=== PATIENT | male | born 1945 | race Caucasian/White ===

== ENCOUNTER → 2024-03-09 12:14 | Outpatient (REF) | payer OTHER, SELFPAY ==
[2024-03-09 15:16] LABS: % Basophils 1.7 % (0-2); % Immature Granulocytes 0.6 % (0-0.5); % Lymphocytes 25.3 % (20.5-51.1); % Monocytes 10.5 % (1.7-9.3); % Neutrophils 57.9 % (42.2-75.2); Absolute Basophils 0.2 10^3/uL (0-0.2); Absolute Eosinophils 0.4 10^3/uL (0-0.7); Absolute Immature Granulocytes 0.1 10^3/uL (0-0.05); Absolute Lymphocytes 2.3 10^3/uL (1.2-3.4); Absolute Monocytes 0.9 10^3/uL (0.1-0.6); Absolute Neutrophils 5.2 10^3/uL (1.4-6.5); Hematocrit 43.7 % (39.0-52.0); Hemoglobin 13.6 g/dL (13.0-18.0); Mean Corp Hgb Conc. 31.1 g/dL (33.0-37.0); Mean Corpuscular Volume 96.5 fL (80.0-94.0); Mean Platelet Volume 9.6 fL (7.4-10.4); Nucleated Red Blood Cells % 0 % (-); Platelet Count 373 10^3/uL (130-400); Red Blood Cell Count 4.53 10^6/uL (4.70-6.10)
[2024-03-09 15:30] LABS: ALT (SGPT) 16 U/L (0-50); AST (SGOT) 17 U/L (17-59); Albumin 3.8 g/dl (3.5-5.0); Alkaline Phosphatase 110 U/L (38-126); Blood Urea Nitrogen 12 mg/dl (9-20); Calcium 8.9 mg/dl (8.4-10.2); Carbon Dioxide 25 mmol/L (22-30); Chloride 99 mmol/L (98-107); Glucose 120 mg/dl (70-99); HDL Cholesterol 37 mg/dl; LDL Cholesterol, Calculated 55 mg/dl; Potassium 4.4 mmol/L (3.5-5.1); Sodium 135 mmol/L (135-145); Total Bilirubin 0.3 mg/dl (0.2-1.3); Total Cholesterol 125 mg/dl (50-199); Total Protein 6.6 g/dl (6.3-8.2); Triglyceride 168 mg/dl (10-149); Very Low Density Lipoprotein 33 mg/dl (0-30); eGFR > 60.00
== END ==
LOC: OLABN 12:14
PROVIDERS: ATTENDING PHYSICIAN Student in an Organized Health Care Education/Training Program
DX: G20.C Parkinsonism, unspecified (principal); J18.0 Bronchopneumonia, unspecified organism; E78.5 Hyperlipidemia, unspecified
CPT/HCPCS: 36415; 80053; 80061; 85025

== ENCOUNTER 2024-07-12 14:18 | Inpatient (IN) | payer MEDICARE, OTHER, SELFPAY ==
[2024-07-12 10:43] VITALS: BMI 29.1
[2024-07-12 10:51] VITALS: BP 174/106
--- NOTE | 2024-07-12 12:54 | ED.GENMED ---
History of Present Illness
General
Chief Complaint: Skin Problem
Source: patient and family
Time Seen by Provider: 07/12/24 11:46
History of Present Illness
History of Present Illness:
79-year-old male with past medical history of wkv-qjpmkiv-udszpqqgc diabetes, Guillain-Chand�, Parkinson's disease, prostate cancer and had [place] of [place] brought to the ER by daughter for evaluation
and concern of surgical site infection noting patient has had increased redness, edema, pain and oozing. No reported fevers but patient states may have had some chills last night. Patient was not given any antibiotics following the procedure.
Daughters major is that a family member had a similar procedure on their lower extremity about a year ago that got infected and required significant hospitalization, rehab and near amputation of the extremity.
Past History
Past History
ED Past Medical History: Cancer, NIDDM and Other (Guillain-Chand�, Parkinson's disease)
ED Past Surgical History: Other
Social History
Tobacco: Non-smoker
Alcohol: None
Drug: None
Personal:
Living: with family
Employment: Employed
Review of Systems
Review of Systems
All Other Systems: ROS reviewed and negative except as documented in HPI and ROS
Phy Exam
Physical Exam
Physical Exam:
GENERAL: Alert , in no apparent distress
EYE: conjunctiva clear
Head: Normocephalic atraumatic
NECK: Supple,
ENT: mmm.
LUNGS: no acute respiratory distress
NEUROLOGICAL: Alert and oriented
SKIN: Warm and dry, Large approximately 5 cm surgical site with sutures in place to the dorsal left forearm, there is a moderate surrounding area of erythema, edema, or warmth and induration. No purulence expressed. Remainder of extremity is
within normal limits, full range of motion and neurovascularly intact
MUSCULOSKELETAL: well perfused.
PSYCH: Normal and appropriate interaction.
Scores
Heart Failure Risk
Heart Failure Risk Score: Not Applicable
Heart Score for Chest Pain Patients
STEMI patient?: Not applicable
Withdrawal Assessment of Alcohol
Withdrawal Assessment Completed?: Not applicable
Course
Orders/Labs/Results
Orders:
Orders
07/12/24 12:08
CR Forearm - Left 2 View Urgent
Comment:
Reason For Exam: recent surgery, concern for infection
07/12/24 12:22
Basic Metabolic Panel Urgent
Complete Blood Count/With Diff Urgent
Blood Culture Q30M
SHAWN Source: Blood/Venous
Specimen Description:
07/12/24 12:40
Vancomycin [Vancocin] 2,000 mg 0.9% Sodium Chloride 500 ml [Nss] 500 ml IV NOW
07/12/24 12:44
Blood Culture Q30M
SHAWN Source: Blood/Venous
Specimen Description:
07/12/24 13:41
Admit/Transfer Patient As Directed
Co-Sign Provider:
Level of Care: Inpatient admission
Assign to:: Medical/Surgical
Physician / Group: daniella
Diagnosis: surgical site infection
Reason for Hospitalization: surgical site infection
Expected length of stay greater than two midnights?: Yes
ELOS- Estimated Length of Stay in days: 2
I certify the patient meets the requirements for IP care: Yes
PRN Pain Medication Management As Directed
May give lesser potent ordered pain med per pt: Yes
preference::
Protocol:: Medication orders for pain may be administered in a
manner that supports deferring to patient preference
when the pt is:
- Requesting an ordered lesser potent pain medication.
Least to most potent pain medications are defined
as: acetaminophen < NSAID < tramadol < opioids
(morphine, oxycodone, hydromorphone).
- Requesting a lesser dose of the same medication IF
ORDERED.
- Requesting a less intrusive route of administration
if both routes are prescribed by the provider (PO <
IV).
07/12/24 13:42
Code Status As Directed
Resuscitation Status: Full Code
07/12/24 13:53
Ondansetron Injectable [Zofran] 4 mg IV NOW STA
07/12/24 Dinner
Regular
At Your Request: Full Participation
Does patient need a safe tray?: Yes
07/12/24 15:54
Acetaminophen [Tylenol] 650 mg PO Q4HPRN PRN
Dextrose 50%-Water [Dextrose 50% Syringe] 12.5 grams IV [id number] PRN
Glucagon [GlucaGen] 1 mg IM PRN PRN
VANCOMYCIN Pharmacy to Dose [VANCOCIN Pharmacy to Dose] 1 each Pharmacy To Prepare [Call Pharmacy To Prepare] 0 ml IV PER PROTOCOL
07/12/24 15:54
Activity As Directed
Activity Level: As Tolerated
Bedside Glucose Monitoring As Directed
Frequency: AC&HS
Additional Instructions:: Change to q6h if pt on TPN, tube feeding or not eating
Vital Signs As Directed
Frequency: Per unit guidelines
DX Deep Vein Thrombosis Video Routine
07/12/24 16:30
Insulin Aspart Corrective Low [Novolog Flexpen-Low Resistance] See Protocol SC AC
07/12/24 20:00
Heparin 5,000 units SC Q12
Ondansetron Injectable [Zofran] 4 mg IV Q6HPRN PRN
07/13/24 06:00
Complete Blood Count/With Diff IN AM
Comprehensive Metabolic Panel IN AM
Glycohemoglobin (HgbA1c) IN AM
Abnormal Lab Results
07/12/24
12:22
RBC 4.48 L 10^6/uL
(4.70-6.10)
MCV 96.9 H fL
(80.0-94.0)
MCH 32.4 H pg
(27.0-31.0)
RDW 15.0 H %
(11.5-14.5)
Absolute Neuts (auto) 7.0 H 10^3/uL
(1.4-6.5)
Absolute Monos (auto) 0.9 H 10^3/uL
(0.1-0.6)
Lymphocytes % 20.3 L %
(20.5-51.1)
Carbon Dioxide 31 H mmol/L
(22-30)
Glucose 200 H mg/dl
(70-99)
07/12/24 12:22
07/12/24 12:22
Vital Signs
Initial and Last Documented VS:
Initial Vital Signs
Temp Pulse Resp BP Pulse Ox
98.8 F 93 18 174/106 95
07/12/24 10:51 07/12/24 10:51 07/12/24 10:51 07/12/24 10:51 07/12/24 10:51
Last Documented Vital Signs
Temp Pulse Resp BP Pulse Ox
98.4 F 73 18 124/70 93
07/12/24 16:25 07/12/24 16:25 07/12/24 16:25 07/12/24 16:25 07/12/24 16:25
MDM/Problems Addressed
Differential Diagnosis Includes:
Postop wound infection, inflammatory response, at this time I do not have concern for necrotizing fasciitis
MDM/Problems Addressed:
79-year-old male presenting to the ER for evaluation after daughter is concerned and suspicious for postoperative wound infection. Surgical procedure this past Saturday, the last 48 hours patient and daughter have noticed increased erythema,
warmth, pain and induration. No purulence here on exam. Patient is afebrile. Discussed different treatment options including outpatient management with antibiotics and wound monitoring however daughter states her concern is the potential for
wound to get worse and given the family history but they have gone through recently is preferring the patient be admitted for IV antibiotics and close monitoring which I do think is reasonable especially given the patient's history of diabetes.
Will initiate IV vancomycin. ID can be consulted as needed. Will plan for admission.
Chronic conditions affecting care: DM
*Radiology
Radiology exam reviewed: preliminary read by ED provider (Soft tissue swelling, no subcutaneous gas)
*Pulse Oximetry
Patient hypoxic: no
*Critical Care Note
Total Time (30-74mins, 75-104mins- exclusive of procedures): Not Applicable
Patient Management
Discussion with other providers: Hospitalist
Escalation/DeEscalation of care consider admission/obs:
Hospitalist team accepts for continued evaluation and treatment of left forearm cellulitis postoperatively
ED Attending Note
-
Portions of this chart may have been created with voice recognition software.� Occasional wrong word or��sound alike� substitutions may have occurred due to the inherent limitations of voice recognition software.
Discharge Plan
Departure
Patient Disposition: Admit
Date of Disposition: 07/12/24
Time of Disposition: 13:33
Presentation/result/management discussed w/ accepting MD/DO: Hospitalist
Discharge Problem:
Cellulitis of forearm, left, Postoperative wound cellulitis
Interventions
Interventions:
*Risk Screen - Suicide Last Done: 07/12/24 16:26
*General Assessment Last Done: 07/12/24 10:54
*Neglect/Abuse Screening Last Done: 07/12/24 10:54
*ED- Fall Risk Assessment Last Done: 07/12/24 11:09
*ED COVID-19 Vaccine History Last Done: 07/12/24 16:26
*Nursing Disposition Last Done: 07/12/24 15:29
ED-Skin Assessment Last Done: 07/12/24 11:09
Discharge Date and Time
Discharge Date/Time: 07/12/24 15:45
[2024-07-12] MEDS: VANCOCIN 540 MG IV (12:57)
[2024-07-12 13:00] VITALS: BP 159/78
[2024-07-12 13:02] LABS: % Basophils 0.9 % (0-2); % Eosinophils 1.8 % (0-6); % Immature Granulocytes 0.4 % (0-0.5); % Lymphocytes 20.3 % (20.5-51.1); % Monocytes 8.6 % (1.7-9.3); Absolute Basophils 0.1 10^3/uL (0-0.2); Absolute Eosinophils 0.2 10^3/uL (0-0.7); Absolute Lymphocytes 2.1 10^3/uL (1.2-3.4); Absolute Monocytes 0.9 10^3/uL (0.1-0.6); Hematocrit 43.4 % (39.0-52.0); Hemoglobin 14.5 g/dL (13.0-18.0); Mean Corp Hgb Conc. 33.4 g/dL (33.0-37.0); Mean Corpuscular Hgb 32.4 pg (27.0-31.0); Mean Corpuscular Volume 96.9 fL (80.0-94.0); Mean Platelet Volume 9.8 fL (7.4-10.4); Nucleated Red Blood Cells % 0 % (-); Platelet Count 274 10^3/uL (130-400); Red Blood Cell Count 4.48 10^6/uL (4.70-6.10); White Blood Cell Count 10.2 10^3/uL (4.8-10.8)
--- NOTE | 2024-07-12 13:02 | EDRN ---
Provided pt with extra pillow, blanket and lunch box/cristian dalia.
[2024-07-12 13:16] LABS: Blood Urea Nitrogen 12 mg/dl (9-20); Calcium 9.5 mg/dl (8.4-10.2); Carbon Dioxide 31 mmol/L (22-30); Chloride 104 mmol/L (98-107); Estimated Creatinine Clearance 110 ml/min; Glucose 200 mg/dl (70-99); Potassium 4.3 mmol/L (3.5-5.1); Sodium 140 mmol/L (135-145); eGFR > 60.00
[2024-07-12 14:00] VITALS: BP 161/79
--- NOTE | 2024-07-12 14:05 | HPS.HSE ---
Addendum entered and electronically signed by Vic Hutchinson MD 07/12/24 18:14:
Patient vapes marijuana.
Original Note:
Family Physician
-
Family Physician: Tone Mccord
Chief Complaint
-
left forearm infection
History of Present Illness
79-year-old male past medical history of diabetes, Guillain-Chand�, Parkinson disease, prostate cancer, melanoma removal of left forearm 4 days ago, rheumatoid arthritis, polymyalgia rheumatica, presenting for concern of surgical site infection with
redness, edema and pain and wheezing of the left forearm starting last night. He had melanoma removal of left forearm 4 days ago. No fever but he may have had some chills last night. He was not given any antibiotics after the procedure. Denies
any drainage from the site.
Former smoker. Drinks alcohol occasionally.
Medical History
Past Medical History
Past Medical History: Reports Other (diabetes, Guillain-Chand�, Parkinson disease, prostate cancer, melanoma removal of left forearm 4 days ago, rheumatoid arthritis, polymyalgia rheumatica)
Past Surgical History: Reports None
Social History
Tobacco: Non-smoker
Alcohol: None
Drug: None
Family History
Family History: Not pertinent
Allergies / Home Medications
Allergies reflects when Allergies were last updated in [employer].
Home Medications with original date entered in [employer]
Allergy/Medication List:
Allergies
Allergy/AdvReac Type Severity Reaction Status Date / Time
No Known Allergies Allergy Verified 07/12/24 10:52
Home Medications
meloxicam 7.5 mg tablet 7.5 mg PO BID #14 tabs 12/19/16
Review of Systems
-
History Source: Patient
A 12 point ROS was completed and negative except as noted: Yes
Constitutional: Reports No Symptoms
EENT: Reports No Symptoms
Respiratory: Reports No Symptoms
Cardiac: Reports No Symptoms
Abdomen/GI: Reports No Symptoms
: Reports No Symptoms
Musculoskeletal: Reports No Symptoms
Skin: Reports See HPI
Neurological: Reports No Symptoms
Endocrine: Reports No Symptoms
Hematologic/Lymphatic: Reports No Symptoms
Psych: Reports No Symptoms
Physical Exam
Vital Signs
Vital Signs
Temp Pulse Resp BP Pulse Ox
98.8 F 79 16 159/78 99
07/12/24 10:51 07/12/24 13:00 07/12/24 13:00 07/12/24 13:00 07/12/24 13:00
Physical Exam
General: Well Developed, Well Nourished and No Apparent Distress
HEENT: NormoCephalic, Moist mucous membranes and Atraumatic
Respiratory: Clear
Cardiac: S1/S2 and Regular Rhythm; No Murmur or Rub
GI: Soft, Non Tender, Non Distended and Normal Bowel Sounds; No Organomegaly
Rectal: Deferred by Provider
Musculoskeletal: No Clubbing, No Cyanosis and No Edema
Skin: Other (keft forearm redness and swelling ); No Rash
Neuro: Nonfocal/grossly intact
Laboratory Results
-
07/12/24 12:22
07/12/24 12:22
Data Reviewed
-
Lab Data: Labs Reviewed by me
Old Records: Reviewed
Impression/Plan
-
IMPRESSION:
PLAN:
# Left forearm surgical site infection after recent biopsy for melanoma
-Blood cultures pending
-Forearm x-ray pending
- Vancomycin
Melanoma status post forearm resection 4 days ago
Type 2 diabetes
- Continue sitagliptin
- Insulin sliding scale
Guillain-Chand� syndrome
Parkinson's disease
- Continue carbidopa levodopa
Dementia
- Continue donepezil
Rheumatoid arthritis
Polymyalgia rheumatica
Prostate cancer
Hyperlipidemia
- Continue Zetia
Anxiety/depression
- Continue Cymbalta, mirtazapine
Full code
DVT prophylaxis�heparin
Regular diet
[2024-07-12] MEDS: ZOFRAN 4 MG IV (14:06)
[2024-07-12 16:25] VITALS: BP 124/70
--- NOTE | 2024-07-12 16:25 | PHA.VAN.IN ---
Assessment
- Assessment
Renal Function: Appears similar to baseline
AUC Dosing Plan
- Dosing Variables
Dosing Weight (kg): 111
Dosing CrCl (ml/min): 110
Vd coefficient (L/kg): 0.7
- Empiric Dosing
Initial / Loading Dose: Vancomycin 2000mg given 5/ at 1300
Maintenance Regimen: Vancomycin 1500mg IV Q12h
Estimated AUC (mcg*h/mL): 432
Estimated Peak (mcg*h/mL): 28.3
Estimated Trough (mcg/ml): 10.3
Estimated Half Life (H): 7.2
- Monitoring
No levels ordered at this time: Will order levels prior to steady state
Pharmacokinetics Vancomycin I
- -
Patient Age: 79
Patient Sex: Male
Vancomycin Day #: 1
Indication: Skin And Soft Tissue
Requesting Provider: Dr. Hutchinson
Pertinent Antimicrobial Allergies:
NKA
Height / Weight:
Height 6 ft 5 in
Actual Weight 111.13 kg
Pertinent Past Medical History: BMI ~29, recent resection of melanoma 4 days ago, RA, diabetes
- Vital Signs / Lab Results
Temp Pulse Resp BP Pulse Ox
98.8 F 84 16 161/79 99
07/12/24 10:51 07/12/24 14:00 07/12/24 14:00 07/12/24 14:00 07/12/24 13:00
Lab Results - Hematology
07/12/24
12:22
WBC 10.2
Lab Results - Chemistry
07/12/24
12:22
BUN 12
Creatinine 0.7
Estimated Creat Clear 110
[2024-07-12 16:39] VITALS: BMI 29.1
[2024-07-12 17:02] LABS: Glucose - Point of Care 157 mg/dl (70-99)
[2024-07-12] MEDS: NOVOLOG FLEXPEN-LOW RESISTANCE 1 UNITS SC (17:15)
[2024-07-12] MEDS: LOVENOX 40 MG SC (17:16)
[2024-07-12] MEDS: SINEMET 25-100 PO (18:24)
[2024-07-12] MEDS: DILAUDID 0.5 MG IV ×2 (18:30→23:11)
[2024-07-12] MEDS: REMERON PO (18:40)
[2024-07-12] MEDS: NIZORAL 2% CREAM 1 APPLIC TOPICAL (19:38)
[2024-07-12] MEDS: TYLENOL 650 MG PO (19:50)
[2024-07-12 21:38] LABS: Glucose - Point of Care 212 mg/dl (70-99)
[2024-07-12 23:03] VITALS: BP 118/66
[2024-07-13] MEDS: VANCOCIN 530 MG IV ×2 (03:53→17:09)
[2024-07-13] MEDS: DILAUDID 0.5 MG IV ×4 (06:06→20:25)
[2024-07-13 06:52] VITALS: BP 145/85
[2024-07-13] MEDS: HYDROPHOR 1 APPLIC TOPICAL (07:35)
[2024-07-13] MEDS: LAC HYDRIN, AM LACTIN LOTION 1 APPLIC TOPICAL (07:35)
[2024-07-13] MEDS: JANUVIA 25 MG PO (07:36)
[2024-07-13] MEDS: THERAGRAN 1 TABLET PO (07:36)
[2024-07-13] MEDS: ARICEPT 20 MG PO (07:36)
[2024-07-13] MEDS: ZETIA 10 MG PO (07:36)
[2024-07-13] MEDS: SINEMET 25-100 2 TABLET PO ×3 (07:36→17:08)
[2024-07-13] MEDS: VITAMIN B-12 1000 MCG PO (07:36)
[2024-07-13] MEDS: OSCAL 500 + D 250 MG PO (07:36)
[2024-07-13] MEDS: CYMBALTA DELAYED RELEASE 60 MG PO (07:36)
[2024-07-13] MEDS: NIZORAL 2% CREAM 1 APPLIC TOPICAL ×2 (07:38→19:28)
[2024-07-13 07:53] LABS: Glucose - Point of Care 163 mg/dl (70-99)
[2024-07-13 08:02] LABS: ALT (SGPT) 15 U/L (0-50); AST (SGOT) 15 U/L (17-59); Albumin 3.5 g/dl (3.5-5.0); Alkaline Phosphatase 87 U/L (38-126); Blood Urea Nitrogen 9 mg/dl (9-20); Calcium 8.5 mg/dl (8.4-10.2); Carbon Dioxide 28 mmol/L (22-30); Chloride 104 mmol/L (98-107); Estimated Creatinine Clearance 110 ml/min; Glucose 180 mg/dl (70-99); Potassium 4.2 mmol/L (3.5-5.1); Sodium 137 mmol/L (135-145); Total Bilirubin 0.7 mg/dl (0.2-1.3); Total Protein 6.1 g/dl (6.3-8.2); eGFR > 60.00
[2024-07-13 08:04] LABS: % Basophils 0.7 % (0-2); % Eosinophils 1.4 % (0-6); % Immature Granulocytes 0.5 % (0-0.5); % Lymphocytes 14.7 % (20.5-51.1); % Monocytes 9.4 % (1.7-9.3); % Neutrophils 73.3 % (42.2-75.2); Absolute Basophils 0.1 10^3/uL (0-0.2); Absolute Eosinophils 0.2 10^3/uL (0-0.7); Absolute Immature Granulocytes 0.1 10^3/uL (0-0.05); Absolute Lymphocytes 1.9 10^3/uL (1.2-3.4); Absolute Monocytes 1.2 10^3/uL (0.1-0.6); Absolute Neutrophils 9.7 10^3/uL (1.4-6.5); Hematocrit 42.6 % (39.0-52.0); Hemoglobin 13.9 g/dL (13.0-18.0); Mean Corp Hgb Conc. 32.6 g/dL (33.0-37.0); Mean Corpuscular Hgb 32.3 pg (27.0-31.0); Mean Corpuscular Volume 98.8 fL (80.0-94.0); Mean Platelet Volume 10.3 fL (7.4-10.4); Nucleated Red Blood Cells % 0 % (-); Platelet Count 259 10^3/uL (130-400); Red Blood Cell Count 4.31 10^6/uL (4.70-6.10); White Blood Cell Count 13.2 10^3/uL (4.8-10.8)
--- NOTE | 2024-07-13 08:26 | PHA.VAN.FU ---
Vancomycin Assessment / Plan
- Assessment
Renal Function: Stable
WBC's are: Trending Up
In the past 24 hrs, patient has been: Afebrile
- Dosing Plan
Continue: Vanc 1500mg Q12H
- Monitoring Plan
No level(s) ordered at this time: consider levels in next few days
- Follow Up
Pharmacy will continue to follow.
Vancomycin Follow UP
- -
Patient Age: 79
Patient Sex: Male
Vancomycin Day #: 2
Indication: Skin And Soft Tissue
Requesting Provider: Dr. Hutchinson
Pertinent Antimicrobial Allergies:
NKDA
Height / Weight:
Height 6 ft 5 in
Actual Weight 111.221 kg
Pertinent Past Medical History: DM 2, Parkinson disease
- Vital Signs / Lab Results
Temp Pulse Resp BP Pulse Ox
98.7 F 70 18 145/85 96
07/13/24 06:52 07/13/24 06:52 07/13/24 06:52 07/13/24 06:52 07/13/24 06:52
Lab Results - Hematology
07/12/24 07/13/24
12:22 06:31
WBC 10.2 13.2 H
Lab Results - Chemistry
07/12/24 07/13/24
12:22 06:31
BUN 12 9
Creatinine 0.7 0.7
Estimated Creat Clear 110 110
Albumin 3.5
[2024-07-13] MEDS: NOVOLOG FLEXPEN-LOW RESISTANCE 1 UNITS SC ×3 (08:39→17:07)
[2024-07-13 10:19] LABS: Glycohemoglobin (HgbA1c) 8.1 % (4.0-5.6)
[2024-07-13 12:06] LABS: Glucose - Point of Care 161 mg/dl (70-99)
[2024-07-13 15:30] VITALS: BP 137/78
--- NOTE | 2024-07-13 15:37 | W.PN.HOSP.TC ---
Today's Communication/Plan
-
Assessment / Plan
Assessment / Plan
General: No Apparent Distress, Comfortable and Conversant
HEENT: NormoCephalic, Moist mucous membranes, Atraumatic
Respiratory: Clear and Non Labored Respirations
Cardiac: S1/S2 and Regular Rhythm; No Rub or Gallop
GI: Soft, Non Tender, Non Distended and Normal Bowel Sounds
Musculoskeletal: No Edema, no deformity
Skin: Warm and dry, left forearm surgical excision site with surrounding erythema and drainage
: NO De Jesus
Neuro: Awake, Alert, Nonfocal/grossly intact
Psych: Calm and Intact Judgment/Insight
Mr. Cannon is a 79-year-old male with medical history of Parkinson disease, Guillain-Chand�, prostate cancer, xdt-kqezqex-twcjimetg diabetes mellitus, rheumatoid arthritis, polymyalgia rheumatica, and melanoma (status post excision left forearm 4
days prior to arrival) who presented with pain and swelling at surgical excision site. He reports associated chills with no recorded fever. He has been started on antibiotics and admitted for further evaluation and management of apparent infection
of surgical excision site.
Infection of surgical excision site:
- Left forearm melanoma surgically excised 4 days prior to arrival, site now appears swollen and erythematous
- Continue vancomycin, follow-up wound and blood cultures
- ID consult forearm x-ray shows no subcutaneous gas or foreign bodies
- Continue tight blood glucose control
Qka-aohxudf-junyqeart diabetes mellitus:
- Not well-controlled, hemoglobin A1c 8.1%
- Continue home sitagliptin with additional sliding scale insulin as needed
Parkinson's disease:
- Continue carbidopa levodopa
- Continue donepezil for dementia
Anxiety and depression:
- Continue Cymbalta and mirtazapine
DVT prophylaxis: Lovenox
CODE STATUS: Full code
Total time spent on today's encounter was 45 minutes
Anticipated Discharge: 24 - 48 hours
Subjective/Interval History
-
Date of Service: July 13, 2024
Patient was seen and examined at bedside this morning. Reports no significant change in the pain and swelling in his left forearm at site of the melanoma excision.
Objective Data
-
Labs:
Laboratory Results
07/13/24
06:31
WBC 13.2 H
Hgb 13.9
Hct 42.6
Plt Count 259
Sodium 137
Potassium 4.2
Chloride 104
Carbon Dioxide 28
BUN 9
Creatinine 0.7
Glucose 180 H
Calcium 8.5
Total Bilirubin 0.7
AST 15 L
ALT 15
Alkaline Phosphatase 87
Vital Signs:
Vital Signs
Temp Pulse Resp BP Pulse Ox
98.7 F 70 18 145/85 99
07/13/24 06:52 07/13/24 06:52 07/13/24 06:52 07/13/24 06:52 07/13/24 07:35
I&O
07/12/24 07/13/24 07/14/24
06:59 06:59 06:59
Intake Total 480 / 480
Balance 480 / 480
Review of Systems
-
History Source: Patient
All other systems: Reviewed and negative
Skin: Reports Other (Left forearm melanoma excision site pain and swelling)
Physical Exam
-
General: No Apparent Distress
--- NOTE | 2024-07-13 16:21 | W.PN.UPDATE ---
Update Note
Progress Note Update
I personally performed a history and physical exam of the patient and discussed management with the resident. I reviewed the resident's seperately documented note and agree with the documented findings and plan of care HPI/CC with the following
additions/corrections:
Mr Cannon is a 79 year old male with history of melanoma removal from the L forearm 4 days prior to arrival, DM2 (a1c 8.1), RA/PMR who developed chills, erythema, edema and weaping from the L surgical site starting 07/11, he presented here 07/12 and is
currently on vancomycin
labs reviewed
Assessment and Plan
Surgical site infection
Melamona
- wound culture
- blood cultures x2 in progress
- check qtc
- CT left upper extremity with IV contrast to assess for deeper collections
- patient [facility]
- agree with vancomycin for present
- add cefepime
- follow clinically
--- NOTE | 2024-07-13 16:46 | CON.ID ---
Addendum entered and electronically signed by Yesenia Mott MD 07/13/24 20:22:
I personally performed a history and physical exam of the patient and discussed management with the resident. I reviewed the resident's seperately documented note and agree with the documented findings and plan of care HPI/CC with the following
additions/corrections:
Mr Cannon is a 79 year old male with history of melanoma removal from the L forearm 4 days prior to arrival, DM2 (a1c 8.1), RA/PMR who developed chills, erythema, edema and weaping from the L surgical site starting 07/11, he presented here 07/12 and is
currently on vancomycin
labs reviewed
Assessment and Plan
Surgical site infection
Melamona
- wound culture
- blood cultures x2 in progress
- check qtc
- CT left upper extremity with IV contrast to assess for deeper collections
- patient reports [facility]
- agree with vancomycin for present
- add cefepime
- follow clinically
Original Note:
Consultation
-
Date/Time Consultation Requested: 07/13/2024 10:45
Date/Time Consultation Performed: 07/13/2024 11:20
Requesting Provider: Ravi Armstrong
Performing Provider: Yesenia Mott MD
Reason for Consultation: Left forearm excision site infection
Chief Complaint / Past History
Chief Complaint
Surgical site infection
History of Present Illness
Mr. Cannon is a 79-year-old male with PMH of NIDDM, GBS, Parkinson's disease, prostate cancer, PMR, melanoma s/p surgical resection of left forearm and melanoma for this [employer]. He was brought to the ED on 07/12 by her daughter due to increased redness,
it edema, pain and oozing of surgical site. Reports surgical site weeping on 07/11. Patient reports he was not on any antibiotics after the procedure. Patient reports associated chills but denies fever, palpitations, dizziness, chest pain or
shortness of breath, nausea, vomiting, diarrhea.
Past History
Past Medical History: Other
Additional Past Medical History:
NIDDM
Guillain-Chand� syndrome
Parkinson disease
Prostate cancer
Melanoma (removal of left forearm 4 days ago, rheumatoid arthritis, polymyalgia rheumatica)
Past Surgical History: Other (Melanoma resection)
Allergy History:
No Known Allergies Allergy (Verified 07/12/24 10:52)
Medications Reviewed: Yes
Social History
Tobacco: Vaping (Marijuana)
Alcohol: None
Drug: None
Living: With Family
Employment: Not Employed
Family History
Family History: Not Pertinent
Review of Systems
Review of Systems
General: Negative Fever or Chills
Cardiovascular: Negative Chest Pain, Edema or Palpitations
Respiratory: Negative Dyspnea
Gasteroenterology: Negative Weight Loss, Nausea, Vomiting or Diarrhea
Musculoskeletal: Negative Joint Pain or Joint Swelling
Neurological: Negative Headache
All systems: All other systems were reviewed and were negative
Vital Signs
Temp Pulse Resp BP Pulse Ox
98.3 F 72 17 137/78 92
07/13/24 15:30 07/13/24 15:30 07/13/24 15:30 07/13/24 15:30 07/13/24 15:30
Physical Exam
Physical Exam
Constitutional: No Acute Distress and Comfortable
Eyes: Pupils Equal and No Conjunctival Hemorrhage
Cardiovascular: Regular Rate and S1/S2; Negative Peripheral Edema
Pulmonary: Clear and Symmetric; Negative Wheezes
Gastrointestinal: Soft and Non Tender
Extremities: Negative Edema
Musculoskeletal: Negative Joint Swelling or Joint Effusion
Skin: Warm and Dry
Wound: Other (Left upper extremity surgical wound with stitches, mild erythema no discharge.)
Neurological: Awake and AO x 3
Psychological: Calm
Lab / Diagnostic Study Results
07/13/24 06:31
07/13/24 06:31
Abs Immat Gran (auto) 0.1 10^3/uL (0-0.05) H 07/13/24 06:31
Absolute Neuts (auto) 9.7 10^3/uL (1.4-6.5) H 07/13/24 06:31
Absolute Lymphs (auto) 1.9 10^3/uL (1.2-3.4) 07/13/24 06:
Absolute Monos (auto) 1.2 10^3/uL (0.1-0.6) H 07/13/24 06:31
Absolute Basos (auto) 0.1 10^3/uL (0-0.2) 07/13/24 06:31
Immature Gran % 0.5 % (0-0.5) 07/13/24 06:
Neutrophils % 73.3 % (42.2-75.2) 07/13/24 06:
Lymphocytes % 14.7 % (20.5-51.1) L 07/13/24 06:
Monocytes % 9.4 % (1.7-9.3) H 07/13/24 06:31
Eosinophils % 1.4 % (0-6) 07/13/24 06:31
Basophils % 0.7 % (0-2) 07/13/24 06:31
Microbiology Results
Micro:
07/12/24 12:22 Blood Culture - Preliminary
Blood/Venous No Growth in 24 hours- Final report to follow
07/12/24 12:44 Blood Culture - Preliminary
Blood/Venous No Growth in 24 hours- Final report to follow
Assessment / Plan
Assessment: 79-year-old male with recent melanoma resection 4 days [employer] presenting with pain and swelling at surgical sites.
Plan:
Surgical site infection
- Melanoma.
- WBC count 13.2, patient has been afebrile.
- Left forearm x-ray unremarkable.
- CT of left UE with IV contrast to assess for deep collections.
- Blood cultures x 2 obtained NGTD, will follow-up.
- Wound cultures pending.
- Continue vancomycin, cefepime added.
- Will continue to follow.
Care Review
Plan reviewed with: Physician
[2024-07-13 16:54] LABS: Glucose - Point of Care 155 mg/dl (70-99)
[2024-07-13] MEDS: LOVENOX 40 MG SC (17:08)
[2024-07-13] MEDS: REMERON 30 MG PO (17:08)
[2024-07-13] MEDS: STERILE WATER FOR INJECTION 10 ML IV (17:11)
[2024-07-13] MEDS: MAXIPIME 2000 MG IV (17:11)
[2024-07-13 21:38] LABS: Glucose - Point of Care 232 mg/dl (70-99)
[2024-07-13 23:29] VITALS: BP 151/84
[2024-07-14] MEDS: VANCOCIN 530 MG IV ×2 (05:05→17:42)
[2024-07-14] MEDS: STERILE WATER FOR INJECTION 10 ML IV ×2 (05:06→17:34)
[2024-07-14] MEDS: MAXIPIME 2000 MG IV ×2 (05:06→17:34)
[2024-07-14 07:04] VITALS: BP 130/74
[2024-07-14 07:58] LABS: % Basophils 0.7 % (0-2); % Eosinophils 1.9 % (0-6); % Immature Granulocytes 0.2 % (0-0.5); % Lymphocytes 16.3 % (20.5-51.1); % Monocytes 10.7 % (1.7-9.3); % Neutrophils 70.2 % (42.2-75.2); Absolute Basophils 0.1 10^3/uL (0-0.2); Absolute Eosinophils 0.2 10^3/uL (0-0.7); Absolute Monocytes 1.3 10^3/uL (0.1-0.6); Absolute Neutrophils 8.6 10^3/uL (1.4-6.5); Hematocrit 38.7 % (39.0-52.0); Hemoglobin 13.1 g/dL (13.0-18.0); Mean Corp Hgb Conc. 33.9 g/dL (33.0-37.0); Mean Corpuscular Volume 97.5 fL (80.0-94.0); Mean Platelet Volume 10.1 fL (7.4-10.4); Nucleated Red Blood Cells % 0 % (-); Platelet Count 242 10^3/uL (130-400); Red Blood Cell Count 3.97 10^6/uL (4.70-6.10); Red Cell Dist. Width 14.8 % (11.5-14.5); White Blood Cell Count 12.2 10^3/uL (4.8-10.8)
[2024-07-14 08:00] LABS: Glucose - Point of Care 188 mg/dl (70-99)
[2024-07-14] MEDS: DILAUDID 0.5 MG IV ×3 (08:01→18:06)
[2024-07-14] MEDS: NOVOLOG FLEXPEN-LOW RESISTANCE 1 UNITS SC ×3 (08:01→17:33)
[2024-07-14] MEDS: JANUVIA 25 MG PO (08:02)
[2024-07-14] MEDS: ZETIA 10 MG PO (08:04)
[2024-07-14] MEDS: CYMBALTA DELAYED RELEASE 60 MG PO (08:04)
[2024-07-14] MEDS: OSCAL 500 + D 250 MG PO (08:04)
[2024-07-14] MEDS: ARICEPT 20 MG PO (08:05)
[2024-07-14] MEDS: THERAGRAN 1 TABLET PO (08:05)
[2024-07-14] MEDS: VITAMIN B-12 1000 MCG PO (08:05)
[2024-07-14] MEDS: HYDROPHOR 1 APPLIC TOPICAL (08:05)
[2024-07-14] MEDS: LAC HYDRIN, AM LACTIN LOTION 1 APPLIC TOPICAL (08:06)
[2024-07-14] MEDS: NIZORAL 2% CREAM 1 APPLIC TOPICAL ×2 (08:07→19:42)
--- NOTE | 2024-07-14 08:19 | PN.DE.MGMTRT ---
Insulin Management
- -
07/14/2024 Diabetes Management Consult
Patient admitted 07/12 with L forearm infection s/p removal of melanoma 07/08 @ [facility] Parkinsons, Guillain [place], prostate CA, melanoma l arm. Prior to admission was taking Januvia 25 mg daily. A1C 8.1%, cr .7, eGFR > 60.
Patient is awake alert and oriented able to discuss diabetes care. Daughter, Brynn, at bedside and very supportive.
Glucose range 155 to 232, on regular diet. Will change diet to 2200 calorie. Will increase Januvia, 25 mg given this AM, will give additional 50 mg now and increase to 100 mg daily starting tomorrow. Patient has glucose monitor, recommended
testing fasting and 2 hours after alternating meals and provide results to primary doctor.
Discussed with nurse
Will follow
Diabetes History
- -
Type of Diabetes: 2
Pre-Admission Diabetes Regimen
Lab Results
Hemoglobin A1c 8.1 % (4.0-5.6) H 07/13/24 06:31
Insulin Pump Settings
IP Diabetes Regimen
07/13/24 07/13/24 07/13/24
12:05 16:53 21:37
POC Glucose 161 H 155 H 232 H
07/14/24
07:59
POC Glucose 188 H
Meal type: Breakfast
Amount consumed: 25%
Patient Education
[2024-07-14 08:23] LABS: Blood Urea Nitrogen 8 mg/dl (9-20); Calcium 8.4 mg/dl (8.4-10.2); Carbon Dioxide 29 mmol/L (22-30); Chloride 103 mmol/L (98-107); Estimated Creatinine Clearance 110 ml/min; Glucose 155 mg/dl (70-99); Sodium 137 mmol/L (135-145); eGFR > 60.00
--- NOTE | 2024-07-14 08:24 | PHA.VAN.FU ---
Vancomycin Assessment / Plan
- Assessment
Renal Function: Stable
WBC's are: Stable
In the past 24 hrs, patient has been: Afebrile
Concomitant Antimicrobials: cefepime
- Dosing Plan
Continue: Vanc 1500mg Q12H
- Monitoring Plan
No level(s) ordered at this time: consider levels in next few days
Monitoring Comments: received IV contrast 07/14
- Follow Up
Pharmacy will continue to follow.
Vancomycin Follow UP
- -
Patient Age: 79
Patient Sex: Male
Vancomycin Day #: 3
Indication: Skin And Soft Tissue
Requesting Provider: Dr. Hutchinson
Pertinent Antimicrobial Allergies:
NKDA
Height / Weight:
Height 6 ft 5 in
Actual Weight 111.221 kg
Pertinent Past Medical History: DM 2, Parkinson disease, s/p resection for melanoma
- Vital Signs / Lab Results
Temp Pulse Resp BP Pulse Ox
98.0 F 65 18 130/74 94
07/14/24 07:04 07/14/24 07:04 07/14/24 07:04 07/14/24 07:04 07/14/24 07:04
Lab Results - Hematology
07/12/24 07/13/24 07/14/24
12:22 06:31 06:56
WBC 10.2 13.2 H 12.2 H
Lab Results - Chemistry
07/12/24 07/13/24 07/14/24
12:22 06:31 06:56
BUN 12 9 8 L
Creatinine 0.7 0.7 0.7
Estimated Creat Clear 110 110 110
Albumin 3.5
Microbiology Results
07/13/24 16:43 Gram Stain - Preliminary
Arm - Left
07/12/24 12:22 Blood Culture - Preliminary
Blood/Venous No Growth in 24 hours- Final report to follow
07/12/24 12:44 Blood Culture - Preliminary
Blood/Venous No Growth in 24 hours- Final report to follow
[2024-07-14] MEDS: SINEMET 25-100 2 TABLET PO ×3 (08:40→17:33)
[2024-07-14] MEDS: JANUVIA 50 MG PO (09:41)
[2024-07-14] MEDS: ZOFRAN 4 MG IV (10:08)
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
[2024-07-14 11:30] LABS: Glucose - Point of Care 158 mg/dl (70-99)
--- NOTE | 2024-07-14 14:55 | W.PN.HOSP.TC ---
Today's Communication/Plan
-
Assessment / Plan
Assessment / Plan
General: No Apparent Distress, Comfortable and Conversant
HEENT: NormoCephalic, Moist mucous membranes, Atraumatic
Respiratory: Clear and Non Labored Respirations
Cardiac: S1/S2 and Regular Rhythm; No Rub or Gallop
GI: Soft, Non Tender, Non Distended and Normal Bowel Sounds
Musculoskeletal: No Edema, no deformity
Skin: Warm and dry, left forearm surgical excision site with surrounding erythema and drainage
: NO De Jesus
Neuro: Awake, Alert, Nonfocal/grossly intact
Psych: Calm and Intact Judgment/Insight
Mr. Cannon is a 79-year-old male with medical history of Parkinson disease, Guillain-Chand�, prostate cancer, rvv-jyaqwqt-eogmttwju diabetes mellitus, rheumatoid arthritis, polymyalgia rheumatica, and melanoma (status post excision left forearm 4
days prior to arrival) who presented with pain and swelling at surgical excision site. He reports associated chills with no recorded fever. He has been started on antibiotics and admitted for further evaluation and management of apparent infection
of surgical excision site.
Infection of surgical excision site:
- Left forearm melanoma surgically excised 4 days prior to arrival, site now appears swollen and erythematous
- Now on vancomycin with addition of cefepime per ID recommendations
- Wound cultures growing Staph aureus, sensitivities pending
- CT imaging of left forearm shows subcutaneous edema with no evidence of abscess, joint effusion, or osteomyelitis
- Continue tight blood glucose control, appreciate assistance of diabetic management nurse practitioner
Nfj-cmosseb-dxrpytxde diabetes mellitus:
- Not well-controlled, hemoglobin A1c 8.1%
- Continue home sitagliptin with additional sliding scale insulin as needed
- Appreciate assistance from diabetic management nurse practitioner
Parkinson's disease:
- Continue carbidopa levodopa
- Continue donepezil for dementia
Anxiety and depression:
- Continue Cymbalta and mirtazapine
DVT prophylaxis: Lovenox
CODE STATUS: Full code
Total time spent on today's encounter was 35 minutes
Anticipated Discharge: 24 - 48 hours
Subjective/Interval History
-
Date of Service: July 14, 2024
Patient was seen and examined at bedside this morning. Continues have significant left forearm pain. Planning CT of left arm today. Leukocytosis slightly improved.
Objective Data
-
Labs:
Laboratory Results
07/14/24
06:56
WBC 12.2 H
Hgb 13.1
Hct 38.7 L
Plt Count 242
Sodium 137
Potassium 4.0
Chloride 103
Carbon Dioxide 29
BUN 8 L
Creatinine 0.7
Glucose 155 H
Calcium 8.4
Vital Signs:
Vital Signs
Temp Pulse Resp BP Pulse Ox
98.0 F 65 18 130/74 94
07/14/24 07:04 07/14/24 07:04 07/14/24 07:04 07/14/24 07:04 07/14/24 07:04
I&O
07/13/24 07/14/24 07/15/24
06:59 06:59 06:59
Intake Total 480 / 480 780 / 780
Balance 480 / 480 780 / 780
Review of Systems
-
History Source: Patient
All other systems: Reviewed and negative
Musculoskeletal: Reports Muscle Pain (Significant left forearm pain)
Physical Exam
-
General: No Apparent Distress
[2024-07-14 15:25] VITALS: BP 122/72
[2024-07-14 17:23] LABS: Glucose - Point of Care 156 mg/dl (70-99)
[2024-07-14] MEDS: REMERON 30 MG PO (17:33)
[2024-07-14] MEDS: LOVENOX 40 MG SC (17:34)
--- NOTE | 2024-07-14 19:40 | W.PN.ID1 ---
Date of Service
Date of Service: July 14, 2024
Today's Communication
- wound culture with S aureus and progression despite what is anticipated to be effective therapy; recommend general surgery consultation in the AM to consider suture removal. Note that s aureus tends to form biofilms and there is a risk of relapse
with the foreign body of the sutures
- continue with vancomycin for present
- continue cefepime for now
Assessment / Plan
Assessment and Plan
Surgical site infection
Melamona
- wound culture with S aureus and progression despite what is anticipated to be effective therapy; recommend general surgery consultation in the AM to consider suture removal. Note that s aureus tends to form biofilms and there is a risk of relapse
with the foreign body of the sutures
- CT did not show an abscess
- blood cultures x2 in progress - no growth to date
- obtain records from [facility]
- qtc [id number]
- patient reports pathology is still pending at the [facility]
- continue with vancomycin for present
- continue cefepime for now
- follow clinically
Chief Complaint
-: Other (surgical site infection)
Subjective / Review of Systems
afebrile
bp stable
progression of the wound with increased swelling and tenderness
no other complaints
Vital Signs / Physical Exam
Vital Signs
Vital Signs
Temp Pulse Resp BP Pulse Ox
98.1 F 72 18 122/72 92
07/14/24 15:25 07/14/24 15:25 07/14/24 15:25 07/14/24 15:25 07/14/24 15:25
Physical Exam
Constitutional: No Acute Distress
Cardiovascular: Regular Rate and S1/S2; Negative Murmur or Rub
Pulmonary: Clear and Symmetric; Negative Wheezes or Rales
Gastrointestinal: Soft, Non Tender, Non Distended and Normal Bowel Sounds
Skin: Warm and Dry; Negative Rash or Jaundice
Wound: Other (L arm surgical site with increased edema, erythema, ongoing serous drainage)
Objective Data
Lab Data
Lab Results
07/14/24 06:56
07/14/24 06:56
Estimated Creat Clear 110 ml/min 07/14/24 06:56
Total Bilirubin 0.7 mg/dl (0.2-1.3) 07/13/24 06:31
AST 15 U/L (17-59) L 07/13/24 06:31
ALT 15 U/L (0-50) 07/13/24 06:31
Alkaline Phosphatase 87 U/L (38-126) 07/13/24 06:31
Most recent labs reviewed.
Micro Results:
07/12/24 12:22 Blood Culture - Preliminary
Blood/Venous No Growth in 48 hours- Final report to follow
07/12/24 12:44 Blood Culture - Preliminary
Blood/Venous No Growth in 48 hours- Final report to follow
07/13/24 16:43 Wound Culture - Preliminary
Arm - Left Staphylococcus aureus
Gram Stain - Preliminary
Care Review
Plan reviewed with: Physician (Dr Sharp - recommend am surgical consult)
[2024-07-14 21:36] LABS: Glucose - Point of Care 177 mg/dl (70-99)
[2024-07-14 22:10] VITALS: BP 128/72
[2024-07-14] MEDS: PERCOCET 5/325 1 TABLET PO (22:21)
[2024-07-15] MEDS: MAXIPIME 2000 MG IV (05:02)
[2024-07-15] MEDS: VANCOCIN 530 MG IV (05:03)
[2024-07-15] MEDS: STERILE WATER FOR INJECTION 10 ML IV (05:03)
[2024-07-15 07:04] VITALS: BP 131/74
[2024-07-15 07:06] LABS: % Eosinophils 3.2 % (0-6); % Immature Granulocytes 0.5 % (0-0.5); % Lymphocytes 19.6 % (20.5-51.1); % Monocytes 11.6 % (1.7-9.3); % Neutrophils 64.1 % (42.2-75.2); Absolute Basophils 0.1 10^3/uL (0-0.2); Absolute Eosinophils 0.3 10^3/uL (0-0.7); Absolute Immature Granulocytes 0.1 10^3/uL (0-0.05); Absolute Monocytes 1.2 10^3/uL (0.1-0.6); Absolute Neutrophils 6.7 10^3/uL (1.4-6.5); Hematocrit 38.9 % (39.0-52.0); Hemoglobin 12.9 g/dL (13.0-18.0); Mean Corp Hgb Conc. 33.2 g/dL (33.0-37.0); Mean Corpuscular Hgb 32.7 pg (27.0-31.0); Mean Corpuscular Volume 98.5 fL (80.0-94.0); Mean Platelet Volume 9.9 fL (7.4-10.4); Nucleated Red Blood Cells % 0 % (-); Platelet Count 245 10^3/uL (130-400); Red Blood Cell Count 3.95 10^6/uL (4.70-6.10); Red Cell Dist. Width 14.6 % (11.5-14.5); White Blood Cell Count 10.4 10^3/uL (4.8-10.8)
[2024-07-15 07:36] LABS: Blood Urea Nitrogen 8 mg/dl (9-20); Calcium 8.6 mg/dl (8.4-10.2); Carbon Dioxide 28 mmol/L (22-30); Chloride 103 mmol/L (98-107); Estimated Creatinine Clearance 110 ml/min; Glucose 143 mg/dl (70-99); Potassium 3.8 mmol/L (3.5-5.1); Sodium 138 mmol/L (135-145); eGFR > 60.00
--- NOTE | 2024-07-15 07:40 | PN.DE.MGMTRT ---
Insulin Management
- -
07/15/2024 Diabetes Management Consult Follow up
Patient admitted 07/12 with L forearm infection s/p removal of melanoma 07/08 @ [place] Parkinson's, Guillain [place], prostate [place], melanoma l arm. Prior to admission was taking Januvia 25 mg daily. A1C 8.1%, cr .7, eGFR > 60.
Patient is awake alert and oriented able to discuss diabetes care. Daughter, Brynn, at bedside and very supportive. Glucose range 156 to 188, diet 2200 calorie. Januvia increased 100 mg to be given this AM.
Patient has glucose monitor, recommended testing fasting and 2 hours after alternating meals and provide results to primary doctor.
Discussed with nurse
Will follow
Diabetes History
- -
Type of Diabetes: 2
Pre-Admission Diabetes Regimen
07/14/24 07/15/24
06:56 06:29
Creatinine 0.7 0.7
Lab Results
Hemoglobin A1c 8.1 % (4.0-5.6) H 07/13/24 06:31
Insulin Pump Settings
IP Diabetes Regimen
07/14/24 07/14/24 07/14/24
06:56 07:59 11:29
Glucose 155 H
POC Glucose 188 H 158 H
07/14/24 07/14/24 07/15/24
17:22 21:35 06:29
Glucose 143 H
POC Glucose 156 H 177 H
Meal type: Breakfast
Amount consumed: 80%
Patient Education
[2024-07-15 07:48] LABS: Glucose - Point of Care 167 mg/dl (70-99)
[2024-07-15] MEDS: NOVOLOG FLEXPEN-LOW RESISTANCE 1 UNITS SC ×2 (07:55→11:53)
[2024-07-15] MEDS: OSCAL 500 + D 250 MG PO (07:57)
[2024-07-15] MEDS: VITAMIN B-12 1000 MCG PO (07:57)
[2024-07-15] MEDS: ZETIA 10 MG PO (07:57)
[2024-07-15] MEDS: CYMBALTA DELAYED RELEASE 60 MG PO (07:57)
[2024-07-15] MEDS: JANUVIA 100 MG PO (07:58)
[2024-07-15] MEDS: ARICEPT 20 MG PO (07:58)
[2024-07-15] MEDS: THERAGRAN 1 TABLET PO (07:58)
[2024-07-15] MEDS: HYDROPHOR 1 APPLIC TOPICAL (07:58)
[2024-07-15] MEDS: LAC HYDRIN, AM LACTIN LOTION 1 APPLIC TOPICAL (07:59)
[2024-07-15] MEDS: NIZORAL 2% CREAM 1 APPLIC TOPICAL ×2 (07:59→19:33)
[2024-07-15] MEDS: SINEMET 25-100 2 TABLET PO ×3 (08:01→16:58)
[2024-07-15] MEDS: DILAUDID 0.5 MG IV ×3 (08:02→23:09)
--- NOTE | 2024-07-15 11:03 | CON.GS ---
Addendum entered and electronically signed by Tate Melendez MD 07/15/24 14:58:
I saw and examined the patient.
The resident's note was reviewed and I agree with the note with the following corrections/additions:
Comment: Seen at bedside. 5 days s/p left forearm melanoma excision. On exam wound is erythematous, fluctuant, tender, warm, there is seropurulent drainage primarily from inferior pole. Plan for bedside irrigation and debridement:
Procedure in detail:
Top layer prolene running stitch removed with scissors and forceps. Deep dermal interrupted vicryl sutrures cut with scissors and wound gently opened. Cultures obtained. Wound irrigated with sterile water. Saline oist gauze packing gently placed and
covered with abd pad and wrapped in archana wrap below elbow.
Pt tolerated procedure well. GS will see tomorrow for wound check and dressing change. OK to reinforce dressing as needed in the interim.
Original Note:
Consultation
-
Date/Time Consultation Requested: 07/15/2024 08:12 AM
Date/Time Consultation Performed: 07/15/2024 10:00 AM
Requesting Provider: Ravi Lambert
Performing Provider: Tate Wilson
Reason for Consultation: Left forearm cellulitis
Medical History
-
Chief Complaint: Left forearm pain and swelling
History of Present Illness:
Patient is a 79-year-old male, full code, with a past medical history of left forearm melanoma, Parkinson's disease, [place] Chand, prostate cancer, uuz-gnsvlis-cuzvaunev diabetes mellitus, rheumatoid arthritis, polymyalgia rheumatica who had
presented to the ED for developing chills, edema, erythema, weeping from left surgical site starting on 07/11/2024. Sutures remain in place. He previously had a melanoma surgically excised on 07/10/2024. No fever on admission.
Upper extremity CT on 07/14/24 showed no abscess, focal collection, osteomyelitis
Blood cultures grew Staph Aureus
ID consulted
Past Medical History
Past Medical History: Other (see HPI)
Past Surgical History: Other
Social History
Tobacco: Former Smoker
Alcohol: Occasional
Drug: None
Personal:
Living: With Family
Employment: Employed
Family History
Family History: Reviewed & Not Pertinent
Allergies / Home Medications
Allergy/AdvReac Type Severity Reaction Status Date / Time
No Known Allergies Allergy Verified 07/12/24 10:52
�Medication �Instructions �Recorded �Confirmed �Type
ammonium lactate 12 % lotion 1 applic topical DAILY back and 07/12/24 07/12/24 History
arms-SKIN ISSUES
calcium 250 mg (as 1 tab PO DAILY Supplement 07/12/24 07/12/24 History
carbonate)-vitamin D3 3.125 mcg
(125 unit) tablet (Oyster Shell +
D3)
carbidopa 25 mg-levodopa 100 mg 2 tab PO TID@0830,1230,1630 07/12/24 07/12/24 History
tablet Neurological Condition
cyanocobalamin (vitamin B-12) 1,000 mcg PO DAILY Supplement 07/12/24 07/12/24 History
1,000 mcg tablet
donepezil 10 mg tablet 20 mg PO DAILY Neurological 07/12/24 07/12/24 History
Condition
duloxetine 60 mg capsule,delayed 60 mg PO DAILY Mental 07/12/24 07/12/24 History
release Health/Anxiety
ezetimibe 10 mg tablet 10 mg PO DAILY High Cholesterol 07/12/24 07/12/24 History
fluticasone propionate 50 1 spray intranasal DAILYPRN PRN 07/12/24 07/12/24 History
mcg/actuation nasal allergies
spray,suspension
ketoconazole 2 % topical cream 1 applic topical BID Skin Issues 07/12/24 07/12/24 History
melatonin 10 mg capsule 10 mg PO HS PRN sleep 07/12/24 07/12/24 History
mineral oil-hydrophil petrolat 1 applic topical DAILY feet and 07/12/24 07/12/24 History
topical ointment legs-SKIN ISSUES
mirtazapine 30 mg tablet 30 mg PO DAILY@1630 Mental 07/12/24 07/12/24 History
Health/Anxiety
sitagliptin 25 mg tablet 25 mg PO DAILY Diabetes 07/12/24 07/12/24 History
therapeutic multivitamin 1 tab PO DAILY Supplement 07/12/24 07/12/24 History
Review of Systems
-
History Source: Patient
All other systems: Negative unless noted
Skin: Other (Edema, tenderness, erythema of left forearm surgical site wound )
A 10 point review of systems was completed, and was negative except as per HPI.
Physical Exam
Vital Signs
Temp Pulse Resp BP Pulse Ox
98.5 F 65 20 131/74 93
07/15/24 07:04 07/15/24 07:04 07/15/24 07:04 07/15/24 07:04 07/15/24 07:04
Body Mass Index (BMI) 29.1
Lab Results
07/15/24 06:29
07/15/24 06:29
WBC 10.4 10^3/uL (4.8-10.8) 07/15/24 06:29
Hgb 12.9 g/dL (13.0-18.0) L 07/15/24 06:29
Hct 38.9 % (39.0-52.0) L 07/15/24 06:29
Plt Count 245 10^3/uL (130-400) 07/15/24 06:29
Abs Immat Gran (auto) 0.1 10^3/uL (0-0.05) H 07/15/24 06:29
Neutrophils % 64.1 % (42.2-75.2) 07/15/24 06:29
Physical Exam
General: Well Developed and Well Nourished
Respiratory: Clear; Negative Wheezes, Rales or Rhonchi
Cardiac: S1/S2 and Regular Rhythm; Negative Murmur
GI: Soft, Non Tender, Non Distended and Normal Bowel Sounds
Musculoskeletal: No Edema
Skin: Warm, Dry and Other (Left forearm with edema, warmth, erythema. Sutures are in place from prior excision of melanoma. Weeping is present with serous fluid, no purulence. Surrounding skin tender to palpation.)
Neuro: Awake and Alert
Psych: Calm
Data Reviewed
-
Labs: Labs Reviewed by me and Discussed with Physician
Assessment / Plan
-
Left forearm cellulitis s/p melanoma excision
Due to Staphylococcus aureus infection confirmed on blood cultures:
- CT scan of the upper extremity on 07/14 did not show a focal collection, abscess, osteomyelitis
- Blood cultures grew Staphylococcus aureus
- Continue patient on IV vancomycin and cefepime as per ID recommendations
- Planning on suture removal to prevent formation of biofilms from Staphylococcus aureus and to crane helper in recovery
- Continue tight blood glucose control, diabetic management nurse practitioner is following
As per management of medical team:
- Dis-nuwwzay-frpfsryis diabetes mellitus
- Parkinson's disease
-Anxiety and depression
[2024-07-15 11:51] LABS: Glucose - Point of Care 153 mg/dl (70-99)
--- NOTE | 2024-07-15 13:51 | PHA.VAN.FU ---
Vancomycin Assessment / Plan
- Assessment
Renal Function: Stable
WBC's are: Trending Down
In the past 24 hrs, patient has been: Afebrile (cefepime)
- Dosing Plan
Continue: vancomycin 1500 mg Q12H
- Monitoring Plan
Peak Level: 5.7 @ 2100
Trough Level: 5.8 @ 0530
- Follow Up
Pharmacy will continue to follow.
Vancomycin Follow UP
- -
Patient Age: 79
Patient Sex: Male
Vancomycin Day #: 4
Indication: Skin And Soft Tissue
Requesting Provider: Dr. Hutchinson
Pertinent Antimicrobial Allergies:
NKDA
Height / Weight:
Height 6 ft 5 in
Actual Weight 111.221 kg
Pertinent Past Medical History: DM 2, Parkinson disease, s/p resection for melanoma
- Vital Signs / Lab Results
Temp Pulse Resp BP Pulse Ox
98.5 F 65 20 131/74 93
07/15/24 07:04 07/15/24 07:04 07/15/24 07:04 07/15/24 07:04 07/15/24 07:04
Lab Results - Hematology
07/13/24 07/14/24 07/15/24
06:31 06:56 06:29
WBC 13.2 H 12.2 H 10.4
Lab Results - Chemistry
07/13/24 07/14/24 07/15/24
06:31 06:56 06:29
BUN 9 8 L 8 L
Creatinine 0.7 0.7 0.7
Estimated Creat Clear 110 110 110
Albumin 3.5
Microbiology Results
07/12/24 12:22 Blood Culture - Preliminary
Blood/Venous No Growth in 72 hours- Final report to follow
07/12/24 12:44 Blood Culture - Preliminary
Blood/Venous No Growth in 72 hours- Final report to follow
07/13/24 16:43 Wound Culture - Final
Arm - Left S aureus-Methicillin Sensitive
Gram Stain - Final
[2024-07-15] MEDS: DILAUDID 1 MG IV (14:21)
[2024-07-15 15:11] VITALS: BP 152/82
--- NOTE | 2024-07-15 15:27 | W.PN.HOSP.TC ---
Today's Communication/Plan
-
Assessment / Plan
Assessment / Plan
General: No Apparent Distress, Comfortable and Conversant
HEENT: NormoCephalic, Moist mucous membranes, Atraumatic
Respiratory: Clear and Non Labored Respirations
Cardiac: S1/S2 and Regular Rhythm; No Rub or Gallop
GI: Soft, Non Tender, Non Distended and Normal Bowel Sounds
Musculoskeletal: No Edema, no deformity
Skin: Warm and dry, left forearm surgical excision site with surrounding erythema and purulent drainage
: NO De Jesus
Neuro: Awake, Alert, Nonfocal/grossly intact
Psych: Calm and Intact Judgment/Insight
Mr. Cannon is a 79-year-old male with medical history of Parkinson disease, Guillain-Chand�, prostate cancer, dxh-xsfuiih-ybtcssgfn diabetes mellitus, rheumatoid arthritis, polymyalgia rheumatica, and melanoma (status post excision left forearm 4
days prior to arrival) who presented with pain and swelling at surgical excision site. He reports associated chills with no recorded fever. He has been started on antibiotics and admitted for further evaluation and management of apparent infection
of surgical excision site.
Infection of surgical excision site:
- Left forearm melanoma surgically excised 4 days prior to arrival, site now appears swollen and erythematous
- Now on vancomycin with addition of cefepime per ID recommendations
- Wound cultures growing MSSA
- CT imaging of left forearm shows subcutaneous edema with no evidence of abscess, joint effusion, or osteomyelitis
- Evaluated by general surgery today, sutures removed and wound irrigated, repeat cultures obtained, moist gauze packing in place, to be reevaluated tomorrow
- Continue tight blood glucose control, appreciate assistance of diabetic management nurse practitioner
Ksr-kvkbqbo-dafrpcigl diabetes mellitus:
- Not well-controlled, hemoglobin A1c 8.1%
- Continue home sitagliptin with additional sliding scale insulin as needed
- Appreciate assistance from diabetic management nurse practitioner
Parkinson's disease:
- Continue carbidopa levodopa
- Continue donepezil for dementia
Anxiety and depression:
- Continue Cymbalta and mirtazapine
DVT prophylaxis: Lovenox
CODE STATUS: Full code
Total time spent on today's encounter was 35 minutes
Anticipated Discharge: 24 - 48 hours
Subjective/Interval History
-
Date of Service: July 15, 2024
Patient was seen and examined at bedside this morning. Continues to have significant left forearm pain. Has purulent and sanguinous drainage from his excision site.
Objective Data
-
Labs:
Laboratory Results
07/15/24
06:29
WBC 10.4
Hgb 12.9 L
Hct 38.9 L
Plt Count 245
Sodium 138
Potassium 3.8
Chloride 103
Carbon Dioxide 28
BUN 8 L
Creatinine 0.7
Glucose 143 H
Calcium 8.6
Vital Signs:
Vital Signs
Temp Pulse Resp BP Pulse Ox
97.7 F 69 18 152/82 98
07/15/24 15:11 07/15/24 15:11 07/15/24 15:11 07/15/24 15:11 07/15/24 15:11
I&O
07/14/24 07/15/24 07/16/24
06:59 06:59 06:59
Intake Total 780 / 780 1500 / 1500
Balance 780 / 780 1500 / 1500
Review of Systems
-
History Source: Patient
All other systems: Reviewed and negative
Musculoskeletal: Reports Muscle Pain (Significant left forearm pain at excision site)
Physical Exam
-
General: No Apparent Distress
--- NOTE | 2024-07-15 16:18 | W.PN.ID1 ---
Date of Service
Date of Service: July 15, 2024
Today's Communication
- start cefazolin 2 gm IV q8 hours
- add metronidazole pending anaerobic culture
- stop vancomycin and cefepime
Assessment / Plan
Assessment and Plan
Surgical site infection
Melamona
- 07/13 superficial wound culture with MSSA
- 07/15 deep wound culture and anaerobic cultures in progress
- blood cultures x2 in progress - no growth to date
- obtain records from [facility] - record request is on the chart but not yet received
- qtc 416
- appreciate surgical assistance with suture removal
- start cefazolin 2 gm IV q8 hours
- add metronidazole pending anaerobic culture
- stop vancomycin and cefepime
- follow clinically
Chief Complaint
-: Other (surgical site infection)
Subjective / Review of Systems
afebrile
bp stable
sutures removed at bedside by general surgery
Vital Signs / Physical Exam
Vital Signs
Vital Signs
Temp Pulse Resp BP Pulse Ox
97.7 F 69 18 152/82 98
07/15/24 15:11 07/15/24 15:11 07/15/24 15:11 07/15/24 15:11 07/15/24 15:11
Physical Exam
Constitutional: No Acute Distress
Cardiovascular: Regular Rate and S1/S2; Negative Murmur or Rub
Pulmonary: Clear and Symmetric; Negative Wheezes or Rales
Gastrointestinal: Soft, Non Tender, Non Distended and Normal Bowel Sounds
Skin: Warm and Dry; Negative Rash or Jaundice
Wound: Other (dressing clean, dry, intact)
Objective Data
Lab Data
Lab Results
07/15/24 06:29
07/15/24 06:29
Estimated Creat Clear 110 ml/min 07/15/24 06:29
Total Bilirubin 0.7 mg/dl (0.2-1.3) 07/13/24 06:31
AST 15 U/L (17-59) L 07/13/24 06:31
ALT 15 U/L (0-50) 07/13/24 06:31
Alkaline Phosphatase 87 U/L (38-126) 07/13/24 06:31
Most recent labs reviewed.
Micro Results:
07/15/24 14:51 Anaerobic Culture - Pending
Arm - Left
07/15/24 14:51 Wound Culture - Pending
Arm - Left Gram Stain - Pending
07/12/24 12:22 Blood Culture - Preliminary
Blood/Venous No Growth in 72 hours- Final report to follow
07/12/24 12:44 Blood Culture - Preliminary
Blood/Venous No Growth in 72 hours- Final report to follow
07/13/24 16:43 Wound Culture - Final
Arm - Left S aureus-Methicillin Sensitive
Gram Stain - Final
[2024-07-15 16:54] LABS: Glucose - Point of Care 140 mg/dl (70-99)
[2024-07-15] MEDS: NOVOLOG FLEXPEN-LOW RESISTANCE SC (16:58)
[2024-07-15] MEDS: REMERON 30 MG PO (16:58)
[2024-07-15] MEDS: ANCEF 10 IV (17:38)
[2024-07-15] MEDS: LOVENOX 40 MG SC (17:38)
[2024-07-15] MEDS: FLAGYL 500 MG PO (19:33)
[2024-07-15 21:41] LABS: Glucose - Point of Care 133 mg/dl (70-99)
[2024-07-15] MEDS: PERCOCET 5/325 1 TABLET PO (21:57)
[2024-07-15 23:14] VITALS: BP 143/79
[2024-07-16] MEDS: ANCEF 10 IV ×3 (02:05→17:42)
[2024-07-16 07:00] VITALS: BP 132/81
[2024-07-16] MEDS: ZETIA 10 MG PO (07:19)
[2024-07-16] MEDS: JANUVIA 100 MG PO (07:19)
[2024-07-16] MEDS: FLAGYL 500 MG PO ×2 (07:19→19:26)
[2024-07-16] MEDS: OSCAL 500 + D 250 MG PO (07:19)
[2024-07-16] MEDS: CYMBALTA DELAYED RELEASE 60 MG PO (07:19)
[2024-07-16] MEDS: VITAMIN B-12 1000 MCG PO (07:20)
[2024-07-16] MEDS: THERAGRAN 1 TABLET PO (07:20)
[2024-07-16] MEDS: LAC HYDRIN, AM LACTIN LOTION 1 APPLIC TOPICAL (07:21)
[2024-07-16] MEDS: HYDROPHOR 1 APPLIC TOPICAL (07:21)
[2024-07-16] MEDS: NIZORAL 2% CREAM 1 APPLIC TOPICAL ×2 (07:21→19:26)
[2024-07-16] MEDS: ARICEPT 20 MG PO (07:21)
[2024-07-16] MEDS: DILAUDID 0.5 MG IV ×4 (07:24→21:24)
--- NOTE | 2024-07-16 07:32 | PN.DE.MGMTRT ---
Insulin Management
- -
07/16/2024 Diabetes Management Consult Follow up
Patient admitted 07/12 with L forearm infection s/p removal of melanoma 07/08 @ [place] Parkinson's, Guillain [place], prostate [place], melanoma l arm. Prior to admission was taking Januvia 25 mg daily. A1C 8.1%, cr .7, eGFR > 60.
Patient is awake alert and oriented able to discuss diabetes care. Daughter, Brynn, at bedside and very supportive. Glucose range 133 to 153, diet 2200 calorie. Will continue Januvia 100 mg daily.
Patient has glucose monitor, recommended testing fasting and 2 hours after alternating meals and provide results to primary doctor. Provided education booklet and instructions highlighted for daughter.
Discussed with nurse
Will follow
Diabetes History
- -
Type of Diabetes: 2
Pre-Admission Diabetes Regimen
07/15/24
06:29
Creatinine 0.7
Lab Results
Hemoglobin A1c 8.1 % (4.0-5.6) H 07/13/24 06:31
Insulin Pump Settings
IP Diabetes Regimen
07/15/24 07/15/24 07/15/24
06:29 07:47 11:50
Glucose 143 H
POC Glucose 167 H 153 H
07/15/24 07/15/24
16:53 21:40
Glucose
POC Glucose 140 H 133 H
Patient Education
[2024-07-16 08:14] LABS: Glucose - Point of Care 148 mg/dl (70-99)
[2024-07-16] MEDS: NOVOLOG FLEXPEN-LOW RESISTANCE SC ×3 (08:47→17:47)
[2024-07-16] MEDS: SINEMET 25-100 2 TABLET PO ×3 (08:52→17:42)
--- NOTE | 2024-07-16 09:09 | W.PN.UPDATE ---
Update Note
Progress Note Update
I saw and evaluated the patient. I discussed the management and plan with Dr Avalos. I reviewed the resident�s separately documented note and agree with findings and plan as documented in the resident�s note with the following additions/corrections:
Subjective
'Im in significant pain 21/12' reviewed with RN
Physical Exam
Constitutional: No Acute Distress
Cardiovascular: Regular Rate and S1/S2; Negative Murmur or Rub
Pulmonary: Clear and Symmetric; Negative Wheezes or Rales
Gastrointestinal: Soft, Non Tender, Non Distended
Skin: Warm and Dry
Wound: surgical site evaluated, no odor, mild erythema, no purulence marked tenderness, redressed loosely with YAMILETH wrap
Assessment and Plan
Surgical site infection due to MSSA
S/p resection of Melamona unknown margins
- 5/ superficial wound culture with MSSA
- / deep wound culture and anaerobic cultures in progress - now also with MSSA
- blood cultures x2 in progress - no growth to date
- obtain records from [facility] if possible - record request is on the chart but not yet received - rerequested
- qtc 416
- c/w cefazolin 2 gm IV q8 hours - transition to oral therapy when discharge is planned; plan 2 week course
- c/w metronidazole pending anaerobic culture
- wound is much improved likely stable for dc in next 1-2 days
[2024-07-16 09:18] LABS: % Basophils 1.6 % (0-2); % Eosinophils 5.1 % (0-6); % Immature Granulocytes 0.4 % (0-0.5); % Lymphocytes 27.1 % (20.5-51.1); % Neutrophils 54.8 % (42.2-75.2); Absolute Basophils 0.1 10^3/uL (0-0.2); Absolute Eosinophils 0.4 10^3/uL (0-0.7); Absolute Lymphocytes 1.9 10^3/uL (1.2-3.4); Absolute Monocytes 0.8 10^3/uL (0.1-0.6); Absolute Neutrophils 3.9 10^3/uL (1.4-6.5); Hematocrit 41.1 % (39.0-52.0); Hemoglobin 13.7 g/dL (13.0-18.0); Mean Corp Hgb Conc. 33.3 g/dL (33.0-37.0); Mean Corpuscular Hgb 32.3 pg (27.0-31.0); Mean Corpuscular Volume 96.9 fL (80.0-94.0); Mean Platelet Volume 10.1 fL (7.4-10.4); Nucleated Red Blood Cells % 0 % (-); Platelet Count 278 10^3/uL (130-400); Red Blood Cell Count 4.24 10^6/uL (4.70-6.10); Red Cell Dist. Width 14.5 % (11.5-14.5); White Blood Cell Count 7.1 10^3/uL (4.8-10.8)
[2024-07-16] MEDS: PERCOCET 5/325 1 TABLET PO (09:31)
[2024-07-16 10:01] LABS: Blood Urea Nitrogen 8 mg/dl (9-20); Calcium 8.8 mg/dl (8.4-10.2); Carbon Dioxide 29 mmol/L (22-30); Chloride 103 mmol/L (98-107); Estimated Creatinine Clearance 110 ml/min; Glucose 138 mg/dl (70-99); Potassium 3.9 mmol/L (3.5-5.1); Sodium 139 mmol/L (135-145); eGFR > 60.00
[2024-07-16] MEDS: ZOFRAN 4 MG IV ×2 (10:56→14:29)
--- NOTE | 2024-07-16 11:03 | W.PN.GS2 ---
Addendum entered and electronically signed by Tate Melendez MD 07/16/24 11:44:
I saw and examined the patient.
The Clipper Operator's note was reviewed and I agree with the note with the following corrections/additions:
Comment: Afebrile, arm less painful, ROM improved, wound with clean base, no purulence, no odor, erythema improved, wound re-dressed. Rec PT for the LUE to maintain ROM. Saline w2d dressing changed daily. Abx per ID. Pls call with questions
Original Note:
Today's Communication / Plan
-
- Follow up ID
- Follow up wound cultures
Assessment / Plan
-
Left forearm cellulitis s/p melanoma excision
Due to Staphylococcus aureus infection confirmed on blood cultures:
- CT scan of the upper extremity on 07/14 did not show a focal collection, abscess, osteomyelitis
- Blood cultures grew Staphylococcus aureus
- Sutures removed on 07/15/24, wound is demonstrating appropriate healing without signs of infection, no purulence, clean in appearance. There is erythema (improving) and tenderness (improving) surrounding wound. Continue wet to dry dressings.
- Wound cultures taken on 07/15/24 still pending.
- ID stopped IV vancomycin and cefepime and now started patient on Cefazolin 2 gm IV q8h with metronidazole (pending positive anaerobes on culture)
- Continue tight blood glucose control, diabetic management nurse practitioner is following
As per management of medical team:
- Pkz-gpucriz-wfklnuyoi diabetes mellitus
- Parkinson's disease
-Anxiety and depression
Subjective Data
-
Date of Service: July 16, 2024
Patient is a 79-year-old male, full code, with a past medical history of left forearm melanoma, Parkinson's disease, [place], prostate cancer, vik-osqkchw-izkhxksbe diabetes mellitus, rheumatoid arthritis, polymyalgia rheumatica who had
presented to the ED for developing chills, edema, erythema, weeping from left surgical site starting on 07/11/2024. Sutures remain in place. He previously had a melanoma surgically excised on 07/10/2024. No fever on admission.
Upper extremity CT on 07/14/24 showed no abscess, focal collection, osteomyelitis
Blood cultures grew Staph Aureus
Li removed on 07/15/24
Objective Data
-
Intake and Output
07/15/24 07/16/24 07/17/24
06:59 06:59 06:59
Intake Total 1500 / 1500 960 / 960
Balance 1500 / 1500 960 / 960
Intake:
Oral fluids 960 / 960 960 / 960
IV piggybacks 540 / 540
Other:
How many times incontinent 1
MODERATE amount urine
How many times incontinent 1 2
SATURATED amount urine
Vital Signs
Temp Pulse Resp BP Pulse Ox
98.1 F 65 20 132/81 95
07/16/24 07:00 07/16/24 07:00 07/16/24 07:00 07/16/24 07:00 07/16/24 07:00
Lab Results
07/16/24 07:39
07/16/24 07:39
Calcium 8.8 mg/dl (8.4-10.2) 07/16/24 07:39
Total Bilirubin 0.7 mg/dl (0.2-1.3) 07/13/24 06:31
AST 15 U/L (17-59) L 07/13/24 06:31
ALT 15 U/L (0-50) 07/13/24 06:31
Alkaline Phosphatase 87 U/L (38-126) 07/13/24 06:31
Total Protein 6.1 g/dl (6.3-8.2) L 07/13/24 06:31
Albumin 3.5 g/dl (3.5-5.0) 07/13/24 06:31
Physical Exam
-
Wound on left forearm is now open with dressing after removing li on 07/15/24. Appropriate healing without signs of infection. Tenderness and erythema are noted, however improving since removal of li. No purulent drainage is noted, no
fluctuance.
[2024-07-16 11:10] VITALS: BP 135/85
[2024-07-16 12:21] LABS: Glucose - Point of Care 131 mg/dl (70-99)
--- NOTE | 2024-07-16 13:22 | W.PN.HOSP.TC ---
Addendum entered and electronically signed by Ravi Armstrong DO 07/17/24 10:56:
No, surgical site infection is not related to/associated with/due to diabetes
Original Note:
Today's Communication/Plan
-
Assessment / Plan
Assessment / Plan
General: No Apparent Distress, Comfortable and Conversant
HEENT: NormoCephalic, Moist mucous membranes, Atraumatic
Respiratory: Clear and Non Labored Respirations
Cardiac: S1/S2 and Regular Rhythm; No Rub or Gallop
GI: Soft, Non Tender, Non Distended and Normal Bowel Sounds
Musculoskeletal: No Edema, no deformity
Skin: Warm and dry, left forearm surgical excision site with sutures removed and wet-to-dry dressing in place
: NO De Jesus
Neuro: Awake, Alert, Nonfocal/grossly intact
Psych: Calm and Intact Judgment/Insight
Mr. Cannon is a 79-year-old male with medical history of Parkinson disease, Guillain-Chand�, prostate cancer, xqf-pugqyae-vpudwqvvp diabetes mellitus, rheumatoid arthritis, polymyalgia rheumatica, and melanoma (status post excision left forearm 4
days prior to arrival) who presented with pain and swelling at surgical excision site. He reports associated chills with no recorded fever. He has been started on antibiotics and admitted for further evaluation and management of apparent infection
of surgical excision site.
Infection of surgical excision site:
- Left forearm melanoma surgically excised 4 days prior to arrival, site appeared swollen and erythematous
- Antibiotics switched to Ancef 2 g every 8 hours and metronidazole based on cultures
- CT imaging of left forearm shows subcutaneous edema with no evidence of abscess, joint effusion, or osteomyelitis
- Evaluated by general surgery, sutures removed and wound irrigated, repeat cultures obtained, wet-to-dry dressing in place to be changed daily
- Continue tight blood glucose control, appreciate assistance of diabetic management nurse practitioner
- Appreciate ID and general surgery input
Weg-utrgogi-lborjoswx diabetes mellitus:
- Not well-controlled, hemoglobin A1c 8.1%
- Continue home sitagliptin with additional sliding scale insulin as needed
- Appreciate assistance from diabetic management nurse practitioner
Parkinson's disease:
- Continue carbidopa levodopa
- Continue donepezil for dementia
Anxiety and depression:
- Continue Cymbalta and mirtazapine
DVT prophylaxis: Lovenox
CODE STATUS: Full code
Total time spent on today's encounter was 35 minutes
Anticipated Discharge: 24 - 48 hours
Subjective/Interval History
-
Date of Service: July 16, 2024
Patient was seen and examined at bedside this morning. He reports improvement in his pain and mobility following suture removal and washout by general surgery yesterday.
Objective Data
-
Labs:
Laboratory Results
07/16/24
07:39
WBC 7.1
Hgb 13.7
Hct 41.1
Plt Count 278
Sodium 139
Potassium 3.9
Chloride 103
Carbon Dioxide 29
BUN 8 L
Creatinine 0.7
Glucose 138 H
Calcium 8.8
Vital Signs:
Vital Signs
Temp Pulse Resp BP Pulse Ox
98 F 51 19 135/85 95
07/16/24 11:10 07/16/24 11:10 07/16/24 11:10 07/16/24 11:10 07/16/24 11:10
I&O
07/15/24 07/16/24 07/17/24
06:59 06:59 06:59
Intake Total 1500 / 1500 960 / 960
Balance 1500 / 1500 960 / 960
Review of Systems
-
History Source: Patient
All other systems: Reviewed and negative
Musculoskeletal: Reports Joint Pain (Left forearm pain)
Physical Exam
-
General: No Apparent Distress
[2024-07-16] MEDS: DILAUDID 1 MG IV (13:58)
[2024-07-16 15:00] VITALS: BP 155/89
--- NOTE | 2024-07-16 15:01 | CM ---
Chart reviewed. Care ongoing.
Cont IV abx, will transition to oral at d/c to complete 2 week course
Poss VN need for wound dressing
Plan: Home, poss VN needs at d/c
[2024-07-16] MEDS: TIGAN 200 MG IM (15:13)
--- NOTE | 2024-07-16 16:04 | PN.CDI ---
CDI
- -
CDI:
Physician Documentation Request
Admit Date: 07/12/24 14:18
Dear Doctor Nathaniel
Patient admitted with infection of surgical excision site.
Progress notes indicate 'Yfi-lszsobl-uhhfxuftu diabetes mellitus Not well-controlled, hemoglobin A1c 8.1%'
Please clarify if a relationship exist between these conditions:
Yes, surgical site infection is related to/associated with/due to diabetes.
No, surgical site infection is not related to/associated with/due to diabetes
Unable to determine
Use of terms such as suspected, likely, concern for, or probable (associated with a specific diagnosis that is being evaluated, monitored, or treated as if it exists) are acceptable and can be coded in the inpatient setting, when documented at the
time of discharge.
Thank you,
Sofia Osborne RN, BSN
CDI Specialist
tiger text
Please use your independent medical judgment in providing your response.
--- NOTE | 2024-07-16 16:24 | W.PN.ID1 ---
Addendum entered and electronically signed by Yesenia Mott MD 07/17/24 10:43:
Progress Note Update
I saw and evaluated the patient. I discussed the management and plan with Dr Avalos. I reviewed the resident�s separately documented note and agree with findings and plan as documented in the resident�s note with the following additions/corrections:
Subjective
'Im in significant pain 21/12' reviewed with RN
Physical Exam
Constitutional: No Acute Distress
Cardiovascular: Regular Rate and S1/S2; Negative Murmur or Rub
Pulmonary: Clear and Symmetric; Negative Wheezes or Rales
Gastrointestinal: Soft, Non Tender, Non Distended
Skin: Warm and Dry
Wound: surgical site evaluated, no odor, mild erythema, no purulence marked tenderness, redressed loosely with YAMILETH wrap
Assessment and Plan
Surgical site infection due to MSSA
S/p resection of Melamona unknown margins
- 5/ superficial wound culture with MSSA
- 5/7 deep wound culture and anaerobic cultures in progress - now also with MSSA
- blood cultures x2 in progress - no growth to date
- obtain records from [facility] if possible - record request is on the chart but not yet received - rerequested
- qtc 416
- c/w cefazolin 2 gm IV q8 hours - transition to oral therapy when discharge is planned; plan 2 week course
- c/w metronidazole pending anaerobic culture
- wound is much improved likely stable for dc in next 1-2 days
AW
Original Note:
Date of Service
Date of Service: July 16, 2024
Patient seen and examined with daughter by bedside. Lying comfortably in bed complaining of pain rated 13/10 in his left arm. He also reports some chills but denies fever, headache, chest pain, SOB, nausea or vomiting. He has not had any BM for 4
days but is making urine. He does not have any urinary symptoms.
Today's Communication
Stop vancomycin and cefepime.
Continue cefazolin 2 g IV Q8H
Continue metronidazole pending anaerobic culture result
Avoid QTc prolonging agents
Assessment / Plan
79-year-old male who presented to the ED on 07/11 with chills, erythema and weeping of left surgical site.
Assessment and plan:
#Surgical site infection
#Melamona
-Superficial wound cultures 5/5 positive with MSSA.
- Deep wound cultures 5/7 positive with MSSA.
- Blood cultures x 2 07/12 NGTD.
- Anaerobic cultures 07/15 in progress.
- Vancomycin and cefepime stopped.
- Continue cefazolin 2 mg IV Q8H, metronidazole added for anaerobic coverage pending anaerobic culture results.
- ECG 07/14 with QTc 416.
- Avoid QT prolonging agents.
- Will continue to follow.
Chief Complaint
-: Other (surgical site infection)
Subjective / Review of Systems
Review of Systems: Fever, Chills, Headache, No Stiff Neck, No Cough, No Chest Pain, No Palpitations, No Abdominal Pain, No Nausea, No Vomiting, No Diarrhea, No Dysuria, No Joint Pain and No Skin Rash
Vital Signs / Physical Exam
Vital Signs
Vital Signs
Temp Pulse Resp BP Pulse Ox
98 F 51 19 135/85 95
07/16/24 11:10 07/16/24 11:10 07/16/24 11:10 07/16/24 11:10 07/16/24 11:10
Physical Exam
Constitutional: No Acute Distress
Cardiovascular: Regular Rate and S1/S2; Negative Murmur or Rub
Pulmonary: Clear and Symmetric; Negative Wheezes or Rales
Gastrointestinal: Soft, Non Tender, Non Distended and Normal Bowel Sounds
Extremities: Negative Edema
Musculoskeletal: Negative Joint Swelling
Skin: Warm and Dry; Negative Rash or Jaundice
Wound: Other (dressing clean, dry, intact)
Neurological: Awake and AO x 3
Psychological: Calm
Objective Data
Lab Data
Lab Results
07/16/24 07:39
07/16/24 07:39
Estimated Creat Clear 110 ml/min 07/16/24 07:39
Total Bilirubin 0.7 mg/dl (0.2-1.3) 07/13/24 06:31
AST 15 U/L (17-59) L 07/13/24 06:31
ALT 15 U/L (0-50) 07/13/24 06:31
Alkaline Phosphatase 87 U/L (38-126) 07/13/24 06:31
Most recent labs reviewed.
Microbiology: Report Reviewed
Micro Results:
07/15/24 14:51 Anaerobic Culture - Preliminary
Arm - Left Culture pending. Anaerobic cultures are examined after 3
days incubation. Additional information to follow.
07/15/24 14:51 Wound Culture - Preliminary
Arm - Left S aureus-Methicillin Sensitive
Gram Stain - Preliminary
07/12/24 12:22 Blood Culture - Preliminary
Blood/Venous No Growth in 4 days- Final report to follow
07/12/24 12:44 Blood Culture - Preliminary
Blood/Venous No Growth in 4 days- Final report to follow
07/13/24 16:43 Wound Culture - Final
Arm - Left S aureus-Methicillin Sensitive
Gram Stain - Final
CT Scan: Image Reviewed (No elbow joint effusion, focal collection or CT evidence of osteomyelitis) and Report Reviewed
Care Review
Plan reviewed with: Physician
[2024-07-16] MEDS: REMERON 30 MG PO (17:42)
[2024-07-16] MEDS: LOVENOX 40 MG SC (17:43)
[2024-07-16 17:45] LABS: Glucose - Point of Care 122 mg/dl (70-99)
[2024-07-16 21:20] LABS: Glucose - Point of Care 122 mg/dl (70-99)
[2024-07-16 23:51] VITALS: BP 139/68
[2024-07-17] MEDS: ANCEF 10 IV ×3 (02:02→18:04)
[2024-07-17] MEDS: DILAUDID 0.5 MG IV ×4 (02:03→16:46)
[2024-07-17 07:00] VITALS: BP 159/83
[2024-07-17 07:27] LABS: Glucose - Point of Care 124 mg/dl (70-99)
--- NOTE | 2024-07-17 08:27 | PN.DE.MGMTRT ---
Insulin Management
- -
07/17/2024: Diabetes Management Follow up
Patient admitted 07/12 with L forearm infection s/p removal of melanoma 07/08 @ [facility] Parkinson's, Guillain [place], prostate CA, melanoma l arm. Prior to admission was taking Januvia 25 mg daily. A1C 8.1%, cr .7, eGFR > 60.
Patient is awake alert and oriented able to discuss diabetes care. Daughter, Brynn, at bedside and very supportive.
Glucose stable and in range 122 to 148, diet 2200 calorie. Will continue Januvia 100 mg daily.
Patient has glucose monitor, recommended testing fasting and 2 hours after alternating meals and provide results to primary doctor. Provided education booklet and instructions highlighted for daughter.
Discussed with nurse
Will cont to follow
Diabetes History
- -
Type of Diabetes: 2
Pre-Admission Diabetes Regimen
07/16/24
07:39
Creatinine 0.7
Lab Results
Hemoglobin A1c 8.1 % (4.0-5.6) H 07/13/24 06:31
Insulin Pump Settings
IP Diabetes Regimen
07/16/24 07/16/24 07/16/24
07:39 12:20 17:44
Glucose 138 H
POC Glucose 131 H 122 H
07/16/24 07/17/24
21:19 07:25
Glucose
POC Glucose 122 H 124 H
Patient Education
[2024-07-17] MEDS: NOVOLOG FLEXPEN-LOW RESISTANCE SC ×3 (09:05→17:52)
[2024-07-17] MEDS: ZETIA 10 MG PO (09:07)
[2024-07-17] MEDS: ARICEPT 20 MG PO (09:07)
[2024-07-17] MEDS: HYDROPHOR 1 APPLIC TOPICAL (09:07)
[2024-07-17] MEDS: OSCAL 500 + D 250 MG PO (09:07)
[2024-07-17] MEDS: JANUVIA 100 MG PO (09:07)
[2024-07-17] MEDS: VITAMIN B-12 1000 MCG PO (09:07)
[2024-07-17] MEDS: CYMBALTA DELAYED RELEASE 60 MG PO (09:08)
[2024-07-17] MEDS: FLAGYL 500 MG PO ×2 (09:08→21:48)
[2024-07-17] MEDS: LAC HYDRIN, AM LACTIN LOTION 1 APPLIC TOPICAL (09:08)
[2024-07-17] MEDS: NIZORAL 2% CREAM 1 APPLIC TOPICAL ×2 (09:09→21:50)
[2024-07-17] MEDS: THERAGRAN 1 TABLET PO (09:09)
[2024-07-17] MEDS: SINEMET 25-100 2 TABLET PO ×3 (09:14→18:04)
[2024-07-17 10:01] VITALS: BP 135/73; BP 144/68; PULSE 58
[2024-07-17] MEDS: TIGAN 200 MG IM (10:32)
[2024-07-17 11:45] LABS: Glucose - Point of Care 145 mg/dl (70-99)
--- NOTE | 2024-07-17 12:35 | W.PN.ID1 ---
Addendum entered and electronically signed by Yesenia Mott MD 07/17/24 17:32:
Progress Note Update
I saw and evaluated the patient. I discussed the management and plan with Dr Avalos. I reviewed the resident�s separately documented note and agree with findings and plan as documented in the resident�s note with the following additions/corrections:
Subjective
no events recorded by nursing overnight
afebrile, bp stable
Physical Exam
Constitutional: No Acute Distress
Cardiovascular: Regular Rate and S1/S2; Negative Murmur or Rub
Pulmonary: Clear and Symmetric; Negative Wheezes or Rales
Gastrointestinal: Soft, Non Tender, Non Distended
Skin: Warm and Dry
Wound: surgical site evaluated, no odor, mild erythema, no purulence marked tenderness, redressed loosely with YAMILETH wrap
Assessment and Plan
Surgical site infection due to MSSA
S/p resection of Melamona unknown margins
- 07/13 superficial wound culture with MSSA
- 07/15 deep wound culture and anaerobic cultures in progress - now also with MSSA
- blood cultures x2 in progress - no growth to date
- c/w cefazolin 2 gm IV q8 hours - transition to keflex 500 mg po qid when discharge is planned; plan 2 week course
- c/w metronidazole pending anaerobic culture - if negative it can be dc'd likely tomorrow
- wound is much improved likely stable for dc in next 1-2 days
AW
Original Note:
Date of Service
Date of Service: July 17, 2024
Patient seen examined at bedside. Reports that pain has improved, currently rated 5/10. Reports some episodes of nausea but no vomiting. Denies fever, chills, chest pain, dysuria, diarrhea
Today's Communication
Continue cefazolin 2 mg IV Q8H, and metronidazole
Follow cultures.
Wound care.
Assessment / Plan
79-year-old male who presented to the ED on 07/11 with chills, erythema and weeping of left surgical site.
Assessment and plan:
#Surgical site infection
#Melamona
- Superficial wound cultures 5/5 positive with MSSA.
- Deep wound cultures 5/7 positive with MSSA 1 set, MSSA and gram-negative bacilli second set.
- Blood cultures x 2 07/12 NGTD.
- Anaerobic cultures 07/15 in progress.
- Vancomycin and cefepime stopped.
- Continue cefazolin 2 mg IV Q8H, metronidazole added for anaerobic coverage pending anaerobic culture results.
- ECG 07/14 with QTc 416.
- Avoid QT prolonging agents.
- Wound care.
- Will continue to follow.
Chief Complaint
-: Other (surgical site infection)
Subjective / Review of Systems
Review of Systems: Fever, Chills, Headache, No Stiff Neck, No Cough, No Chest Pain, No Palpitations, No Abdominal Pain, No Nausea, No Vomiting, No Diarrhea, No Dysuria, No Joint Pain and No Skin Rash
Vital Signs / Physical Exam
Vital Signs
Vital Signs
Temp Pulse Resp BP Pulse Ox
98 F 65 20 159/83 97
07/17/24 07:00 07/17/24 07:00 07/17/24 07:00 07/17/24 07:00 07/17/24 07:00
Physical Exam
Constitutional: No Acute Distress
Cardiovascular: Regular Rate and S1/S2; Negative Murmur or Rub
Pulmonary: Clear and Symmetric; Negative Wheezes or Rales
Gastrointestinal: Soft, Non Tender, Non Distended and Normal Bowel Sounds
Extremities: Negative Edema
Musculoskeletal: Negative Joint Swelling
Skin: Warm and Dry; Negative Rash or Jaundice
Wound: Other (dressing clean, dry, intact)
Neurological: Awake and AO x 3
Psychological: Calm
Objective Data
Lab Data
Lab Results
07/16/24 07:39
05/08/25 07:39
Estimated Creat Clear 110 ml/min 07/16/24 07:39
Total Bilirubin 0.7 mg/dl (0.2-1.3) 07/13/24 06:31
AST 15 U/L (17-59) L 07/13/24 06:31
ALT 15 U/L (0-50) 07/13/24 06:31
Alkaline Phosphatase 87 U/L (38-126) 07/13/24 06:31
Most recent labs reviewed.
Micro Results:
07/15/24 14:51 Anaerobic Culture - Preliminary
Arm - Left Culture pending. Anaerobic cultures are examined after 3
days incubation. Additional information to follow.
07/15/24 14:51 Wound Culture - Preliminary
Arm - Left S aureus-Methicillin Sensitive
Gram negative bacilli
Gram Stain - Preliminary
07/12/24 12:22 Blood Culture - Preliminary
Blood/Venous No Growth in 4 days- Final report to follow
07/12/24 12:44 Blood Culture - Preliminary
Blood/Venous No Growth in 4 days- Final report to follow
07/13/24 16:43 Wound Culture - Final
Arm - Left S aureus-Methicillin Sensitive
Gram Stain - Final
Care Review
Plan reviewed with: Physician
[2024-07-17] MEDS: DILAUDID 1 MG PO (12:44)
--- NOTE | 2024-07-17 14:45 | W.PN.HOSP.TC ---
Today's Communication/Plan
-
Assessment / Plan
Assessment / Plan
General: No Apparent Distress, Comfortable and Conversant
HEENT: NormoCephalic, Moist mucous membranes, Atraumatic
Respiratory: Clear and Non Labored Respirations
Cardiac: S1/S2 and Regular Rhythm; No Rub or Gallop
GI: Soft, Non Tender, Non Distended and Normal Bowel Sounds
Musculoskeletal: No Edema, no deformity
Skin: Warm and dry, left forearm surgical excision site with sutures removed and wet-to-dry dressing and Edgar wrap in place
: NO De Jesus
Neuro: Awake, Alert, Nonfocal/grossly intact
Psych: Calm and Intact Judgment/Insight
Mr. Cannon is a 79-year-old male with medical history of Parkinson disease, Guillain-Chand�, prostate cancer, rcx-zvcdexs-zxtkwlugy diabetes mellitus, rheumatoid arthritis, polymyalgia rheumatica, and melanoma (status post excision left forearm 4
days prior to arrival) who presented with pain and swelling at surgical excision site. He reports associated chills with no recorded fever. He has been started on antibiotics and admitted for further evaluation and management of apparent infection
of surgical excision site.
Infection of surgical excision site:
- Left forearm melanoma surgically excised 4 days prior to arrival, site appeared swollen and erythematous
- Improving
- Continue Ancef 2 g every 8 hours and metronidazole based on cultures
- CT imaging of left forearm shows subcutaneous edema with no evidence of abscess, joint effusion, or osteomyelitis
- Evaluated by general surgery, sutures removed and wound irrigated, repeat cultures obtained, wet-to-dry dressing to be changed daily, surgery now signed off
- Continue tight blood glucose control, appreciate assistance of diabetic management nurse practitioner
- Appreciate ID input
Dlr-qskypek-zcuuscbpi diabetes mellitus:
- Not well-controlled initially, hemoglobin A1c 8.1%
- Continue home sitagliptin with additional sliding scale insulin as needed
- Appreciate assistance from diabetic management nurse practitioner
Parkinson's disease:
- Continue carbidopa levodopa
- Continue donepezil for dementia
Anxiety and depression:
- Continue Cymbalta and mirtazapine
DVT prophylaxis: Lovenox
CODE STATUS: Full code
Total time spent on today's encounter was 35 minutes
Anticipated Discharge: > 48 hours
Subjective/Interval History
-
Date of Service: July 17, 2024
Patient was seen and examined at bedside this morning. His left forearm pain is improved today compared to yesterday. Continue antibiotics and daily wound care.
Objective Data
-
Vital Signs:
Vital Signs
Temp Pulse Resp BP Pulse Ox
98 F 65 20 159/83 97
07/17/24 07:00 07/17/24 07:00 07/17/24 07:00 07/17/24 07:00 07/17/24 07:00
I&O
07/16/24 07/17/24 07/18/24
06:59 06:59 06:59
Intake Total 960 / 960 100 / 100
Balance 960 / 960 100 / 100
Review of Systems
-
History Source: Patient
All other systems: Reviewed and negative
Musculoskeletal: Reports Joint Pain (Left forearm pain)
Physical Exam
-
General: No Apparent Distress
[2024-07-17 15:00] VITALS: BP 133/70
[2024-07-17] MEDS: SENOKOT-S PO (16:44)
[2024-07-17] MEDS: MIRALAX PO (16:44)
[2024-07-17] MEDS: REMERON 30 MG PO (16:46)
[2024-07-17 17:00] LABS: Glucose - Point of Care 116 mg/dl (70-99)
[2024-07-17] MEDS: LOVENOX 40 MG SC (18:03)
[2024-07-17 21:47] LABS: Glucose - Point of Care 197 mg/dl (70-99)
[2024-07-17 23:13] VITALS: BP 107/96
[2024-07-18] MEDS: ANCEF 10 IV ×3 (02:44→18:10)
[2024-07-18] MEDS: FLUSH (NSS) 1 FLUSH IV (02:45)
[2024-07-18 03:00] VITALS: BP 130/74
[2024-07-18 07:26] VITALS: BP 137/76
[2024-07-18 07:39] LABS: Glucose - Point of Care 186 mg/dl (70-99)
[2024-07-18] MEDS: NOVOLOG FLEXPEN-LOW RESISTANCE 1 UNITS SC ×2 (10:17→11:47)
[2024-07-18] MEDS: DILAUDID 1 MG PO ×3 (10:58→21:59)
[2024-07-18] MEDS: LAC HYDRIN, AM LACTIN LOTION 1 APPLIC TOPICAL (11:09)
[2024-07-18] MEDS: MIRALAX PO (11:10)
[2024-07-18] MEDS: HYDROPHOR 1 APPLIC TOPICAL (11:10)
[2024-07-18] MEDS: NIZORAL 2% CREAM 1 APPLIC TOPICAL ×2 (11:10→19:42)
[2024-07-18] MEDS: OSCAL 500 + D 250 MG PO (11:16)
[2024-07-18] MEDS: JANUVIA 100 MG PO (11:16)
[2024-07-18] MEDS: THERAGRAN 1 TABLET PO (11:17)
[2024-07-18] MEDS: SENOKOT-S 1 TABLET PO ×2 (11:18→19:41)
[2024-07-18] MEDS: FLAGYL 500 MG PO ×2 (11:18→19:41)
[2024-07-18] MEDS: CYMBALTA DELAYED RELEASE 60 MG PO (11:19)
[2024-07-18] MEDS: ZETIA 10 MG PO (11:19)
[2024-07-18] MEDS: ARICEPT 20 MG PO (11:20)
[2024-07-18] MEDS: VITAMIN B-12 1000 MCG PO (11:21)
[2024-07-18] MEDS: SINEMET 25-100 2 TABLET PO ×3 (11:25→18:09)
[2024-07-18 11:26] LABS: Glucose - Point of Care 153 mg/dl (70-99)
--- NOTE | 2024-07-18 14:31 | W.PN.HOSP.TC ---
Today's Communication/Plan
-
Assessment / Plan
Assessment / Plan
General: No Apparent Distress, Comfortable and Conversant
HEENT: NormoCephalic, Moist mucous membranes, Atraumatic
Respiratory: Clear and Non Labored Respirations
Cardiac: S1/S2 and Regular Rhythm; No Rub or Gallop
GI: Soft, Non Tender, Non Distended and Normal Bowel Sounds
Musculoskeletal: No Edema, no deformity
Skin: Warm and dry, left forearm surgical excision site with sutures removed and wet-to-dry dressing and Edgar wrap in place
: NO De Jesus
Neuro: Awake, Alert, Nonfocal/grossly intact
Psych: Calm and Intact Judgment/Insight
Mr. Cannon is a 79-year-old male with medical history of Parkinson disease, Guillain-Chand�, prostate cancer, wny-ylijrwz-eorxxtpti diabetes mellitus, rheumatoid arthritis, polymyalgia rheumatica, and melanoma (status post excision left forearm 4
days prior to arrival) who presented with pain and swelling at surgical excision site. He reports associated chills with no recorded fever. He has been started on antibiotics and admitted for further evaluation and management of apparent infection
of surgical excision site.
Infection of surgical excision site:
- Left forearm melanoma surgically excised 4 days prior to arrival, site appeared swollen and erythematous
- Improving
- Continue Ancef 2 g every 8 hours for MSSA coverage and metronidazole pending anaerobic cultures
- CT imaging of left forearm shows subcutaneous edema with no evidence of abscess, joint effusion, or osteomyelitis
- Evaluated by general surgery, sutures removed and wound irrigated, left open to drain, repeat cultures obtained, wet-to-dry dressing to be changed daily, surgery now signed off
- Continue tight blood glucose control, appreciate assistance of diabetic management nurse practitioner
- Appreciate ID input, anaerobic culture pending and if negative can discontinue metronidazole, transition to Keflex 500 mg p.o. 4 times daily when ready for discharge to complete a 2-week course
- Anticipate discharge to home in the next 24 to 48 hours
Vls-vskknnh-pgugzobrv diabetes mellitus:
- Not well-controlled initially, hemoglobin A1c 8.1%
- Continue home sitagliptin with additional sliding scale insulin as needed
- Appreciate assistance from diabetic management nurse practitioner
Parkinson's disease:
- Continue carbidopa levodopa
- Continue donepezil for dementia
Anxiety and depression:
- Continue Cymbalta and mirtazapine
DVT prophylaxis: Lovenox
CODE STATUS: Full code
Total time spent on today's encounter was 35 minutes
Anticipated Discharge: 24 - 48 hours
Subjective/Interval History
-
Date of Service: July 18, 2024
Patient was seen and examined at bedside this morning. Clinically improving but still with persistent pain from left forearm excision site.
Objective Data
-
Vital Signs:
Vital Signs
Temp Pulse Resp BP Pulse Ox
98.2 F 62 20 137/76 94
07/18/24 07:26 07/18/24 07:26 07/18/24 07:26 07/18/24 07:26 07/18/24 07:26
I&O
07/17/24 07/18/24 07/19/24
06:59 06:59 06:59
Intake Total 100 / 100 320 / 320
Balance 100 / 100 320 / 320
Review of Systems
-
History Source: Patient
All other systems: Reviewed and negative
Musculoskeletal: Reports Joint Pain (Left forearm pain)
Physical Exam
-
General: No Apparent Distress
--- NOTE | 2024-07-18 14:42 | W.PN.UPDATE ---
Update Note
Progress Note Update
Cultures and chart reviewed
Few proteus additionally noted from the wound culture
moderate mssa
continue cefazolin/metronidazole pending anaerobic culture
add bactrim x 7 days
will reassess tomorrow
[2024-07-18 15:16] VITALS: BP 125/70
[2024-07-18 16:07] LABS: Glucose - Point of Care 149 mg/dl (70-99)
--- NOTE | 2024-07-18 16:18 | CM ---
CM reviewed chart, spoke with patients daughter in [facility], inquiring if patient will need SNF. Daughter reports patient has been to rehab in past, feels as though patient does not get the amount of therapy he should, reports at home patient has
aides/caregivers (58 hrs a week), rafaela lift, equipment needed at home. CM discussed PT recommendation of SNF vs VN, will ask if therapy able to evaluate patient tomorrow. Daughter reports patient will likely be agreeable to SNF if absolutely
necessary but would prefer patient to return home. CM will continue to follow for all discharge planing needs.
Plan; home with caregivers/daughter vs SNF
[2024-07-18] MEDS: NOVOLOG FLEXPEN-LOW RESISTANCE SC (18:04)
[2024-07-18] MEDS: LOVENOX 40 MG SC (18:10)
[2024-07-18] MEDS: REMERON 30 MG PO (18:10)
[2024-07-18] MEDS: DILAUDID 0.5 MG IV (18:11)
[2024-07-18] MEDS: BACTRIM DS 800 MG/160 MG 1 TABLET PO (19:41)
[2024-07-18 21:11] LABS: Glucose - Point of Care 146 mg/dl (70-99)
[2024-07-18 23:07] VITALS: BP 117/75
[2024-07-19] MEDS: FLUSH (NSS) 1 FLUSH IV (02:13)
[2024-07-19] MEDS: ANCEF 10 IV ×2 (02:13→10:11)
[2024-07-19 07:27] LABS: % Basophils 2.1 % (0-2); % Eosinophils 4.9 % (0-6); % Immature Granulocytes 0.3 % (0-0.5); % Lymphocytes 32.1 % (20.5-51.1); % Monocytes 13.9 % (1.7-9.3); % Neutrophils 46.7 % (42.2-75.2); Absolute Basophils 0.1 10^3/uL (0-0.2); Absolute Eosinophils 0.3 10^3/uL (0-0.7); Absolute Lymphocytes 2.2 10^3/uL (1.2-3.4); Absolute Monocytes 0.9 10^3/uL (0.1-0.6); Absolute Neutrophils 3.1 10^3/uL (1.4-6.5); Hematocrit 43.4 % (39.0-52.0); Hemoglobin 14.6 g/dL (13.0-18.0); Mean Corp Hgb Conc. 33.6 g/dL (33.0-37.0); Mean Corpuscular Hgb 32.4 pg (27.0-31.0); Mean Corpuscular Volume 96.2 fL (80.0-94.0); Mean Platelet Volume 9.7 fL (7.4-10.4); Nucleated Red Blood Cells % 0 % (-); Platelet Count 314 10^3/uL (130-400); Red Blood Cell Count 4.51 10^6/uL (4.70-6.10); Red Cell Dist. Width 14.3 % (11.5-14.5); White Blood Cell Count 6.7 10^3/uL (4.8-10.8)
[2024-07-19 07:30] VITALS: BP 130/73
[2024-07-19 07:47] LABS: Glucose - Point of Care 144 mg/dl (70-99)
[2024-07-19 07:55] LABS: Blood Urea Nitrogen 9 mg/dl (9-20); Calcium 8.9 mg/dl (8.4-10.2); Carbon Dioxide 29 mmol/L (22-30); Chloride 103 mmol/L (98-107); Estimated Creatinine Clearance 110 ml/min; Glucose 135 mg/dl (70-99); Potassium 3.7 mmol/L (3.5-5.1); Sodium 142 mmol/L (135-145); eGFR > 60.00
[2024-07-19] MEDS: NOVOLOG FLEXPEN-LOW RESISTANCE SC (10:10)
[2024-07-19] MEDS: ZETIA 10 MG PO (10:11)
[2024-07-19] MEDS: OSCAL 500 + D 250 MG PO (10:11)
[2024-07-19] MEDS: ARICEPT 20 MG PO (10:12)
[2024-07-19] MEDS: SENOKOT-S 1 TABLET PO ×2 (10:13→20:00)
[2024-07-19] MEDS: THERAGRAN 1 TABLET PO (10:13)
[2024-07-19] MEDS: VITAMIN B-12 1000 MCG PO (10:13)
[2024-07-19] MEDS: JANUVIA 100 MG PO (10:13)
[2024-07-19] MEDS: BACTRIM DS 800 MG/160 MG 1 TABLET PO ×2 (10:13→20:00)
[2024-07-19] MEDS: FLAGYL 500 MG PO (10:14)
[2024-07-19] MEDS: CYMBALTA DELAYED RELEASE 60 MG PO (10:14)
[2024-07-19] MEDS: NIZORAL 2% CREAM 1 APPLIC TOPICAL ×2 (10:17→20:04)
[2024-07-19] MEDS: LAC HYDRIN, AM LACTIN LOTION 1 APPLIC TOPICAL ×2 (10:17→20:00)
[2024-07-19] MEDS: HYDROPHOR 1 APPLIC TOPICAL (10:18)
[2024-07-19] MEDS: MIRALAX 17 GRAMS PO (10:18)
[2024-07-19] MEDS: SINEMET 25-100 2 TABLET PO ×3 (10:19→17:21)
[2024-07-19] MEDS: DILAUDID 0.5 MG IV ×3 (11:37→21:50)
[2024-07-19 11:40] LABS: Glucose - Point of Care 160 mg/dl (70-99)
--- NOTE | 2024-07-19 12:52 | W.PN.ID1 ---
Date of Service
Date of Service: July 19, 2024
Today's Communication
- switch to bactrim 1 DS tab BID 07/18-07/24
- stable for dc from ID perspective
Assessment / Plan
Assessment and Plan
Surgical site infection due to MSSA
S/p resection of Melamona unknown margins
- 07/13 superficial wound culture with MSSA and Proteus
- 07/15 deep wound culture and anaerobic cultures in progress - now also with MSSA
- blood cultures x2 in progress - no growth to date
- switch to bactrim 1 DS tab BID 07/18-07/24
- stable for dc from ID perspective
Chief Complaint
-: Other (surgical site infection)
Subjective / Review of Systems
afebrile
bp stable
Vital Signs / Physical Exam
Vital Signs
Vital Signs
Temp Pulse Resp BP Pulse Ox
98.9 F 60 21 130/73 95
07/19/24 07:30 07/19/24 07:30 07/19/24 07:30 07/19/24 07:30 07/19/24 08:54
Physical Exam
Constitutional: No Acute Distress
Cardiovascular: Regular Rate and S1/S2; Negative Murmur or Rub
Pulmonary: Clear and Symmetric; Negative Wheezes or Rales
Gastrointestinal: Soft, Non Tender, Non Distended and Normal Bowel Sounds
Skin: Warm and Dry; Negative Rash or Jaundice
Wound: Other (surgical site clean, resolved erythema, no odor, no drainage)
Objective Data
Lab Data
Lab Results
07/19/24 06:22
07/19/24 06:22
Estimated Creat Clear 110 ml/min 07/19/24 06:22
Total Bilirubin 0.7 mg/dl (0.2-1.3) 07/13/24 06:31
AST 15 U/L (17-59) L 07/13/24 06:31
ALT 15 U/L (0-50) 07/13/24 06:31
Alkaline Phosphatase 87 U/L (38-126) 07/13/24 06:31
Most recent labs reviewed.
Micro Results:
07/15/24 14:51 Anaerobic Culture - Preliminary
Arm - Left Culture pending. Anaerobic cultures are examined after 3
days incubation. Additional information to follow.
07/15/24 14:51 Wound Culture - Preliminary
Arm - Left Proteus vulgaris
S aureus-Methicillin Sensitive
Gram Stain - Preliminary
07/12/24 12:22 Blood Culture - Final
Blood/Venous No Growth - Final Report
07/12/24 12:44 Blood Culture - Final
Blood/Venous No Growth - Final Report
07/13/24 16:43 Wound Culture - Final
Arm - Left S aureus-Methicillin Sensitive
Gram Stain - Final
[2024-07-19] MEDS: NOVOLOG FLEXPEN-LOW RESISTANCE 1 UNITS SC ×2 (13:02→17:20)
[2024-07-19 15:07] VITALS: BP 125/88
[2024-07-19 15:47] LABS: Glucose - Point of Care 178 mg/dl (70-99)
--- NOTE | 2024-07-19 15:59 | W.PN.HOSP.TC ---
Today's Communication/Plan
-
Assessment / Plan
Assessment / Plan
General: No Apparent Distress, Comfortable and Conversant
HEENT: NormoCephalic, Moist mucous membranes, Atraumatic
Respiratory: Clear and Non Labored Respirations
Cardiac: S1/S2 and Regular Rhythm; No Rub or Gallop
GI: Soft, Non Tender, Non Distended and Normal Bowel Sounds
Musculoskeletal: No Edema, no deformity
Skin: Warm and dry, left forearm surgical excision site with sutures removed and wet-to-dry dressing and Edgar wrap in place
: NO De Jesus
Neuro: Awake, Alert, Nonfocal/grossly intact
Psych: Calm and Intact Judgment/Insight
Mr. Cannon is a 79-year-old male with medical history of Parkinson disease, Guillain-Chand�, prostate cancer, rny-kuwshmq-stjosjcpl diabetes mellitus, rheumatoid arthritis, polymyalgia rheumatica, and melanoma (status post excision left forearm 4
days prior to arrival) who presented with pain and swelling at surgical excision site. He reports associated chills with no recorded fever. He has been started on antibiotics and admitted for further evaluation and management of apparent infection
of surgical excision site.
Infection of surgical excision site:
- Left forearm melanoma surgically excised 4 days prior to arrival, site appeared swollen and erythematous
- Improving
- ID recommends switching antibiotics to Bactrim 1 DS tab twice daily to continue through 07/24, discontinued Ancef and metronidazole
- CT imaging of left forearm shows subcutaneous edema with no evidence of abscess, joint effusion, or osteomyelitis
- Evaluated by general surgery, sutures removed and wound irrigated, left open to drain, repeat cultures obtained, wet-to-dry dressing to be changed daily, surgery now signed off
- Continue tight blood glucose control, appreciate assistance of diabetic management nurse practitioner
- Anticipate discharge to home with VN versus SNF in the next 24 hours, we will need ongoing wound care and eventual follow-up with dermatology
Obj-slrmiaz-myhoefpcw diabetes mellitus:
- Not well-controlled initially, hemoglobin A1c 8.1%
- Continue home sitagliptin with additional sliding scale insulin as needed
- Appreciate assistance from diabetic management nurse practitioner
Parkinson's disease:
- Continue carbidopa levodopa
- Continue donepezil for dementia
Anxiety and depression:
- Continue Cymbalta and mirtazapine
DVT prophylaxis: Lovenox
CODE STATUS: Full code
Total time spent on today's encounter was 35 minutes
Anticipated Discharge: Within 24 hours
Subjective/Interval History
-
Date of Service: July 19, 2024
Patient was seen and examined at bedside this morning. Was excited about the [employer] win last evening. Bactrim was added to his antibiotic regimen of Ancef and metronidazole. Continues to improve.
Objective Data
-
Labs:
Laboratory Results
07/19/24
06:22
WBC 6.7
Hgb 14.6
Hct 43.4
Plt Count 314
Sodium 142
Potassium 3.7
Chloride 103
Carbon Dioxide 29
BUN 9
Creatinine 0.7
Glucose 135 H
Calcium 8.9
Vital Signs:
Vital Signs
Temp Pulse Resp BP Pulse Ox
97.6 F 94 20 125/88 95
07/19/24 15:07 07/19/24 15:07 07/19/24 15:07 07/19/24 15:07 07/19/24 15:07
I&O
07/18/24 07/19/24 07/20/24
06:59 06:59 06:59
Intake Total 320 / 320 1100 / 1100
Balance 320 / 320 1100 / 1100
Review of Systems
-
History Source: Patient
All other systems: Reviewed and negative
Musculoskeletal: Reports Joint Pain (Left forearm pain)
Physical Exam
-
General: No Apparent Distress
[2024-07-19] MEDS: LOVENOX 40 MG SC (17:21)
[2024-07-19] MEDS: REMERON 30 MG PO (17:21)
[2024-07-19 21:35] LABS: Glucose - Point of Care 145 mg/dl (70-99)
[2024-07-19 23:07] VITALS: BP 146/78
[2024-07-20] MEDS: DILAUDID 0.5 MG IV ×3 (01:12→22:06)
[2024-07-20 07:00] VITALS: BP 138/74
[2024-07-20 07:31] LABS: Glucose - Point of Care 138 mg/dl (70-99)
[2024-07-20] MEDS: NOVOLOG FLEXPEN-LOW RESISTANCE SC ×3 (08:00→17:11)
--- NOTE | 2024-07-20 08:13 | PN.DE.MGMTRT ---
Insulin Management
- -
07/20/2024: Diabetes Management Follow up
Patient admitted 07/12 with L forearm infection s/p removal of melanoma 07/08 @ [place] Parkinson's, Guillain [place], prostate CA, melanoma l arm. Prior to admission was taking Januvia 25 mg daily. A1C 8.1%, cr .7, eGFR > 60.
Patient is awake alert and oriented able to discuss diabetes care. Daughter, Brynn, at bedside and very supportive.
Glucose stable and in range 111 to 178, diet 2200 calorie. Will continue Januvia 100 mg daily.
Patient has glucose monitor, recommended testing fasting and 2 hours after alternating meals and provide results to primary doctor. Provided education booklet and instructions highlighted for daughter.
Discussed with nurse. Will cont to follow
Diabetes History
- -
Type of Diabetes: 2
Pre-Admission Diabetes Regimen
Lab Results
Hemoglobin A1c 8.1 % (4.0-5.6) H 07/13/24 06:31
Insulin Pump Settings
IP Diabetes Regimen
07/19/24 07/19/24 07/19/24
11:39 15:46 21:34
POC Glucose 160 H 178 H 145 H
07/20/24
07:30
POC Glucose 138 H
Patient Education
[2024-07-20] MEDS: ULTRAM 50 MG PO ×2 (08:40→14:27)
[2024-07-20] MEDS: OSCAL 500 + D 250 MG PO (08:41)
[2024-07-20] MEDS: SENOKOT-S 1 TABLET PO (08:41)
[2024-07-20] MEDS: THERAGRAN 1 TABLET PO (08:42)
[2024-07-20] MEDS: BACTRIM DS 800 MG/160 MG 1 TABLET PO ×2 (08:42→19:57)
[2024-07-20] MEDS: ZETIA 10 MG PO (08:42)
[2024-07-20] MEDS: VITAMIN B-12 1000 MCG PO (08:42)
[2024-07-20] MEDS: ARICEPT 20 MG PO (08:43)
[2024-07-20] MEDS: CYMBALTA DELAYED RELEASE 60 MG PO (08:43)
[2024-07-20] MEDS: MIRALAX 17 GRAMS PO (08:43)
[2024-07-20] MEDS: JANUVIA 100 MG PO (08:43)
--- NOTE | 2024-07-20 08:49 | W.PN.ID1 ---
Addendum entered and electronically signed by Yesenia Mott MD 07/20/24 17:24:
I saw and evaluated the patient. I reviewed the resident�s note and agree with findings and plan as documented in the resident�s note with the corrections listed in my seperately documented note.
AW
Original Note:
Date of Service
Date of Service: July 20, 2024
Patient seen and examined at bedside. No acute events reported overnight. He is comfortable reports his left arm pain is well-controlled. Denies fever, chills, headaches, urinary symptoms.
Today's Communication
Surgical site looks clean, no erythema, warmth, drainage appreciated.
Continue Bactrim day #05/15
Stable for discharge from ID perspective
Assessment / Plan
79-year-old male who presented to the ED on 07/11 with chills, erythema and weeping of left surgical site.
Assessment and plan:
#Surgical site infection
# S/p Melamona resection
- Surgical sites with no erythema, drainage or warmth. Wound clean and healing appropriately.
- Superficial wound cultures / positive with MSSA.
- 07/15 deep wound culture and anaerobic cultures x 2 in progress - now with MSSA, few GBS, and few Proteus vulgaris 1/2 sets.
- Blood cultures x 2 07/12 no growth.
- SPICE organisms known for their propensity to develop resistance to beta-lactam's while on treatment.
- Continue Bactrim 1 DS tab BID day #05/15.
- Appreciate wound care.
- Stable for dc from ID perspective.
Chief Complaint
-: Other (surgical site infection)
Subjective / Review of Systems
Review of Systems: No Fever, No Headache, No Chest Pain, No Abdominal Pain, No Vomiting, No Diarrhea, No Dysuria and Other (BP stable)
Vital Signs / Physical Exam
Vital Signs
Vital Signs
Temp Pulse Resp BP Pulse Ox
97.7 F 57 20 138/74 94
07/20/24 07:00 07/20/24 07:00 07/20/24 07:00 07/20/24 07:00 07/20/24 07:00
Physical Exam
Constitutional: No Acute Distress and Comfortable
Cardiovascular: Regular Rate and S1/S2; Negative Murmur or Rub
Pulmonary: Clear and Symmetric; Negative Wheezes or Rales
Gastrointestinal: Soft, Non Tender, Non Distended and Normal Bowel Sounds
Skin: Warm and Dry; Negative Rash or Jaundice
Wound: Other (surgical site clean, resolved erythema, no odor, no drainage)
Neurological: Awake and AO x 3
Psychological: Calm
Objective Data
Lab Data
Lab Results
07/19/24 06:22
07/19/24 06:22
Estimated Creat Clear 110 ml/min 07/19/24 06:22
Total Bilirubin 0.7 mg/dl (0.2-1.3) 07/13/24 06:31
AST 15 U/L (17-59) L 07/13/24 06:31
ALT 15 U/L (0-50) 07/13/24 06:31
Alkaline Phosphatase 87 U/L (38-126) 07/13/24 06:31
Most recent labs reviewed.
Microbiology: Report Reviewed
Micro Results:
07/15/24 14:51 Wound Culture - Preliminary
Arm - Left Proteus vulgaris
S aureus-Methicillin Sensitive
Streptococcus agalactiae
Gram Stain - Preliminary
07/15/24 14:51 Anaerobic Culture - Preliminary
Arm - Left Culture pending. Anaerobic cultures are examined after 3
days incubation. Additional information to follow.
07/12/24 12:22 Blood Culture - Final
Blood/Venous No Growth - Final Report
07/12/24 12:44 Blood Culture - Final
Blood/Venous No Growth - Final Report
07/13/24 16:43 Wound Culture - Final
Arm - Left S aureus-Methicillin Sensitive
Gram Stain - Final
Care Review
Plan reviewed with: Nurse and Physician
--- NOTE | 2024-07-20 09:03 | W.PN.UPDATE ---
Addendum entered and electronically signed by Yesenia Mott MD 07/20/24 12:06:
Requesting nausea meds for home, qtc is acceptable, would consider prescribing a course to go along with the bactrim.
Original Note:
Update Note
Progress Note Update
I saw and evaluated the patient. I reviewed the resident�s note and agree with findings and plan as documented in the resident�s note with the following additions/corrections:
Subjective
afebrile
bp stable
Physical Exam
Constitutional: No Acute Distress
Cardiovascular: Regular Rate and S1/S2; Negative Murmur or Rub
Pulmonary: Clear and Symmetric; Negative Wheezes or Rales
Gastrointestinal: Soft, Non Tender, Non Distended and Normal Bowel Sounds
Skin: Warm and Dry; Negative Rash
Wound: surgical site clean, resolved erythema, no odor, no drainage; healing by secondary intention
Objective
Assessment and Plan
Surgical site infection due to MSSA and Proteus
S/p resection of Melamona unknown margins
- 07/13 superficial wound culture with MSSA
- 07/15 deep wound culture and anaerobic cultures in progress - now also with MSSA, Proteus, GBS, few CONS
- blood cultures x2 in progress - no growth to date
- completed one week 07/12-07/19 of effective therapy for GBS vanc/cefazolin
- continue bactrim 1 DS tab BID 07/18-07/24
- stable for dc from ID perspective, follow up with his surgeon
--- NOTE | 2024-07-20 10:38 | W.PN.HOSP.TC ---
Today's Communication/Plan
-
Will need to repeat PT, might need SNF
Assessment / Plan
Assessment / Plan
General: No Apparent Distress, Comfortable and Conversant
HEENT: NormoCephalic, Moist mucous membranes, Atraumatic
Respiratory: Clear and Non Labored Respirations
Cardiac: S1/S2 and Regular Rhythm; No Rub or Gallop
GI: Soft, Non Tender, Non Distended and Normal Bowel Sounds
Musculoskeletal: No Edema, no deformity
Skin: Warm and dry, left forearm surgical excision site with sutures removed and wet-to-dry dressing and Edgar wrap in place
: NO De Jesus
Neuro: Awake, Alert, Nonfocal/grossly intact
Psych: Calm and Intact Judgment/Insight
Mr. Cannon is a 79-year-old male with medical history of Parkinson disease, Guillain-Chand�, prostate cancer, wge-fpldoby-ypqpxukpp diabetes mellitus, rheumatoid arthritis, polymyalgia rheumatica, and melanoma (status post excision left forearm 4
days prior to arrival) who presented with pain and swelling at surgical excision site. He reports associated chills with no recorded fever. He has been started on antibiotics and admitted for further evaluation and management of apparent infection
of surgical excision site.
Infection of surgical excision site:
- Left forearm melanoma surgically excised 4 days prior to arrival, site appeared swollen and erythematous
- Improving
- ID recommends switching antibiotics to Bactrim 1 DS tab twice daily to continue through 07/24, discontinued Ancef and metronidazole
- CT imaging of left forearm shows subcutaneous edema with no evidence of abscess, joint effusion, or osteomyelitis
- Evaluated by general surgery, sutures removed and wound irrigated, left open to drain, repeat cultures obtained, wet-to-dry dressing to be changed daily, surgery now signed off
- Continue tight blood glucose control, appreciate assistance of diabetic management nurse practitioner
- Anticipate discharge to home with VN versus SNF in the next 24 hours, we will need ongoing wound care and eventual follow-up with dermatology
# N/ V
could be related to opioid or Bactrim
will give ant-nausea for now
Abdomen is soft
Ycf-areaaud-zcwwobpqw diabetes mellitus:
- Not well-controlled initially, hemoglobin A1c 8.1%
- Continue home sitagliptin with additional sliding scale insulin as needed
- Appreciate assistance from diabetic management nurse practitioner
Parkinson's disease:
- Continue carbidopa levodopa
- Continue donepezil for dementia
Anxiety and depression:
- Continue Cymbalta and mirtazapine
DVT prophylaxis: Lovenox
CODE STATUS: Full code
Total time spent to see the patient, examine the patient, review data and lab result, discuss treatment plan with patient, nursing staff around 55 minutes
Anticipated Discharge: Within 24 hours
Subjective/Interval History
-
Date of Service: July 20, 2024
No chest pain
No sob
Objective Data
-
Vital Signs:
Vital Signs
Temp Pulse Resp BP Pulse Ox
97.7 F 57 20 138/74 94
07/20/24 07:00 07/20/24 07:00 07/20/24 07:00 07/20/24 07:00 07/20/24 07:00
I&O
07/19/24 07/20/24 07/21/24
06:59 06:59 06:59
Intake Total 1100 / 1100 960 / 960
Balance 1100 / 1100 960 / 960
[2024-07-20] MEDS: SINEMET 25-100 2 TABLET PO ×3 (10:40→17:53)
[2024-07-20] MEDS: NIZORAL 2% CREAM 1 APPLIC TOPICAL ×2 (10:59→19:58)
[2024-07-20] MEDS: HYDROPHOR 1 APPLIC TOPICAL (10:59)
[2024-07-20] MEDS: LAC HYDRIN, AM LACTIN LOTION 1 APPLIC TOPICAL (10:59)
[2024-07-20] MEDS: TIGAN 200 MG IM (11:53)
[2024-07-20 12:07] LABS: Glucose - Point of Care 160 mg/dl (70-99)
[2024-07-20 13:58] LABS: Glucose - Point of Care 138 mg/dl (70-99)
--- NOTE | 2024-07-20 14:04 | CM ---
Chart reviewed. Patient might need skilled rehab, therapy attempted to see today, patient refused.
Last therapy note determining SNF vs home PT
Spoke w/ patient's daughter bedside, believes patient will want to return home. Has support from daughter that lives w/ him and caregiver.
Plan: SNF vs home PT
[2024-07-20] MEDS: ZOFRAN 4 MG PO (14:27)
[2024-07-20 15:00] VITALS: BP 120/81
[2024-07-20 17:06] LABS: Glucose - Point of Care 139 mg/dl (70-99)
[2024-07-20] MEDS: REMERON 30 MG PO (17:53)
[2024-07-20] MEDS: LOVENOX 40 MG SC (17:53)
[2024-07-20] MEDS: SENOKOT-S PO ×2 (19:58→20:03)
[2024-07-20 21:24] LABS: Glucose - Point of Care 204 mg/dl (70-99)
[2024-07-20] MEDS: FLUSH (NSS) 1 FLUSH IV (22:08)
[2024-07-20 23:22] VITALS: BP 122/69
[2024-07-21 07:08] VITALS: BP 130/83
[2024-07-21] MEDS: ARICEPT 20 MG PO (08:11)
[2024-07-21] MEDS: JANUVIA 100 MG PO (08:12)
[2024-07-21] MEDS: VITAMIN B-12 1000 MCG PO (08:12)
[2024-07-21] MEDS: SENOKOT-S 1 TABLET PO (08:12)
[2024-07-21] MEDS: ZETIA 10 MG PO (08:12)
[2024-07-21] MEDS: BACTRIM DS 800 MG/160 MG 1 TABLET PO (08:12)
[2024-07-21] MEDS: THERAGRAN 1 TABLET PO (08:12)
[2024-07-21] MEDS: NIZORAL 2% CREAM 1 APPLIC TOPICAL (08:13)
[2024-07-21] MEDS: LAC HYDRIN, AM LACTIN LOTION 1 APPLIC TOPICAL (08:13)
[2024-07-21] MEDS: MIRALAX PO (08:13)
[2024-07-21] MEDS: CYMBALTA DELAYED RELEASE 60 MG PO (08:13)
[2024-07-21] MEDS: HYDROPHOR 1 APPLIC TOPICAL (08:14)
[2024-07-21] MEDS: OSCAL 500 + D 250 MG PO (08:15)
[2024-07-21 08:25] LABS: Glucose - Point of Care 145 mg/dl (70-99)
[2024-07-21] MEDS: NOVOLOG FLEXPEN-LOW RESISTANCE SC ×2 (08:28→11:35)
--- NOTE | 2024-07-21 08:30 | PN.DE.MGMTRT ---
Insulin Management
- -
07/21/2024: Diabetes Management Follow up
Patient admitted 07/12 with L forearm infection s/p removal of melanoma 07/08 @ [place] Parkinson's, Guillain [place], prostate CA, melanoma l arm. Prior to admission was taking Januvia 25 mg daily. A1C 8.1%, cr .7, eGFR > 60.
Patient is awake, alert and oriented, sitting up in bed, offers no complaints, able to discuss diabetes care. Daughter, Brynn, at bedside and very supportive.
Glucose stable and in range 138 to 160, FBG 145 this AM, diet 2200 calorie. Will continue Januvia 100 mg daily.
Patient has glucose monitor, recommended testing fasting and 2 hours after alternating meals and provide results to primary doctor. Provided education booklet and instructions highlighted for daughter.
Will cont to follow. Meds at discharge: Januvia 100 mg daily.
Diabetes History
- -
Type of Diabetes: 2
Pre-Admission Diabetes Regimen
Lab Results
Hemoglobin A1c 8.1 % (4.0-5.6) H 07/13/24 06:31
Insulin Pump Settings
IP Diabetes Regimen
07/20/24 07/20/24 07/20/24
12:05 13:57 16:50
POC Glucose 160 H 138 H 139 H
07/20/24 07/21/24
21:22 08:21
POC Glucose 204 H 145 H
Patient Education
--- NOTE | 2024-07-21 08:38 | W.PN.HOSP.TC ---
Today's Communication/Plan
-
dc
Assessment / Plan
Assessment / Plan
PE:
General: No Apparent Distress, Comfortable and Conversant
HEENT: NormoCephalic, Moist mucous membranes, Atraumatic
Respiratory: Clear and Non Labored Respirations
Cardiac: S1/S2 and Regular Rhythm; No Rub or Gallop
GI: Soft, Non Tender, Non Distended and Normal Bowel Sounds
Musculoskeletal: No Edema, no deformity
Skin: Warm and dry, left forearm surgical excision site with sutures removed and wet-to-dry dressing and Edgar wrap in place
: NO De Jesus
Neuro: Awake, Alert, mild resting tremor noted in hand, he followed commands, Nonfocal/grossly intact
Psych: Calm and Intact Judgment/Insight
Mr. Cannon is a 79-year-old male with medical history of Parkinson disease, Guillain-Chand�, prostate cancer, uje-ereunfi-lnabzoxsi diabetes mellitus, rheumatoid arthritis, polymyalgia rheumatica, and melanoma (status post excision left forearm 4
days prior to arrival) who presented with pain and swelling at surgical excision site. He reports associated chills with no recorded fever. He has been started on antibiotics and admitted for further evaluation and management of apparent infection
of surgical excision site.
Infection of surgical excision site:
- Left forearm melanoma surgically excised 4 days prior to arrival, site appeared swollen and erythematous
- Improving
- ID recommends switching antibiotics to Bactrim 1 DS tab twice daily to continue through 07/24, discontinued Ancef and metronidazole
- CT imaging of left forearm shows subcutaneous edema with no evidence of abscess, joint effusion, or osteomyelitis
- Evaluated by general surgery, sutures removed and wound irrigated, left open to drain, repeat cultures obtained, wet-to-dry dressing to be changed daily, surgery now signed off
- Continue tight blood glucose control, appreciate assistance of diabetic management nurse practitioner
- Anticipate discharge to home with VN , pt refused SNF. we will need ongoing wound care and eventual follow-up with dermatology
# N/ V
could be related to opioid or Bactrim
will give ant-nausea for now
Abdomen is soft
Ebt-rakpoil-mveglriyg diabetes mellitus:
- Not well-controlled initially, hemoglobin A1c 8.1%
- Continue home sitagliptin with additional sliding scale insulin as needed
- Appreciate assistance from diabetic management nurse practitioner
Parkinson's disease:
- Continue carbidopa levodopa
- Continue donepezil for dementia
Anxiety and depression:
- Continue Cymbalta and mirtazapine
DVT prophylaxis: Lovenox
CODE STATUS: Full code
Total discharge time spent to see the patient, examine the patient, review data and lab result, discuss discharge plan with patient, nursing staff around 67 minutes
Anticipated Discharge: Today
Subjective/Interval History
-
Date of Service: July 21, 2024
he is feeling better
Denies chest pain/ abdominal pain
Objective Data
-
Vital Signs:
Vital Signs
Temp Pulse Resp BP Pulse Ox
98.3 F 78 20 122/69 91
07/20/24 23:22 07/20/24 23:22 07/20/24 23:22 07/20/24 23:22 07/20/24 23:22
I&O
07/20/24 07/21/24 07/22/24
06:59 06:59 06:59
Intake Total 960 / 960
Balance 960 / 960
--- NOTE | 2024-07-21 10:19 | CM ---
Addendum entered by Leigh Orr 07/21/24 13:50:
Daughter agreeable for [facility] to be referred to. Discussed w/ Radha/[facility] nurse liaison, referral placed in [facility]
Addendum entered by Leigh Orr 07/21/24 11:50:
Received call from [facility] regarding referral placed for home services. Per Roma, patient has been involved in many episodes of care w/ the agency, [facility] Roma shared that patient is listed as do not return for services
due to the clinicians not being comfortable in the home due to patient's daughter, whom he resides with. Roma shared daughter would scream and become aggressive and shared clinicians do not feel safe.
Spoke w/ daughter, Brynn, shared she will discuss w/ her sister and let CM know what they decide to do. Daughter, Bette, may want to coordinate through the [facility] but will let CM know for sure.
Original Note:
Patient stable for d/c today.
Met w/ patient and daughter, Brynn, bedside. CM asked patient if he would like to see PT before he leaves, he declined this. Per Brynn, patient and rest of the family was made aware that patient's sister who is on hospice is at end stage of life which
is why patient is adamant on leaving.
Patient will need VN for wound care, Brynn asking for PT as well at home. Patient prev known to [facility], agreeable to refer to them again for services.
IMM verbally reviewed, copy given to patient, copy on chart
Plan: Home w/ [facility]
[2024-07-21] MEDS: SINEMET 25-100 2 TABLET PO ×2 (10:37→11:35)
[2024-07-21 11:08] LABS: Glucose - Point of Care 147 mg/dl (70-99)
--- NOTE | 2024-07-21 12:28 | W.DCSUMMARY ---
Discharge Summary
Discharge Data
Date of Admission: 07/12/24
Date of Discharge: 07/21/24
-
Pending Results: No
Hospital Course
79 years old male presented with wound swelling at the site of left forearm melanoma removal. Patient was diagnosed with cellulitis surgical site infection./Patient received intravenous antibiotics. Surgical site improved with no erythema,
drainage or warmth. Superficial wound culture showed MSSA, deep wound culture and anaerobic culture showed MSSA, group B streptococcus, coagulase-negative Staphylococcus and few Proteus vulgaris. Blood culture did not show any growth. ID doctor
followed the progress. Patient finished course of IV antibiotics started on oral Bactrim. He was given Zofran for nausea. Patient was followed by ict educator. Januvia dose was increased to 100 mg daily. Patient was counseled and educated
regarding diabetes management. Patient and his daughter were counseled, they verbalized understanding. Patient remained hemodynamic stable. Patient refused to go to SNF and wanted home health services. Case management was involved in discharge
planning. Patient was discharged in a stable condition.
Discharge Plan
-
Patient Disposition: Home with Home Care
Discharge Diagnosis/Procedures: Left forearm cellulitis
Surgical site infection S/p Melamona resection
You will need to see your surgeon ( who did the resection ) within a week
Diet: Diabetic, Carb Controlled
Activity: With assistance and As tolerated
Activity Restrictions/Additional Instructions:
Mr. Cannon is a 79-year-old male with medical history of Parkinson disease, Guillain-Chand�, prostate cancer, mub-cvuztyp-ibxfbupso diabetes mellitus, rheumatoid arthritis, polymyalgia rheumatica, and melanoma (status post excision left forearm 4
days prior to arrival) who presented with pain and swelling at surgical excision site. He reports associated chills with no recorded fever. He was started on antibiotics and admitted for further evaluation and management of apparent infection of
surgical excision site.
CT imaging showed subcutaneous edema with no evidence of abscess, joint effusion, or osteomyelitis. He was evaluated by general surgery, his sutures were removed and his wound was irrigated and left open and drain. Repeat cultures were obtained
and wet-to-dry dressing was placed and changed daily. Wound cultures grew MSSA at which point antibiotics were transitioned to Ancef and metronidazole. However cultures later also grew Proteus vulgaris resistant to Ancef. He was switched to a
regimen of Bactrim 1 double strength tablet twice daily to be continued through 06/24/2024. His infection continued to improve clinically. He will need ongoing pain control as his infection resolves. He was evaluated by PT/OT who recommended home
PT versus SNF. Ultimately, patient and family decided home health. 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 He will need close monitoring of his blood glucose in order to maintain tight control to
optimize healing. He was continued on his home sitagliptin with dose increased to 100 mg daily while inpatient with additional sliding scale as needed.
Referrals:
Tone Mccord MD [Family Provider] -
Prescriptions:
New
ondansetron HCl 4 mg Tablet
4 mg PO Q8HPRN PRN (Reason: nausea) Qty: 10 0RF
sulfamethoxazole-trimethoprim 800-160 mg Tablet
1 tab PO BID Qty: 6 0RF
tramadol 50 mg Tablet
50 mg PO Q6HPRN PRN (Reason: moderate to severe pain) Qty: 10 0RF
Continued
ammonium lactate 12 % Lotion
1 applic TOPICAL DAILY
donepezil 10 mg Tablet
20 mg PO DAILY
cyanocobalamin (vitamin B-12) 1,000 mcg Tablet
1,000 mcg PO DAILY
therapeutic multivitamin Tablet
1 tab PO DAILY
mineral oil-hydrophil petrolat Ointment
1 applic TOPICAL DAILY
mirtazapine 30 mg Tablet
30 mg PO DAILY@1630
carbidopa-levodopa 25-100 mg Tablet
2 tab PO TID@0830,1230,1630
fluticasone propionate 50 mcg/actuation [place],Suspension
1 spray INTRANASAL DAILYPRN PRN (Reason: allergies)
ezetimibe 10 mg Tablet
10 mg PO DAILY
duloxetine 60 mg Capsule,Delayed Release(Dr/Ec)
60 mg PO DAILY
calcium carbonate-vitamin D3 [Oyster Shell + D3] 250 mg-3.125 mcg (125 unit) Tablet
1 tab PO DAILY
melatonin 10 mg Capsule
10 mg PO HS PRN (Reason: sleep)
ketoconazole 2 % Cream
1 applic TOPICAL BID
Changed
sitagliptin 25 mg Tablet
100 mg PO DAILY 30 Days Qty: 120 0RF
Discharge Orders:
Discharge Patient (As Directed); Ordered 07/21/24
Ordered By: Bridget Agrawal
Discharge Date and Time
Discharge Date/Time: 07/21/24 13:36
Print Language: ALBANIAN
[2024-07-21 13:18] VITALS: BP 123/83
--- NOTE | 2024-07-21 14:04 | VNURNOTE ---
Late entry:
Chart reviewed and obtained updates from CM. Aware of [facility] report and history w/[facility]. 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
Home Health Liaison spoke with patient's daughter Bette to discuss [facility] nurse/therapy, visits, schedule and homebound status. She is agreeable and understands that visits at home will be 2-3 x per week to assess and teach medical management. She is
aware that [facility] will contact them for start of care in 1-2 days after discharge from .
[facility] referral accepted in [facility].
== END 2024-07-21 13:36 | disposition home health service (06) | DRG 863 ==
LOC: 4 WEST ACU 14:18
PROVIDERS: Internal Medicine; Physician Assistant Medical; ADMITTING PHYSICIAN Hospitalist; ATTENDING PHYSICIAN Internal Medicine; CONSULT PHYSICIAN Student in an Organized Health Care Education/Training Program; CONSULT PHYSICIAN Surgery; EMERGENCY PHYSICIAN Emergency Medicine; FAMILY PHYSICIAN Internal Medicine
DX: T81.41XA Infection following a procedure, superficial incisional surgical site, initial encounter (principal); G61.0 Guillain-Barre syndrome; L03.114 Cellulitis of left upper limb; F02.83 Dementia in other diseases classified elsewhere, unspecified severity, with mood disturbance; F02.84 Dementia in other diseases classified elsewhere, unspecified severity, with anxiety; B96.4 Proteus (mirabilis) (morganii) as the cause of diseases classified elsewhere; F32.A Depression, unspecified; C43.62 Malignant melanoma of left upper limb, including shoulder; B95.1 Streptococcus, group B, as the cause of diseases classified elsewhere; F17.290 Nicotine dependence, other tobacco product, uncomplicated; M06.9 Rheumatoid arthritis, unspecified; M35.3 Polymyalgia rheumatica; B95.61 Methicillin susceptible Staphylococcus aureus infection as the cause of diseases classified elsewhere; R60.9 Edema, unspecified; E11.9 Type 2 diabetes mellitus without complications; G20.A1 Parkinson's disease without dyskinesia, without mention of fluctuations; Y83.8 Other surgical procedures as the cause of abnormal reaction of the patient, or of later complication, without mention of misadventure at the time of the procedure; Y92.9 Unspecified place or not applicable; R11.2 Nausea with vomiting, unspecified; Z85.46 Personal history of malignant neoplasm of prostate
CPT/HCPCS: 73090; 73201; 80048; 80053; 82962; 83036; 85025; 87040; 87070; 87075; 87077; 87147; 87186; 87205; 93005; 96365; 96366; 97163; 99285; Q9967

== ENCOUNTER 2024-10-20 11:37 | Emergency (ER) | payer OTHER, SELFPAY ==
[2024-10-20 11:40] VITALS: BP 138/74
--- NOTE | 2024-10-20 15:32 | ED.GENMED ---
History of Present Illness
General
Chief Complaint: Fall
Source: patient
Exam Limitations: none
Time Seen by Provider: 10/20/24 14:41
Nursing documentation reviewed up to this point in time: agreed with
History of Present Illness
History of Present Illness:
Patient is a 79-year-old male with past history Parkinson's brought to the ER by daughter. Daughter reports patient has Parkinson's and has a caregiver. He walks with a walker. Yesterday she left patient for short time caregiver did not walk
patient into the bathroom. Patient was using his walker got up off the toilet and reports he fell into the wall and hit the left side of his head into the wall but did not fall to the ground.
Caregiver heard him . There was no loss of consciousness. He is not on blood thinners. Today patient has been complaining of mild headache slight blurred vision and nausea which is what prompted daughter to bring patient to the ER. He also
complains of an abrasion to his left ankle.
Patient has been walking with his walker denies any bony injury. Denies any neck pain.
Past History
Past History
ED Past Medical History: Cancer, NIDDM and Other (Guillain-Chand�, Parkinson's disease)
ED Past Surgical History: Other
Social History
Tobacco: Non-smoker
Alcohol: None
Drug: None
Personal:
Living: with family
Employment: Employed
Phy Exam
General Physical Exam
General Presentation: no apparent distress
General age: appears stated age
General Skin: warm and dry
General Habitus: normal
General Mental: alert
General Hydration: appears well hydrated
Eye Exam
Eye Exam: PERRL and EOMI
Eye Exam General: PERRL: bilateral and EOM intact: bilateral
Pupil Exam: Bilateral: round and reactive
Neurological Exam
Neurological Exam: alert and oriented x3
Musculoskeletal Exam
Musculoskeletal Exam: full ROM and other (+ abrasion to left lateral lower leg no bony tenderness to ankle full range of motion to bilateral hips no obvious head injury on exam no bony cervical spine tenderness full range of motion all extremities,)
Skin Exam
Skin Exam: normal color and warm/dry
Psychiatric Exam
Psychiatric Exam: normal mood/affect
Course
Orders/Labs/Results
Orders:
Orders
10/20/24 11:[address] [CT Head W/o Iv Contrast] Urgent
Comment:
Reason For Exam: head injury
10/20/24 15:34
Tetanus/Diphth/Acelpertussis [Adacel] 0.5 ml IM .ONCE ONE
Vital Signs
Initial and Last Documented VS:
Initial Vital Signs
Temp Pulse Resp BP Pulse Ox
97.9 F 70 16 138/74 95
10/20/24 11:40 10/20/24 11:40 10/20/24 11:40 10/20/24 11:40 10/20/24 11:40
Last Documented Vital Signs
Temp Pulse Resp BP Pulse Ox
97.9 F 70 16 138/74 95
10/20/24 11:40 10/20/24 11:40 10/20/24 11:40 10/20/24 11:40 10/20/24 15:34
MDM/Problems Addressed
Differential Diagnosis Includes:
Not limited to head injury concussion less likely intracranial hemorrhage, abrasion
MDM/Problems Addressed:
Symptoms are consistent mild concussion, head injury. No bleeding no bony cervical spine tenderness full range of motion all extremities small abrasion to left lateral ankle region
He is awake alert no acute vital signs are stable. He does have a neurologist for Parkinson's. Discussed with daughter would recommend close outpatient follow-up with family doctor for reevaluation of head injury, possible concussion as well as
his neurologist if symptoms continue
*Radiology
Radiology exam reviewed: radiology read reviewed
*Pulse Oximetry
SaO2: 95
Oxygen Mode of Delivery: Room air
Patient hypoxic: no
*Critical Care Note
Total Time (30-74mins, 75-104mins- exclusive of procedures): Not Applicable
ED Attending Note
-
Portions of this chart may have been created with voice recognition software.� Occasional wrong word or��sound alike� substitutions may have occurred due to the inherent limitations of voice recognition software.
Discharge Plan
Departure
Patient Disposition: Home (Routine Discharge)
Date of Disposition: 10/20/24
Time of Disposition: 15:37
Patient with high blood pressure during this ER visit?: Yes
Condition: Fair
Covid-19: Not Applicable
Discharge Problem:
Head injury, Concussion
Instructions: Concussion, Adult (DC), Head Injury in Adults (DC), Skin Abrasions (DC)
Prescriptions:
No Action
ammonium lactate 12 % Lotion
1 applic TOPICAL DAILY
donepezil 10 mg Tablet
20 mg PO DAILY
cyanocobalamin (vitamin B-12) 1,000 mcg Tablet
1,000 mcg PO DAILY
therapeutic multivitamin Tablet
1 tab PO DAILY
mineral oil-hydrophil petrolat Ointment
1 applic TOPICAL DAILY
mirtazapine 30 mg Tablet
30 mg PO DAILY@1630
carbidopa-levodopa 25-100 mg Tablet
2 tab PO TID@0830,1230,1630
fluticasone propionate 50 mcg/actuation [place],Suspension
1 spray INTRANASAL DAILYPRN PRN (Reason: allergies)
ezetimibe 10 mg Tablet
10 mg PO DAILY
duloxetine 60 mg Capsule,Delayed Release(Dr/Ec)
60 mg PO DAILY
calcium carbonate-vitamin D3 [Oyster Shell + D3] 250 mg-3.125 mcg (125 unit) Tablet
1 tab PO DAILY
melatonin 10 mg Capsule
10 mg PO HS PRN (Reason: sleep)
ketoconazole 2 % Cream
1 applic TOPICAL BID
sitagliptin 25 mg Tablet
100 mg PO DAILY 30 Days Qty: 120 0RF
ondansetron HCl 4 mg Tablet
4 mg PO Q8HPRN PRN (Reason: nausea) Qty: 10 0RF
sulfamethoxazole-trimethoprim 800-160 mg Tablet
1 tab PO BID Qty: 6 0RF
tramadol 50 mg Tablet
50 mg PO Q6HPRN PRN (Reason: moderate to severe pain) Qty: 10 0RF
Referrals:
Tnoe Mccord MD [Family Provider, Internal Medicine]
Activity Restrictions/Additional Instructions:
As discussed follow-up with family doctor in the next 2 days for reevaluation of symptoms. Patient may take Tylenol or ibuprofen as needed.
If symptoms continue please follow-up with patient's neurologist
Wash abrasions twice a day with soap water pat dry and apply small layer of antibiotic ointment to the area. Do wound care twice a day
Return if any worsening of symptoms. Pt was updated on tetanus vaccine today.
Interventions
Interventions:
*Risk Screen - Suicide Last Done: 10/20/24 11:42
*Neglect/Abuse Screening Last Done: 10/20/24 11:42
Discharge Date and Time
Print Language: SAMI
[2024-10-20] MEDS: ADACEL 0.5 ML IM (15:40)
== END 2024-10-20 16:21 | disposition home or self-care (01) ==
LOC: EMR 11:37
PROVIDERS: EMERGENCY PHYSICIAN Emergency Medicine; FAMILY PHYSICIAN Internal Medicine
DX: S06.0X0A Concussion without loss of consciousness, initial encounter (principal); W22.01XA Walked into wall, initial encounter; E11.9 Type 2 diabetes mellitus without complications; G20.A1 Parkinson's disease without dyskinesia, without mention of fluctuations; Z23 Encounter for immunization; Z79.84 Long term (current) use of oral hypoglycemic drugs
CPT/HCPCS: 99284; 90471; 70450; 90715

== ENCOUNTER 2024-10-28 09:38 | Inpatient (IN) | payer MEDICARE, OTHER, SELFPAY ==
[2024-10-26] VITALS (7 sets, daily range): BP systolic 126–152; BP diastolic 68–89; BMI 29.4; BMI 29.0
[2024-10-26 12:22] LABS: Hematocrit 45.7 % (39.0-52.0); Hemoglobin 15.2 g/dL (13.0-18.0); Mean Corp Hgb Conc. 33.3 g/dL (33.0-37.0); Mean Corpuscular Volume 99.3 fL (80.0-94.0); Nucleated Red Blood Cells % 0 % (-); Platelet Count 265 10^3/uL (130-400); Red Cell Dist. Width 13.6 % (11.5-14.5)
[2024-10-26 12:23] LABS: Albumin 4.6 g/dl (3.5-5.0); Blood Urea Nitrogen 10 mg/dl (9-20); Calcium 9.7 mg/dl (8.4-10.2); Carbon Dioxide 29 mmol/L (22-30); Chloride 105 mmol/L (98-107); Potassium 4.2 mmol/L (3.5-5.1); Sodium 142 mmol/L (135-145); Total Protein 7.7 g/dl (6.3-8.2); eGFR > 60.00
[2024-10-26 12:33] LABS: ALT (SGPT) < 10 U/L (0-50); AST (SGOT) 22 U/L (17-59); Alkaline Phosphatase 76 U/L (38-126); Glucose 114 mg/dl (70-99)
--- NOTE | 2024-10-26 16:25 | EDRN ---
Angela BRENNER in room w/pt at this time.
--- NOTE | 2024-10-26 16:40 | EDRN ---
Pt arrives for wound on L lower leg above ankle. Pt states he was at his sisters house and sitting in a chair w/ leg on table and had a parkinson's tremor and cut his L lower leg on the edge of table (10/17). Pt fell on 10/19 and seen in ED on 10/20. Pt
fell forward and reinjured his L lower leg and hit his head. Pt had a concussion. No xray to leg and got Tdap and was discharged. [facility] doing in home wound care to his L arm and looked at his leg. Pt was in hospital for 2 weeks for infection
post melanoma removal. Pt comes in as looking infected, discharge from wound, pain (12/18). Serosanguinous dressing today though pus yesterday from wound.
--- NOTE | 2024-10-26 17:00 | EDRN ---
Dr. Hamilton in room w/ pt at this time.
--- NOTE | 2024-10-26 17:09 | EDRN ---
Pharmacy called for vancomycin ordered as unable to acknowledge.
[2024-10-26] MEDS: ULTRAM 50 MG PO (17:11)
[2024-10-26] MEDS: TORADOL 15 MG IV (17:22)
[2024-10-26] MEDS: VANCOCIN 540 MG IV (17:42)
--- NOTE | 2024-10-26 18:39 | EDRN ---
Pt very diaphoretic and developed nausea at xray, just returned. Pain remains 10/10 in L lower leg. BP 149/80. TT sent to Anegla BRENNER who is in room at this time.
[2024-10-26] MEDS: ZOFRAN 4 MG IV (18:49)
[2024-10-26] MEDS: MORPHINE SULFATE 4 MG IV (18:50)
--- NOTE | 2024-10-26 20:03 | ED.GENMED ---
History of Present Illness
General
Chief Complaint: Skin Problem
Source: patient
Exam Limitations: none
Time Seen by Provider: 10/26/24 16:16
Nursing documentation reviewed up to this point in time: agreed with
History of Present Illness
History of Present Illness:
see MDM
Past History
Past History
ED Past Medical History: Cancer, NIDDM and Other (Guillain-Chand�, Parkinson's disease)
ED Past Surgical History: Other
Social History
Tobacco: Non-smoker
Alcohol: None
Drug: None
Personal:
Living: with family
Employment: Employed
Phy Exam
Physical Exam
Physical Exam:
GENERAL: Alert , in no apparent distress
EYE: pupils equal and reactive
NECK: Supple
ENT: o/p clr, mmm.
CARDIAC: Regular rate and rhythm .
LUNGS: Clear breath sounds bilaterally, no acute respiratory distress, no wheezes/rales/rhonchi
ABDOMEN: Soft, without focal tenderness, no r/g, no cvat, normal bowel sounds
NEUROLOGICAL: Alert and oriented, no focal neuro deficits; parkinsons tremor/gait instability
SKIN: Warm and dry, 3-4 cm area erythema around central wound, scab at base, sightly indurated or swollen, very tender
MUSCULOSKELETAL: mod L ankle swelling but the wound is superior tot he ankle and the ankle is not having any skin chnages
painful mvoement of the ankle
bony tendnress L mall
PSYCH: Normal and appropriate interaction. parkinsons
Course
Orders/Labs/Results
Orders:
Orders
10/26/24 11:49
Complete Blood Count/With Diff Urgent
Comprehensive Metabolic Panel Urgent
Lactic Acid Q4H
Comment: ON ICE, CANCEL 2ND ORDER IF FIRST LACTIC ACID LEVEL <2
Blood Culture Q20M
SHAWN Source: Blood/Venous
Specimen Description:
Comment: Urgent from separate sites. If patient screens positive for possible sepsis
10/26/24 14:40
Venous Doppler Lwr Ext Left [US Periph Venous LOWER Ext LT] Urgent
Comment:
Reason For Exam: redness and swelling
10/26/24 Dinner
1800 calorie (15 carb) Diabetic
At Your Request: Limited Participation
Does patient need a safe tray?: No
10/26/24 16:39
Ketorolac [Toradol] 15 mg IV NOW STA
Tramadol HCl [Ultram] 50 mg PO NOW STA
10/26/24 16:49
Ankle, left 3 view CR [CR Ankle - Left Min 3 Views ] Urgent
Comment:
Reason For Exam: left ankle wound; please expand to include this
10/26/24 17:09
Vancomycin [Vancocin] 2,000 mg 0.9% Sodium Chloride 500 ml [Nss] 500 ml IV NOW
10/26/24 17:22
Blood Culture Q20M
SHAWN Source: Blood/Venous
Specimen Description:
Comment: Urgent from separate sites. If patient screens positive for possible sepsis
10/26/24 18:44
Morphine Sulfate 4 mg .ROUTE .STK-MED ONE
Ondansetron Injectable [Zofran] 4 mg .ROUTE .STK-MED ONE
10/26/24 18:48
Ondansetron Injectable [Zofran] 4 mg IV NOW STA
10/26/24 18:50
Morphine Sulfate 4 mg IV NOW STA
10/26/24 20:01
Wound Culture [Wound/Abscess/Other Culture] Urgent
SHAWN Source: Ankle
Specimen Description: Left
Date Specimen was Collected: 10/26/24
Time Specimen was Collected: 20:00
10/26/24 20:33
Admit/Transfer Patient As Directed
Co-Sign Provider:
Level of Care: Observation services
Assign to:: Medical/Surgical
Physician / Group: Adebamiro
Diagnosis: purulent cellulitis
PRN Pain Medication Management As Directed
May give lesser potent ordered pain med per pt: Yes
preference::
Protocol:: Medication orders for pain may be administered in a
manner that supports deferring to patient preference
when the pt is:
- Requesting an ordered lesser potent pain medication.
Least to most potent pain medications are defined
as: acetaminophen < NSAID < tramadol < opioids
(morphine, oxycodone, hydromorphone).
- Requesting a lesser dose of the same medication IF
ORDERED.
- Requesting a less intrusive route of administration
if both routes are prescribed by the provider (PO <
IV).
10/26/24 20:34
Code Status As Directed
Resuscitation Status: Full Code
10/26/24 20:36
Oxycodone [Roxicodone] 5 mg PO NOW STA
10/26/24 21:44
Acetaminophen [Tylenol] 650 mg PO Q4HPRN PRN
Bisacodyl [Dulcolax] 10 mg RECTAL [id number] PRN
Docusate W/Senna [Senokot-S] 1 tablet PO BIDPRN PRN
HYDROmorphone [Dilaudid] 0.5 mg IV Q4HPRN PRN
Ketorolac [Toradol] 15 mg IV Q6HPRN PRN
Polyethylene Glycol Powder [Miralax] 17 grams PO DAILYPRN PRN
VANCOMYCIN Pharmacy to Dose [VANCOCIN Pharmacy to Dose] 1 each Pharmacy To Prepare [Call Pharmacy To Prepare] 0 ml IV PER PROTOCOL
10/26/24 21:44
Activity As Directed
Activity Level: With Assistance
Vital Signs As Directed
Frequency: Per unit guidelines
DX Deep Vein Thrombosis Video Routine
10/26/24 21:59
MRSA Screen Routine
SHAWN Source: Nose
Specimen Description:
10/27/24 06:00
Basic Metabolic Panel IN AM
Complete Blood Count/No Diff IN AM
10/27/24 08:00
Calcium Carbonate/Vitamin D3 [Oscal 500 + D] 500 mg PO DAILY
Cyanocobalamin [Vitamin B-12] 1,000 mcg PO DAILY
Donepezil HCl [Aricept] 20 mg PO DAILY
Duloxetine Delayed Release [Cymbalta Delayed Release] 60 mg PO DAILY
Ezetimibe [Zetia] 10 mg PO DAILY
Multivitamin [Theragran] 1 tablet PO DAILY
Sitagliptin Phosphate [Januvia] 100 mg PO DAILY
10/27/24 08:30
Carbidopa/Levodopa [Sinemet 25-100] 2 tablet PO TID@0830,1230,1630
10/27/24 16:30
Mirtazapine [Remeron] 30 mg PO DAILY@1630
10/27/24 18:00
Enoxaparin Sodium [Lovenox] 40 mg SC QPM
Abnormal Lab Results
10/26/24
11:49
RBC 4.60 L 10^6/uL
(4.70-6.10)
MCV 99.3 H fL
(80.0-94.0)
MCH 33.0 H pg
(27.0-31.0)
Glucose 114 H mg/dl
(70-99)
10/26/24 11:49
10/26/24 11:49
Vital Signs
Initial and Last Documented VS:
Initial Vital Signs
Temp Pulse Resp BP Pulse Ox
36.7 C 59 18 137/74 94
10/26/24 11:41 10/26/24 11:41 10/26/24 11:41 10/26/24 11:41 10/26/24 11:41
Last Documented Vital Signs
Temp Pulse Resp BP Pulse Ox
36.3 C 58 18 132/70 93
10/26/24 23:59 10/26/24 23:59 10/26/24 23:59 10/26/24 23:59 10/26/24 23:59
Procedures
Incision/Drainage/Joint Aspiration
Left Lower Lateral Leg:
Anethesia: 1% Lidocaine with Epi
Preparation: cleaned with Betadine
Type of procedure: incise
Nature of site: other (abscess vs. cellulitis)
Description of abscess: less than 3cm
Loculations broken up: No
How much fluid was obtained?: scant amount
Fluid description: cloudy and bloody
Treatment: antibiotics started and bandaid applied
MDM/Problems Addressed
Differential Diagnosis Includes:
see MDM
MDM/Problems Addressed:
Note:
CHIEF COMPLAINT(S)
Laceration on the leg with signs of infection.
HISTORY OF PRESENT ILLNESS
The patient is a 79-year-old male with h/o parkinsons
here for infection L Lowre leg. The patient presents with a laceration on the leg resulting from a fall 1.5 weeks ago against a wooden table and had a laceration. then a few days later, he fell again and was seen here for concussino. he thinks
maybe he opened the wound back up during that 2nd fall
over the past few days pt has had significant pain to the L ankle and painful walking and now the area is red, swollen, tender, oozing. . Patient denies fever
He does have a history of a deep space infection of his left forearm after a melanoma excision got infected and was admitted for nearly 2 weeks at this hospital in July for MSSA, he was not bacteremic and his daughter is very concerned that this is
similar to his previous presentation and that despite his blood work being normal he is sicker than he looks.
ADDITIONAL HISTORY OBTAINED FROM SOURCE OTHER THAN PATIENT
Per the patients daughter, the patient has a history of treatment with Vancomycin for previous infections and has been seen by Dr. Florez in the past for similar issues. She also mentioned that the patient had a prior concussion associated with a
fall.
PHYSICAL EXAM
- Review by nursing staff and vital signs were reviewed.
- Examination of the leg revealed a laceration that is swollen, oozing, and with increased surrounding redness.
- Pain is noted primarily in the ankle region.
PLAN
- An x-ray of the tibia, fibula, and ankle will be performed to check for any fractures or foreign bodies.
- Consideration for an intravenous dose of Vancomycin, followed by oral antibiotics that will cover Staphylococcus infection, contingent upon x-ray results.
- Plan to numb the area and consider incision and drainage of the suspected abscess to address the pocket of pus.
- High priority on managing pain with appropriate medications and recommending elevation of the affected leg.
- Advise monitoring the leg for 24 to 48 hours; if symptoms worsen, specifically if a fever develops, the patient should return promptly for further evaluation.
DIFFERENTIAL DIAGNOSIS
The Differential Diagnosis includes, in no particular order and is not limited to:
1. Cellulitis
2. Abscess
3. Deep vein thrombosis
4. Osteomyelitis
5. Soft tissue injury
6. Hematoma
7. Foreign body in the wound
8. Ligament or tendon injury
9. Joint injury or fracture
10. Chronic venous insufficiency.
CARE-UPDATE
10/26/24 - 20:10
The patient remains afebrile with normal lab work, including normal lactate and white cell count, indicating no systemic infection at this time. Despite these reassuring labs, the patient continues to experience significant pain, resulting in
difficulty ambulating. A localized incision was made at the site, yielding minimal drainage, primarily consisting of blood. The cultured sample was taken for further analysis. The patient will continue with IV antibiotics due to the infections
progression, with attention to analgesia to manage pain and facilitate mobilization. The wound will remain open with regular dressing changes, and the patients daughter has been instructed on signs of further infection. Close monitoring will be
required until an improvement in symptoms is noted.
*Pulse Oximetry
SaO2: 95
Oxygen Mode of Delivery: Room air
Patient hypoxic: no (94)
*Critical Care Note
Total Time (30-74mins, 75-104mins- exclusive of procedures): Not Applicable
ED Attending Note
-
Portions of this chart may have been created with voice recognition software.� Occasional wrong word or��sound alike� substitutions may have occurred due to the inherent limitations of voice recognition software.
Discharge Plan
Departure
Patient Disposition: Admit
Date of Disposition: 10/26/24
Time of Disposition: 19:50
Presentation/result/management discussed w/ accepting MD/DO: Hospitalist
Discharge Problem:
Cellulitis of left anterior lower leg
Interventions
Interventions:
*Risk Screen - Suicide Last Done: 10/26/24 22:21
*General Assessment Last Done: 10/26/24 16:37
*Neglect/Abuse Screening Last Done: 10/26/24 16:39
*ED- Fall Risk Assessment Last Done: 10/26/24 16:37
*ED COVID-19 Vaccine History Last Done: 10/26/24 22:21
*Nursing Disposition Last Done: 10/26/24 22:04
ED-Skin Assessment Last Done: 10/26/24 16:46
Discharge Date and Time
Discharge Date/Time: 10/26/24 22:05
--- NOTE | 2024-10-26 20:08 | PHANOTE ---
med rec note- no ecw. no pharmacy records
--- NOTE | 2024-10-26 20:14 | HPS.HSE ---
Family Physician
-
Family Physician: NOT KNOW UNKNOWN - PT DOES
Chief Complaint
-
Cellulitis
History of Present Illness
79-year-old male with past medical history significant for Parkinson's disease, dementia, kyk-yjhpxfc-oagzaipfo diabetes, prior history of failure GBS and history of prostate cancer presenting to the emergency department with left lower extremity
wound.
Patient had injuries to the left ankle about 1-1/2 weeks ago. He also had a fall. He came to the emergency department and was evaluated. He was treated with tetanus vaccination. There was no obvious infection or abscess at that time. He has not
been on any antibiotics. However over the ensuing days family has been monitoring the wound. They reported that he has had increasing ankle pain. No fevers or chills. He had severe redness yesterday and then started to have some drainage. They
have been applying some topical dressing but there was no improvement. Brought into the emergency department today for further evaluation. In the emergency department he had I&D with drainage of some pus.
In the emergency department, patient was afebrile, blood pressure was 140/80 with a pulse of 56 satting 95% on room air.
CBC was unremarkable, electrolytes BUN/creatinine were all normal. Glucose was normal. Ultrasound shows no DVT. Ankle x-ray shows no acute fracture or dislocation and no foreign body.
Medical History
Past Medical History
Past Medical History: Reports Other (diabetes, Guillain-Chand�, Parkinson disease, prostate cancer, melanoma removal of left forearm 4 days ago, rheumatoid arthritis, polymyalgia rheumatica)
Past Surgical History: Reports None
Social History
Tobacco: Non-smoker
Alcohol: None
Drug: None
Family History
Family History: Not pertinent
Allergies / Home Medications
Allergies reflects when Allergies were last updated in [facility].
Home Medications with original date entered in [facility]
Allergy/Medication List:
Allergies
Allergy/AdvReac Type Severity Reaction Status Date / Time
No Known Allergies Allergy Verified 07/12/24 10:52
Home Medications
meloxicam 7.5 mg tablet 7.5 mg PO BID #14 tabs 12/19/16
Review of Systems
-
History Source: Patient
A 12 point ROS was completed and negative except as noted: Yes
Constitutional: Reports No Symptoms
EENT: Reports No Symptoms
Respiratory: Reports No Symptoms
Cardiac: Reports No Symptoms
Abdomen/GI: Reports No Symptoms
: Reports No Symptoms
Musculoskeletal: Reports No Symptoms
Skin: Reports See HPI
Neurological: Reports No Symptoms
Endocrine: Reports No Symptoms
Hematologic/Lymphatic: Reports No Symptoms
Psych: Reports No Symptoms
Physical Exam
Vital Signs
Vital Signs
Temp Pulse Resp BP Pulse Ox
98.1 F 56 16 142/80 95
10/26/24 11:41 10/26/24 18:36 10/26/24 18:36 10/26/24 18:36 10/26/24 20:06
Physical Exam
General: Well Developed, Well Nourished and No Apparent Distress
HEENT: NormoCephalic, Moist mucous membranes and Atraumatic
Respiratory: Clear
Cardiac: S1/S2 and Regular Rhythm; No Murmur or Rub
GI: Soft, Non Tender, Non Distended and Normal Bowel Sounds; No Organomegaly
Rectal: Deferred by Provider
Musculoskeletal: No Clubbing, No Cyanosis and No Edema
Skin: Other (Left lateral ankle erythema, edema, status post I&D site with drainage noted. Small abscess noted.); No Rash
Neuro: Nonfocal/grossly intact
Laboratory Results
-
10/26/24 11:49
10/26/24 11:49
Laboratory Results
Lactic Acid Cancelled 10/26/24 16:49
Total Bilirubin 0.8 mg/dl (0.2-1.3) 10/26/24 11:49
AST 22 U/L (17-59) 10/26/24 11:49
ALT < 10 U/L (0-50) 10/26/24 11:49
Alkaline Phosphatase 76 U/L (38-126) 10/26/24 11:49
Data Reviewed
-
Diagnostic Radiology: Image Personally Visualized and interpreted and Report Reviewed by me
Lab Data: Labs Reviewed by me
Old Records: Reviewed
Impression/Plan
-
IMPRESSION:
79-year-old with history of ihi-rtckrkr-djzwasdxw diabetes, Parkinson's disease coming with small abscess of the left lower extremity. He is status post I&D. He is afebrile. There is no peripheral leukocytosis. Ultrasound is negative. Ankle
x-ray without foreign body. No fracture or dislocation.
PLAN:
Purulent cellulitis without systemic findings -patient was recently admitted to the hospital with abscess and grew MSSA for which she was treated with Bactrim ultimately due to some polymicrobial findings.
- Admit to MedSurg observation
- Culture sent from I&D
- MRSA swab
- Continue IV vancomycin
- Can transition to oral Doxy in a.m. if patient stable
- Patient still complaining of pain, pain control elevate legs
Diabetes
- Sliding scale insulin
- Continue sitagliptin
Parkinson's disease
- Continue home Keppra evaluated by
- Continue mirtazapine
- Continue donepezil
DVT prophylaxis�Lovenox
CODE STATUS�full code
[2024-10-26] MEDS: ROXICODONE 5 MG PO (21:29)
[2024-10-26 21:52] LABS: Glucose - Point of Care 125 mg/dl (70-99)
--- NOTE | 2024-10-26 22:07 | PHA.VAN.IN ---
Assessment
- Assessment
Renal Function: Appears similar to baseline
AUC Dosing Plan
- Dosing Variables
Dosing Weight (kg): 114
Dosing CrCl (ml/min): 97
Vd coefficient (L/kg): 0.7
- Empiric Dosing
Initial / Loading Dose: 2000 MG ~ 1745
Maintenance Regimen: 1500 MG IV Q12H
Estimated AUC (mcg*h/mL): 471
Estimated Peak (mcg*h/mL): 29.4
Estimated Trough (mcg/ml): 12.1
Estimated Half Life (H): 8.2
- Monitoring
No levels ordered at this time: Consider levels in next few days
Pharmacokinetics Vancomycin I
- -
Patient Age: 79
Patient Sex: Male
Vancomycin Day #: 1
Indication: Skin And Soft Tissue
Requesting Provider: Dr Mily Sethi
Height / Weight:
Height 6 ft 5.5 in
Actual Weight 114 kg
Pertinent Past Medical History: NIDDM
- Vital Signs / Lab Results
Temp Pulse Resp BP Pulse Ox
98.1 F 56 16 142/80 93
10/26/24 11:41 10/26/24 18:36 10/26/24 18:36 10/26/24 18:36 10/26/24 20:15
Lab Results - Hematology
10/26/24
11:49
WBC 6.5
Lab Results - Chemistry
10/26/24
11:49
BUN 10
Creatinine 0.8
Albumin 4.6
10/26/24 10/26/24 10/26/24
11:49 15:45 16:49
Lactic Acid 1.0 Cancelled Cancelled
[2024-10-26] MEDS: DILAUDID 0.5 MG IV (22:43)
[2024-10-27] MEDS: DILAUDID 0.5 MG IV ×4 (04:10→22:18)
[2024-10-27] MEDS: VANCOCIN 530 MG IV ×2 (05:02→18:02)
[2024-10-27] MEDS: TORADOL 15 MG IV ×2 (07:11→20:16)
[2024-10-27 07:15] VITALS: BP 141/76
[2024-10-27 07:55] LABS: Hematocrit 41.8 % (39.0-52.0); Hemoglobin 13.8 g/dL (13.0-18.0); Mean Corp Hgb Conc. 33.0 g/dL (33.0-37.0); Mean Corpuscular Volume 100.7 fL (80.0-94.0); Platelet Count 240 10^3/uL (130-400); Red Cell Dist. Width 13.8 % (11.5-14.5)
--- NOTE | 2024-10-27 07:55 | W.PN.HOSP.TC ---
Today's Communication/Plan
-
Continue antibiotic coverage transition to oral antibiotic tomorrow and discharge.
Assessment / Plan
Assessment / Plan
Impression:
79-year-old with history of scf-nwhjzom-auujkuvzk diabetes, Parkinson's disease coming with small abscess of the left lower extremity. He is status post I&D. He is afebrile. There is no peripheral leukocytosis. Ultrasound is negative. Ankle
x-ray without foreign body. No fracture or dislocation.
Seen by surgery, no intervention
Assessment/plan:
Purulent cellulitis without systemic findings -patient was recently admitted to the hospital with abscess and grew MSSA for which she was treated with Bactrim ultimately due to some polymicrobial findings.
- Admit to MedSurg observation
- Post I&D, culture, seen by surgery, no further I&D.
- MRSA swab
- Continue IV vancomycin
- Can transition to oral Doxy in a.m. if patient stable
- Patient still complaining of pain, pain control elevate legs
History of diabetes mellitus
Continue sitagliptin
Insulin sliding scale
Diabetic diet
Hemoglobin A1c 6.8
Parkinson's disease
- Continue home Keppra evaluated by
- Continue mirtazapine
- Continue donepezil
CODE STATUS: Full code
DVT prophylaxis: Lovenox
Diet: DM diet
Family communication: Discussed with daughter at bedside
Disposition: Continue antibiotic
Total time spent on today's encounter was 65 minutes which included time spent in counseling the patient/family regarding diagnosis and treatment plan as listed above, goals of care, and symptom management. Case was discussed with nursing staff,
specialists, and care coordinators/case management. All labs and imaging personally reviewed by me. Remainder the time spent in detailed review of previous records, lab data, imaging, and other medical provider documentation.
Anticipated Discharge: Within 24 hours
Subjective/Interval History
-
Date of Service: October 27, 2024
Patient seen and examined at bedside, daughter at bedside denies any chest pain or shortness of breath, no abdominal pain, no nausea, no vomiting, no diarrhea or constipation.
Left leg pain.
Objective Data
-
Labs:
Laboratory Results
10/27/24
07:01
WBC 6.4
Hgb 13.8
Hct 41.8
Plt Count 240
Sodium Pending
Potassium Pending
Chloride Pending
Carbon Dioxide Pending
BUN Pending
Creatinine Pending
Glucose Pending
Calcium Pending
Vital Signs:
Vital Signs
Temp Pulse Resp BP Pulse Ox
97.4 F 58 18 132/70 93
10/26/24 23:59 10/26/24 23:59 10/26/24 23:59 10/26/24 23:59 10/26/24 23:59
I&O
10/26/24 10/27/24 10/28/24
06:59 06:59 06:59
Intake Total 960 / 960
Balance 960 / 960
Physical Exam
-
General: Well Developed, Well Nourished, No Apparent Distress and Comfortable
HEENT: Normocephalic, Atraumatic, Moist Mucous Membranes, No Ptosis, PERRLA and Nose Appears Normal
Respiratory: Clear to Auscultation and Non Labored Respirations
Cardiac: Regular Rhythm and S1/S2
Breast: Deferred by me
GI: Soft, Nontender, Nondistended and Normal Bowel Sounds
Genito-urinary: No Costovertebral Tender
Musculoskeletal: No Clubbing, No Cyanosis, No Edema and Other (Lower left leg lateral aspect with rounded area of cellulitis and possible early abscess.)
Skin: Warm and Lesions (Left)
Neuro: Awake, Alert, Oriented, AO x 3 and No Motor Deficits
Psych: Calm
Data Reviewed
-
Diagnostic Radiology: Image personally visualized and interpreted and Report Reviewed by me
CT Scan: Image personally visualized and interpreted and Report Reviewed by me
Ultrasound: Image personally visualized and interpreted and Report Reviewed by me
MRI: Image personally visualized and interpreted and Report Reviewed by me
Medical Tests (Nuc Med, Echo etc): Image personally visualized and interpreted and Report Reviewed by me
Labs: Labs Reviewed by me
Old Records: Reviewed
[2024-10-27 08:03] LABS: Glucose - Point of Care 122 mg/dl (70-99)
[2024-10-27 08:30] LABS: Blood Urea Nitrogen 11 mg/dl (9-20); Calcium 8.6 mg/dl (8.4-10.2); Carbon Dioxide 25 mmol/L (22-30); Chloride 107 mmol/L (98-107); Estimated Creatinine Clearance 111 ml/min; Glucose 99 mg/dl (70-99); Potassium 3.9 mmol/L (3.5-5.1); Sodium 138 mmol/L (135-145); eGFR > 60.00
[2024-10-27 09:00] LABS: Glycohemoglobin (HgbA1c) 6.8 % (4.0-5.6)
[2024-10-27] MEDS: SENOKOT-S 1 TABLET PO (09:01)
[2024-10-27] MEDS: VITAMIN B-12 1000 MCG PO (09:01)
[2024-10-27] MEDS: ZETIA 10 MG PO (09:01)
[2024-10-27] MEDS: CYMBALTA DELAYED RELEASE 60 MG PO (09:01)
[2024-10-27] MEDS: ARICEPT 20 MG PO (09:02)
[2024-10-27] MEDS: THERAGRAN 1 TABLET PO (09:02)
[2024-10-27] MEDS: OSCAL 500 + D 500 MG PO (09:02)
[2024-10-27] MEDS: JANUVIA 100 MG PO (09:02)
--- NOTE | 2024-10-27 09:05 | VNURNOTE ---
Chart reviewed. Patient is current with [facility]. Will continue to follow hospital course and DC plans.
[2024-10-27] MEDS: SINEMET 25-100 2 TABLET PO ×3 (09:26→16:30)
--- NOTE | 2024-10-27 10:25 | WOUNDNOTE ---
[facility] RN note: Patient admitted with cellulitis of L lower ankle.
See H&P for complete history.
PMH: ED Past Medical History: Cancer, NIDDM and Other (Guillain-Chand�, Parkinson's disease)
ED Past Surgical History: Other
Wound Location and type/assessment: Patient admitted with: L lateral ankle trauma wound. Daughter at bedside confirmed he hit ankle on edge of coffee table. Now with erythema surrounding open wound with edema and pain at site, small drainage. Wound
culture pending. Ultrasound of L leg negative for DVT. L ankle x ray negative for fracture or osteomyelitis. Surgery consult pending. Patient able to turn self to sides, sacrum and heels intact. Small patch of blood on proximal gluteal cleft,
cleaned with saline, no further bleeding. Patient denies scratching area.
Appetite: Good, encouraged protein in diet to help with wound healing.
Pressure redistribution devices in place: Accumax. Pressure ulcer prevention measures reviewed with patient and daughter at bedside, states they understand.
Plan: Local wound care applied. Will follow along peripherally and assist surgery as needed.
Will confirm orders with hospitalist and updated nurse Leti.
Updated care plan and will follow as needed.
Note to case management of equipment requested for discharge: TBD.
Recommend follow up at wound care center upon discharge.
[2024-10-27 12:20] LABS: Glucose - Point of Care 86 mg/dl (70-99)
--- NOTE | 2024-10-27 13:15 | CON.GS ---
Consultation
-
Date/Time Consultation Performed: 10/27/24
Requesting Provider: Lex
Performing Provider: Al
Reason for Consultation: LLE soft tissue infection
Medical History
-
Chief Complaint: LLE pain/swelling
History of Present Illness:
79-year-old male admitted from the emergency department with left lower extremity wound.
Patient had injuries to the left ankle about 1-1/2 weeks ago after a fall. Seen in ED at that time and treated with tetanus vaccination. There was no obvious infection or abscess at that time. He has not been on any antibiotics. Since then he
has had increasing ankle pain. No fevers or chills. He had severe redness yesterday and then started to have some drainage. In the emergency department he had I&D with drainage of some pus.
Past Medical History
Past Medical History: Other (Parkinson's disease, dementia, fax-vgadwor-ceozxsrli diabetes, prior history of failure GBS and history of prostate cancer)
Past Surgical History: Reviewed & Noncontributory
Social History
Tobacco: Non-Smoker
Alcohol: None
Drug: None
Family History
Family History: Reviewed & Noncontributory
Allergies / Home Medications
Allergy/AdvReac Type Severity Reaction Status Date / Time
No Known Allergies Allergy Verified 10/26/24 11:41
�Medication �Instructions �Recorded �Confirmed �Type
calcium 250 mg (as 1 tab PO DAILY Supplement 07/12/24 10/26/24 History
carbonate)-vitamin D3 3.125 mcg
(125 unit) tablet (Oyster Shell +
D3)
carbidopa 25 mg-levodopa 100 mg 2 tab PO TID@0830,1230,1630 07/12/24 10/26/24 History
tablet Neurological Condition
cyanocobalamin (vitamin B-12) 1,000 mcg PO DAILY Supplement 07/12/24 10/26/24 History
1,000 mcg tablet
donepezil 10 mg tablet 20 mg PO DAILY Neurological 07/12/24 10/26/24 History
Condition
duloxetine 60 mg capsule,delayed 60 mg PO DAILY Mental 07/12/24 10/26/24 History
release Health/Anxiety
ezetimibe 10 mg tablet 10 mg PO DAILY High Cholesterol 07/12/24 10/26/24 History
mirtazapine 30 mg tablet 30 mg PO DAILY@1630 Mental 07/12/24 10/26/24 History
Health/Anxiety
therapeutic multivitamin 1 tab PO DAILY Supplement 07/12/24 10/26/24 History
semaglutide 0.25 mg or 0.5 mg (2 0.5 mg SC MO Diabetes 10/26/24 10/26/24 History
mg/1.5 mL) subcutaneous pen
injector (Ozempic)
sitagliptin 25 mg tablet (Zituvio) 100 mg PO DAILY Diabetes 10/26/24 10/26/24 History
Review of Systems
-
A 10 point review of systems was completed, and was negative except as per HPI.
Physical Exam
Vital Signs
Temp Pulse Resp BP Pulse Ox
97.3 F 49 20 141/76 96
10/27/24 07:15 10/27/24 07:15 10/27/24 07:15 10/27/24 07:15 10/27/24 11:01
10/26/24 10/27/24 10/28/24
06:59 06:59 06:59
Actual Weight 112.491 kg
Body Mass Index (BMI) 29.0
Lab Results
10/27/24 07:01
10/27/24 07:01
WBC 6.4 10^3/uL (4.8-10.8) 10/27/24 07:01
Hgb 13.8 g/dL (13.0-18.0) 10/27/24 07:01
Hct 41.8 % (39.0-52.0) 10/27/24 07:01
Plt Count 240 10^3/uL (130-400) 10/27/24 07:01
Abs Immat Gran (auto) 0.0 10^3/uL (0-0.05) 10/26/24 11:49
Neutrophils % 48.5 % (42.2-75.2) 10/26/24 11:49
Physical Exam
General: Well Developed, Well Nourished and No Apparent Distress
HEENT: Normocephalic
Skin: Other (LLE with raised erythematous area without odor, without fluctuance, I&D site with ecchymosis, mild ttp, no purulance)
Neuro: AO x 3
Psych: Calm
Data Reviewed
-
Labs: Labs Reviewed by me and Discussed with Physician
Old Records: Reviewed
Assessment / Plan
-
79M with superficial abscess to anterior LLE s/p I&D in ED
AFVSS, no leukocytosis, exam without fluctuance or purulence
Micro: pending
No plans for surgical intervention at this time
OK for DC with abx per Hositalist
Would f/u wound Cx to ensure adequate abx coverage
Pls call with ?s
[2024-10-27 14:20] VITALS: BP 139/79
[2024-10-27] MEDS: ZOFRAN 4 MG IV (14:22)
--- NOTE | 2024-10-27 14:22 | PHA.VAN.FU ---
Addendum entered and electronically signed by Lizeth Euceda [facility] 10/27/24 14:25:
Agree with assessment and plan
Original Note:
Vancomycin Assessment / Plan
- Assessment
Renal Function: Stable
WBC's are: WNL
In the past 24 hrs, patient has been: Afebrile
- Dosing Plan
Continue: 1500mg q12h
- Monitoring Plan
No level(s) ordered at this time: consider within next few days
- Follow Up
Pharmacy will continue to follow.
Vancomycin Follow UP
- -
Patient Age: 79
Patient Sex: Male
Vancomycin Day #: 2
Indication: Skin And Soft Tissue
Requesting Provider: Dr Mily Sethi
Pertinent Antimicrobial Allergies:
NKDA
Height / Weight:
Height 6 ft 5.5 in
Actual Weight 112.491 kg
Pertinent Past Medical History: NIDDM
- Vital Signs / Lab Results
Temp Pulse Resp BP Pulse Ox
97.9 F 63 20 139/79 95
10/27/24 14:20 10/27/24 14:20 10/27/24 14:20 10/27/24 14:20 10/27/24 14:20
Lab Results - Hematology
10/26/24 10/27/24
11:49 07:01
WBC 6.5 6.4
Lab Results - Chemistry
10/26/24 10/27/24
11:49 07:01
BUN 10 11
Creatinine 0.8 0.7
Estimated Creat Clear 111
Albumin 4.6
10/26/24 10/26/24 10/26/24
11:49 15:45 16:49
Lactic Acid 1.0 Cancelled Cancelled
Microbiology Results
10/26/24 11:49 Blood Culture - Preliminary
Blood/Venous No Growth in 24 hours- Final report to follow
10/26/24 20:01 Gram Stain - Preliminary
Ankle - Left
[2024-10-27 15:00] VITALS: BP 129/65
[2024-10-27] MEDS: REMERON 30 MG PO (16:30)
[2024-10-27 17:09] LABS: Glucose - Point of Care 110 mg/dl (70-99)
[2024-10-27] MEDS: LOVENOX 40 MG SC (18:02)
[2024-10-27 19:48] VITALS: BP 120/68
[2024-10-27] MEDS: TIGAN 200 MG IM (19:58)
[2024-10-27 21:21] LABS: Glucose - Point of Care 87 mg/dl (70-99)
[2024-10-27 23:58] VITALS: BP 120/58
[2024-10-28] VITALS (8 sets, daily range): BP systolic 120–151; BP diastolic 57–81
--- NOTE | 2024-10-28 02:37 | DOWNTIME ---
There was a [employer] Downtime on 10/28/2024 from 0100 to 10/28/2024 at 0235. Downtime documentation of patient's care, including medication administrations, has been reconciled in the electronic record per guidelines. Refer to the
patient's paper chart under the miscellaneous tab to see printed paper medication records and downtime forms.
[2024-10-28] MEDS: VANCOCIN 530 MG IV ×2 (05:19→17:26)
[2024-10-28 07:32] LABS: Hematocrit 40.2 % (39.0-52.0); Hemoglobin 13.4 g/dL (13.0-18.0); Mean Corp Hgb Conc. 33.3 g/dL (33.0-37.0); Mean Corpuscular Volume 100.2 fL (80.0-94.0); Platelet Count 236 10^3/uL (130-400); Red Cell Dist. Width 13.5 % (11.5-14.5)
[2024-10-28 07:56] LABS: Blood Urea Nitrogen 11 mg/dl (9-20); Calcium 8.9 mg/dl (8.4-10.2); Carbon Dioxide 26 mmol/L (22-30); Chloride 108 mmol/L (98-107); Estimated Creatinine Clearance 111 ml/min; Glucose 79 mg/dl (70-99); Potassium 3.9 mmol/L (3.5-5.1); Sodium 140 mmol/L (135-145); eGFR > 60.00
[2024-10-28 08:16] LABS: Glucose - Point of Care 91 mg/dl (70-99)
[2024-10-28] MEDS: TIGAN 200 MG IM (08:25)
[2024-10-28] MEDS: SINEMET 25-100 2 TABLET PO ×3 (08:27→17:26)
[2024-10-28] MEDS: ARICEPT 20 MG PO (08:27)
[2024-10-28] MEDS: VITAMIN B-12 1000 MCG PO (08:27)
[2024-10-28] MEDS: THERAGRAN 1 TABLET PO (08:27)
[2024-10-28] MEDS: ZETIA 10 MG PO (08:27)
[2024-10-28] MEDS: CYMBALTA DELAYED RELEASE 60 MG PO (08:27)
[2024-10-28] MEDS: JANUVIA 100 MG PO (08:27)
[2024-10-28] MEDS: OSCAL 500 + D 500 MG PO (08:27)
[2024-10-28] MEDS: SENOKOT-S 1 TABLET PO (08:40)
[2024-10-28] MEDS: MIRALAX 17 GRAMS PO (08:40)
[2024-10-28] MEDS: DILAUDID 0.5 MG IV ×2 (09:53→15:41)
[2024-10-28 12:30] LABS: Glucose - Point of Care 117 mg/dl (70-99)
[2024-10-28] MEDS: CITROMA 300 ML PO (12:40)
--- NOTE | 2024-10-28 12:57 | W.PN.HOSP.TC ---
Today's Communication/Plan
-
Continue IV vancomycin.
Pending wound cultures sensitive
Assessment / Plan
Assessment / Plan
Impression:
79-year-old with history of oda-jgydirv-kjejmpekj diabetes, Parkinson's disease coming with small abscess of the left lower extremity. He is status post I&D. He is afebrile. There is no peripheral leukocytosis. Ultrasound is negative. Ankle
x-ray without foreign body. No fracture or dislocation.
Seen by surgery, no intervention
Assessment/plan:
Purulent cellulitis without systemic findings
Positive wound culture for MRSA
- Post I&D, culture, seen by surgery, no further I&D.
- MRSA swab negative but wound positive for MRSA.
- Continue IV vancomycin
- Can transition to oral antibiotic, pending sensitivity
- Patient still complaining of pain, pain control elevate legs
History of diabetes mellitus
Continue sitagliptin
Insulin sliding scale
Diabetic diet
Hemoglobin A1c 6.8
Parkinson's disease
- Continue home Keppra evaluated by
- Continue mirtazapine
- Continue donepezil.
Constipation.
Added bowel regimen
CODE STATUS: Full code
DVT prophylaxis: Lovenox
Diet: DM diet
Family communication: Discussed with daughter at bedside
Disposition: Continue antibiotic
Total time spent on today's encounter was 65 minutes which included time spent in counseling the patient/family regarding diagnosis and treatment plan as listed above, goals of care, and symptom management. Case was discussed with nursing staff,
specialists, and care coordinators/case management. All labs and imaging personally reviewed by me. Remainder the time spent in detailed review of previous records, lab data, imaging, and other medical provider documentation.
Anticipated Discharge: Within 24 hours
Subjective/Interval History
-
Date of Service: October 28, 2024
Patient seen and examined at bedside, denies any chest pain or shortness of breath, no abdominal pain, no nausea, no vomiting, constipation, added mag citrate.
Objective Data
-
Labs:
Laboratory Results
10/28/24
06:55
WBC 6.4
Hgb 13.4
Hct 40.2
Plt Count 236
Sodium 140
Potassium 3.9
Chloride 108 H
Carbon Dioxide 26
BUN 11
Creatinine 0.7
Glucose 79
Calcium 8.9
Vital Signs:
Vital Signs
Temp Pulse Resp BP Pulse Ox
98.2 F 65 18 136/67 95
10/28/24 11:20 10/28/24 11:20 10/28/24 11:20 10/28/24 11:20 10/28/24 11:20
I&O
10/27/24 10/28/24 10/29/24
06:59 06:59 06:59
Intake Total 960 / 960 930 / 930
Balance 960 / 960 930 / 930
Physical Exam
-
General: Well Developed, Well Nourished, No Apparent Distress and Comfortable
HEENT: Normocephalic, Atraumatic, Moist Mucous Membranes, No Ptosis, PERRLA and Nose Appears Normal
Respiratory: Clear to Auscultation and Non Labored Respirations
Cardiac: Regular Rhythm and S1/S2
Breast: Deferred by me
GI: Soft, Nontender, Nondistended and Normal Bowel Sounds
Genito-urinary: No Costovertebral Tender
Musculoskeletal: No Clubbing, No Cyanosis, No Edema and Other (Lower left leg lateral aspect with rounded area of cellulitis and possible redness)
Skin: Warm and Lesions (Left)
Neuro: Awake, Alert, Oriented, AO x 3 and No Motor Deficits
Psych: Calm
--- NOTE | 2024-10-28 13:44 | PHA.VAN.FU ---
Addendum entered and electronically signed by Lizeth Euceda [facility] 10/28/24 13:50:
Agree with assessment and plan
Original Note:
Vancomycin Assessment / Plan
- Assessment
Renal Function: Stable
WBC's are: WNL
In the past 24 hrs, patient has been: Afebrile
- Dosing Plan
Continue: 1500mg q12h
- Monitoring Plan
No level(s) ordered at this time: consider after tomorrow's evening dose if patient remains on vancomycin
- Follow Up
Pharmacy will continue to follow.
Vancomycin Follow UP
- -
Patient Age: 79
Patient Sex: Male
Vancomycin Day #: 3
Indication: Skin And Soft Tissue
Requesting Provider: Dr Mily Sethi
Pertinent Antimicrobial Allergies:
NKDA
Height / Weight:
Height 6 ft 5.5 in
Actual Weight 112.491 kg
Pertinent Past Medical History: NIDDM
- Vital Signs / Lab Results
Temp Pulse Resp BP Pulse Ox
98.2 F 65 18 136/67 95
10/28/24 11:20 10/28/24 11:20 10/28/24 11:20 10/28/24 11:20 10/28/24 13:18
Lab Results - Hematology
10/26/24 10/27/24 10/28/24
11:49 07:01 06:55
WBC 6.5 6.4 6.4
Lab Results - Chemistry
10/26/24 10/27/24 10/28/24
11:49 07:01 06:55
BUN 10 11 11
Creatinine 0.8 0.7 0.7
Estimated Creat Clear 111 111
Albumin 4.6
10/26/24 10/26/24 10/26/24
11:49 15:45 16:49
Lactic Acid 1.0 Cancelled Cancelled
Microbiology Results
10/26/24 11:49 Blood Culture - Preliminary
Blood/Venous No Growth in 48 hours- Final report to follow
10/26/24 20:01 Wound Culture - Preliminary
Ankle - Left Staph aureus MRSA
Gram Stain - Preliminary
10/26/24 21:59 MRSA Screen - Final
Nose No Methicillin Resistant Staphylococcus aureus isolated.
10/26/24 17:22 Blood Culture - Preliminary
Blood/Venous No Growth in 24 hours- Final report to follow
--- NOTE | 2024-10-28 15:28 | VNURNOTE ---
[facility] resumption referral accepted in [facility].
[2024-10-28] MEDS: REMERON 30 MG PO (15:41)
[2024-10-28 17:08] LABS: Glucose - Point of Care 77 mg/dl (70-99)
[2024-10-28] MEDS: LOVENOX 40 MG SC (17:27)
[2024-10-28 22:31] LABS: Glucose - Point of Care 113 mg/dl (70-99)
[2024-10-29 03:00] VITALS: BP 146/83
--- NOTE | 2024-10-29 03:25 | W.PN.UPDATE ---
Addendum entered and electronically signed by VINEET Bhakta 10/29/24 05:52:
Patient still bradycardia on 2 L of O2 while sleeping will add CPAP machine during sleeping.
Original Note:
Update Note
Progress Note Update
Patient is jackie cardia while sleeping hr 35- 40s, no sustainable. Patient asymptomatic. Patient has no PMH of sleep apnea.
-hr back to 55 when he wakes up, bp 146/ 83, RR 20, Spo2 96%.
-Will add Tele
-nocturnal O2
[2024-10-29] MEDS: VANCOCIN 530 MG IV ×2 (05:19→17:07)
[2024-10-29 07:00] VITALS: BP 135/73
[2024-10-29 07:22] LABS: Glucose - Point of Care 131 mg/dl (70-99)
[2024-10-29] MEDS: CYMBALTA DELAYED RELEASE 60 MG PO (07:38)
[2024-10-29] MEDS: OSCAL 500 + D 500 MG PO (07:38)
[2024-10-29] MEDS: THERAGRAN 1 TABLET PO (07:38)
[2024-10-29] MEDS: ARICEPT 20 MG PO (07:38)
[2024-10-29] MEDS: ZETIA 10 MG PO (07:38)
[2024-10-29] MEDS: DILAUDID 0.5 MG IV ×3 (07:38→20:47)
[2024-10-29] MEDS: VITAMIN B-12 1000 MCG PO (07:38)
[2024-10-29] MEDS: SINEMET 25-100 2 TABLET PO ×3 (07:38→17:07)
[2024-10-29 08:21] LABS: Hematocrit 40.0 % (39.0-52.0); Hemoglobin 13.6 g/dL (13.0-18.0); Mean Corp Hgb Conc. 34.0 g/dL (33.0-37.0); Mean Corpuscular Volume 99.5 fL (80.0-94.0); Platelet Count 248 10^3/uL (130-400); Red Cell Dist. Width 13.6 % (11.5-14.5)
[2024-10-29 08:45] LABS: Blood Urea Nitrogen 9 mg/dl (9-20); Calcium 9.0 mg/dl (8.4-10.2); Carbon Dioxide 28 mmol/L (22-30); Chloride 107 mmol/L (98-107); Estimated Creatinine Clearance 111 ml/min; Glucose 103 mg/dl (70-99); Magnesium 2.3 mg/dl (1.6-2.3); Potassium 3.8 mmol/L (3.5-5.1); Sodium 139 mmol/L (135-145); eGFR > 60.00
--- NOTE | 2024-10-29 10:28 | PN.CDI ---
CDI
- -
CDI:
Physician Documentation Request
Admit Date: 10/28/24 09:38
Dear Doctor Sam,
Patient admitted with LLE cellulitis/ abscess s/p I&D.
10/28 Nursing skin assessment, 'Stage 2 left buttock pressure injury.'
Physician documentation of the type and location of wounds is required for compliant documentation. Based on the above clinical findings and your assessment, please provide the following in your progress note:
Type (etiology) of ulcer/wound:
- Pressure (decubitus) ulcer
- Other
- Unable to determine
For a pressure ulcer, please also include the stage* of the ulcer:
- Stage 1 - Skin intact, non-blanchable redness
- Stage 2 - Partial thickness loss of dermis, includes intact or open blister
- Stage 3 - Full thickness tissue not including bone, tendon or muscle
- Stage 4 - Full thickness tissue loss, including exposed bone, tendon or muscle
- Unstageable - Full thickness loss in which the base of the ulcer is covered by slough (yellow, calix, smith, green or brown) and/or eschar (calix, brown or black) in the wound bed.
- Unable to determine
Use of terms such as suspected, likely, concern for, or probable (associated with a specific diagnosis that is being evaluated, monitored, or treated as if it exists) are acceptable and can be coded in the inpatient setting, when documented at the
time of discharge.
Thank you,
Radha GONZALEZ,RN,CCDS
CDI Specialist
Available via [employer] text
Please use your independent medical judgment in providing your response.
*Source: National Pressure Ulcer Advisory Panel (NPUAP)
[2024-10-29 11:00] VITALS: BP 135/72
[2024-10-29] MEDS: CIPRO 500 MG PO ×2 (11:20→20:47)
[2024-10-29] MEDS: VISBIOME 2 CAP PO (11:20)
--- NOTE | 2024-10-29 11:32 | W.PN.HOSP.TC ---
Today's Communication/Plan
-
Continue antibiotic/added probiotic.
Added Cipro
added pulse ox.
Echo
Assessment / Plan
Assessment / Plan
Impression:
79-year-old with history of ojy-jrweimw-oewmtilzi diabetes, Parkinson's disease coming with small abscess of the left lower extremity. He is status post I&D. He is afebrile. There is no peripheral leukocytosis. Ultrasound is negative. Ankle
x-ray without foreign body. No fracture or dislocation.
Seen by surgery, no intervention
Overall improved.
Wound culture came back positive for MRSA, Pseudomonas, Proteus, added Cipro to Vanco
Assessment/plan:
Purulent cellulitis without systemic findings
Positive wound culture for MRSA
- Post I&D, culture, seen by surgery, no further I&D.
- MRSA swab negative but wound positive for MRSA.
- Continue IV vancomycin
- Can transition to oral antibiotic, pending sensitivity
- Patient still complaining of pain, pain control elevate legs
Wound culture came back positive for MRSA, Pseudomonas, Proteus, added Cipro to Vanco
Sinus bradycardia
Happened at night.
Will obtain nocturnal pulse ox tonight.
Echocardiogram pending
History of diabetes mellitus
Continue sitagliptin
Insulin sliding scale
Diabetic diet
Hemoglobin A1c 6.8
Parkinson's disease
- Continue home Keppra evaluated by
- Continue mirtazapine
- Continue donepezil.
Constipation.
Added bowel regimen.
Resolved, now with diarrhea.
Added probiotics
Stage 2 left buttock pressure injury.'
Location: left buttocks
Type (etiology) of ulcer/wound: Pressure (decubitus) ulcer.
CODE STATUS: Full code
DVT prophylaxis: Lovenox
Diet: DM diet
Family communication: Discussed with daughter at bedside
Disposition: Continue antibiotic/added probiotic.
Added Cipro
added pulse ox.
Echo
Total time spent on today's encounter was 65 minutes which included time spent in counseling the patient/family regarding diagnosis and treatment plan as listed above, goals of care, and symptom management. Case was discussed with nursing staff,
specialists, and care coordinators/case management. All labs and imaging personally reviewed by me. Remainder the time spent in detailed review of previous records, lab data, imaging, and other medical provider documentation.
Anticipated Discharge: 24 - 48 hours
Subjective/Interval History
-
Date of Service: October 29, 2024
Patient seen and examined at bedside, denies any chest pain or shortness of breath, no abdominal pain, no nausea, no vomiting, no diarrhea or constipation.
Complaining of left leg pain, overnight heart rate dropped to 35.
Objective Data
-
Labs:
Laboratory Results
10/29/24
08:07
WBC 6.3
Hgb 13.6
Hct 40.0
Plt Count 248
Sodium 139
Potassium 3.8
Chloride 107
Carbon Dioxide 28
BUN 9
Creatinine 0.7
Glucose 103 H
Calcium 9.0
Vital Signs:
Vital Signs
Temp Pulse Resp BP Pulse Ox
97.5 F 58 12 135/73 95
10/29/24 07:00 10/29/24 07:00 10/29/24 07:00 10/29/24 07:00 10/29/24 07:00
I&O
10/28/24 10/29/24 10/30/24
06:59 06:59 06:59
Intake Total 930 / 930 550 / 550
Balance 930 / 930 550 / 550
Physical Exam
-
General: Well Developed, Well Nourished, No Apparent Distress and Comfortable
HEENT: Normocephalic, Atraumatic, Moist Mucous Membranes, No Ptosis, PERRLA and Nose Appears Normal
Respiratory: Clear to Auscultation and Non Labored Respirations
Cardiac: Regular Rhythm and S1/S2
Breast: Deferred by me
GI: Soft, Nontender, Nondistended and Normal Bowel Sounds
Genito-urinary: No Costovertebral Tender
Musculoskeletal: No Clubbing, No Cyanosis, No Edema and Other (Lower left leg lateral aspect with rounded area of cellulitis and possible redness)
Skin: Warm and Lesions (Left)
Neuro: Awake, Alert, Oriented, AO x 3 and No Motor Deficits
Psych: Calm
[2024-10-29 11:46] LABS: Glucose - Point of Care 88 mg/dl (70-99)
--- NOTE | 2024-10-29 12:55 | WOUNDNOTE ---
WOC RN NOTE: Chart reviewed. No plans for surgery of left lateral ankle wound at this time. Wound orders confirmed and care plan and discharge updated.
[2024-10-29 15:00] VITALS: BP 127/65
--- NOTE | 2024-10-29 15:01 | CM ---
manager forensic reviewed patient's chart and met with patient and patient resides with his daughter in elevator accessible apartment, patient is independent with adl's and uses a walker with ambulation, patient with Parkinson's, per notes plan is for
overnight oxygen testing tonight and then possible discharge to home. Patient is as a [facility] patient and receives all medications through the [facility], along with his equipment through the [facility], [phone], . Patient [facility] with [facility].
PCP: Dr. Tone Mccord
Pharmacy: [facility] in [place].
Plan; Home at discharge with [facility].
--- NOTE | 2024-10-29 16:04 | PHA.VAN.FU ---
Addendum entered and electronically signed by Lizeth Euceda [facility] 10/29/24 16:07:
Agree with assessment and plan
Original Note:
Vancomycin Assessment / Plan
- Assessment
Renal Function: Stable
WBC's are: WNL
In the past 24 hrs, patient has been: Afebrile
Concomitant Antimicrobials: ciprofloxacin
- Dosing Plan
Continue: 1500mg q12h
- Monitoring Plan
No level(s) ordered at this time: consider if prolonged course
- Follow Up
Pharmacy will continue to follow.
Vancomycin Follow UP
- -
Patient Age: 79
Patient Sex: Male
Vancomycin Day #: 4
Indication: Skin And Soft Tissue
Requesting Provider: Dr Mily Sethi
Pertinent Antimicrobial Allergies:
NKDA
Height / Weight:
Height 6 ft 5.5 in
Actual Weight 112.491 kg
Pertinent Past Medical History: NIDDM
- Vital Signs / Lab Results
Temp Pulse Resp BP Pulse Ox
97.9 F 61 12 127/65 95
10/29/24 15:00 10/29/24 15:00 10/29/24 15:00 10/29/24 15:00 10/29/24 15:00
Lab Results - Hematology
10/27/24 10/28/24 10/29/24
07:01 06:55 08:07
WBC 6.4 6.4 6.3
Lab Results - Chemistry
10/27/24 10/28/24 10/29/24
07:01 06:55 08:07
BUN 11 11 9
Creatinine 0.7 0.7 0.7
Estimated Creat Clear 111 111 111
10/26/24 10/26/24
15:45 16:49
Lactic Acid Cancelled Cancelled
Microbiology Results
10/26/24 11:49 Blood Culture - Preliminary
Blood/Venous No Growth in 72 hours- Final report to follow
10/26/24 20:01 Wound Culture - Preliminary
Ankle - Left Staph aureus MRSA
Pseudomonas species
Proteus species
Gram Stain - Preliminary
10/26/24 17:22 Blood Culture - Preliminary
Blood/Venous No Growth in 48 hours- Final report to follow
10/26/24 21:59 MRSA Screen - Final
Nose No Methicillin Resistant Staphylococcus aureus isolated.
[2024-10-29 16:43] LABS: Glucose - Point of Care 96 mg/dl (70-99)
[2024-10-29] MEDS: REMERON 30 MG PO (17:07)
[2024-10-29] MEDS: LOVENOX 40 MG SC (17:07)
[2024-10-29 19:00] VITALS: BP 141/70
[2024-10-29] MEDS: TIGAN 200 MG IM (19:46)
[2024-10-29 21:32] LABS: Glucose - Point of Care 95 mg/dl (70-99)
[2024-10-29 23:00] VITALS: BP 141/72
[2024-10-30] VITALS (7 sets, daily range): BP systolic 138–147; BP diastolic 67–82
[2024-10-30] MEDS: DILAUDID 0.5 MG IV ×3 (03:22→20:21)
[2024-10-30] MEDS: VANCOCIN 530 MG IV ×2 (05:00→17:13)
[2024-10-30 06:37] LABS: Hematocrit 41.5 % (39.0-52.0); Hemoglobin 13.6 g/dL (13.0-18.0); Mean Corp Hgb Conc. 32.8 g/dL (33.0-37.0); Mean Corpuscular Volume 99.8 fL (80.0-94.0); Platelet Count 246 10^3/uL (130-400); Red Cell Dist. Width 13.6 % (11.5-14.5)
[2024-10-30 07:01] LABS: Blood Urea Nitrogen 6 mg/dl (9-20); Calcium 8.6 mg/dl (8.4-10.2); Carbon Dioxide 28 mmol/L (22-30); Chloride 108 mmol/L (98-107); Estimated Creatinine Clearance 111 ml/min; Glucose 91 mg/dl (70-99); Potassium 4.0 mmol/L (3.5-5.1); Sodium 140 mmol/L (135-145); eGFR > 60.00
[2024-10-30 07:46] LABS: Glucose - Point of Care 98 mg/dl (70-99)
[2024-10-30] MEDS: SINEMET 25-100 2 TABLET PO ×3 (08:46→17:13)
[2024-10-30] MEDS: ZETIA 10 MG PO (08:46)
[2024-10-30] MEDS: CYMBALTA DELAYED RELEASE 60 MG PO (08:46)
[2024-10-30] MEDS: THERAGRAN 1 TABLET PO (08:46)
[2024-10-30] MEDS: VISBIOME 2 CAP PO (08:46)
[2024-10-30] MEDS: VITAMIN B-12 1000 MCG PO (08:46)
[2024-10-30] MEDS: OSCAL 500 + D 500 MG PO (08:46)
[2024-10-30] MEDS: CIPRO 500 MG PO ×2 (08:46→20:07)
[2024-10-30] MEDS: ARICEPT 20 MG PO (08:46)
[2024-10-30] MEDS: TORADOL 15 MG IV (09:17)
--- NOTE | 2024-10-30 10:14 | CM ---
Addendum entered by Aruna Hurtado 10/30/24 12:36:
Nocturnal oxygen testing and updated physician notes fax[facility] the [facility], plan is to home with [facility].
Original Note:
Chart reviewed and patient to return to home with family and [facility] when stable, patient receives all medications and equipment from the [facility], all scripts need to be fax[facility] to the [facility].
[facility] [phone],
.
Patient is current with [facility].
--- NOTE | 2024-10-30 12:07 | W.PN.HOSP.TC ---
Today's Communication/Plan
-
Continue antibiotic
Possible discharge home on doxycycline and Cipro.
Arrangement for home oxygen.
Assessment / Plan
Assessment / Plan
Impression:
79-year-old with history of ady-hxgdnjc-ibyazvisk diabetes, Parkinson's disease coming with small abscess of the left lower extremity. He is status post I&D. He is afebrile. There is no peripheral leukocytosis. Ultrasound is negative. Ankle
x-ray without foreign body. No fracture or dislocation.
Seen by surgery, no intervention
Overall improved.
Wound culture came back positive for MRSA, Pseudomonas, Proteus, added Cipro to Vanco
Will be discharged home with doxycycline and Cipro.
Dropped oxygen level at night, case briefer consulted for arrangement for home oxygen.
Assessment/plan:
Purulent cellulitis without systemic findings
Positive wound culture for MRSA
- Post I&D, culture, seen by surgery, no further I&D.
- MRSA swab negative but wound positive for MRSA.
- Continue IV vancomycin
- Can transition to oral antibiotic, pending sensitivity
- Patient still complaining of pain, pain control elevate legs
Wound culture came back positive for MRSA, Pseudomonas, Proteus, added Cipro to Vanco
Sinus bradycardia
Happened at night.
Will obtain nocturnal pulse ox tonight.
Echocardiogram pending
10/30
Respiratory report reviewed, patient dropped his oxygen as low as 71
Patient will be qualified for nocturnal home oxygen
Management consulted
History of diabetes mellitus
Continue sitagliptin
Insulin sliding scale
Diabetic diet
Hemoglobin A1c 6.8
Parkinson's disease
- Continue home Keppra evaluated by
- Continue mirtazapine
- Continue donepezil.
Constipation.
Added bowel regimen.
Resolved, now with diarrhea.
Added probiotics
Stage 2 left buttock pressure injury.'
Location: left buttocks
Type (etiology) of ulcer/wound: Pressure (decubitus) ulcer.
CODE STATUS: Full code
DVT prophylaxis: Lovenox
Diet: DM diet
Family communication: Discussed with daughter at bedside
Disposition: Continue antibiotic
Possible discharge home on doxycycline and Cipro.
Arrangement for home
Total time spent on today's encounter was 65 minutes which included time spent in counseling the patient/family regarding diagnosis and treatment plan as listed above, goals of care, and symptom management. Case was discussed with nursing staff,
specialists, and care coordinators/case management. All labs and imaging personally reviewed by me. Remainder the time spent in detailed review of previous records, lab data, imaging, and other medical provider documentation.
Anticipated Discharge: Within 24 hours
Subjective/Interval History
-
Date of Service: October 30, 2024
Patient dropped his oxygen as low as 71 with continuous pulse ox last night, should be qualified for home oxygen at night.
Objective Data
-
Labs:
Laboratory Results
10/30/24
06:16
WBC 5.8
Hgb 13.6
Hct 41.5
Plt Count 246
Sodium 140
Potassium 4.0
Chloride 108 H
Carbon Dioxide 28
BUN 6 L
Creatinine 0.7
Glucose 91
Calcium 8.6
Vital Signs:
Vital Signs
Temp Pulse Resp BP Pulse Ox
98.2 F 64 16 147/82 95
10/30/24 11:15 10/30/24 11:15 10/30/24 11:15 10/30/24 11:15 10/30/24 11:15
I&O
10/29/24 10/30/24 10/31/24
06:59 06:59 06:59
Intake Total 550 / 550 540 / 540 240 / 240
Balance 550 / 550 540 / 540 240 / 240
Physical Exam
-
General: Well Developed, Well Nourished, No Apparent Distress and Comfortable
HEENT: Normocephalic, Atraumatic, Moist Mucous Membranes, No Ptosis, PERRLA and Nose Appears Normal
Respiratory: Clear to Auscultation and Non Labored Respirations
Cardiac: Regular Rhythm and S1/S2
Breast: Deferred by me
GI: Soft, Nontender, Nondistended and Normal Bowel Sounds
Genito-urinary: No Costovertebral Tender
Musculoskeletal: No Clubbing, No Cyanosis, No Edema and Other (Lower left leg lateral aspect with rounded area of cellulitis and possible redness)
Skin: Warm and Lesions (Left)
Neuro: Awake, Alert, Oriented, AO x 3 and No Motor Deficits
Psych: Calm
--- NOTE | 2024-10-30 12:21 | CARDSERVDEF ---
Echocardiogram with Definity completed after protocol screening completed. Allergies verified.
Patent IV site: _Right arm median cephalic 20 G PC____
IV site flushed with 0.9% NaCl pre and post administration.
Diluted bolus method utilized to enhance visualization of ventricular muhammad.
Total volume given: __8__ mL
Patient tolerated all procedures well without complications.
[2024-10-30 12:56] LABS: Glucose - Point of Care 84 mg/dl (70-99)
--- NOTE | 2024-10-30 16:04 | PHA.VAN.FU ---
Addendum entered and electronically signed by Lizeth Euceda [facility] 10/30/24 16:30:
Agree with assessment and plan
Original Note:
Vancomycin Assessment / Plan
- Assessment
Renal Function: Stable
WBC's are: WNL
In the past 24 hrs, patient has been: Afebrile
Concomitant Antimicrobials: ciprofloxacin
- Dosing Plan
Continue: 1500mg q12h
- Monitoring Plan
Peak Level: 10/30 2129
Trough Level: 10/31 529
- Follow Up
Pharmacy will continue to follow.
Vancomycin Follow UP
- -
Patient Age: 79
Patient Sex: Male
Vancomycin Day #: 5
Indication: Skin And Soft Tissue
Requesting Provider: Dr Mily Sethi
Pertinent Antimicrobial Allergies:
NKDA
Height / Weight:
Height 6 ft 5.5 in
Actual Weight 112.491 kg
Pertinent Past Medical History: NIDDM
- Vital Signs / Lab Results
Temp Pulse Resp BP Pulse Ox
98.2 F 64 16 147/82 95
10/30/24 11:15 10/30/24 11:15 10/30/24 11:15 10/30/24 11:15 10/30/24 11:15
Lab Results - Hematology
10/28/24 10/29/24 10/30/24
06:55 08:07 06:16
WBC 6.4 6.3 5.8
Lab Results - Chemistry
10/28/24 10/29/24 10/30/24
06:55 08:07 06:16
BUN 11 9 6 L
Creatinine 0.7 0.7 0.7
Estimated Creat Clear 111 111 111
Microbiology Results
10/26/24 11:49 Blood Culture - Preliminary
Blood/Venous No Growth in 4 days- Final report to follow
10/26/24 20:01 Wound Culture - Final
Ankle - Left Staph aureus MRSA
Pseudomonas aeruginosa
Proteus mirabilis
Gram Stain - Final
10/26/24 17:22 Blood Culture - Preliminary
Blood/Venous No Growth in 72 hours- Final report to follow
[2024-10-30 16:37] LABS: Glucose - Point of Care 83 mg/dl (70-99)
[2024-10-30] MEDS: LOVENOX 40 MG SC (17:13)
[2024-10-30] MEDS: REMERON 30 MG PO (17:13)
[2024-10-30 21:13] LABS: Glucose - Point of Care 112 mg/dl (70-99)
[2024-10-30] MEDS: VIBRAMYCIN 100 MG PO (22:12)
[2024-10-31 02:53] VITALS: BP 141/72
[2024-10-31] MEDS: DILAUDID 0.5 MG IV ×2 (05:51→10:04)
[2024-10-31 07:00] VITALS: BP 138/76
[2024-10-31 07:29] LABS: Glucose - Point of Care 128 mg/dl (70-99)
--- NOTE | 2024-10-31 07:35 | PHA.VAN.FU ---
Vancomycin Assessment / Plan
- Assessment
Vancomycin discontinued after 1800 dose last night but provided the following patient-specific PK:
- Assessment - Therapeutic Drug Monitoring
Extrapolated Cmax (mcg/mL): 33.5
Peak level was drawn: Appropriately (drawn ~1.6H after end of previous infusion)
Extrapolated Cmin (mcg/mL): 17.5
Trough Drawn: Appropriately
Levels were drawn: At steady state (levels drawn after 8th maintenance dose)
Calculated AUC (mcg*h/mL): 594
Calculated ke: 0.0622
Calculated half life (H): 11.1
Calculated Vd (L): 81 (~0.7 L/kg)
Calculated Vanc CL (ml/min): 84
Based on above patient specific PK:
Vanc 1000mg Q12H predicts AUC 408, Peak 23.4 and trough 11.8
Vanc 1250mg Q12H predicts AUC 518, peak 29.3 and trough 15.2
- Follow Up
Vancomycin discontinued
Vancomycin Follow UP
- -
Patient Age: 79
Patient Sex: Male
Vancomycin Day #: 5
Indication: Skin And Soft Tissue
Requesting Provider: Dr Mily Sethi
Pertinent Antimicrobial Allergies:
NKDA
Height / Weight:
Height 6 ft 5.5 in
Actual Weight 112.491 kg
Pertinent Past Medical History: NIDDM
- Vital Signs / Lab Results
Temp Pulse Resp BP Pulse Ox
97.3 F 66 18 141/72 98
10/31/24 02:53 10/31/24 02:53 10/31/24 02:53 10/31/24 02:53 10/31/24 02:53
Lab Results - Hematology
10/29/24 10/30/24
08:07 06:16
WBC 6.3 5.8
Lab Results - Chemistry
08/10/29/24 10/30/24
06:55 08:07 06:16
BUN 11 9 6 L
Creatinine 0.7 0.7 0.7
Estimated Creat Clear 111 111 111
Microbiology Results
10/26/24 17:22 Blood Culture - Preliminary
Blood/Venous No Growth in 4 days- Final report to follow
10/26/24 11:49 Blood Culture - Preliminary
Blood/Venous No Growth in 4 days- Final report to follow
10/26/24 20:01 Wound Culture - Final
Ankle - Left Staph aureus MRSA
Pseudomonas aeruginosa
Proteus mirabilis
Gram Stain - Final
Therapeutic Drug Monitoring
Vancomycin Peak 30.4 ug/ml (18-26) H 10/30/24 20:18
Vancomycin Trough 16.6 ug/ml (5-20) 10/31/24 06:02
[2024-10-31] MEDS: ZETIA 10 MG PO (07:48)
[2024-10-31] MEDS: VISBIOME 2 CAP PO (07:48)
[2024-10-31] MEDS: VITAMIN B-12 1000 MCG PO (07:48)
[2024-10-31] MEDS: ARICEPT 20 MG PO (07:48)
[2024-10-31] MEDS: CYMBALTA DELAYED RELEASE 60 MG PO (07:48)
[2024-10-31] MEDS: THERAGRAN 1 TABLET PO (07:49)
[2024-10-31] MEDS: OSCAL 500 + D 500 MG PO (07:49)
[2024-10-31] MEDS: CIPRO 500 MG PO ×2 (07:49→20:17)
[2024-10-31] MEDS: VIBRAMYCIN 100 MG PO ×2 (07:49→20:17)
[2024-10-31] MEDS: SINEMET 25-100 2 TABLET PO ×3 (07:50→16:16)
[2024-10-31] MEDS: TIGAN 200 MG IM (09:55)
[2024-10-31 11:00] VITALS: BP 139/65
[2024-10-31 12:12] LABS: Glucose - Point of Care 102 mg/dl (70-99)
--- NOTE | 2024-10-31 12:46 | W.PN.HOSP.TC ---
Today's Communication/Plan
-
Continue doxycycline and Cipro for additional 7 days
Arrangement for home oxygen
Assessment / Plan
Assessment / Plan
Impression:
79-year-old with history of qvt-[id number]-jnmivbmod diabetes, Parkinson's disease coming with small abscess of the left lower extremity. He is status post I&D. He is afebrile. There is no peripheral leukocytosis. Ultrasound is negative. Ankle
x-ray without foreign body. No fracture or dislocation.
Seen by surgery, no intervention
Overall improved.
Wound culture came back positive for MRSA, Pseudomonas, Proteus, added Cipro to Vanco
Will be discharged home with doxycycline and Cipro.
Dropped oxygen level at night, case specialist consulted for arrangement for home oxygen.
Assessment/plan:
Purulent cellulitis without systemic findings
Positive wound culture for MRSA
- Post I&D, culture, seen by surgery, no further I&D.
- MRSA swab negative but wound positive for MRSA.
- Continue IV vancomycin
- Can transition to oral antibiotic, pending sensitivity
- Patient still complaining of pain, pain control elevate legs
Wound culture came back positive for MRSA, Pseudomonas, Proteus, added Cipro to Vanco
10/31
Switch vancomycin to doxycycline
Continue doxycycline and Cipro for additional 7 days.
Nausea.
Possible secondary to narcotic use.
Discontinue dilaudid
Sinus bradycardia
Happened at night.
Will obtain nocturnal pulse ox tonight.
Echocardiogram pending
10/30
Respiratory report reviewed, patient dropped his oxygen as low as 71
Patient will be qualified for nocturnal home oxygen
Management consulted
History of diabetes mellitus
Continue sitagliptin
Insulin sliding scale
Diabetic diet
Hemoglobin A1c 6.8
Parkinson's disease
- Continue home Keppra evaluated by
- Continue mirtazapine
- Continue donepezil.
Constipation.
Added bowel regimen.
Resolved, now with diarrhea.
Added probiotics
Stage 2 left buttock pressure injury.'
Location: left buttocks
Type (etiology) of ulcer/wound: Pressure (decubitus) ulcer.
CODE STATUS: Full code
DVT prophylaxis: Lovenox
Diet: DM diet
Family communication: Discussed with daughter at bedside
Disposition: Continue antibiotic
Possible discharge home on doxycycline and Cipro.
Arrangement for home oxygen
Total time spent on today's encounter was 65 minutes which included time spent in counseling the patient/family regarding diagnosis and treatment plan as listed above, goals of care, and symptom management. Case was discussed with nursing staff,
specialists, and care coordinators/case management. All labs and imaging personally reviewed by me. Remainder the time spent in detailed review of previous records, lab data, imaging, and other medical provider documentation.
Anticipated Discharge: Today
Subjective/Interval History
-
Date of Service: October 31, 2024
Patient seen and examined at bedside, denies any chest pain or shortness of breath, no abdominal pain, patient was complaining of nausea after narcotics, also left leg pain.
Objective Data
-
Vital Signs:
Vital Signs
Temp Pulse Resp BP Pulse Ox
98.7 F 89 17 139/65 98
10/31/24 11:00 10/31/24 11:00 10/31/24 11:00 10/31/24 11:00 10/31/24 11:00
I&O
10/30/24 10/31/24 11/01/24
06:59 06:59 06:59
Intake Total 540 / 540 1440 / 1440 240 / 240
Balance 540 / 540 1440 / 1440 240 / 240
Physical Exam
-
General: Well Developed, Well Nourished, No Apparent Distress and Comfortable
HEENT: Normocephalic, Atraumatic, Moist Mucous Membranes, No Ptosis, PERRLA and Nose Appears Normal
Respiratory: Clear to Auscultation and Non Labored Respirations
Cardiac: Regular Rhythm and S1/S2
Breast: Deferred by me
GI: Soft, Nontender, Nondistended and Normal Bowel Sounds
Genito-urinary: No Costovertebral Tender
Musculoskeletal: No Clubbing, No Cyanosis, No Edema and Other (Lower left leg lateral aspect with rounded area of cellulitis and possible redness)
Skin: Warm and Lesions (Left)
Neuro: Awake, Alert, Oriented, AO x 3 and No Motor Deficits
Psych: Calm
[2024-10-31 15:00] VITALS: BP 146/81
[2024-10-31] MEDS: REMERON 30 MG PO (16:16)
[2024-10-31 16:26] LABS: Glucose - Point of Care 92 mg/dl (70-99)
[2024-10-31] MEDS: LOVENOX 40 MG SC (17:31)
[2024-10-31 19:21] VITALS: BP 130/69
[2024-10-31] MEDS: TORADOL 15 MG IV (20:20)
[2024-10-31 21:32] LABS: Glucose - Point of Care 116 mg/dl (70-99)
[2024-10-31 23:20] VITALS: BP 134/67
[2024-11-01 04:00] VITALS: BP 142/75
[2024-11-01] MEDS: TORADOL 15 MG IV (06:19)
[2024-11-01 07:30] VITALS: BP 139/75
[2024-11-01 08:06] LABS: Glucose - Point of Care 107 mg/dl (70-99)
[2024-11-01 08:43] LABS: Hematocrit 41.5 % (39.0-52.0); Hemoglobin 13.9 g/dL (13.0-18.0); Mean Corp Hgb Conc. 33.5 g/dL (33.0-37.0); Mean Corpuscular Volume 98.6 fL (80.0-94.0); Platelet Count 274 10^3/uL (130-400); Red Cell Dist. Width 13.4 % (11.5-14.5)
[2024-11-01 09:08] LABS: Blood Urea Nitrogen 7 mg/dl (9-20); Calcium 9.4 mg/dl (8.4-10.2); Carbon Dioxide 26 mmol/L (22-30); Chloride 105 mmol/L (98-107); Estimated Creatinine Clearance 111 ml/min; Glucose 111 mg/dl (70-99); Potassium 4.0 mmol/L (3.5-5.1); Sodium 137 mmol/L (135-145); eGFR > 60.00
--- NOTE | 2024-11-01 09:24 | W.PN.HOSP.TC ---
Today's Communication/Plan
-
Dc home today
Assessment / Plan
Assessment / Plan
Impression:
79-year-old with history of tkz-vhvsiuu-loaejwmgi diabetes, Parkinson's disease coming with small abscess of the left lower extremity. He is status post I&D. He is afebrile. There is no peripheral leukocytosis. Ultrasound is negative. Ankle
x-ray without foreign body. No fracture or dislocation.
Seen by surgery, no intervention
Overall improved.
Wound culture came back positive for MRSA, Pseudomonas, Proteus, added Cipro to Vanco
Will be discharged home with doxycycline and Cipro.
Dropped oxygen level at night, child welfare caseworker consulted for arrangement for home oxygen.
Assessment/plan:
Purulent cellulitis without systemic findings
Positive wound culture for MRSA
- Post I&D, culture, seen by surgery, no further I&D.
- MRSA swab negative but wound positive for MRSA.
- Continue IV vancomycin
- Can transition to oral antibiotic, pending sensitivity
- Patient still complaining of pain, pain control elevate legs
Wound culture came back positive for MRSA, Pseudomonas, Proteus, added Cipro to Vanco
10/31
Switch vancomycin to doxycycline
Continue doxycycline and Cipro for additional 7 days.
Nausea.
Possible secondary to narcotic use.
Discontinue dilaudid
Sinus bradycardia
Happened at night.
Will obtain nocturnal pulse ox tonight.
Echocardiogram pending
10/30
Respiratory report reviewed, patient dropped his oxygen as low as 71
Patient will be qualified for nocturnal home oxygen
Management consulted
History of diabetes mellitus
Continue sitagliptin
Insulin sliding scale
Diabetic diet
Hemoglobin A1c 6.8
Parkinson's disease
- Continue home Keppra evaluated by
- Continue mirtazapine
- Continue donepezil.
Constipation.
Added bowel regimen.
Resolved, now with diarrhea.
Added probiotics
Stage 2 left buttock pressure injury.'
Location: left buttocks
Type (etiology) of ulcer/wound: Pressure (decubitus) ulcer.
CODE STATUS: Full code
DVT prophylaxis: Lovenox
Diet: DM diet
Family communication: Discussed with daughter at bedside
Disposition: Dc home today
Total time spent on today's encounter was 65 minutes which included time spent in counseling the patient/family regarding diagnosis and treatment plan as listed above, goals of care, and symptom management. Case was discussed with nursing staff,
specialists, and care coordinators/case management. All labs and imaging personally reviewed by me. Remainder the time spent in detailed review of previous records, lab data, imaging, and other medical provider documentation.
Anticipated Discharge: Today
Subjective/Interval History
-
Date of Service: November 01, 2024
Patient seen and examined at bedside, denies any chest pain or shortness of breath, no abdominal pain, no nausea, no vomiting, no diarrhea or constipation.
Objective Data
-
Labs:
Laboratory Results
11/01/24
07:43
WBC 5.4
Hgb 13.9
Hct 41.5
Plt Count 274
Sodium 137
Potassium 4.0
Chloride 105
Carbon Dioxide 26
BUN 7 L
Creatinine 0.7
Glucose 111 H
Calcium 9.4
Vital Signs:
Vital Signs
Temp Pulse Resp BP Pulse Ox
98 F 64 16 139/75 95
11/01/24 07:30 11/01/24 07:30 11/01/24 07:30 11/01/24 07:30 11/01/24 08:10
I&O
10/31/24 11/01/24 11/02/24
06:59 06:59 06:59
Intake Total 1440 / 1440 900 / 900
Balance 1440 / 1440 900 / 900
Physical Exam
-
General: Well Developed, Well Nourished, No Apparent Distress and Comfortable
HEENT: Normocephalic, Atraumatic, Moist Mucous Membranes, No Ptosis, PERRLA and Nose Appears Normal
Respiratory: Clear to Auscultation and Non Labored Respirations
Cardiac: Regular Rhythm and S1/S2
Breast: Deferred by me
GI: Soft, Nontender, Nondistended and Normal Bowel Sounds
Genito-urinary: No Costovertebral Tender
Musculoskeletal: No Clubbing, No Cyanosis, No Edema and Other (Lower left leg lateral aspect with rounded area of cellulitis and possible redness)
Skin: Warm and Lesions (Left)
Neuro: Awake, Alert, Oriented, AO x 3 and No Motor Deficits
Psych: Calm
--- NOTE | 2024-11-01 09:25 | W.DCSUMMARY ---
Discharge Summary
Discharge Data
Date of Admission: 10/28/24
Date of Discharge: 11/01/24
Total time spent discharging patient (in min): 40
-
Pending Results: No
Hospital Course
Hospital course
79-year-old with history of qwn-qqkoptc-zfmjcqehk diabetes, Parkinson's disease coming with small abscess of the left lower extremity. He is status post I&D. He is afebrile. There is no peripheral leukocytosis. Ultrasound is negative. Ankle
x-ray without foreign body. No fracture or dislocation.
Seen by surgery, no intervention
Overall improved.
Wound culture came back positive for MRSA, Pseudomonas, Proteus, added Cipro to Vanco
Will be discharged home with doxycycline and Cipro.
Dropped oxygen level at night, case finisher consulted for arrangement for home oxygen.
During hospitalization patient was treated from the following
Purulent cellulitis without systemic findings
Positive wound culture for MRSA
- Post I&D, culture, seen by surgery, no further I&D.
- MRSA swab negative but wound positive for MRSA.
- Continue IV vancomycin
- Can transition to oral antibiotic, pending sensitivity
- Patient still complaining of pain, pain control elevate legs
Wound culture came back positive for MRSA, Pseudomonas, Proteus, added Cipro to Vanco
10/31
Switch vancomycin to doxycycline
Continue doxycycline and Cipro for additional 7 days.
Nausea.
Possible secondary to narcotic use.
Discontinue dilaudid
Sinus bradycardia
Happened at night.
Will obtain nocturnal pulse ox tonight.
Echocardiogram pending
10/30
Respiratory report reviewed, patient dropped his oxygen as low as 71
Patient will be qualified for nocturnal home oxygen
Management consulted
History of diabetes mellitus
Continue sitagliptin
Insulin sliding scale
Diabetic diet
Hemoglobin A1c 6.8
Parkinson's disease
- Continue home Keppra evaluated by
- Continue mirtazapine
- Continue donepezil.
Constipation.
Added bowel regimen.
Resolved, now with diarrhea.
Added probiotics
Stage 2 left buttock pressure injury.'
Location: left buttocks
Type (etiology) of ulcer/wound: Pressure (decubitus) ulcer.
CODE STATUS: Full code
DVT prophylaxis: Lovenox
Diet: DM diet
Family communication: Discussed with daughter at bedside
Disposition: Dc home today
Total time spent on today's encounter was 40 minutes which included time spent in counseling the patient/family regarding diagnosis and treatment plan as listed above, goals of care, and symptom management. Case was discussed with nursing staff,
specialists, and care coordinators/case management. All labs and imaging personally reviewed by me. Remainder the time spent in detailed review of previous records, lab data, imaging, and other medical provider documentation.
Anticipated Discharge: Today
Discharge Plan
-
Patient Disposition: Home with Home Care
Discharge Diagnosis/Procedures: left leg cellulitis
Positive wound culture for MRSA
Sinus bradycardia
Diet: Diabetic, Carb Controlled
Activity: With assistance and As tolerated
Other Services: PT and OT
Activity Restrictions/Additional Instructions:
Wound Care Instructions
L lateral ankle: clean with saline, adaptic and dry dressing. Change daily.
Leg elevation when sitting
Increase protein in diet
Follow up at wound care center call for an appointment.
Referrals:
UNKNOWN - PT DOES,NOT KNOW [Family Provider]
Prescriptions:
New
doxycycline hyclate 100 mg tablet
100 mg PO BID 7 Days Qty: 14 0RF
(DME) oxygen noctrunal
See Rx Instructions .Route .MEDSUPPLY Qty: 1 0RF
Rx Instructions:
2 L nasal canula at night
Diagnosis : ROBERTA
ciprofloxacin HCl 500 mg Tablet
500 mg PO BID Qty: 14 0RF
ondansetron 4 mg tablet,disintegrating
4 mg PO Q8H PRN (Reason: nausea and vomiting) 4 Days Qty: 20 0RF
polyethylene glycol 3350 [Miralax] 17 gram powder in packet
17 g PO DAILYPRN PRN (Reason: Constipation) Qty: 30 0RF
magnesium citrate Solution
150 ml PO DAILY PRN (Reason: Constipation) Qty: 296 0RF
Rx Instructions:
if no BM for 3 days with Miralax
Continued
cyanocobalamin (vitamin B-12) 1,000 mcg Tablet
1,000 mcg PO DAILY
therapeutic multivitamin Tablet
1 tab PO DAILY
mirtazapine 30 mg Tablet
30 mg PO DAILY@1630
carbidopa-levodopa 25-100 mg Tablet
2 tab PO TID@0830,1230,1630
ezetimibe 10 mg Tablet
10 mg PO DAILY
calcium carbonate-vitamin D3 [Oyster Shell + D3] 250 mg-3.125 mcg (125 unit) Tablet
1 tab PO DAILY
Ozempic 0.25 mg or 0.5 mg(2 mg/1.5 mL) Pen Injector
0.5 mg SC MO
donepezil 10 mg Tablet
20 mg PO DAILY Qty: 0 0RF
Rx Instructions:
hold while in Cipro
duloxetine 60 mg Capsule,Delayed Release(Dr/Ec)
60 mg PO DAILY Qty: 0 0RF
Rx Instructions:
shekhar 30 mg instead while on Cipro
Discharge Orders:
Discharge Patient (As Directed); Ordered 11/01/24
Ordered By: Lex Vargas
Discharge Date and Time
Print Language: PASHTO
[2024-11-01] MEDS: ARICEPT PO (09:26)
[2024-11-01] MEDS: VIBRAMYCIN 100 MG PO (09:26)
[2024-11-01] MEDS: CYMBALTA DELAYED RELEASE 30 MG PO (09:27)
[2024-11-01] MEDS: VISBIOME 2 CAP PO (09:27)
[2024-11-01] MEDS: OSCAL 500 + D 500 MG PO (09:27)
[2024-11-01] MEDS: ZETIA 10 MG PO (09:27)
[2024-11-01] MEDS: THERAGRAN 1 TABLET PO (09:28)
[2024-11-01] MEDS: CIPRO 500 MG PO (09:28)
[2024-11-01] MEDS: SINEMET 25-100 2 TABLET PO (09:33)
[2024-11-01] MEDS: VITAMIN B-12 1000 MCG PO (09:33)
[2024-11-01] MEDS: CYMBALTA DELAYED RELEASE PO (09:35)
--- NOTE | 2024-11-01 09:37 | CM ---
automation sales manager reviewed patient's chart and met with patient and daughter and patient has been cleared for discharge today, per daughter nocturnal oxygen has not been delivered, bilingual patient support caseworker asked her to reach out to the social media content specialist and bilingual patient support caseworker
at the [place] to discuss, all scripts and clinical notes were sent on Saturday by [facility] bilingual patient support caseworker to the [place] to qualify patient for [facility] oxygen, [facility], as oxygen has to go
through a [place] contracted company. automation sales manager confirmed that all paperwork and scripts were received on Saturday. automation sales manager spoke with patient and daughter and patient gets some of his medical equipment from [facility] and case
console manager reached out to the astronomy department chairfreight caller, Samaria at [facility] but she stated the they do not have a home oxygen contract with Medicare.
Plan; Home with [facility] and nocturnal oxygen through the [place] all [facility] and clinicals [facility] to the [facility] on [facility] and they confirmed that they had received scripts for nocturnal oxygen for patient.
--- NOTE | 2024-11-01 11:06 | PTCARENOTE ---
Pt discharged to home with VN, nocturnal 02 not set up yet, family wants to still bring pt home, Dr. Vargas TT, pt ok to dc without nocturnal 02 until [facility] can [facility]. Pt tele removed, iv removed, paperwork reviewed, copy provided, pt dc'd to home
with VN escorted by staff via w/c to daughter in car to transport.
== END 2024-11-01 10:50 | disposition home health service (06) | DRG 603 ==
LOC: 4 WEST ACU 09:38
PROVIDERS: Emergency Medicine; Nurse Practitioner Family; ADMITTING PHYSICIAN Internal Medicine; ATTENDING PHYSICIAN General Practice; CONSULT PHYSICIAN Surgery; EMERGENCY PHYSICIAN Emergency Medicine
DX: L03.116 Cellulitis of left lower limb (principal); L02.416 Cutaneous abscess of left lower limb; G20.A1 Parkinson's disease without dyskinesia, without mention of fluctuations; R00.1 Bradycardia, unspecified; F03.90 Unspecified dementia, unspecified severity, without behavioral disturbance, psychotic disturbance, mood disturbance, and anxiety; B95.62 Methicillin resistant Staphylococcus aureus infection as the cause of diseases classified elsewhere; E11.9 Type 2 diabetes mellitus without complications; E78.00 Pure hypercholesterolemia, unspecified; L89.322 Pressure ulcer of left buttock, stage 2; G47.33 Obstructive sleep apnea (adult) (pediatric); Z85.46 Personal history of malignant neoplasm of prostate; Z79.899 Other long term (current) drug therapy
CPT/HCPCS: 10060; 73610; 80048; 80053; 80202; 82962; 83036; 83605; 83735; 85025; 85027; 87040; 87070; 87077; 87147; 87186; 87205; 93306; 93971; 94762; 96365; 96366; 96375; 97163; 97167; 97535; 99285; Q9957

== ENCOUNTER 2024-12-07 08:07 | Inpatient (IN) | payer MEDICARE, OTHER, SELFPAY ==
[2024-12-01] VITALS (7 sets, daily range): BP systolic 94–127; BP diastolic 69–83
--- NOTE | 2024-12-01 12:01 | ED.GENMED ---
History of Present Illness
<Ravi Sawant PA-C - Last Filed: 12/01/24 18:58>
General
Chief Complaint: Weakness
Time Seen by Provider: 12/01/24 11:44
History of Present Illness
History of Present Illness:
With history of Parkinson's presents to the emergency department for evaluation of numerous complaints for the past 2 days. Has had diarrhea for the past 2 days as well as poor p.o. intake and has not taken any of his routine medications during
that time. Daughter is also concerned that he is having these episodes of loss of consciousness with generalized pallor and confusion that occurred on numerous occasions over the past 2 days. There is no witnessed generalized tonic-clonic activity
or postictal period. Patient himself also indicates chest discomfort, nausea, weakness. He was recently admitted to this hospital just over 1 month ago due to MRSA cellulitis with abscess to the left lower extremity requiring course of
antibiotics, was discharged on Cipro and doxycycline
Past History
<Ravi Sawant PA-C - Last Filed: 12/01/24 18:58>
Past History
ED Past Medical History: Cancer, NIDDM and Other (Guillain-Chand�, Parkinson's disease)
ED Past Surgical History: Other
Social History
Tobacco: Non-smoker
Alcohol: None
Drug: None
Personal:
Living: with family
Employment: Employed
Review of Systems
<Ravi Sawant PA-C - Last Filed: 12/01/24 18:58>
Review of Systems
Allergies reviewed?: Yes
All Other Systems: ROS reviewed and negative except as documented in HPI and ROS
Phy Exam
<Ravi Sawant PA-C - Last Filed: 12/01/24 18:58>
Physical Exam
Physical Exam:
GEN: Well appearing, NAD, WDWN
HEENT: Oral mucosa moist, no scleral icterus
Cardiac: Regular rate and rhythm
Lung: No respiratory distress, no tachypnea, lungs clear to auscultation
MSK: No gross deformity or injuries
Skin: Good color, no pallor or jaundice, no rashes
Neuro: AO x3, moves all extremities freely, generalized tremor noted, globally weak x 4 extremities
Psych: Calm, cooperative
Course
<Ravi Sawant PA-C - Last Filed: 12/01/24 18:58>
Orders/Labs/Results
Orders:
Orders
12/01/24 11:03
Electrocardiogram (*1) Urgent
Reason for Study: Chest Pain
EKG- Treatment ONCE
12/01/24 12:00
C DIFF [C difficile Antigen & Toxins] Urgent
SHAWN Source: Feces/Stool
Specimen Description:
12/01/24 12:01
0.9% Sodium Chloride 1000 ml [Nss] 1,000 ml IV BOLUS
CR Chest Portable - 1 View Urgent
Comment:
Reason For Exam: SOB
Reason Study Needs to be Portable: Other
12/01/24 12:23
COVID-19 Antigen Urgent
Source: Nasal Swab
Complete Blood Count/With Diff Urgent
12/01/24 12:56
Comprehensive Metabolic Panel Urgent
Troponin I Urgent
12/01/24 13:14
Urinalysis Reflex To Culture Urgent
Date Specimen was Collected: 12/01/24
Time Specimen was Collected: 13:13
Urine Microscopic Reflex Cult Urgent
Urine Culture Urgent
SHAWN Source: U
Specimen Description:
Date Specimen was Collected: 12/01/24
Time Specimen was Collected: 13:13
12/01/24 13:55
CT Head W/o Iv Contrast Urgent
Comment:
Reason For Exam: AMS
12/01/24 14:13
Add On - Microbiology Urgent
Tests Added?: urine culture
12/01/24 16:59
Admit/Transfer Patient As Directed
Co-Sign Provider:
Level of Care: Observation services
Assign to:: Telemetry
Physician / Group: daniella
Diagnosis: diarrhea, syncope
Reason for Telemetry: Arrhythmia
Date to Stop Telemetry: 12/04/24
Time to Stop Telemetry: 11:00
Code Status As Directed
Resuscitation Status: Do not resuscitate
Reached after discussion with pt or family/Healthcare POA: Yes
PRN Pain Medication Management As Directed
May give lesser potent ordered pain med per pt: Yes
preference::
Protocol:: Medication orders for pain may be administered in a
manner that supports deferring to patient preference
when the pt is:
- Requesting an ordered lesser potent pain medication.
Least to most potent pain medications are defined
as: acetaminophen < NSAID < tramadol < opioids
(morphine, oxycodone, hydromorphone).
- Requesting a lesser dose of the same medication IF
ORDERED.
- Requesting a less intrusive route of administration
if both routes are prescribed by the provider (PO <
IV).
12/01/24 17:00
DNR Bracelet Application ONCE
12/01/24 17:03
Norovirus by PCR Urgent
SHAWN Source: Feces/Stool
Specimen Description:
Stool Culture Urgent
SHAWN Source: Feces/Stool
Specimen Description:
12/04/24 11:00
DC Protocol for Telemetry ONCE
Abnormal Lab Results
12/01/24 12/01/24 12/01/24
12:23 12:56 13:14
WBC 13.8 H 10^3/uL
(4.8-10.8)
RBC 4.50 L 10^6/uL
(4.70-6.10)
MCV 98.9 H fL
(80.0-94.0)
MCH 32.7 H pg
(27.0-31.0)
Abs Immat Gran (auto) 0.1 H 10^3/uL
(0-0.05)
Absolute Neuts (auto) 10.1 H 10^3/uL
(1.4-6.5)
Absolute Monos (auto) 1.3 H 10^3/uL
(0.1-0.6)
Lymphocytes % 15.3 L %
(20.5-51.1)
Monocytes % 9.4 H %
(1.7-9.3)
Glucose 100 H mg/dl
(70-99)
Calcium 8.1 L mg/dl
(8.4-10.2)
AST 15 L U/L
(17-59)
Total Protein 6.1 L g/dl
(6.3-8.2)
Albumin 3.4 L g/dl
(3.5-5.0)
Urine Ketones 3+ A
(Negative)
Urine Bacteria (Reflex) Many A
(Negative)
Urine Albumin (Reflex) 2+ A
(Neg - Trace)
12/01/24 12:23
12/01/24 12:56
Vital Signs
Initial and Last Documented VS:
Initial Vital Signs
Temp Pulse Resp Pulse Ox
98.2 F 77 18 95
12/01/24 11:00 12/01/24 11:00 12/01/24 11:00 12/01/24 11:00
Last Documented Vital Signs
Temp Pulse Resp BP Pulse Ox
98.1 F 74 20 118/70 97
12/01/24 13:06 12/01/24 15:00 12/01/24 15:00 12/01/24 15:00 12/01/24 14:00
<Fatmata Treadwell, DO - Last Filed: 12/01/24 15:31>
Orders/Labs/Results
Orders:
Orders
12/01/24 11:03
Electrocardiogram (*1) Urgent
Reason for Study: Chest Pain
EKG- Treatment ONCE
12/01/24 12:00
C DIFF [C difficile Antigen & Toxins] Urgent
SHAWN Source: Feces/Stool
Specimen Description:
12/01/24 12:01
0.9% Sodium Chloride 1000 ml [Nss] 1,000 ml IV BOLUS
CR Chest Portable - 1 View Urgent
Comment:
Reason For Exam: SOB
Reason Study Needs to be Portable: Other
12/01/24 12:23
COVID-19 Antigen Urgent
Source: Nasal Swab
Complete Blood Count/With Diff Urgent
12/01/24 12:56
Comprehensive Metabolic Panel Urgent
Troponin I Urgent
12/01/24 13:14
Urinalysis Reflex To Culture Urgent
Date Specimen was Collected: 12/01/24
Time Specimen was Collected: 13:13
Urine Microscopic Reflex Cult Urgent
Urine Culture Urgent
SHAWN Source: U
Specimen Description:
Date Specimen was Collected: 12/01/24
Time Specimen was Collected: 13:13
12/01/24 13:55
CT Head W/o Iv Contrast Urgent
Comment:
Reason For Exam: AMS
12/01/24 14:13
Add On - Microbiology Urgent
Tests Added?: urine culture
12/01/24 16:59
Admit/Transfer Patient As Directed
Co-Sign Provider:
Level of Care: Observation services
Assign to:: Telemetry
Physician / Group: daniella
Diagnosis: diarrhea, syncope
Reason for Telemetry: Arrhythmia
Date to Stop Telemetry: 12/04/24
Time to Stop Telemetry: 11:00
Code Status As Directed
Resuscitation Status: Do not resuscitate
Reached after discussion with pt or family/Healthcare POA: Yes
PRN Pain Medication Management As Directed
May give lesser potent ordered pain med per pt: Yes
preference::
Protocol:: Medication orders for pain may be administered in a
manner that supports deferring to patient preference
when the pt is:
- Requesting an ordered lesser potent pain medication.
Least to most potent pain medications are defined
as: acetaminophen < NSAID < tramadol < opioids
(morphine, oxycodone, hydromorphone).
- Requesting a lesser dose of the same medication IF
ORDERED.
- Requesting a less intrusive route of administration
if both routes are prescribed by the provider (PO <
IV).
12/01/24 17:00
DNR Bracelet Application ONCE
12/01/24 17:03
Norovirus by PCR Urgent
SHAWN Source: Feces/Stool
Specimen Description:
Stool Culture Urgent
SHAWN Source: Feces/Stool
Specimen Description:
12/04/24 11:00
DC Protocol for Telemetry ONCE
Abnormal Lab Results
12/01/24 12/01/24 12/01/24
12:23 12:56 13:14
WBC 13.8 H 10^3/uL
(4.8-10.8)
RBC 4.50 L 10^6/uL
(4.70-6.10)
MCV 98.9 H fL
(80.0-94.0)
MCH 32.7 H pg
(27.0-31.0)
Abs Immat Gran (auto) 0.1 H 10^3/uL
(0-0.05)
Absolute Neuts (auto) 10.1 H 10^3/uL
(1.4-6.5)
Absolute Monos (auto) 1.3 H 10^3/uL
(0.1-0.6)
Lymphocytes % 15.3 L %
(20.5-51.1)
Monocytes % 9.4 H %
(1.7-9.3)
Glucose 100 H mg/dl
(70-99)
Calcium 8.1 L mg/dl
(8.4-10.2)
AST 15 L U/L
(17-59)
Total Protein 6.1 L g/dl
(6.3-8.2)
Albumin 3.4 L g/dl
(3.5-5.0)
Urine Ketones 3+ A
(Negative)
Urine Bacteria (Reflex) Many A
(Negative)
Urine Albumin (Reflex) 2+ A
(Neg - Trace)
12/01/24 12:23
12/01/24 12:56
Vital Signs
Initial and Last Documented VS:
Initial Vital Signs
Temp Pulse Resp Pulse Ox
98.2 F 77 18 95
12/01/24 11:00 12/01/24 11:00 12/01/24 11:00 12/01/24 11:00
Last Documented Vital Signs
Temp Pulse Resp BP Pulse Ox
98.1 F 74 20 118/70 97
12/01/24 13:06 12/01/24 15:00 12/01/24 15:00 12/01/24 15:00 12/01/24 14:00
<Ravi Sawant PA-C - Last Filed: 12/01/24 18:58>
MDM/Problems Addressed
MDM/Problems Addressed:
Unclear etiology of patient's symptoms, frequent episodes of loss of consciousness and general pallor concerning for cardiovascular collapse such as heart block, other dysrhythmia, or seizure episodes. Also be orthostatic hypotension in the setting
of Parkinson's. Not suitable for discharge home
<Ravi Sawant PA-C - Last Filed: 12/01/24 18:58>
*Pulse Oximetry
SaO2: 95
Patient hypoxic: no
*Critical Care Note
Total Time (30-74mins, 75-104mins- exclusive of procedures): Not Applicable
ED Attending Note
<Ravi Sawant PA-C - Last Filed: 12/01/24 18:58>
-
Portions of this chart may have been created with voice recognition software.� Occasional wrong word or��sound alike� substitutions may have occurred due to the inherent limitations of voice recognition software.
<Fatmata Treadwell DO - Last Filed: 12/01/24 15:31>
ED Attending Note
Patient seen and examined by attending physician: Yes
I performed the substantive portion of visit, reviewed & personally made and approve the management plan that is documented in note by myself or HÉCTOR.: Yes
I performed a history and physical exam of patient and discussed management with resident, I reviewed resident's note and agree with documented findings and plan of care.: Yes
ED Attending Note:
79-year-old male brought to the ER by his daughter for further evaluation of episodes of syncope that has been occurring without provocation over the last 48 hours. Patient had difficulty taking his medications in the last several days due to her
appetite and diarrhea. No fevers. No trauma. Vital signs reviewed, patient is resting comfortably no acute distress, no increased work of breathing, mucous membranes moist, GCS is 15. I reviewed all test results with physician lab assistant. I
discussed with daughter plan for admission for further evaluation of syncope versus seizure. Patient has not had a stool while here, stool cultures are ordered. They agree with plan for admission.
Discharge Plan
Departure
Patient Disposition: Admit
Date of Disposition: 12/01/24
Time of Disposition: 16:13
Admit to: Telemetry
Presentation/result/management discussed w/ accepting MD/DO: Hospitalist
Discharge Problem:
Recurrent syncope
Interventions
Interventions:
*Risk Screen - Suicide Last Done: 12/01/24 12:33
*Neglect/Abuse Screening Last Done: 12/01/24 12:33
ED- Cardiac Assessment Last Done: 12/01/24 12:33
ED- Neurological Assessment Last Done: 12/01/24 12:33
ED- Pulmonary Assessment Last Done: 12/01/24 12:33
[2024-12-01] MEDS: NSS 1000 IV ×2 (12:25→20:25)
[2024-12-01 12:37] LABS: Hematocrit 44.5 % (39.0-52.0); Hemoglobin 14.7 g/dL (13.0-18.0); Mean Corp Hgb Conc. 33.0 g/dL (33.0-37.0); Mean Corpuscular Volume 98.9 fL (80.0-94.0); Nucleated Red Blood Cells % 0 % (-); Platelet Count 264 10^3/uL (130-400); Red Cell Dist. Width 14.3 % (11.5-14.5)
[2024-12-01 13:04] LABS: COVID-19 Antigen Negative (Negative)
[2024-12-01 13:29] LABS: ALT (SGPT) 20 U/L (0-50); AST (SGOT) 15 U/L (17-59); Albumin 3.4 g/dl (3.5-5.0); Alkaline Phosphatase 58 U/L (38-126); Blood Urea Nitrogen 10 mg/dl (9-20); Calcium 8.1 mg/dl (8.4-10.2); Carbon Dioxide 27 mmol/L (22-30); Chloride 107 mmol/L (98-107); Glucose 100 mg/dl (70-99); Potassium 3.5 mmol/L (3.5-5.1); Sodium 140 mmol/L (135-145); Total Protein 6.1 g/dl (6.3-8.2); eGFR > 60.00
[2024-12-01 13:32] LABS: Urine Character Clear (Clear)
[2024-12-01 13:32] LABS: Troponin I < 0.012 ng/ml
[2024-12-01 14:10] LABS: Urine Squamous Cell 0-2 /LPF (Few)
[2024-12-01 14:12] LABS: Urine Red Blood Cell 0-2 /HPF (0-2); Urine White Cell 0-2 /HPF (0-5)
--- NOTE | 2024-12-01 17:04 | HPS.HSE ---
Family Physician
-
Family Physician: INTERVIEWE UNKNOWN - PT NOT
Chief Complaint
-
diarrhea
History of Present Illness
79-year-old male past medical history of diabetes, Parkinson disease, constipation, stage II left buttock pressure injury, presenting for numerous complaints for the past 2 days. Patient has had diarrhea and vomiting for the past 2 days as well as
poor p.o. intake and has not taken any of his routine medications during this time. Daughter is also concerned that he is having episodes of loss of consciousness but not quite passing out with generalized pallor and confusion that occurred on
numerous occasions over the past 2 days. Patient will have some memory loss associate with the event. No witnessed generalized tonic-clonic activity or postictal period. No weight gain. No fevers or chills.
He does have chronic dizziness secondary to Parkinson's. His blood pressures is usually normal sometimes gets down to 80s.
Patient has been having some chest pain on occasion with shortness of breath but no chest pain currently.
Daughter has been giving patient Imodium.
He was admitted to this hospital 1 month ago for MRSA cellulitis with abscess of left lower extremity treated with antibiotics.
He does not smoke or drink alcohol.
Medical History
Past Medical History
Past Medical History: Reports Other (diabetes, Parkinson disease, constipation, stage II left buttock pressure injury)
Past Surgical History: Reports None
Social History
Tobacco: Non-smoker
Alcohol: None
Drug: None
Family History
Family History: Not pertinent
Allergies / Home Medications
Allergies reflects when Allergies were last updated in [facility].
Home Medications with original date entered in [facility]
Allergy/Medication List:
Allergies
Allergy/AdvReac Type Severity Reaction Status Date / Time
No Known Allergies Allergy Verified 12/01/24 11:43
Home Medications
calcium 250 mg (as carbonate)-vitamin D3 3.125 mcg (125 unit) tablet (Oyster Shell + D3) 1 tab PO DAILY Supplement 07/12/24
carbidopa 25 mg-levodopa 100 mg tablet 2 tab PO TID@0830,1230,1630 Neurological Condition 07/12/24
cyanocobalamin (vitamin B-12) 1,000 mcg tablet 1,000 mcg PO DAILY Supplement 07/12/24
ezetimibe 10 mg tablet 10 mg PO DAILY High Cholesterol 07/12/24
mirtazapine 30 mg tablet 30 mg PO DAILY@1630 Mental Health/Anxiety 07/12/24
therapeutic multivitamin 1 tab PO DAILY Supplement 07/12/24
semaglutide 0.25 mg or 0.5 mg (2 mg/1.5 mL) subcutaneous pen injector (Ozempic) 0.5 mg SC MO Diabetes 10/26/24
ciprofloxacin HCl 500 mg tablet 500 mg PO BID #14 tabs 10/30/24
doxycycline hyclate 100 mg tablet 100 mg PO BID 7 days #14 tabs 10/30/24
oxygen noctrunal #1 ea 10/30/24
magnesium citrate 150 ml PO DAILY PRN Constipation #296 mL 10/31/24
ondansetron 4 mg disintegrating tablet 4 mg PO Q8H PRN nausea and vomiting 4 days #20 tabs 10/31/24
polyethylene glycol 3350 17 gram oral powder packet (Miralax) 17 g PO DAILYPRN PRN Constipation #30 ea 10/31/24
donepezil 10 mg tablet 20 mg (2 x 10 mg) PO DAILY Neurological Condition #0 tabs 11/01/24
duloxetine 30 mg capsule,delayed release 30 mg PO DAILY #14 caps 11/01/24
duloxetine 60 mg capsule,delayed release 60 mg PO DAILY Mental Health/Anxiety #0 caps 11/01/24
Review of Systems
-
History Source: Patient
A 12 point ROS was completed and negative except as noted: Yes
Constitutional: Reports No Symptoms
EENT: Reports No Symptoms
Respiratory: Reports No Symptoms
Cardiac: Reports No Symptoms
Abdomen/GI: Reports No Symptoms
: Reports No Symptoms
Musculoskeletal: Reports No Symptoms
Skin: Reports No Symptoms
Neurological: Reports No Symptoms
Endocrine: Reports No Symptoms
Hematologic/Lymphatic: Reports No Symptoms
Psych: Reports No Symptoms
Physical Exam
Vital Signs
Vital Signs
Temp Pulse Resp BP Pulse Ox
98.1 F 74 20 118/70 97
12/01/24 13:06 12/01/24 15:00 12/01/24 15:00 12/01/24 15:00 12/01/24 14:00
Physical Exam
General: Well Developed, Well Nourished and No Apparent Distress
HEENT: NormoCephalic, Moist mucous membranes and Atraumatic
Respiratory: Clear
Cardiac: S1/S2 and Regular Rhythm; No Murmur or Rub
GI: Soft, Non Tender, Non Distended and Normal Bowel Sounds; No Organomegaly
Rectal: Deferred by Provider
Musculoskeletal: No Clubbing, No Cyanosis and No Edema
Skin: No Rash
Neuro: Nonfocal/grossly intact
Laboratory Results
-
12/01/24 12:23
12/01/24 12:56
Laboratory Results
Total Bilirubin 0.6 mg/dl (0.2-1.3) 12/01/24 12:56
AST 15 U/L (17-59) L 12/01/24 12:56
ALT 20 U/L (0-50) 12/01/24 12:56
Alkaline Phosphatase 58 U/L (38-126) 12/01/24 12:56
Troponin I < 0.012 ng/ml 12/01/24 12:56
Data Reviewed
-
Lab Data: Labs Reviewed by me
Old Records: Reviewed
Impression/Plan
-
IMPRESSION:
PLAN:
# Acute diarrhea/vomiting likely post antibiotic diarrhea versus C. difficile versus gastroenteritis
-Leukocytosis
- Check stool culture, C. difficile, norovirus
- Urinalysis unremarkable
# Syncopal episodes suspect hypovolemia from diarrhea in the setting of orthostasis from Parkinson's disease versus cardiac disease
-CT head negative
- Check orthostatic vital signs
-Trend troponins
- IV fluids
- Telemetry monitoring
- Consider echo if other workup negative
- Does not seem like seizure
# Occasional chest pain/dyspnea
-Patient not clear on the history of this
- Troponin negative
- EKG shows sinus rhythm with first-degree block, left anterior fascicular block, LVH
- Chest x-ray unremarkable
Type 2 diabetes
- Insulin sliding scale
Parkinson's disease
- Continue carbidopa levodopa
- Continue donepezil
Constipation
- Continue MiraLAX
Stage II left buttock pressure injury
Recent MRSA cellulitis
Anxiety/depression
- Continue mirtazapine, duloxetine,
Hypercholesteremia
- Continue Zetia
DNR/DNI
DVT prophylaxis�heparin
Clear liquids
--- NOTE | 2024-12-01 18:08 | CM ---
CM reviewed chart and met with pt bedside in ED. Currently staying with his daughter Bette, [id number] [place] [address]. It is an apartment, no FAB with elevator access. uses RW, also has WC, electric WC, and rafaela lift.
Pt lives alone in [place], [address] [place], [place] when not staying with daughter.
OBS form reviewed and signed.
Pt recently discharged from [facility], was supposed to start outpatient Parkinsons therapy yesterday here at .
Confirms prescription coverage through [place].
PCP: Tone Mccord at [place]
Pharmacy: [facility]
CM will continue to follow for all discharge planning needs
[2024-12-01 21:33] LABS: Glucose - Point of Care 104 mg/dl (70-99)
[2024-12-01] MEDS: HEPARIN 5000 UNITS SC (21:58)
[2024-12-01] MEDS: SINEMET 25-100 2 TABLET PO (21:58)
[2024-12-01] MEDS: REMERON 30 MG PO (21:58)
[2024-12-01 22:17] LABS: Troponin I 0.013 ng/ml
[2024-12-02 03:48] VITALS: BP 140/84
[2024-12-02 05:46] LABS: Hematocrit 39.3 % (39.0-52.0); Hemoglobin 13.2 g/dL (13.0-18.0); Mean Corp Hgb Conc. 33.6 g/dL (33.0-37.0); Mean Corpuscular Volume 99.5 fL (80.0-94.0); Nucleated Red Blood Cells % 0 % (-); Platelet Count 245 10^3/uL (130-400); Red Cell Dist. Width 14.2 % (11.5-14.5)
[2024-12-02 06:09] LABS: ALT (SGPT) < 10 U/L (0-50); AST (SGOT) 14 U/L (17-59); Albumin 3.3 g/dl (3.5-5.0); Alkaline Phosphatase 65 U/L (38-126); Blood Urea Nitrogen 8 mg/dl (9-20); Calcium 8.0 mg/dl (8.4-10.2); Carbon Dioxide 24 mmol/L (22-30); Chloride 108 mmol/L (98-107); Glucose 94 mg/dl (70-99); Potassium 3.4 mmol/L (3.5-5.1); Sodium 139 mmol/L (135-145); Total Protein 5.9 g/dl (6.3-8.2); eGFR > 60.00
[2024-12-02 06:20] LABS: Troponin I < 0.012 ng/ml
[2024-12-02 07:00] VITALS: BP 119/69; BP 130/70; PULSE 79; PULSE 95
[2024-12-02] MEDS: VITAMIN B-12 1000 MCG PO (07:49)
[2024-12-02] MEDS: ZETIA 10 MG PO (07:49)
[2024-12-02] MEDS: CYMBALTA DELAYED RELEASE 60 MG PO (07:50)
[2024-12-02] MEDS: HEPARIN 5000 UNITS SC ×2 (07:50→19:49)
[2024-12-02] MEDS: ARICEPT 20 MG PO (07:50)
[2024-12-02] MEDS: SINEMET 25-100 2 TABLET PO ×3 (07:58→17:17)
[2024-12-02] MEDS: NSS 1000 IV ×2 (07:58→22:17)
[2024-12-02 08:01] LABS: Glucose - Point of Care 92 mg/dl (70-99)
[2024-12-02 09:40] LABS: Glycohemoglobin (HgbA1c) 6.4 % (4.0-5.6)
[2024-12-02] MEDS: KCL 270 MEQ IV (10:06)
[2024-12-02 11:00] VITALS: BP 135/71
[2024-12-02] MEDS: ZOFRAN 4 MG IV (11:30)
[2024-12-02] MEDS: OMNIPAQUE 50 ML PO (11:30)
[2024-12-02] MEDS: IMODIUM 2 MG PO (11:33)
[2024-12-02 11:42] LABS: Glucose - Point of Care 96 mg/dl (70-99)
--- NOTE | 2024-12-02 11:53 | CM ---
Addendum entered by Nile James 12/02/24 15:40:
CM met with pt again and two daughters present in the room. per daughter Bette, she lives with the pt, takes care of him. Per Bette, pt went to 2 different SNFs in the past and did not have a good experience. Per daughter, pt is known to [facility]
at home home care and she feels that pt will be able to return back home with [facility] at home VN and family support. Per daughter, pt was scheduled to start outpatient Parkinson's program rehab at but pt is admitted to . pt's daughter
stated that it will be the best for the pt is he starts [facility] at home rehab and after will start outpatient Parkinson's program.
A referral to [facility] VN made.
D/C plan: most likely home with [facility] VN and family support.
Original Note:
CM following re: discharge planning.
Reviewed pt's chart, met with pt.
Pt is 79 year old male, admitted with OBS status and primary dx of Acute diarrhea/vomiting likely post antibiotic diarrhea versus C. difficile versus gastroenteritis. OBS status reviewed with the pt, pt declined to sign, [facility] letter placed on chart,
pt has a copy.
Pt stated he feels he might need to go to a SNF for a short term rehab. Pt stated he lives with daughter in an apartment with no steps, uses RW, also has WC, electric WC, and Afshan lift, has 7 supportive children.
PT and OT will evaluate the pt to determine a level of care at discharge.
D/c plan: uncertain at this time and will depend on pt's progress.
CM will follow with discharge plan updates as hospitalization progresses
[2024-12-02 11:57] LABS: Troponin I < 0.012 ng/ml
--- NOTE | 2024-12-02 13:48 | W.PN.HOSP.TC ---
Today's Communication/Plan
-
po vanc
ct a/p
Assessment / Plan
Assessment / Plan
Physical Exam
General: Well Developed, Well Nourished and No Apparent Distress
HEENT: NormoCephalic, Moist mucous membranes and Atraumatic
Respiratory: Clear
Cardiac: S1/S2 and Regular Rhythm; No Murmur or Rub
GI: Soft, Non Tender, Non Distended and Normal Bowel Sounds; No Organomegaly
Rectal: Deferred by Provider
Musculoskeletal: No Clubbing, No Cyanosis and No Edema
Skin: No Rash
Neuro: Nonfocal/grossly intact
#Sepsis
# Acute diarrhea/vomiting likely post antibiotic diarrhea versus C. difficile versus gastroenteritis versus colitis
-Minimal blood noted in stool - probable infectious
-CDif antigen positive; toxin neg
-CT A/p
-Initiate oral vanc 125mg q6h
-Await Stool cultures
#Hypokalemia
� Monitor and replete
# Syncopal episodes suspect hypovolemia from diarrhea in the setting of orthostasis from Parkinson's disease
-CT head negative
- Monitor with resuscitation
# Occasional chest pain/dyspnea
-Patient not clear on the history of this
- Troponin negative
- EKG shows sinus rhythm with first-degree block, left anterior fascicular block, LVH
- Chest x-ray unremarkable
�Follow-up outpatient, does not appear in respiratory distress at this point, saturating 95% on room air
Type 2 diabetes
- Insulin sliding scale
Parkinson's disease
- Continue carbidopa levodopa
- Continue donepezil
Constipation
- Continue MiraLAX
Stage II left buttock pressure injury
Recent MRSA cellulitis
Anxiety/depression
- Continue mirtazapine, duloxetine,
Hypercholesteremia
- Continue Zetia
DNR/DNI
DVT prophylaxis�heparin
Clear liquids
Total time spent on today's encounter was 51 minutes which included time spent in counseling the patient/family regarding diagnosis and treatment plan as listed above, goals of care, and symptom management. Case was discussed with nursing staff,
specialists, and care coordinators/case management. All labs and imaging personally reviewed by me. Remainder the time spent in detailed review of previous records, lab data, imaging, and other medical provider documentation.
Anticipated Discharge: 24 - 48 hours
Subjective/Interval History
-
Date of Service: December 02, 2024
Diarrhea with minimal blood noted ongoing
Objective Data
-
Labs:
Laboratory Results
12/02/24
05:30
WBC 10.7
Hgb 13.2
Hct 39.3
Plt Count 245
Sodium 139
Potassium 3.4 L
Chloride 108 H
Carbon Dioxide 24
BUN 8 L
Creatinine 0.8
Glucose 94
Calcium 8.0 L
Total Bilirubin 0.6
AST 14 L
ALT < 10
Alkaline Phosphatase 65
Vital Signs:
Vital Signs
Temp Pulse Resp BP Pulse Ox
98.2 F 73 20 135/71 95
12/02/24 11:00 12/02/24 11:00 12/02/24 11:00 12/02/24 11:00 12/02/24 11:00
I&O
12/01/24 12/02/24 12/03/24
06:59 06:59 06:59
Intake Total 1040 / 1040
Balance 1040 / 1040
Review of Systems
-
History Source: Patient
All other systems: Not reviewed unless documented
Data Reviewed
-
CT Scan: Report Reviewed by me
Labs: Labs Reviewed by me
[2024-12-02 15:00] VITALS: BP 130/75
[2024-12-02] MEDS: FIRVANQ 125 MG PO ×2 (17:17→23:56)
[2024-12-02] MEDS: REMERON 30 MG PO (17:18)
[2024-12-02 17:22] LABS: Glucose - Point of Care 89 mg/dl (70-99)
[2024-12-02 19:00] VITALS: BP 140/71
[2024-12-02 21:12] LABS: Glucose - Point of Care 104 mg/dl (70-99)
[2024-12-02 23:08] VITALS: BP 138/61
[2024-12-03] VITALS (7 sets, daily range): BP systolic 123–138; BP diastolic 53–70; PULSE 52; BMI 13.2
[2024-12-03] MEDS: FIRVANQ 125 MG PO ×4 (05:34→23:47)
[2024-12-03 07:32] LABS: Glucose - Point of Care 80 mg/dl (70-99)
[2024-12-03 08:01] LABS: Hematocrit 36.4 % (39.0-52.0); Hemoglobin 12.3 g/dL (13.0-18.0); Mean Corp Hgb Conc. 33.8 g/dL (33.0-37.0); Mean Corpuscular Volume 100.0 fL (80.0-94.0); Platelet Count 252 10^3/uL (130-400); Red Cell Dist. Width 13.8 % (11.5-14.5)
[2024-12-03] MEDS: ZETIA 10 MG PO (08:11)
[2024-12-03] MEDS: ARICEPT 20 MG PO (08:11)
[2024-12-03] MEDS: VITAMIN B-12 1000 MCG PO (08:11)
[2024-12-03] MEDS: CYMBALTA DELAYED RELEASE 60 MG PO (08:11)
[2024-12-03] MEDS: HEPARIN 5000 UNITS SC ×2 (08:12→20:13)
[2024-12-03] MEDS: SINEMET 25-100 2 TABLET PO ×3 (08:21→16:06)
[2024-12-03 08:32] LABS: ALT (SGPT) < 10 U/L (0-50); AST (SGOT) 14 U/L (17-59); Albumin 3.2 g/dl (3.5-5.0); Alkaline Phosphatase 59 U/L (38-126); Blood Urea Nitrogen 5 mg/dl (9-20); Calcium 7.9 mg/dl (8.4-10.2); Carbon Dioxide 23 mmol/L (22-30); Chloride 107 mmol/L (98-107); Glucose 77 mg/dl (70-99); Magnesium 2.0 mg/dl (1.6-2.3); Potassium 3.8 mmol/L (3.5-5.1); Sodium 137 mmol/L (135-145); Total Protein 5.6 g/dl (6.3-8.2); eGFR > 60.00
[2024-12-03] MEDS: NSS 1000 IV ×2 (10:08→22:35)
--- NOTE | 2024-12-03 10:18 | VNURNOTE ---
Home Health Liaison spoke with patient's daughter Bette to discuss [facility] nurse/therapy, visits, schedule and homebound status. Patient recently had [facility] services, daughter is familiar with us. Daughter is agreeable and understands that visits at
home will be 2-3 x per week to assess and teach medical management. She is aware that [facility] will contact them for start of care in 1-2 days after discharge from .
[facility] referral completed in [facility].
[2024-12-03 11:34] LABS: Glucose - Point of Care 83 mg/dl (70-99)
[2024-12-03] MEDS: ZOSYN 100 IV ×2 (13:04→20:13)
--- NOTE | 2024-12-03 13:21 | CM ---
CM following re: discharge planning.
Reviewed pt's chart, met with pt and daughter Bette at bedside.
pt's daughter corrected that pt had [facility] V[facility] services and not [facility] home [facility] and she stated she spoke to [facility] liaison and they will resume after care VN services upon the discharge.
Both pt and his daughter requested pt returns back home at discharge with [facility] and daughter stated she will transport her father home.
[facility] liaison following.
[facility] discharge instructions fax: [phone]
D/C plan: home with [facility] and family support. Daughter bette to transport at discharge.
CM will follow with discharge plan updates as hospitalization progresses
--- NOTE | 2024-12-03 13:33 | W.PN.HOSP.TC ---
Today's Communication/Plan
-
Initiate Zosyn
Continue clear liquid diet, ADA T
Assessment / Plan
Assessment / Plan
Physical Exam
General: Well Developed, Well Nourished and No Apparent Distress
HEENT: NormoCephalic, Moist mucous membranes and Atraumatic
Respiratory: Clear
Cardiac: S1/S2 and Regular Rhythm; No Murmur or Rub
GI: Soft, Non Tender, Non Distended and Normal Bowel Sounds; No Organomegaly
Rectal: Deferred by Provider
Musculoskeletal: No Clubbing, No Cyanosis and No Edema
Skin: No Rash
Neuro: Nonfocal/grossly intact
#Sepsis
# Diverticulitis
#Colitis
-Minimal blood noted in stool - probable infectious
-CDif antigen positive; toxin neg
- Initiated Zosyn
-Initiate oral vanc 125mg q6h
-Await Stool cultures
#Hypokalemia
� Monitor and replete
# Syncopal episodes suspect hypovolemia from diarrhea in the setting of orthostasis from Parkinson's disease
-CT head negative
- Monitor with resuscitation
# Occasional chest pain/dyspnea
-Patient not clear on the history of this
- Troponin negative
- EKG shows sinus rhythm with first-degree block, left anterior fascicular block, LVH
- Chest x-ray unremarkable
�Follow-up outpatient, does not appear in respiratory distress at this point, saturating 95% on room air
Type 2 diabetes
- Insulin sliding scale
Parkinson's disease
- Continue carbidopa levodopa
- Continue donepezil
Constipation
- Hold MiraLAX
Stage II left buttock pressure injury
Recent MRSA cellulitis
Anxiety/depression
- Continue mirtazapine, duloxetine,
Hypercholesteremia
- Continue Zetia
DNR/DNI
DVT prophylaxis�heparin
Clear liquids
Total time spent on today's encounter was 53 minutes which included time spent in counseling the patient/family regarding diagnosis and treatment plan as listed above, goals of care, and symptom management. Case was discussed with nursing staff,
specialists, and care coordinators/case management. All labs and imaging personally reviewed by me. Remainder the time spent in detailed review of previous records, lab data, imaging, and other medical provider documentation.
Anticipated Discharge: 24 - 48 hours
Subjective/Interval History
-
Date of Service: December 03, 2024
More tender today
Objective Data
-
Labs:
Laboratory Results
12/03/24
07:31
WBC 6.1
Hgb 12.3 L
Hct 36.4 L
Plt Count 252
Sodium 137
Potassium 3.8
Chloride 107
Carbon Dioxide 23
BUN 5 L
Creatinine 0.8
Glucose 77
Calcium 7.9 L
Total Bilirubin 0.5
AST 14 L
ALT < 10
Alkaline Phosphatase 59
Vital Signs:
Vital Signs
Temp Pulse Resp BP Pulse Ox
98.2 F 54 16 123/57 95
12/03/24 11:48 12/03/24 11:48 12/03/24 11:48 12/03/24 11:48 12/03/24 11:48
I&O
12/02/24 12/03/24 12/04/24
06:59 06:59 06:59
Intake Total 1040 / 1040 2530 / 2530
Balance 1040 / 1040 2530 / 2530
Review of Systems
-
History Source: Patient
All other systems: Not reviewed unless documented
Data Reviewed
-
CT Scan: Report Reviewed by me
Labs: Labs Reviewed by me
[2024-12-03] MEDS: REMERON 30 MG PO (16:06)
[2024-12-03 16:12] LABS: Glucose - Point of Care 93 mg/dl (70-99)
--- NOTE | 2024-12-03 16:27 | PTCARENOTE ---
Patient HR dipping down into the high 30s. Going back up to the 40s- mid 50s. MD made aware. Pt. c/o of dizziness. Other VSS stable.
[2024-12-03 21:27] LABS: Glucose - Point of Care 98 mg/dl (70-99)
[2024-12-04] VITALS (7 sets, daily range): BP systolic 121–156; BP diastolic 63–73; PULSE 47–67; O2SAT 97; BMI 28.5
[2024-12-04] MEDS: ZOSYN 100 IV ×4 (02:07→20:43)
[2024-12-04] MEDS: FIRVANQ 125 MG PO ×4 (05:21→23:21)
[2024-12-04 07:31] LABS: Hematocrit 36.8 % (39.0-52.0); Hemoglobin 12.2 g/dL (13.0-18.0); Mean Corp Hgb Conc. 33.2 g/dL (33.0-37.0); Mean Corpuscular Volume 98.4 fL (80.0-94.0); Platelet Count 261 10^3/uL (130-400); Red Cell Dist. Width 13.7 % (11.5-14.5)
[2024-12-04 07:35] LABS: Glucose - Point of Care 83 mg/dl (70-99)
[2024-12-04 08:14] LABS: ALT (SGPT) < 10 U/L (0-50); AST (SGOT) 16 U/L (17-59); Albumin 3.1 g/dl (3.5-5.0); Alkaline Phosphatase 56 U/L (38-126); Blood Urea Nitrogen 5 mg/dl (9-20); Calcium 7.9 mg/dl (8.4-10.2); Carbon Dioxide 23 mmol/L (22-30); Chloride 106 mmol/L (98-107); Estimated Creatinine Clearance 110 ml/min; Glucose 76 mg/dl (70-99); Potassium 3.8 mmol/L (3.5-5.1); Sodium 136 mmol/L (135-145); Total Protein 5.7 g/dl (6.3-8.2); eGFR > 60.00
[2024-12-04] MEDS: ZETIA 10 MG PO (08:44)
[2024-12-04] MEDS: HEPARIN 5000 UNITS SC ×2 (08:45→20:42)
[2024-12-04] MEDS: VITAMIN B-12 1000 MCG PO (08:45)
[2024-12-04] MEDS: CYMBALTA DELAYED RELEASE 60 MG PO (08:49)
[2024-12-04] MEDS: ARICEPT 20 MG PO (08:49)
[2024-12-04] MEDS: SINEMET 25-100 2 TABLET PO ×3 (08:52→16:51)
--- NOTE | 2024-12-04 11:40 | CM ---
CM following re: discharge planning.
Reviewed pt's chart, met with pt and daughter Bette at bedside. Pt remains OBS status.
PT and OT continue recommending VN services and [facility] liaison following.
Both pt and his daughter requested pt returns back home at discharge with [facility] and daughter stated she will transport her father home.
[facility] discharge instructions fax: [phone]
D/C plan: home with [facility] and family support. Daughter bette to transport at discharge.
CM will follow with discharge plan updates as hospitalization progresses
[2024-12-04] MEDS: NSS 1000 IV ×2 (12:14→20:45)
[2024-12-04 12:18] LABS: Glucose - Point of Care 77 mg/dl (70-99)
--- NOTE | 2024-12-04 14:15 | W.PN.HOSP.TC ---
Today's Communication/Plan
-
abx
cld
Assessment / Plan
Assessment / Plan
Physical Exam
General: Well Developed, Well Nourished and No Apparent Distress
HEENT: NormoCephalic, Moist mucous membranes and Atraumatic
Respiratory: Clear
Cardiac: S1/S2 and Regular Rhythm; No Murmur or Rub
GI: Soft, diffusely tender, Non Distended and Normal Bowel Sounds; No Organomegaly
Rectal: Deferred by Provider
Musculoskeletal: No Clubbing, No Cyanosis and No Edema
Skin: No Rash
Neuro: Nonfocal/grossly intact
#Sepsis
# Diverticulitis
#Colitis
-Minimal blood noted in stool - probable infectious
-CDif antigen positive; toxin neg
- Initiated Zosyn
-Initiate oral vanc 125mg q6h
-Await Stool cultures - negative
#Hypokalemia
� Monitor and replete
#Sinus bradycardia with first-degree AV block
� Asymptomatic
� Most likely exacerbated with underlying ROBERTA/OHS as well as infection
� Continue to monitor with resuscitation
� Should have sleep study outpatient
� Cardiology follow-up outpatient
# Syncopal episodes suspect hypovolemia from diarrhea in the setting of orthostasis from Parkinson's disease
-CT head negative
- Monitor with resuscitation along with heart rate
# Occasional chest pain/dyspnea
-Patient not clear on the history of this
- Troponin negative
- EKG shows sinus rhythm with first-degree block, left anterior fascicular block, LVH
- Chest x-ray unremarkable
�Follow-up outpatient, does not appear in respiratory distress at this point, saturating 95% on room air
Type 2 diabetes
- Insulin sliding scale
Parkinson's disease
- Continue carbidopa levodopa
- Continue donepezil
Constipation
- Hold MiraLAX
Stage II left buttock pressure injury
Recent MRSA cellulitis
Anxiety/depression
- Continue mirtazapine, duloxetine,
Hypercholesteremia
- Continue Zetia
DNR/DNI
DVT prophylaxis�heparin
Clear liquids
Total time spent on today's encounter was 52 minutes which included time spent in counseling the patient/family regarding diagnosis and treatment plan as listed above, goals of care, and symptom management. Case was discussed with nursing staff,
specialists, and care coordinators/case management. All labs and imaging personally reviewed by me. Remainder the time spent in detailed review of previous records, lab data, imaging, and other medical provider documentation.
Anticipated Discharge: 24 - 48 hours
Subjective/Interval History
-
Date of Service: December 04, 2024
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
Objective Data
-
Labs:
Laboratory Results
12/04/24
06:18
WBC 5.8
Hgb 12.2 L
Hct 36.8 L
Plt Count 261
Sodium 136
Potassium 3.8
Chloride 106
Carbon Dioxide 23
BUN 5 L
Creatinine 0.7
Glucose 76
Calcium 7.9 L
Total Bilirubin 0.7
AST 16 L
ALT < 10
Alkaline Phosphatase 56
Vital Signs:
Vital Signs
Temp Pulse Resp BP Pulse Ox
97.9 F 47 20 133/64 97
12/04/24 11:00 12/04/24 11:00 12/04/24 11:00 12/04/24 11:00 12/04/24 13:27
I&O
12/03/24 12/04/24 12/05/24
06:59 06:59 06:59
Intake Total 2530 / 2530 1600 / 1600
Balance 2530 / 2530 1600 / 1600
Review of Systems
-
History Source: Patient
All other systems: Not reviewed unless documented
Data Reviewed
-
CT Scan: Report Reviewed by me
Labs: Labs Reviewed by me
[2024-12-04 16:51] LABS: Glucose - Point of Care 81 mg/dl (70-99)
[2024-12-04] MEDS: REMERON 30 MG PO (16:51)
[2024-12-04 21:53] LABS: Glucose - Point of Care 105 mg/dl (70-99)
[2024-12-05] VITALS (8 sets, daily range): BP systolic 124–157; BP diastolic 62–81; PULSE 50–95; BMI 28.3
[2024-12-05 01:31] LABS: Glucose - Point of Care 104 mg/dl (70-99)
--- NOTE | 2024-12-05 01:57 | PTCARENOTE ---
Patients Heart Rate sustaining in the low 30s. Advised covering provider. She is on site. Orders received.
[2024-12-05] MEDS: NSS 500 IV (02:01)
[2024-12-05 02:13] LABS: Hematocrit 39.9 % (39.0-52.0); Hemoglobin 13.3 g/dL (13.0-18.0); Mean Corp Hgb Conc. 33.3 g/dL (33.0-37.0); Mean Corpuscular Volume 97.6 fL (80.0-94.0); Platelet Count 282 10^3/uL (130-400); Red Cell Dist. Width 13.6 % (11.5-14.5)
[2024-12-05 02:14] LABS: B.E. 3.5 mmol/L; HCO3 29.6 mmol/L (21-28); O2 Saturation % 99.3 % (94-98); PCO2 50 mmHg (35-48); PO2 113 mmHg (83-108)
[2024-12-05 02:20] LABS: O2 Therapy 2L
[2024-12-05 02:27] LABS: ALT (SGPT) < 10 U/L (0-50); AST (SGOT) 18 U/L (17-59); Albumin 3.5 g/dl (3.5-5.0); Alkaline Phosphatase 54 U/L (38-126); Blood Urea Nitrogen 3 mg/dl (9-20); Calcium 8.4 mg/dl (8.4-10.2); Carbon Dioxide 28 mmol/L (22-30); Chloride 105 mmol/L (98-107); Estimated Creatinine Clearance 110 ml/min; Glucose 111 mg/dl (70-99); Magnesium 2.1 mg/dl (1.6-2.3); Potassium 3.4 mmol/L (3.5-5.1); Sodium 139 mmol/L (135-145); Total Protein 6.2 g/dl (6.3-8.2); eGFR > 60.00
[2024-12-05] MEDS: ZOSYN 100 IV ×4 (04:11→20:23)
--- NOTE | 2024-12-05 04:30 | W.PN.UPDATE ---
Update Note
Progress Note Update
RN reports patient HR in 30's, 155/68 18 99% afebrile BS 104, lethargic but arousable aware where he is, no new complaints.
labs ordered, bolus 500 CC ABG EKG, Zole pads at bedside.
Bradycardia likely due to ROBERTA? will place CPAP
K 3.4 will replete
HR 44 after the bolus.
[2024-12-05] MEDS: KCL 160 MEQ IV (04:59)
[2024-12-05] MEDS: FIRVANQ 125 MG PO ×4 (05:03→23:32)
[2024-12-05 08:26] LABS: Glucose - Point of Care 91 mg/dl (70-99)
[2024-12-05] MEDS: HEPARIN 5000 UNITS SC ×2 (09:26→20:23)
[2024-12-05] MEDS: ZETIA 10 MG PO (09:27)
[2024-12-05] MEDS: ARICEPT 20 MG PO (09:27)
[2024-12-05] MEDS: CYMBALTA DELAYED RELEASE 60 MG PO (09:27)
[2024-12-05] MEDS: VITAMIN B-12 1000 MCG PO (09:27)
[2024-12-05] MEDS: KCL ELIXIR 40 MEQ PO (09:30)
[2024-12-05] MEDS: NSS 1000 IV (09:37)
[2024-12-05] MEDS: SINEMET 25-100 2 TABLET PO ×3 (09:39→17:32)
[2024-12-05] MEDS: FLUSH (NSS) 2 FLUSH IV ×2 (09:43→20:25)
[2024-12-05 12:20] LABS: Glucose - Point of Care 102 mg/dl (70-99)
--- NOTE | 2024-12-05 12:35 | W.PN.HOSP.TC ---
Today's Communication/Plan
-
Cont abx
CLD, ADAT
Assessment / Plan
Assessment / Plan
Physical Exam
General: Well Developed, Well Nourished and No Apparent Distress
HEENT: NormoCephalic, Moist mucous membranes and Atraumatic
Respiratory: Clear
Cardiac: S1/S2 and Regular Rhythm; No Murmur or Rub
GI: Soft, diffusely tender, Non Distended and Normal Bowel Sounds; No Organomegaly
Rectal: Deferred by Provider
Musculoskeletal: No Clubbing, No Cyanosis and No Edema
Skin: No Rash
Neuro: Nonfocal/grossly intact
#Sepsis
# Diverticulitis
#Colitis
-Tenderness improving
-Minimal blood noted in stool - probable infectious
-CDif antigen positive; toxin neg
- Initiated Zosyn
-Initiate oral vanc 125mg q6h
-Await Stool cultures - negative
-Tolerating CLD, Adv to FLD tomorrow
#Hypokalemia
� Monitor and replete
#Sinus bradycardia with first-degree AV block
� Asymptomatic
� Most likely exacerbated with underlying ROBERTA/OHS as well as infection
� Continue to monitor with resuscitation
� Should have sleep study outpatient
� Cardiology follow-up outpatient
# Syncopal episodes suspect hypovolemia from diarrhea in the setting of orthostasis from Parkinson's disease
-CT head negative
- Monitor with resuscitation along with heart rate
# Occasional chest pain/dyspnea
-Patient not clear on the history of this
- Troponin negative
- EKG shows sinus rhythm with first-degree block, left anterior fascicular block, LVH
- Chest x-ray unremarkable
�Follow-up outpatient, does not appear in respiratory distress at this point, saturating 95% on room air
Type 2 diabetes
- Insulin sliding scale
Parkinson's disease
- Continue carbidopa levodopa
- Continue donepezil
Constipation
- Hold MiraLAX
Stage II left buttock pressure injury
Recent MRSA cellulitis
Anxiety/depression
- Continue mirtazapine, duloxetine,
Hypercholesteremia
- Continue Zetia
DNR/DNI
DVT prophylaxis�heparin
Clear liquids
Anticipated Discharge: 24 - 48 hours
Subjective/Interval History
-
Date of Service: December 05, 2024
Tenderness has improved
Objective Data
-
Labs:
Laboratory Results
12/05/24 12/05/24
01:49 02:04
WBC 5.8
Hgb 13.3
Hct 39.9
Plt Count 282
HCO3 29.6 H
Sodium 139
Potassium 3.4 L
Chloride 105
Carbon Dioxide 28
BUN 3 L
Creatinine 0.7
Glucose 111 H
Calcium 8.4
Total Bilirubin 0.6
AST 18
ALT < 10
Alkaline Phosphatase 54
Vital Signs:
Vital Signs
Temp Pulse Resp BP Pulse Ox
98.3 F 43 20 152/69 94
12/05/24 11:00 12/05/24 11:00 12/05/24 11:00 12/05/24 11:00 12/05/24 11:00
I&O
12/04/24 12/05/24 12/06/24
06:59 06:59 06:59
Intake Total 1600 / 1600 900 / 900
Balance 1600 / 1600 900 / 900
Review of Systems
-
History Source: Patient
All other systems: Not reviewed unless documented
Data Reviewed
-
CT Scan: Report Reviewed by me
Labs: Labs Reviewed by me
[2024-12-05 17:11] LABS: Glucose - Point of Care 123 mg/dl (70-99)
[2024-12-05] MEDS: REMERON 30 MG PO (17:29)
[2024-12-05 21:24] LABS: Glucose - Point of Care 90 mg/dl (70-99)
[2024-12-06] VITALS (10 sets, daily range): BP systolic 131–171; BP diastolic 68–90; PULSE 2–74
[2024-12-06] MEDS: ZOSYN 100 IV ×4 (02:23→19:36)
[2024-12-06] MEDS: FLUSH (NSS) 2 FLUSH IV ×4 (02:23→15:10)
[2024-12-06] MEDS: FIRVANQ 125 MG PO ×4 (05:15→23:03)
[2024-12-06 06:44] LABS: Hematocrit 38.5 % (39.0-52.0); Hemoglobin 13.1 g/dL (13.0-18.0); Mean Corp Hgb Conc. 34.0 g/dL (33.0-37.0); Mean Corpuscular Volume 94.4 fL (80.0-94.0); Platelet Count 288 10^3/uL (130-400); Red Cell Dist. Width 13.5 % (11.5-14.5)
--- NOTE | 2024-12-06 06:47 | PTCARENOTE ---
Patient wore Bipap for approximately 5 hours
[2024-12-06 07:10] LABS: ALT (SGPT) < 10 U/L (0-50); AST (SGOT) 23 U/L (17-59); Albumin 3.4 g/dl (3.5-5.0); Alkaline Phosphatase 54 U/L (38-126); Blood Urea Nitrogen < 2 mg/dl (9-20); Calcium 8.5 mg/dl (8.4-10.2); Carbon Dioxide 26 mmol/L (22-30); Chloride 106 mmol/L (98-107); Estimated Creatinine Clearance 110 ml/min; Glucose 101 mg/dl (70-99); Potassium 3.9 mmol/L (3.5-5.1); Sodium 136 mmol/L (135-145); Total Protein 6.1 g/dl (6.3-8.2); eGFR > 60.00
[2024-12-06] MEDS: SINEMET 25-100 2 TABLET PO ×3 (08:41→18:19)
[2024-12-06] MEDS: ARICEPT 20 MG PO (08:41)
[2024-12-06] MEDS: VITAMIN B-12 1000 MCG PO (08:41)
[2024-12-06] MEDS: HEPARIN 5000 UNITS SC ×2 (08:41→19:36)
[2024-12-06] MEDS: ZETIA 10 MG PO (08:42)
[2024-12-06 08:51] LABS: Glucose - Point of Care 87 mg/dl (70-99)
[2024-12-06] MEDS: CYMBALTA DELAYED RELEASE 60 MG PO (09:14)
--- NOTE | 2024-12-06 12:53 | W.PN.HOSP.TC ---
Today's Communication/Plan
-
adv to FLD
Abx
Assessment / Plan
Assessment / Plan
Physical Exam
General: Well Developed, Well Nourished and No Apparent Distress
HEENT: NormoCephalic, Moist mucous membranes and Atraumatic
Respiratory: Clear
Cardiac: S1/S2 and Regular Rhythm; No Murmur or Rub
GI: Soft, diffusely tender, Non Distended and Normal Bowel Sounds; No Organomegaly
Rectal: Deferred by Provider
Musculoskeletal: No Clubbing, No Cyanosis and No Edema
Skin: No Rash
Neuro: Nonfocal/grossly intact
#Sepsis
# Diverticulitis
#Colitis
-Improving
-Minimal blood noted in stool - probable infectious
-CDif antigen positive; toxin neg
-Cont Zosyn
- oral vanc 125mg q6h
-Await Stool cultures - negative
-Adv to FLD
#Hypokalemia
� Monitor and replete
#Sinus bradycardia with first-degree AV block
� Asymptomatic
� Most likely exacerbated with underlying ROBERTA/OHS as well as infection
� Continue to monitor with resuscitation
� Should have sleep study outpatient
� Cardiology follow-up outpatient
# Syncopal episodes suspect hypovolemia from diarrhea in the setting of orthostasis from Parkinson's disease
-CT head negative
- Monitor with resuscitation along with heart rate
# Occasional chest pain/dyspnea
-Patient not clear on the history of this
- Troponin negative
- EKG shows sinus rhythm with first-degree block, left anterior fascicular block, LVH
- Chest x-ray unremarkable
�Follow-up outpatient, does not appear in respiratory distress at this point, saturating 95% on room air
#Suspected ROBERTA/OHS
-f/u sleep study outpt
Type 2 diabetes
- Insulin sliding scale
Parkinson's disease
- Continue carbidopa levodopa
- Continue donepezil
#Hypokalemia
-monitor and replete
Constipation
- Hold MiraLAX
Stage II left buttock pressure injury
Recent MRSA cellulitis
Anxiety/depression
- Continue mirtazapine, duloxetine,
Hypercholesteremia
- Continue Zetia
DNR/DNI
DVT prophylaxis�heparin
FLD
Anticipated Discharge: 24 - 48 hours
Subjective/Interval History
-
Date of Service: December 06, 2024
feels better today, bms more firm
Objective Data
-
Labs:
Laboratory Results
12/06/24
06:25
WBC 5.7
Hgb 13.1
Hct 38.5 L
Plt Count 288
Sodium 136
Potassium 3.9
Chloride 106
Carbon Dioxide 26
BUN < 2 L
Creatinine 0.7
Glucose 101 H
Calcium 8.5
Total Bilirubin 0.7
AST 23
ALT < 10
Alkaline Phosphatase 54
Vital Signs:
Vital Signs
Temp Pulse Resp BP Pulse Ox
98.1 F 50 20 135/75 94
12/06/24 11:05 12/06/24 11:05 12/06/24 11:05 12/06/24 11:05 12/06/24 11:05
I&O
12/05/24 12/06/24 12/07/24
06:59 06:59 06:59
Intake Total 900 / 900 400 / 400
Balance 900 / 900 400 / 400
Review of Systems
-
History Source: Patient
All other systems: Not reviewed unless documented
Data Reviewed
-
CT Scan: Report Reviewed by me
Labs: Labs Reviewed by me
[2024-12-06 17:27] LABS: Glucose - Point of Care 92 mg/dl (70-99)
[2024-12-06] MEDS: REMERON 30 MG PO (18:19)
[2024-12-06 22:12] LABS: Glucose - Point of Care 163 mg/dl (70-99)
[2024-12-07] VITALS (8 sets, daily range): BP systolic 122–148; BP diastolic 71–82; PULSE 58–65; O2SAT 93; BMI 27.5
[2024-12-07] MEDS: ZOSYN 100 IV ×4 (02:05→19:43)
[2024-12-07] MEDS: FIRVANQ 125 MG PO ×4 (05:41→23:14)
[2024-12-07 06:32] LABS: Hematocrit 41.4 % (39.0-52.0); Hemoglobin 14.4 g/dL (13.0-18.0); Mean Corp Hgb Conc. 34.8 g/dL (33.0-37.0); Mean Corpuscular Volume 96.5 fL (80.0-94.0); Platelet Count 305 10^3/uL (130-400); Red Cell Dist. Width 13.4 % (11.5-14.5)
[2024-12-07 07:16] LABS: ALT (SGPT) < 10 U/L (0-50); AST (SGOT) 25 U/L (17-59); Albumin 3.7 g/dl (3.5-5.0); Alkaline Phosphatase 62 U/L (38-126); Blood Urea Nitrogen < 2 mg/dl (9-20); Calcium 8.8 mg/dl (8.4-10.2); Carbon Dioxide 28 mmol/L (22-30); Chloride 104 mmol/L (98-107); Estimated Creatinine Clearance 96 ml/min; Glucose 122 mg/dl (70-99); Potassium 3.7 mmol/L (3.5-5.1); Sodium 138 mmol/L (135-145); Total Protein 6.4 g/dl (6.3-8.2); eGFR > 60.00
--- NOTE | 2024-12-07 08:01 | W.PN.HOSP.TC ---
Today's Communication/Plan
-
cont abx
full liquid diet
pain control
PT/OT
Assessment / Plan
Assessment / Plan
Physical Exam
General: No acute distress, appears comfortable at this time
HEENT: NormoCephalic atraumatic, Moist mucous membranes and Atraumatic
Respiratory: Clear
Cardiac: S1/S2 and Regular Rhythm; No Murmur or Rub
GI: Soft, diffuse tenderness, decreased bowel sounds
Musculoskeletal: No Clubbing, No Cyanosis and No Edema
Skin: No Rash
Neuro: AOx3 conversant coherent
79M DM Parkinson here for Diverticulitis and Colitis
# Diverticulitis
#Colitis
-Minimal blood noted in stool - probably infectious
-CDif antigen positive; toxin neg
-Cont Zosyn
- oral vanc 125mg q6h
-Stool cultures - negative
-pain control, prn Tylenol, prn Toradol for mod severe pain, Protonix for GI ppx
-cont full liquid diet for now
-GI eval requested
#Sinus bradycardia with first-degree AV block
# Occasional chest pain/dyspnea
# Syncopal episodes suspect hypovolemia from diarrhea in the setting of orthostasis from Parkinson's disease
-CT head negative
-recent ECHO Oct 2024 noted EF 55% no significant valve abn's
- patient since improved
� suspect exacerbated by underlying ROBERTA/OHS as well as infection
� Continue monitoring on tele
� Should have sleep study outpatient
- Troponin negative
- EKG shows sinus rhythm with first-degree block, left anterior fascicular block, LVH
- Chest x-ray unremarkable
Type 2 diabetes
- Insulin sliding scale
Parkinson's disease
- Continue carbidopa levodopa
- Continue donepezil
#Hypokalemia
-monitor and replete as necessary
Stage II left buttock pressure injury
Recent MRSA cellulitis
Anxiety/depression
- Continue mirtazapine, duloxetine,
Hypercholesteremia
- Continue Zetia
DNR/DNI
DVT prophylaxis�heparin
FLD
Discussed with patient and patient's daughter Bette
I spent a total of 40 minutes with the patient or on the floor. More than 50% of this time involved counseling and coordination of care.
Anticipated Discharge: 24 - 48 hours
Subjective/Interval History
-
Date of Service: December 07, 2024
No acute distress, appears comfortable at rest in bed. Reports persistent abd pain 10/18, localizes to lower quadrants but also notes mild diffuse tenderness. patient also with episode of nausea in morning improved with prn zofran. denies recent
diarrhea
Objective Data
-
Labs:
Laboratory Results
12/07/24
06:20
WBC 6.4
Hgb 14.4
Hct 41.4
Plt Count 305
Sodium 138
Potassium 3.7
Chloride 104
Carbon Dioxide 28
BUN < 2 L
Creatinine 0.8
Glucose 122 H
Calcium 8.8
Total Bilirubin 0.5
AST 25
ALT < 10
Alkaline Phosphatase 62
Vital Signs:
Vital Signs
Temp Pulse Resp BP Pulse Ox
98.2 F 59 16 132/81 97
12/07/24 03:13 12/07/24 03:13 12/07/24 03:13 12/07/24 03:13 12/07/24 03:13
I&O
12/06/24 12/07/24 12/08/24
06:59 06:59 06:59
Intake Total 400 / 400 1100 / 1100
Balance 400 / 400 1100 / 1100
[2024-12-07 08:54] LABS: Glucose - Point of Care 99 mg/dl (70-99)
[2024-12-07] MEDS: CYMBALTA DELAYED RELEASE 60 MG PO (08:55)
[2024-12-07] MEDS: VITAMIN B-12 1000 MCG PO (08:55)
[2024-12-07] MEDS: HEPARIN 5000 UNITS SC ×2 (08:56→19:43)
[2024-12-07] MEDS: ARICEPT 20 MG PO (08:56)
[2024-12-07] MEDS: ZETIA 10 MG PO (08:56)
[2024-12-07] MEDS: SINEMET 25-100 2 TABLET PO ×3 (08:59→16:33)
[2024-12-07] MEDS: ZOFRAN 4 MG IV (10:18)
--- NOTE | 2024-12-07 11:23 | CM ---
CM following re: discharge planning.
Reviewed pt's chart, met with pt and daughter Brynn at bedside. Pt's admission is upgraded to inpatient. IMM reviewed, placed on chart, pt has a copy.
PT and OT recommend now SNF level of care. CM discussed it with pt and his daughter Brynn, the benefits of SNF level of care explained. pt stated he was before at [facility] and [facility], liked being at [facility] and pt expressed his strong
desire to return back home with VN. pt's daughter stated that pt never alone, he has 57 hours of home health aid services per week provided by [address] and pt has 5 daughters and they help as needed. Per daughter Brynn, pt's daughter Bette has
POA and she is a school psychology professor and she is very focused to follow pt's wishes.
Both pt and his daughter requested pt returns back home at discharge with VN and daughter stated she will transport her father home.
[facility] discharge instructions fax: [phone]
D/C plan: home with [facility] and family support. Daughter Bette to transport at discharge.
CM will follow with discharge plan updates as hospitalization progresses
[2024-12-07 12:07] LABS: Glucose - Point of Care 129 mg/dl (70-99)
[2024-12-07] MEDS: TYLENOL 650 MG PO (14:23)
[2024-12-07] MEDS: PROTONIX IV 40 MG IV (14:24)
[2024-12-07] MEDS: REMERON 30 MG PO (16:33)
[2024-12-07 17:29] LABS: Glucose - Point of Care 112 mg/dl (70-99)
[2024-12-07 21:45] LABS: Glucose - Point of Care 113 mg/dl (70-99)
[2024-12-08] MEDS: ZOSYN 100 IV ×3 (02:17→12:59)
[2024-12-08] MEDS: FIRVANQ 125 MG PO ×4 (05:15→23:08)
[2024-12-08 05:26] VITALS: BMI 27.7
[2024-12-08 07:01] LABS: Hematocrit 41.8 % (39.0-52.0); Hemoglobin 13.8 g/dL (13.0-18.0); Mean Corp Hgb Conc. 33.0 g/dL (33.0-37.0); Mean Corpuscular Volume 98.6 fL (80.0-94.0); Platelet Count 316 10^3/uL (130-400); Red Cell Dist. Width 13.9 % (11.5-14.5)
[2024-12-08 07:11] VITALS: BP 130/73
[2024-12-08 07:33] LABS: ALT (SGPT) 11 U/L (0-50); AST (SGOT) 18 U/L (17-59); Albumin 3.5 g/dl (3.5-5.0); Alkaline Phosphatase 60 U/L (38-126); Blood Urea Nitrogen 3 mg/dl (9-20); Calcium 8.6 mg/dl (8.4-10.2); Carbon Dioxide 30 mmol/L (22-30); Chloride 103 mmol/L (98-107); Estimated Creatinine Clearance 85 ml/min; Glucose 141 mg/dl (70-99); Potassium 3.7 mmol/L (3.5-5.1); Sodium 137 mmol/L (135-145); Total Protein 6.2 g/dl (6.3-8.2); eGFR > 60.00
--- NOTE | 2024-12-08 07:39 | W.PN.HOSP.TC ---
Today's Communication/Plan
-
abx as per ID
trial imdur as per Cardio
repeat CT abd/pelvis as per GI
pain control
PT/OT
IVF bolus, monitor bp
resume cardiac monitoring
Assessment / Plan
Assessment / Plan
Physical Exam
General: No acute distress, appears comfortable at this time
HEENT: NormoCephalic atraumatic, Moist mucous membranes and Atraumatic
Respiratory: Clear
Cardiac: S1/S2 and Regular Rhythm; No Murmur or Rub
GI: Soft, diffuse tenderness, decreased bowel sounds
Musculoskeletal: No Clubbing, No Cyanosis and No Edema
Skin: No Rash
Neuro: AOx3 conversant coherent
79M DM Parkinson here for Diverticulitis and Colitis
# Diverticulitis
#Colitis
-suspected sepsis on admission less likely, ruled out
-Minimal blood noted in stool - probably infectious
-CDif antigen positive; toxin neg
-Cont Zosyn
- oral vanc 125mg q6h
-Stool cultures - negative
-pain control, prn Tylenol, prn Toradol for mod severe pain, Protonix for GI ppx
-cont full liquid diet for now
-GI eval appreciated
-repeat CT abd/pelvis pending
-ID eval appreciated cont Zosyn PO vanc
#Episode Hypotension 12/08
Likely hypovolemia, preceded by large bowel movement and recent start new medication Imdur
improved with IVF bolus
monitor for now
#Sinus bradycardia with first-degree AV block
# Occasional chest pain/dyspnea
# Syncopal episodes suspect hypovolemia from diarrhea in the setting of orthostasis from Parkinson's disease
-CT head negative
-recent ECHO Oct 2024 noted EF 55% no significant valve abn's
- patient since improved
� suspect exacerbated by underlying ROBERTA/OHS as well as infection
� Continue monitoring on tele
� Should have sleep study outpatient
- Troponin negative
- EKG shows sinus rhythm with first-degree block, left anterior fascicular block, LVH
- Chest x-ray unremarkable
-Cardio eval appreciated trial imdur started, troponin remains persistent neg, follow repeat limited ECHO
Type 2 diabetes
- Insulin sliding scale
Parkinson's disease
- Continue carbidopa levodopa
- Continue donepezil
#Hypokalemia
-monitor and replete as necessary
Stage II left buttock pressure injury
Recent MRSA cellulitis
Anxiety/depression
- Continue mirtazapine, duloxetine,
Hypercholesteremia
- Continue Zetia
Stage 1 left lateral ankle pressure injury, POA
cont local wound care
DNR/DNI
DVT prophylaxis�heparin
FLD
Discussed with patient and patient's daughter Bette
I spent a total of 40 minutes with the patient or on the floor. More than 50% of this time involved counseling and coordination of care.
Anticipated Discharge: 24 - 48 hours
Subjective/Interval History
-
Date of Service: December 08, 2024
No acute distress, resting comfortably bed. Day's events notable for intermittent chest/abd pain. Episode of hypotension improved with IVF bolus.
Objective Data
-
Labs:
Laboratory Results
12/08/24
06:23
WBC 6.9
Hgb 13.8
Hct 41.8
Plt Count 316
Sodium 137
Potassium 3.7
Chloride 103
Carbon Dioxide 30
BUN 3 L
Creatinine 0.9
Glucose 141 H
Calcium 8.6
Total Bilirubin 0.5
AST 18
ALT 11
Alkaline Phosphatase 60
Vital Signs:
Vital Signs
Temp Pulse Resp BP Pulse Ox
97.9 F 56 16 130/73 98
12/08/24 07:11 12/08/24 07:11 12/08/24 07:11 12/08/24 07:11 12/08/24 07:11
I&O
12/07/24 12/08/24 12/09/24
06:59 06:59 06:59
Intake Total 1100 / 1100 1200 / 1200
Balance 1100 / 1100 1200 / 1200
--- NOTE | 2024-12-08 08:13 | CON.CAR ---
Addendum entered and electronically signed by Abdirashid Munoz MD 12/08/24 14:29:
I saw and evaluated the patient, and I provided the substantive portion of the medical decision making.
I reviewed and agree with the note by Ms Heaton and it accurately reflects our care.
I personally performed the medical decision making of the this encounter and my assessment and plan is below:
It is difficult to assess whether this is true cardiac pain in nature. He did have this this morning and troponin was negative. We will start Imdur as a trial. Otherwise, he has extremely limited ambulation and this makes the possibility of
noncardiac chest pain more likely given less stress. However, we will trial Imdur see how he feels possible up titration versus outpatient ischemic eval if necessary.
Original Note:
Consultation
Consultation Request
Date/Time Consultation Requested: 12/08/2024 08:00
Date/Time Consultation Performed: 12/08/2024 08:15
Requesting Provider: Dr. Go
Performing Provider: VINEET Lucas for Dr. Munoz
Reason for Consultation: Bradycardia, chest pain, WOOD
Medical History
-
Chief Complaint: Diarrhea
History of Present Illness:
Chucho Cannon is a 79-year-old with Parkinson's disease and type 2 diabetes, who presented 12/01/2024 with a chief complaint of diarrhea. He had a recent admission last month for MRSA cellulitis with an associated abscess that was treated with
antibiotics. Cardiology was consulted for bradycardia, chest pain, and exertional dyspnea. He is no longer on telemetry. Per report, he had bradycardia while asleep. There was a concern for apnea. The plan is for outpatient sleep study.
Regarding shortness of breath, he currently denies this. He is not ambulatory and has not been ambulatory for a few months. Chest pain was recent. He had an episode of 8/10 chest pain this morning when he woke up from sleep. It did not radiate.
It was midsternal and anterior squeezing. He is currently chest pain-free. He has chronic dizziness at rest.
Past Medical History
Past Medical History: Hypercholesterolemia, NIDDM and Other (Parkinson's)
Social History
Tobacco: Non-Smoker
Personal:
Living: With Family (Bette (daughter))
Employment: Retired
Family History
Family History: Reviewed & Not Pertinent
Allergies / Home Medications
Allergy/AdvReac Type Severity Reaction Status Date / Time
No Known Allergies Allergy Verified 12/01/24 11:43
�Medication �Instructions �Recorded �Confirmed �Type
calcium 250 mg (as 1 tab PO DAILY Supplement 07/12/24 12/01/24 History
carbonate)-vitamin D3 3.125 mcg
(125 unit) tablet (Oyster Shell +
D3)
carbidopa 25 mg-levodopa 100 mg 2 tab PO TID@0830,1230,1630 07/12/24 12/01/24 History
tablet Neurological Condition
cyanocobalamin (vitamin B-12) 1,000 mcg PO DAILY Supplement 07/12/24 12/01/24 History
1,000 mcg tablet
ezetimibe 10 mg tablet 10 mg PO DAILY High Cholesterol 07/12/24 12/01/24 History
mirtazapine 30 mg tablet 30 mg PO DAILY@1630 Mental 07/12/24 12/01/24 History
Health/Anxiety
therapeutic multivitamin 1 tab PO DAILY Supplement 07/12/24 12/01/24 History
semaglutide 0.25 mg or 0.5 mg (2 0.5 mg SC MO Diabetes 10/26/24 10/26/24 History
mg/1.5 mL) subcutaneous pen
injector (Ozempic)
oxygen noctrunal #1 ea 10/30/24 12/01/24 Rx
ondansetron 4 mg disintegrating 4 mg PO Q8H PRN nausea and 10/31/24 12/01/24 Rx
tablet vomiting 4 days #20 tabs
polyethylene glycol 3350 17 gram 17 g PO DAILYPRN PRN Constipation 10/31/24 12/01/24 Rx
oral powder packet (Miralax) #30 ea
donepezil 10 mg tablet 20 mg (2 x 10 mg) PO DAILY 11/01/24 12/01/24 Rx
Neurological Condition #0 tabs
duloxetine 60 mg capsule,delayed 60 mg PO DAILY Mental 11/01/24 12/01/24 Rx
release Health/Anxiety #0 caps
Review of Systems
-
History Source: Patient
All other systems: Negative unless noted
Constitutional: No Symptoms
EENT: No Symptoms
Respiratory: No Symptoms
Cardiac: No Symptoms
Abdomen/GI: No Symptoms
: No Symptoms
Musculoskeletal: No Symptoms
Skin: No Symptoms
Neurological: No Symptoms
Endocrine: No Symptoms
Hematologic/Lymphatic: No Symptoms
Physical Exam
Vital Signs
Temp Pulse Resp BP Pulse Ox
97.9 F 56 16 130/73 98
12/08/24 07:11 12/08/24 07:11 12/08/24 07:11 12/08/24 07:11 12/08/24 07:11
Lab Results
12/08/24 06:23
12/08/24 06:23
Troponin I Cancelled 12/02/24 17:30
Physical Exam
General: Well Developed, Well Nourished, No Apparent Distress and Comfortable
HEENT: Normocephalic, Anicteric and Moist Mucous Membranes
Respiratory: Clear and Non Labored Respirations
Cardiac: S1/S2 and Regular Rhythm
Breast: Deferred by me
GI: Soft, Non Tender, Non Distended and Normal Bowel Sounds
Rectal: Deferred by Provider
Genito-urinary: No Costovertebral Tender
Musculoskeletal: No Clubbing, No Cyanosis and No Edema
Skin: Warm and Dry
Neuro: Awake and Alert
Hematologic/Lymphatic: No Lymphadenopathy
Psych: Calm
Impression / Plan
-
I/P: 79M with Parkinson's disease and type 2 diabetes mellitus who presented with diarrhea
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
Chest pain
- No acute ST abnormality on EKGs
- Episode of 8/10 chest pain lasting several minutes this morning, check troponin
- Unable to assess exertional component as he is nonambulatory
- Limited TTE today
Dizziness, chronic
- He reports unchanged dizziness at rest for greater than 6 months
Bradycardia, sinus
- Per report, always while asleep, consider ROBERTA evaluation as an outpatient
Parkinson's disease, chronic, stable
Type 2 diabetes mellitus, controlled, HgbA1c 6.4%, much improved since July (was 8.1% at that time)
DATA:
Transthoracic echocardiogram, 10/30/2024:
1. Very technically difficult study even with the use of Definity contrast.
2. Left ventricle is normal in size and systolic function. LVEF 55%.
3. Right ventricle probably mildly dilated with mildly reduced systolic function.
4. Mild to moderate concentric left ventricular hypertrophy.
5. No significant valvular disease.
6. No prior study available for comparison.
7. Consider cardiac MRI for more accurate evaluation of right ventricle if clinically indicated.
Data Reviewed
-
EKG: Report Reviewed by me (Sinus bradycardia, first-degree AV block, rate 34)
Radiology: Report Reviewed by me
Medical Tests (Nuc Med, Echo etc): Report Reviewed by me
Labs: Labs Reviewed by me
Old Records: Reviewed
[2024-12-08 08:31] LABS: Glucose - Point of Care 117 mg/dl (70-99)
[2024-12-08] MEDS: SINEMET 25-100 2 TABLET PO ×3 (08:41→16:14)
[2024-12-08] MEDS: CYMBALTA DELAYED RELEASE 60 MG PO (08:41)
[2024-12-08] MEDS: VITAMIN B-12 1000 MCG PO (08:41)
[2024-12-08] MEDS: ZETIA 10 MG PO (08:42)
[2024-12-08] MEDS: THERAGRAN 1 TABLET PO (08:42)
[2024-12-08] MEDS: NSS (PRESERVATIVE FREE) 10 ML IV (08:42)
[2024-12-08] MEDS: PROTONIX IV 40 MG IV (08:42)
[2024-12-08] MEDS: ARICEPT 20 MG PO (08:42)
[2024-12-08] MEDS: HEPARIN 5000 UNITS SC ×2 (08:42→19:15)
--- NOTE | 2024-12-08 08:53 | CON.GI ---
Consultation
-
Date/Time Consultation Requested: 12/07/2024
Date/Time Consultation Performed: 12/08/2024
Requesting Provider: Dr. Go
Performing Provider: DR. Shelton
Reason for Consultation: diarrhea
Medical History
Chief Complaint / HPI
Chief Complaint: diarrhea, syncope
History of Present Illness:
Mr. Cannon is a 79-year-old male past medical history of diabetes, rheumatoid arthritis, polymyalgia rheumatica, Parkinson disease, constipation, stage II left buttock pressure injury, presenting for numerous complaints for the past 2 days. He has
a recent hospitalization 1 month ago for MRSA cellulitis with abscess of left lower extremity treated with vancomycin and discharged with Cipro and doxycycline. Patient has had diarrhea and vomiting for the past 2 days as well as poor p.o. intake
and has not taken any of his routine medications during this time. He does report that this diarrhea is a chronic problem and has had it for about 3 months. He has approximately 2 episodes of diarrhea per day with pain improving after defecation.
Daughter has been giving patient Imodium without improvement of symptoms. He does occasionally see specks of blood in his stool and has had previous episodes of diverticulitis but has been years since his last episode. He is now reporting
abdominal pain in his lower abdomen that has not improved since his hospitalization but consistency of stool has slightly improved. He recently started on Ozempic about 4 weeks ago, however does not know if he has been recent dose changes as his
daughter administers the medication. He has lost about 8 pounds in recent months.
Past Medical History
Past Medical History: NIDDM, Psychiatric (Parkinson's) and Other (Stage II left buttock pressure ulcer, prostate cancer, rheumatoid arthritis, polymyalgia rheumatica)
Social History
Tobacco: Non-Smoker
Alcohol: Occasional
Drug: None
Living: With Family
Allergies / Home Medications
Allergy/AdvReac Type Severity Reaction Status Date / Time
No Known Allergies Allergy Verified 12/01/24 11:43
�Medication �Instructions �Recorded
calcium 250 mg (as 1 tab PO DAILY Supplement 07/12/24
carbonate)-vitamin D3 3.125 mcg
(125 unit) tablet (Oyster Shell +
D3)
carbidopa 25 mg-levodopa 100 mg 2 tab PO TID@0830,1230,1630 07/12/24
tablet Neurological Condition
cyanocobalamin (vitamin B-12) 1,000 mcg PO DAILY Supplement 07/12/24
1,000 mcg tablet
ezetimibe 10 mg tablet 10 mg PO DAILY High Cholesterol 07/12/24
mirtazapine 30 mg tablet 30 mg PO DAILY@1630 Mental 07/12/24
Health/Anxiety
therapeutic multivitamin 1 tab PO DAILY Supplement 07/12/24
semaglutide 0.25 mg or 0.5 mg (2 0.5 mg SC MO Diabetes 10/26/24
mg/1.5 mL) subcutaneous pen
injector (Ozempic)
oxygen noctrunal #1 ea 10/30/24
ondansetron 4 mg disintegrating 4 mg PO Q8H PRN nausea and 10/31/24
tablet vomiting 4 days #20 tabs
polyethylene glycol 3350 17 gram 17 g PO DAILYPRN PRN Constipation 10/31/24
oral powder packet (Miralax) #30 ea
donepezil 10 mg tablet 20 mg (2 x 10 mg) PO DAILY 11/01/24
Neurological Condition #0 tabs
duloxetine 60 mg capsule,delayed 60 mg PO DAILY Mental 11/01/24
release Health/Anxiety #0 caps
Review of Systems
-
History Source: Patient
Constitutional: Reports No Symptoms; Denies Fever or Weight Loss
EENT: Reports No Symptoms; Denies Sore Throat or Runny Nose
Respiratory: Reports No Symptoms; Denies Cough or Trouble Breathing
Cardiac: Reports No Symptoms; Denies Chest Pain or Palpitations
Abdomen/GI: Reports Abdominal Pain, Nausea and Diarrhea; Denies Vomiting, Bloody Stools or Black Stools
: Reports No Symptoms
Vital Signs
Temp Pulse Resp BP Pulse Ox
97.9 F 56 16 130/73 98
12/08/24 07:11 12/08/24 07:11 12/08/24 07:11 12/08/24 07:11 12/08/24 07:11
Physical Exam
Exam
General: Well Developed, Well Nourished and No Apparent Distress
HEENT: Normocephalic and Anicteric
Respiratory: Clear
Cardiac: S1/S2 and Regular Rhythm
GI: Soft, Non Distended, Normal Bowel Sounds and Tender (Generalized tenderness, tender to palpation lower quadrants)
Skin: Warm and Dry
Results
WBC 6.9 10^3/uL (4.8-10.8) 12/08/24 06:23
Hgb 13.8 g/dL (13.0-18.0) 12/08/24 06:23
Hct 41.8 % (39.0-52.0) 12/08/24 06:23
MCV 98.6 fL (80.0-94.0) H 12/08/24 06:23
Plt Count 316 10^3/uL (130-400) 12/08/24 06:23
Absolute Neuts (auto) 7.3 10^3/uL (1.4-6.5) H 12/02/24 05:30
Sodium 137 mmol/L (135-145) 12/08/24 06:23
Potassium 3.7 mmol/L (3.5-5.1) 12/08/24 06:23
Chloride 103 mmol/L (98-107) 12/08/24 06:23
Carbon Dioxide 30 mmol/L (22-30) 12/08/24 06:23
BUN 3 mg/dl (9-20) L 12/08/24 06:23
Creatinine 0.9 mg/dL (0.7-1.3) 12/08/24 06:23
Calcium 8.6 mg/dl (8.4-10.2) 12/08/24 06:23
Total Bilirubin 0.5 mg/dl (0.2-1.3) 12/08/24 06:23
AST 18 U/L (17-59) 12/08/24 06:23
ALT 11 U/L (0-50) 12/08/24 06:23
Alkaline Phosphatase 60 U/L (38-126) 12/08/24 06:23
Diagnostic Image Results:
CT A/P 12/02/24
IMPRESSION: CT findings compatible with diverticulitis involving the sigmoid colon extending to the junction of the descending colon.
There is additionally a longer region of colonic wall thickening involving most of the colon, relatively sparing the right colon. This would suggest an additional superimposed component of colitis, probably infectious.
No evidence for bowel obstruction or free intraperitoneal air.
Fatty infiltration of the liver.
Bony degenerative changes as described.
Prior GI Procedures:
EGD:
11/10/2015
Impression: - Food in the middle third of the esophagus. Removal was
successful.
- Esophageal mucosal changes suspicious for eosinophilic
esophagitis. Biopsied.
- Normal stomach.
- Normal examined duodenum
Colonoscopy:
11/28/2014
Impression: - Diverticulosis in the sigmoid colon.
- One 2 mm polyp in the sigmoid colon. Resected and
retrieved.
- One 3 mm polyp in the proximal sigmoid colon. Resected
and retrieved.
- The examination was otherwise normal.
` - Results: Adenomatous polyp, hyperplastic polyp
Assessment / Plan
-
Mr. Cannon is a 79-year-old male past medical history of diabetes, Parkinson disease, constipation, stage II left buttock pressure injury, presenting for diarrhea and syncope. Patient was admitted for syncope workup and diverticulitis/colitis seen
on CT.
#Diverticulitis
#Colitis
#diarrhea
Minimal blood noted in stool
Cdiff antigen positive, toxin neg
stool cultures negative
patient on zosyn and vancomycin
DDx
SCAD, may need colonoscopy to evaluate
IBS, patient reports abdominal pain improves with defecation, however does not report mucus and reports bloody specks, diagnosis of exclusion
malignancy, patient had adenomatous polyp removed in 2014 without any follow-up, may need colonoscopy to evaluate
Iatrogenic, patient started Ozempic about 4 weeks ago, required cessation of Ozempic
This note is preliminary, refer to attending note for final recommendations
-
-
Thank you for consultation and allowing me to participate in the patient's care. Please call the correction warden GI physician during the after hours with any questions or concerns.
[2024-12-08] MEDS: IMDUR (EXTENDED RELEASE) 30 MG PO (09:28)
[2024-12-08 10:14] LABS: Troponin I < 0.012 ng/ml
[2024-12-08 11:51] VITALS: BP 125/71; BP 132/73; BP 134/67; PULSE 62; PULSE 69; PULSE 83
--- NOTE | 2024-12-08 12:38 | PN.CDI ---
CDI
- -
CDI:
Physician Documentation Request
Admit Date: 12/07/24 08:07
Dear Doctor Slava,
Please review the following and provide your response in the progress notes.
Diagnosis:
Clinical indicators:
- Sepsis was documented on progress notes (12/02-12/06)
- 12/07 PN does not include sepsis - 'Diverticulitis...colitis'
- On admission: WBC 13.8, HR 70s, RR 10s, temp 98.2
- IV abx vancomycin, zosyn
- 9L IVF given
The request is for one of the following:
- Sepsis remains a known or suspected condition for this patient and is further supported by (include additional documentation in the medical record)
- Sepsis has been ruled out
- Other (please specify)
Use of terms such as suspected, likely, concern for, or probable (associated with a specific diagnosis that is being evaluated, monitored, or treated as if it exists) are acceptable and can be coded in the inpatient setting, when documented at the
time of discharge.
Thank you,
Rocky Virgen RN
CDI Specialist
Please use your independent medical judgment in providing your response.
--- NOTE | 2024-12-08 12:46 | PN.CDI ---
CDI
- -
CDI:
Physician Documentation Request
Admit Date: 12/07/24 08:07
Dear Doctor Abbi,
Please review the following and provide your response in the progress notes.
Diagnosis:
Clinical indicators:
- Sepsis was documented on progress notes (12/02-12/06)
- 12/07 PN does not include sepsis - 'Diverticulitis...colitis'
- On admission: WBC 13.8, HR 70s, RR 10s, temp 98.2
- IV abx vancomycin, zosyn
- 9L IVF given
The request is for one of the following:
- Sepsis remains a known or suspected condition for this patient and is further supported by (include additional documentation in the medical record)
- Sepsis has been ruled out
- Other (please specify)
Use of terms such as suspected, likely, concern for, or probable (associated with a specific diagnosis that is being evaluated, monitored, or treated as if it exists) are acceptable and can be coded in the inpatient setting, when documented at the
time of discharge.
Thank you,
Rocky Virgen RN
CDI Specialist
Please use your independent medical judgment in providing your response.
--- NOTE | 2024-12-08 12:48 | PN.CDI ---
CDI
- -
CDI:
Physician Documentation Request
Admit Date: 12/07/24 08:07
Dear Doctor Abbi,
Please review the following and provide your response in the progress notes.
Clinical Indicators:
- RN skin assessments indicate Stage 1 left lateral ankle pressure injury, POA
Physician documentation of the type and location of wounds is required for compliant documentation. Based on the above clinical findings and your assessment, please provide the following in your progress note:
1. Location of the ulcer/wound, including laterality.
2. Type (etiology) of ulcer/wound:
- Diabetic ulcer
- Arterial (ischemic) ulcer
- Traumatic wound
- Venous stasis ulcer
- Pressure (decubitus) ulcer
- Other
Use of terms such as suspected, likely, concern for, or probable (associated with a specific diagnosis that is being evaluated, monitored, or treated as if it exists) are acceptable and can be coded in the inpatient setting, when documented at the
time of discharge.
Thank you,
Rocky Virgen RN
CDI Specialist
Please use your independent medical judgment in providing your response.
*Source: National Pressure Ulcer Advisory Panel (NPUAP)
[2024-12-08 12:57] LABS: Glucose - Point of Care 102 mg/dl (70-99)
--- NOTE | 2024-12-08 13:27 | CON.ID ---
Consultation
-
Date/Time Consultation Requested: 12/08/2024 0802
Date/Time Consultation Performed: 12/08/2024 1300
Requesting Provider: Dr. Go
Performing Provider: Dr. Monterroso
Reason for Consultation: Diverticulitis; diarrhea
Chief Complaint / Past History
History of Present Illness
Chucho Cannon is a 79-year-old man being evaluated at the request of Dr. Go in regards to diverticulitis. History is obtained from chart review, along with patient interview.
Patient has a significant past medical history of DM and Parkinson's disease and initially presented to [facility] on 12/01/2024 following the development of diarrhea, nausea and vomiting over the prior 48 hours. At the time of
presentation it was noted that he had had decreased oral intake over the same timeframe. Family also reported an episodes of loss of consciousness while in recliner with subsequent confusion.
Admission workup did not reveal a leukocytosis and the patient was not noted to be febrile. Further workup included imaging of the abdomen which revealed sigmoid colonic diverticulitis, along with colonic wall thickening involving most of the colon
suspicious for colitis. C. difficile testing was was shown to be positive for antigen, negative for toxin. The patient has been started on Zosyn and oral vancomycin, and Infectious Diseases is asked to comment upon further antimicrobial management.
At the present time, the patient has had decreased nausea and vomiting, but still has left lower quadrant abdominal discomfort. Stool has firmed up to a degree and is not reported to be cirilo liquid.
Past History
Additional Past Medical History:
Prostates CA
DM
Guillain-Chand� syndrome
Parkinson's disease
Rheumatoid arthritis
Polymyalgia rheumatica
Additional Past Surgical History:
Left arm MOHS surgery
Allergy History:
No Known Allergies Allergy (Verified 12/01/24 11:43)
Medications Reviewed: Yes
Current Antibiotics:
Vancomycin 125 mg p.o. every 6 hours
Zosyn 4.5 g IV every 6 hours
Social History
Tobacco: Non-Smoker
Alcohol: None
Drug: None
Personal:
Living: With Family
Employment: Retired
Family History
Family History: Not Pertinent
Review of Systems
Vital Signs
Temp Pulse Resp BP Pulse Ox
97.9 F 56 16 130/73 98
12/08/24 07:11 12/08/24 07:11 12/08/24 07:11 12/08/24 07:11 12/08/24 09:49
Physical Exam
Physical Exam
Constitutional: Comfortable, Chronically Ill and Non-toxic
Eyes: No Conjunctival Hemorrhage and Sclera Anicteric
Oral: No Thrush and No Ulcers
Cardiovascular: Regular Rate and S1/S2; Negative S3/S4
Pulmonary: Clear; Negative Wheezes, Rales or Rhonchi
Gastrointestinal: Soft, Tender (LLQ), Non Distended, Normal Bowel Sounds, No Rebound and No Guarding
Extremities: Edema; Negative Cyanosis or Erythema
Skin: Warm and Dry; Negative Rash or Jaundice
Wound: Other (left forearm (site of Prior Mohs surgery) superficial and without significant erythema)
Neurological: Awake and Alert
Psychological: Calm
.
Lab / Diagnostic Study Results
12/08/24 06:23
12/08/24 06:23
Abs Immat Gran (auto) 0.0 10^3/uL (0-0.05) 12/02/24 05:30
Absolute Neuts (auto) 7.3 10^3/uL (1.4-6.5) H 12/02/24 05:30
Absolute Lymphs (auto) 2.1 10^3/uL (1.2-3.4) 12/02/24 05:30
Absolute Monos (auto) 1.0 10^3/uL (0.1-0.6) H 12/02/24 05:30
Absolute Basos (auto) 0.1 10^3/uL (0-0.2) 12/02/24 05:30
Immature Gran % 0.3 % (0-0.5) 12/02/24 05:30
Neutrophils % 68.7 % (42.2-75.2) 12/02/24 05:30
Lymphocytes % 19.4 % (20.5-51.1) L 12/02/24 05:30
Monocytes % 9.5 % (1.7-9.3) H 12/02/24 05:30
Eosinophils % 1.2 % (0-6) 12/02/24 05:30
Basophils % 0.9 % (0-2) 12/02/24 05:30
Ur Squamous Epith Cells 0-2 /LPF (Few) 12/01/24 13:14
Microbiology Results
Micro:
12/01/24 19:42 Salmonella/Shigella Culture - Final
Feces/Stool No Salmonella, Shigella, Aeromonas or Plesiomonas species
isolated.
Campylobacter Culture - Final
No Campylobacter species isolated.
Shiga Toxin Test - Final
No E. coli Shiga Toxin 1 or 2 detected.
12/01/24 13:14 Urine Culture - Final
Urine NO GROWTH
12/01/24 19:42 - Final
Feces/Stool Negative for Norovirus GI and GII.
12/01/24 19:42 C. difficile GDH Antigen & Toxins - Final
Feces/Stool C. difficile antigen positive, toxin negative.
Clostridium difficile present, but toxin not detected.
Patient may be a carrier, colonized with nontoxinogenic
strain or the level of toxin in sample is below detection
limits. This information should be used in conjunction with
the patient's clinical history.
Imaging:
12/02/2024 CT abdomen/pelvis with IV contrast: CT findings compatible with diverticulitis involving the sigmoid colon, and extending to the junction of the descending colon. There is additionally a long region of colonic wall thickening involving
most of the colon, although relatively sparing the right colon. This suggests an additional superimposed component of colitis, possibly infectious in nature. No evidence for bowel obstruction or free intraperitoneal air. Please see full dictation
for additional detail. Film personally viewed.
Assessment / Plan
Abdominal pain
Sigmoid diverticulitis
Diarrhea
C. diff Ag(+)/tox(-); with suspected colitis on CT
Prostates CA
DM
Guillain-Chand� syndrome
Parkinson's disease
Rheumatoid arthritis
Polymyalgia rheumatica
Recommendations:
Continue with enteral vancomycin 125 mg q6h
Continue with Zosyn, but decreased dose to 3.375 g IV every 6 hours.
Monitor for improvement in abdominal discomfort.
Follow stool output and consistency.
--- NOTE | 2024-12-08 13:35 | CM ---
CM following re: discharge planning.
Reviewed pt's chart, met with pt.
PT and OT continue recommending SNF level of care. Both pt and his daughters continue declining SNF level of care and expressing their desire pt returns back home with [facility] instead of going to a SNF. Pt stated he was before at [facility]
and [facility], liked being at [facility] and pt expressed his strong desire to return back home with [facility]. per daughters, pt never alone, he has 57 hours of home health aid services per week provided by [address] and pt has 5 daughters and they
help as needed.
Both pt and his daughter requested pt returns back home at discharge with [facility].
[facility] discharge instructions fax: [phone]
D/C plan: home with [facility] and family support. Daughter Bette to transport at discharge.
CM will follow with discharge plan updates as hospitalization progresses
[2024-12-08] MEDS: ZOSYN 50 IV ×2 (14:13→19:15)
[2024-12-08] MEDS: OMNIPAQUE 50 ML PO (14:43)
[2024-12-08] MEDS: VISBIOME 2 CAP PO (14:43)
[2024-12-08] MEDS: TORADOL 15 MG IV (14:45)
[2024-12-08 15:04] VITALS: BP 84/50
[2024-12-08] MEDS: NSS 500 IV (15:29)
[2024-12-08] MEDS: REMERON 30 MG PO (16:15)
[2024-12-08] MEDS: TYLENOL 650 MG PO ×3 (16:17→23:08)
[2024-12-08 16:25] LABS: Glucose - Point of Care 86 mg/dl (70-99)
[2024-12-08 16:36] VITALS: BP 109/50
[2024-12-08 17:34] LABS: Troponin I < 0.012 ng/ml
--- NOTE | 2024-12-08 18:20 | PTCARENOTE ---
Patient's BP taken by tech for 1500 vitals 84/50, repeat manual BP taken by this RN 90/60 RUE. Patient c/o abd discomfort 8/10, chest tightness, and dizziness; cardio consult in place for chest pain and SOB throughout admission, patient states
discomfort and dizziness have been present throughout admission, states he does not feel discomfort is worse than prior or that dizziness is worse with low BP. Orthos taken earlier in shift negative - see charting. EKG, trop ordered per MD, patient
placed on tele, NSR/jackie on monitor. 500ml NSS bolus ordered per MD, PRN IV Toradol given for discomfort - see MAY. Repeat BP after bolus 109/50 HR 58, patient states pain decreased to 3/10 after PRN Toradol administration. Patient to ordered abd
CT scan per GI. Cardio also made aware of above, trops q8hr x3 and EKG in AM ordered.
[2024-12-08] MEDS: ZOFRAN 4 MG IV (18:35)
[2024-12-08 19:06] VITALS: BP 103/55
[2024-12-08 21:14] LABS: Glucose - Point of Care 89 mg/dl (70-99)
[2024-12-08 23:21] VITALS: BP 103/64
[2024-12-09] VITALS (7 sets, daily range): BP systolic 94–127; BP diastolic 47–69; PULSE 44–71; BMI 28.1
[2024-12-09] MEDS: ZOSYN 50 IV ×4 (02:47→20:20)
[2024-12-09 03:26] LABS: Hematocrit 37.7 % (39.0-52.0); Hemoglobin 12.9 g/dL (13.0-18.0); Mean Corp Hgb Conc. 34.2 g/dL (33.0-37.0); Mean Corpuscular Volume 98.7 fL (80.0-94.0); Platelet Count 303 10^3/uL (130-400); Red Cell Dist. Width 14.2 % (11.5-14.5)
[2024-12-09 03:37] LABS: ALT (SGPT) < 10 U/L (0-50); AST (SGOT) 15 U/L (17-59); Albumin 3.2 g/dl (3.5-5.0); Alkaline Phosphatase 47 U/L (38-126); Blood Urea Nitrogen 7 mg/dl (9-20); Calcium 8.7 mg/dl (8.4-10.2); Carbon Dioxide 30 mmol/L (22-30); Chloride 104 mmol/L (98-107); Estimated Creatinine Clearance 77 ml/min; Glucose 124 mg/dl (70-99); Magnesium 2.0 mg/dl (1.6-2.3); Potassium 4.0 mmol/L (3.5-5.1); Sodium 137 mmol/L (135-145); Total Protein 5.8 g/dl (6.3-8.2); eGFR > 60.00
[2024-12-09 03:47] LABS: Troponin I < 0.012 ng/ml
[2024-12-09] MEDS: TYLENOL PO ×5 (04:03→20:19)
--- NOTE | 2024-12-09 05:03 | PTCARENOTE ---
Patient's HR to 35-36 on tele. patient asymptomatic. sleeping. VINEET Severino made aware. No new orders at this time
[2024-12-09] MEDS: FIRVANQ 125 MG PO ×3 (05:08→17:00)
--- NOTE | 2024-12-09 07:49 | W.PN.HOSP.TC ---
Today's Communication/Plan
-
see a/p
Assessment / Plan
Assessment / Plan
Physical Exam
General: No acute distress, appears comfortable at this time
HEENT: NormoCephalic atraumatic, Moist mucous membranes and Atraumatic
Respiratory: Clear
Cardiac: S1/S2 and Regular Rhythm; No Murmur or Rub
GI: Soft, diffuse tenderness, decreased bowel sounds
Musculoskeletal: No Clubbing, No Cyanosis and No Edema
Skin: Folliculitis graff cheek areas noted
Neuro: AOx3 conversant coherent
79M DM Parkinson here for Diverticulitis and Colitis
# Diverticulitis
#Colitis
-suspected sepsis on admission less likely, ruled out
-Minimal blood noted in stool - probably infectious
-CDif antigen positive; toxin neg
-Cont Zosyn
- oral vanc 125mg q6h
-Stool cultures - negative
-pain control, prn Tylenol, prn Toradol for mod severe pain, Protonix for GI ppx
-cont full liquid diet for now
-GI eval appreciated
-repeat CT abd/pelvis appreciated improvement compared to prior imaging
-ID eval appreciated cont Zosyn PO vanc
#Folliculitis graff cheek areas noted
mupirocin topical ointment started 12/09
#Episode Hypotension 12/08
Likely hypovolemia, preceded by large bowel movement and recent start new medication Imdur
improved with IVF bolus
Hypotension since resolved
#Sinus bradycardia with first-degree AV block
# Occasional chest pain/dyspnea
# Syncopal episodes suspect hypovolemia from diarrhea in the setting of orthostasis from Parkinson's disease
-CT head negative
-recent ECHO Oct 2024 noted EF 55% no significant valve abn's
- patient since improved
� suspect exacerbated by underlying ROBERTA/OHS as well as infection
- Pulm eval appreciated
� Continue monitoring on tele
� Should have sleep study outpatient
- Troponin negative
- EKG shows sinus rhythm with first-degree block, left anterior fascicular block, LVH
- Chest x-ray unremarkable
-Cardio eval appreciated trial imdur started, troponin remains persistent neg, repeat limited ECHO appreciated no acute changes
Type 2 diabetes
- Insulin sliding scale
Parkinson's disease
- Continue carbidopa levodopa
- Continue donepezil
#Hypokalemia
-monitor and replete as necessary
Stage II left buttock pressure injury
Recent MRSA cellulitis
Anxiety/depression
- Continue mirtazapine, duloxetine,
Hypercholesteremia
- Continue Zetia
Stage 1 left lateral ankle pressure injury, POA
cont local wound care
DNR/DNI
DVT prophylaxis�heparin
FLD
Discussed with patient and patient's daughter Bette
I spent a total of 40 minutes with the patient or on the floor. More than 50% of this time involved counseling and coordination of care.
Anticipated Discharge: 24 - 48 hours
Subjective/Interval History
-
Date of Service: December 09, 2024
No acute distress, appears comfortable, persistent intermittent symptoms chest/abd pain. Folliculitis graff cheek areas noted
Objective Data
-
Labs:
Laboratory Results
12/09/24
03:00
WBC 7.1
Hgb 12.9 L
Hct 37.7 L
Plt Count 303
Sodium 137
Potassium 4.0
Chloride 104
Carbon Dioxide 30
BUN 7 L
Creatinine 1.0
Glucose 124 H
Calcium 8.7
Total Bilirubin 0.5
AST 15 L
ALT < 10
Alkaline Phosphatase 47
Vital Signs:
Vital Signs
Temp Pulse Resp BP Pulse Ox
97.8 F 62 16 96/62 98
10/01/25 03:09 12/09/24 03:09 12/09/24 03:09 12/09/24 03:09 12/09/24 03:09
I&O
12/08/24 12/09/24 12/10/24
06:59 06:59 06:59
Intake Total 1200 / 1200 1840 / 1840
Balance 1200 / 1200 1840 / 1840
--- NOTE | 2024-12-09 08:19 | W.PN.GI.CBS2 ---
Today's Communication / Plan
-
Okay to advance diet to low residue diet
Continue antibiotics as per ID recommendation
Continue probiotics
Follow-up with [place] GI at the [place] after [place]
Will need MiraLAX daily for chronic constipation and also once the current symptoms are resolved I also to start told him to start Metamucil daily
Assessment / Plan
-
Mr. Cannon is a 79-year-old male past medical history of diabetes, Parkinson disease, constipation, stage II left buttock pressure injury, presenting for diarrhea and syncope. Patient was admitted for syncope workup and diverticulitis/colitis seen
on CT.
Daughter at bedside and she says that her dad had a repeat colonoscopy about 2 years ago at the [place] and had colon polyps removed the initial colonoscopy was poor prep he then had a 2-day prep and they were able to repeat the colonoscopy. No colitis
was noted then
1. diverticulitis and colitis could be related to segmental colitis associated with diverticulitis versus possible ischemic colitis or infectious colitis less likely IBD new onset. He is currently on Zosyn although the C. difficile antigen is
positive toxin was negative was started on vancomycin and recommended to continue by ID. added probiotics also. Repeat CT from yesterday shows significant inflammation in colitis/diverticulitis.
2. He also has chronic constipation with intermittent diarrhea which I think may be from overflow diarrhea would minimize the use of Imodium. need to start Metamucil and MiraLAX at the time of DC. Constipation may be related to Ozempic and
underlying Parkinson's disease. Currently he has been having daily bowel movements.
3. Remote history of food bolus in 2016 currently denies any symptoms of dysphagia
4. History of colon polyps he had a tubular adenoma in 2014 and as per his daughter currently at the bedside today he had another repeat colonoscopy about 2 years ago at the [place] and was noted to have colon polyps and needed a 2-day prep..
Follow-up at the [place] with his angle furnaceman after DC.
GI will sign off and will be available as needed
Subjective
Subjective
Date of Service: December 09, 2024
Noted results of repeat CT yesterday inflammation in colon and colitis are improved. 1 brown soft stool was reported today. Pain seems to be improving. No nausea or vomiting
Objective
Data Reviewed
Laboratory Data:
Laboratory Results
12/09/24 03:00
12/09/24 03:00
Laboratory Results
Phosphorus 3.8 mg/dl (2.5-4.5) 12/09/24 03:00
Magnesium 2.0 mg/dl (1.6-2.3) 12/09/24 03:00
Total Bilirubin 0.5 mg/dl (0.2-1.3) 12/09/24 03:00
AST 15 U/L (17-59) L 12/09/24 03:00
ALT < 10 U/L (0-50) 12/09/24 03:00
Alkaline Phosphatase 47 U/L (38-126) 12/09/24 03:00
12/08/2024 CT Abd/pel W Iv And Oral Contr
IMPRESSION:
Inflammatory changes of the descending colon and rectosigmoid colon have improved. Likely nonspecific colitis. Diverticulitis possible, though felt to be less likely. No perforation or abscess.
No other significant interval change.
Vital Signs and I&O:
Vital Signs
Temp Pulse Resp BP Pulse Ox
97.8 F 62 16 96/62 98
12/09/24 03:09 12/09/24 03:09 12/09/24 03:09 12/09/24 03:09 12/09/24 03:09
I&O
12/08/24 12/09/24 12/10/24
06:59 06:59 06:59
Intake Total 1200 / 1200 1839
Balance 1200 / 1200 1839
Physical Exam
Physical Exam
Cardiology: Normal Sinus Rhythm
GI: Soft, Non Distended, Tender (Mild left lower quadrant tenderness) and Normal Bowel Sounds
[2024-12-09 08:29] LABS: Glucose - Point of Care 96 mg/dl (70-99)
[2024-12-09] MEDS: PROTONIX IV 40 MG IV (08:46)
[2024-12-09] MEDS: TYLENOL 650 MG PO (08:48)
[2024-12-09] MEDS: ZETIA 10 MG PO (08:48)
[2024-12-09] MEDS: VISBIOME 2 CAP PO (08:48)
[2024-12-09] MEDS: VITAMIN B-12 1000 MCG PO (08:48)
[2024-12-09] MEDS: CYMBALTA DELAYED RELEASE 60 MG PO (08:48)
[2024-12-09] MEDS: SINEMET 25-100 2 TABLET PO ×3 (08:48→16:02)
[2024-12-09] MEDS: THERAGRAN 1 TABLET PO (08:49)
[2024-12-09] MEDS: NSS (PRESERVATIVE FREE) 10 ML IV (08:49)
[2024-12-09] MEDS: IMDUR (EXTENDED RELEASE) 30 MG PO (08:49)
[2024-12-09] MEDS: ARICEPT 20 MG PO (08:49)
[2024-12-09] MEDS: HEPARIN 5000 UNITS SC ×2 (08:49→20:19)
--- NOTE | 2024-12-09 09:51 | W.PN.CD ---
Today's Communication / Plan
-
Continue to trial Imdur
Low suspicion that this is ACS/ischemic chest pain
Impression / Plan
-
Background: 79M with Parkinson's disease and type 2 diabetes mellitus who presented with diarrhea
Primary remote sensing surveyor: None prior to arrival
Chest pain
- Atypical, serial trop/ekg negative. Echo limited quality but no issues on echo
- Trial of Imdur
- No plans for stress test or cath if EKG and trop remains quiet and pain remains clinically unipressive
Dizziness, chronic
- He reports unchanged dizziness at rest for greater than 6 months
Bradycardia, sinus
- Per report, always while asleep, consider ROBERTA evaluation as an outpatient
- Donepezil may be adding
Parkinson's disease, chronic, stable
Type 2 diabetes mellitus, controlled, HgbA1c 6.4%, much improved since July (was 8.1% at that time)
Subjective:
CP less but still waxing and waning
DATA:
Transthoracic echocardiogram, 10/30/2024:
1. Very technically difficult study even with the use of Definity contrast.
2. Left ventricle is normal in size and systolic function. LVEF 55%.
3. Right ventricle probably mildly dilated with mildly reduced systolic function.
4. Mild to moderate concentric left ventricular hypertrophy.
5. No significant valvular disease.
6. No prior study available for comparison.
7. Consider cardiac MRI for more accurate evaluation of right ventricle if clinically indicated.
Physical Exam
Vital Signs/Labs
Vital Signs
Temp Pulse Resp BP Pulse Ox
98.3 F 44 18 106/57 96
12/09/24 07:00 12/09/24 07:00 12/09/24 07:00 12/09/24 07:00 12/09/24 07:00
12/08/24 12/09/24 12/10/24
06:59 06:59 06:59
Actual Weight 105.732 kg 107.365 kg
12/09/24 03:00
12/09/24 03:00
Magnesium 2.0 mg/dl (1.6-2.3) 12/09/24 03:00
12/08/24
06:23
Vit-L-Wsltyozqxos Pept 81.6
LAB Results
12/08/24 12/08/24 12/09/24
17:02 03:00
Troponin I < 0.012 < 0.012 < 0.012
Physical Exam
Constitutional: No acute distress
Cardiovascular: Rhythm & rate is regular and Pedal edema is absent
Respiratory: Respiratory effort normal and Lungs clear to auscul.
GI: Soft and Distention absent
Neuro/Psych: Alert
Data Reviewed
-
Date of Service: December 09, 2024
[2024-12-09 10:42] LABS: Troponin I < 0.012 ng/ml
--- NOTE | 2024-12-09 11:05 | W.PN.ID1 ---
Date of Service
Date of Service: December 09, 2024
Today's Communication
Continue current antibiotics. Monitor for improvement in abdominal discomfort.
Assessment / Plan
Abdominal pain
Sigmoid diverticulitis
Diarrhea
C. diff Ag(+)/tox(-);
- suspected colitis on CT
Hx Prostates CA
DM
Hx Guillain-Chand� syndrome
Parkinson's disease
Rheumatoid arthritis
Polymyalgia rheumatica
Recommendations:
Continue with enteral vancomycin 125 mg q6h (d#8)
Continue with Zosyn (d#7)
Monitor for improvement in abdominal discomfort.
Follow stool output and consistency.
Chief Complaint
-: Other (Diverticulitis)
Subjective / Review of Systems
Patient seen and examined. Reports ongoing left lower quadrant discomfort. Denies diarrhea.
Review of Systems: No Fever
Vital Signs / Physical Exam
Vital Signs
Vital Signs
Temp Pulse Resp BP Pulse Ox
98.3 F 44 18 106/57 96
12/09/24 07:00 12/09/24 07:00 12/09/24 07:00 12/09/24 07:00 12/09/24 07:00
Physical Exam
Constitutional: No Acute Distress and Comfortable
Cardiovascular: Regular Rate and S1/S2; Negative Murmur or Rub
Pulmonary: Clear and Symmetric; Negative Wheezes or Rales
Gastrointestinal: Soft, Tender (Left lower quadrant), Non Distended, Normal Bowel Sounds and No Rebound
Extremities: Edema; Negative Cyanosis or Erythema
Skin: Warm and Dry; Negative Rash or Jaundice
Neurological: Awake and AO x 3
Psychological: Calm
Objective Data
Lab Data
Lab Results
12/09/24 03:00
12/09/24 03:00
Estimated Creat Clear 77 ml/min 12/09/24 03:00
Total Bilirubin 0.5 mg/dl (0.2-1.3) 12/09/24 03:00
AST 15 U/L (17-59) L 12/09/24 03:00
ALT < 10 U/L (0-50) 12/09/24 03:00
Alkaline Phosphatase 47 U/L (38-126) 12/09/24 03:00
Most recent labs reviewed.
Micro Results:
12/01/24 19:42 Salmonella/Shigella Culture - Final
Feces/Stool No Salmonella, Shigella, Aeromonas or Plesiomonas species
isolated.
Campylobacter Culture - Final
No Campylobacter species isolated.
Shiga Toxin Test - Final
No E. coli Shiga Toxin 1 or 2 detected.
12/01/24 13:14 Urine Culture - Final
Urine NO GROWTH
12/01/24 19:42 - Final
Feces/Stool Negative for Norovirus GI and GII.
12/01/24 19:42 C. difficile GDH Antigen & Toxins - Final
Feces/Stool C. difficile antigen positive, toxin negative.
Clostridium difficile present, but toxin not detected.
Patient may be a carrier, colonized with nontoxinogenic
strain or the level of toxin in sample is below detection
limits. This information should be used in conjunction with
the patient's clinical history.
Imaging:
12/02/2024 CT abdomen/pelvis with IV contrast: CT findings compatible with diverticulitis involving the sigmoid colon, and extending to the junction of the descending colon. There is additionally a long region of colonic wall thickening involving
most of the colon, although relatively sparing the right colon. This suggests an additional superimposed component of colitis, possibly infectious in nature. No evidence for bowel obstruction or free intraperitoneal air. Please see full dictation
for additional detail. Film personally viewed.
[2024-12-09 11:11] LABS: Glucose - Point of Care 119 mg/dl (70-99)
[2024-12-09 12:54] LABS: Venous Blood Gas B.E. 2.4 mmol/L (-4 to +4); Venous Blood Gas O2 Sat % 99.0 %
--- NOTE | 2024-12-09 15:36 | CM ---
CM following re: discharge planning.
Reviewed pt's chart, met with pt.
PT and OT continue recommending SNF level of care. Both pt and his daughters continue declining SNF level of care and expressing their desire pt returns back home with [facility] instead of going to a SNF. Pt stated he was before at [facility]
and [facility], liked being at [facility] and pt expressed his strong desire to return back home with [facility]. per daughters, pt never alone, he has 57 hours of home health aid services per week provided by [address] and pt has 5 daughters and they
help as needed.
Today pt stated he feels very weak, still wants to return back home and at the same time pt stated he will discuss with his daughter regarding possible SNF.
[facility] discharge instructions fax: [phone]
D/C plan: home with [facility] and family support vs SNF if pt decided.
CM will follow with discharge plan updates as hospitalization progresses
[2024-12-09] MEDS: REMERON 30 MG PO (16:02)
[2024-12-09 16:14] LABS: Glucose - Point of Care 83 mg/dl (70-99)
[2024-12-09] MEDS: BACTROBAN 2% OINTMENT 1 APPLIC TOPICAL ×2 (16:36→21:35)
--- NOTE | 2024-12-09 16:44 | CON.PUL ---
Consultation
Consultation Request
Date/Time Consultation Requested: 12/09/2024
Date/Time Consultation Performed: 12/09/2024
Requesting Provider: Dr. Go
Performing Provider: Dr. Gilberto Pandya
Reason for Consultation: Chronic hypercapnic respiratory failure
Medical History
-
History of Present Illness:
79-year-old man with past medical history significant for type 2 diabetes, Parkinson disease, constipation, stage II left buttock pressure injury, initially presented to the hospital 12/01/2024 with various complaints.
GI symptoms including diarrhea and vomiting, poor p.o. intake.
Apparently family members were concerned about syncopal episodes.
Also seizure disorder.
There is reports of chronic dizziness from Parkinson's disease.
-
During the hospital stay he empirically was placed on CPAP due to bradycardiac at night. Empirically treated for obstructive sleep apnea.
Bradycardia appears to occur mainly at night.
Patient was placed on antibiotics for diverticulitis/colitis and sepsis.
There is concern for obesity hypoventilation syndrome as well. Not formally diagnosed.
-
Patient states that he cannot wear the mask as he is claustrophobic.
Pulmonary was consulted to determine whether noninvasive mechanical ventilation is necessary prior to discharge.
Past Medical History
Past Medical History: Other (See assessment and plan)
Social History
Tobacco: Non-smoker
Alcohol: None
Drug: None
Family History
Family History: Reviewed & Not Pertinent
Allergies / Home Medications
Allergies
Allergy/AdvReac Type Severity Reaction Status Date / Time
No Known Allergies Allergy Verified 12/01/24 11:43
Home Medications
�Medication �Instructions �Recorded �Confirmed �Last Taken �Type
calcium 250 mg (as 1 tab PO DAILY Supplement 07/12/24 12/01/24 11/29/24 History
carbonate)-vitamin D3 3.125 mcg
(125 unit) tablet (Oyster Shell +
D3)
carbidopa 25 mg-levodopa 100 mg 2 tab PO TID@0830,1230,1630 07/12/24 12/01/24 11/29/24 History
tablet Neurological Condition
cyanocobalamin (vitamin B-12) 1,000 mcg PO DAILY Supplement 07/12/24 12/01/24 11/29/24 History
1,000 mcg tablet
ezetimibe 10 mg tablet 10 mg PO DAILY High Cholesterol 07/12/24 12/01/24 11/29/24 History
mirtazapine 30 mg tablet 30 mg PO DAILY@1630 Mental 07/12/24 12/01/24 11/29/24 History
Health/Anxiety
therapeutic multivitamin 1 tab PO DAILY Supplement 07/12/24 12/01/24 11/29/24 History
semaglutide 0.25 mg or 0.5 mg (2 0.5 mg SC MO Diabetes 10/26/24 10/26/24 10/19/24 History
mg/1.5 mL) subcutaneous pen
injector (Ozempic)
oxygen noctrunal #1 ea 10/30/24 12/01/24 Unknown Rx
ondansetron 4 mg disintegrating 4 mg PO Q8H PRN nausea and 10/31/24 12/01/24 Unknown Rx
tablet vomiting 4 days #20 tabs
polyethylene glycol 3350 17 gram 17 g PO DAILYPRN PRN Constipation 10/31/24 12/01/24 Unknown Rx
oral powder packet (Miralax) #30 ea
donepezil 10 mg tablet 20 mg (2 x 10 mg) PO DAILY 11/01/24 12/01/24 11/29/24 Rx
Neurological Condition #0 tabs
duloxetine 60 mg capsule,delayed 60 mg PO DAILY Mental 11/01/24 12/01/24 11/29/24 Rx
release Health/Anxiety #0 caps
Review of Systems
-
History Source: Patient
All other systems: Negative unless noted
Vitals / Labs / Diagnostic Testing
Vital Signs
Temp Pulse Resp BP Pulse Ox
98.1 F 52 18 105/52 93
12/09/24 15:00 12/09/24 15:00 12/09/24 15:00 12/09/24 15:00 12/09/24 15:00
Lab Data
12/09/24 03:00
12/09/24 03:00
Diagnostic Testing:
Physical Exam
-
HEENT: Normocephalic
Cardiovascular: S1/S2
Respiratory: Non-Labored Respirations
GI: Soft and Non Distended
Neurology: Awake and Alert
Skin: Warm
General: Comfortable
Assessment
-
Obstructive sleep apnea/obesity hypoventilation syndrome suspected.
No formal sleep study has been done.
Chronic compensated hypercapnic respiratory failure.
AB.38/58/113 (in 2 L)-12/05/2024.
Diverticulitis
Constipation
Chest pain:Nonambulatory
Condition present prior admission:
Type 2 diabetes
Parkinson disease
Constipation
Stage II left buttock ulcer present on admission
Recent MRSA cellulitis
Anxiety/depression
Hypercholesterolemia
DNR/DNI status
Assessment and plan:
Clinical picture suggest obstructive sleep apnea and obesity hypoventilation syndrome.
Ideally this patient should have sleep study with titration study. Unlikely that he will be able to perform this given his limitations with Parkinson disease, immobility.
Above is a chronic condition-noninvasive mechanical ventilation will be advisable but unclear if this patient will be able to follow-up.
Patient states that he does not like the mask-he is claustrophobic.
Currently not wearing.
He has been using nocturnal oxygen at home.
-
Currently ABG is compensated.
Alert, cooperative and following commands.
Bradycardia will self resolve if it is only related to obstructive sleep apnea.
Okay to continue nocturnal oxygen
Will discontinue BiPAP as the patient declined due to claustrophobia.
-
Avoid sedatives
Continue with weight loss efforts
-
I did discuss that chronic hypercapnia portends a higher risk for readmission and mechanical ventilation. He understands that. Unfortunately, unable to wear noninvasive mechanical ventilation.
This could be addressed in the outpatient setting again.
-
No additional pulmonary recommendations at this point.
Recommend outpatient pulmonary follow-up if patient is able to travel. Information will be left in the chart.
Data reviewed:
-
Chest x-ray 12/01/2024: Clear lungs
-
Transthoracic echocardiogram, 10/30/2024:
1. Very technically difficult study even with the use of Definity contrast.
2. Left ventricle is normal in size and systolic function. LVEF 55%.
3. Right ventricle probably mildly dilated with mildly reduced systolic function.
4. Mild to moderate concentric left ventricular hypertrophy.
5. No significant valvular disease.
[2024-12-09] MEDS: TORADOL 15 MG IV (17:00)
[2024-12-09 21:10] LABS: Glucose - Point of Care 123 mg/dl (70-99)
[2024-12-10] VITALS (7 sets, daily range): BP systolic 94–136; BP diastolic 51–77; PULSE 60; O2SAT 93; BMI 27.8
[2024-12-10] MEDS: FIRVANQ 125 MG PO ×5 (00:17→23:42)
[2024-12-10] MEDS: TYLENOL PO ×4 (00:19→13:15)
[2024-12-10] MEDS: ZOSYN 50 IV ×3 (01:49→13:47)
[2024-12-10 06:52] LABS: Hematocrit 39.6 % (39.0-52.0); Hemoglobin 13.1 g/dL (13.0-18.0); Mean Corp Hgb Conc. 33.1 g/dL (33.0-37.0); Mean Corpuscular Volume 99.7 fL (80.0-94.0); Platelet Count 301 10^3/uL (130-400); Red Cell Dist. Width 14.2 % (11.5-14.5)
[2024-12-10 07:13] LABS: Blood Urea Nitrogen 8 mg/dl (9-20); Calcium 8.8 mg/dl (8.4-10.2); Carbon Dioxide 28 mmol/L (22-30); Chloride 105 mmol/L (98-107); Estimated Creatinine Clearance 85 ml/min; Glucose 85 mg/dl (70-99); Magnesium 2.2 mg/dl (1.6-2.3); Potassium 3.9 mmol/L (3.5-5.1); Sodium 139 mmol/L (135-145); eGFR > 60.00
--- NOTE | 2024-12-10 07:25 | W.PN.HOSP.TC ---
Today's Communication/Plan
-
IV zosyn switched to Augmentin
Possible discharge tomorrow home with home services if remains stable/cont to improve
Assessment / Plan
Assessment / Plan
Physical Exam
General: No acute distress, appears comfortable at this time
HEENT: NormoCephalic atraumatic, Moist mucous membranes and Atraumatic
Respiratory: Clear
Cardiac: S1/S2 and Regular Rhythm; No Murmur or Rub
GI: Soft, diffuse tenderness, decreased bowel sounds
Musculoskeletal: No Clubbing, No Cyanosis and No Edema
Skin: Folliculitis graff cheek areas noted improved
Neuro: AOx3 conversant coherent
79M DM Parkinson here for Diverticulitis and Colitis
# Diverticulitis
#Colitis
-suspected sepsis on admission less likely, ruled out
-Minimal blood noted in stool - probably infectious
-CDif antigen positive; toxin neg
-Stool cultures - negative
-pain control, prn Tylenol, prn Toradol for mod severe pain, Protonix for GI ppx
-cont full liquid diet for now
-GI eval appreciated
-repeat CT abd/pelvis appreciated improvement compared to prior imaging
-ID eval appreciated
-Zosyn transitioned to Augmentin, last day abx 12/16/24 for total 14 days abx, oral vancomycin to continue thru 12/21/24
#Folliculitis graff cheek areas noted
mupirocin topical ointment started 12/09
improved
#Episode Hypotension 12/08
Likely hypovolemia, preceded by large bowel movement and recent start new medication Imdur
improved with IVF bolus
Hypotension since resolved
#Sinus bradycardia with first-degree AV block
# Occasional chest pain/dyspnea
# Syncopal episodes suspect hypovolemia from diarrhea in the setting of orthostasis from Parkinson's disease
-CT head negative
-recent ECHO Oct 2024 noted EF 55% no significant valve abn's
- patient since improved
� suspect exacerbated by underlying ROBERTA/OHS as well as infection
- Pulm eval appreciated
� Continue monitoring on tele
� Should have sleep study outpatient
- Troponin negative
- EKG shows sinus rhythm with first-degree block, left anterior fascicular block, LVH
- Chest x-ray unremarkable
-Cardio eval appreciated trial imdur started, troponin remains persistent neg, repeat limited ECHO appreciated no acute changes, chest pain unlikely cardiac etiology, imdur since discontinued as per discussion with cardio
Type 2 diabetes
-recent A1c 6.4
- Insulin sliding scale
- appears well controlled at this time
-cont lifestyle mgmt
Parkinson's disease
- Continue carbidopa levodopa
- Continue donepezil
#Hypokalemia
-monitor and replete as necessary
Stage II left buttock pressure injury
Recent MRSA cellulitis
Anxiety/depression
- Continue mirtazapine, duloxetine,
Hypercholesteremia
- Continue Zetia
Stage 1 left lateral ankle pressure injury, POA
cont local wound care
PT/OT appreciated SNF rehab, patient and family however prefer home services
DNR/DNI
DVT prophylaxis�heparin
FLD
Discussed with patient and patient's daughter Bette
I spent a total of 40 minutes with the patient or on the floor. More than 50% of this time involved counseling and coordination of care.
Anticipated Discharge: Within 24 hours
Subjective/Interval History
-
Date of Service: December 10, 2024
No acute distress, resting comfortably in bed, notes improvement in pain. Facial folliculitis also notably improved.
Objective Data
-
Labs:
Laboratory Results
12/10/24
06:05
WBC 7.6
Hgb 13.1
Hct 39.6
Plt Count 301
Sodium 139
Potassium 3.9
Chloride 105
Carbon Dioxide 28
BUN 8 L
Creatinine 0.9
Glucose 85
Calcium 8.8
Vital Signs:
Vital Signs
Temp Pulse Resp BP Pulse Ox
98.3 F 64 18 116/77 99
12/10/24 03:07 12/10/24 03:07 12/10/24 03:07 12/10/24 03:07 12/10/24 03:07
I&O
12/09/24 12/10/24 12/11/24
06:59 06:59 06:59
Intake Total 1839
Balance 1839
--- NOTE | 2024-12-10 07:41 | W.PN.CD ---
Today's Communication / Plan
-
Cont Imdur
likely non-cardiac CP
no plan for furhter meds or testing
Possibly MSK given worsens with palpation
we will sign off call with questions/concerns
Impression / Plan
-
Background: 79M with Parkinson's disease and type 2 diabetes mellitus who presented with diarrhea
Primary supervisor harvesting: None prior to arrival
Chest pain
- Atypical, serial trop/ekg negative. Echo limited quality but no issues on echo
- Trial of Imdur
- No plans for stress test or cath if EKG and trop remains quiet and pain remains clinically unimpressive
- possibly MSK related given worsening with palpation
Dizziness, chronic
- He reports unchanged dizziness at rest for greater than 6 months
- consider vestibular therapy
Bradycardia, sinus
- Per report, always while asleep, consider ROBERTA evaluation as an outpatient
- Donepezil may be adding
Parkinson's disease, chronic, stable
Type 2 diabetes mellitus, controlled, HgbA1c 6.4%, much improved since July (was 8.1% at that time)
Subjective:
CP improving worsens wiht palpation
DATA:
Transthoracic echocardiogram, 10/30/2024:
1. Very technically difficult study even with the use of Definity contrast.
2. Left ventricle is normal in size and systolic function. LVEF 55%.
3. Right ventricle probably mildly dilated with mildly reduced systolic function.
4. Mild to moderate concentric left ventricular hypertrophy.
5. No significant valvular disease.
6. No prior study available for comparison.
7. Consider cardiac MRI for more accurate evaluation of right ventricle if clinically indicated.
Physical Exam
Vital Signs/Labs
Vital Signs
Temp Pulse Resp BP Pulse Ox
97.8 F 59 18 136/67 92
12/10/24 07:40 12/10/24 07:40 12/10/24 07:40 12/10/24 07:40 12/10/24 07:40
12/09/24 12/10/24 12/11/24
06:59 06:59 06:59
Actual Weight 236 lb 11.2 oz 234 lb 9.6 oz
12/10/24 06:05
12/10/24 06:05
Magnesium 2.2 mg/dl (1.6-2.3) 12/10/24 06:05
12/08/24
06:23
Pmz-T-Etlodhmcwuo Pept 81.6
LAB Results
12/08/24 12/08/24 12/09/24
17:02 03:00
Troponin I < 0.012 < 0.012 < 0.012
12/09/24 12/09/24
09:40 18:00
Troponin I < 0.012 Cancelled
Physical Exam
Constitutional: No acute distress and Comfortable
EENT: Anicteric
Cardiovascular: Rhythm & rate is regular
Respiratory: Respiratory effort normal and Lungs clear to auscul.
GI: Soft
Neuro/Psych: Alert and Oriented
Data Reviewed
-
Date of Service: December 10, 2024
Medical Decision Making: Reviewed Test Results
EKG: Tracing Personally Visualized and interpreted (sr)
Echo: Tracing Personally Visualized and interpreted
Labs: Labs Reviewed by me
[2024-12-10 08:49] LABS: Glucose - Point of Care 84 mg/dl (70-99)
[2024-12-10] MEDS: NSS (PRESERVATIVE FREE) 10 ML IV (08:58)
[2024-12-10] MEDS: ARICEPT 20 MG PO (08:58)
[2024-12-10] MEDS: PROTONIX IV 40 MG IV (08:59)
[2024-12-10] MEDS: ZETIA 10 MG PO (08:59)
[2024-12-10] MEDS: VITAMIN B-12 1000 MCG PO (08:59)
[2024-12-10] MEDS: VISBIOME 2 CAP PO (08:59)
[2024-12-10] MEDS: CYMBALTA DELAYED RELEASE 60 MG PO (08:59)
[2024-12-10] MEDS: IMDUR (EXTENDED RELEASE) 30 MG PO (08:59)
[2024-12-10] MEDS: THERAGRAN 1 TABLET PO (08:59)
[2024-12-10] MEDS: HEPARIN 5000 UNITS SC ×2 (09:00→19:46)
[2024-12-10] MEDS: BACTROBAN 2% OINTMENT 1 APPLIC TOPICAL ×3 (09:01→21:50)
[2024-12-10] MEDS: SINEMET 25-100 2 TABLET PO ×3 (09:04→17:39)
--- NOTE | 2024-12-10 09:10 | W.PN.ID1 ---
Date of Service
Date of Service: December 10, 2024
Today's Communication
Continue antibiotics. See below�
Assessment / Plan
Abdominal pain
Sigmoid diverticulitis
Diarrhea
C. diff Ag(+)/tox(-);
- suspected colitis on CT
Hx Prostates CA
DM
Hx Guillain-Chand� syndrome
Parkinson's disease
Rheumatoid arthritis
Polymyalgia rheumatica
Recommendations:
Continue with Zosyn (d#8). Transition to oral Augmentin at time of discharge, to complete a total of 14 days of antibiotic therapy.
Continue with enteral vancomycin 125 mg q6h (d#9). Would continue with oral vancomycin for approximately 5 to 7 days after completing Augmentin.
Monitor abdominal discomfort.
Follow stool output and consistency.
����������������������������������������������������������
Chief Complaint
-: Other (Diverticulitis)
Subjective / Review of Systems
Patient seen and examined. Still notes some abdominal discomfort, reported as 10.
Review of Systems: No Fever and No Chills
Vital Signs / Physical Exam
Vital Signs
Vital Signs
Temp Pulse Resp BP Pulse Ox
97.8 F 59 18 136/67 92
12/10/24 07:40 12/10/24 07:40 12/10/24 07:40 12/10/24 07:40 12/10/24 07:40
Physical Exam
Constitutional: No Acute Distress, Comfortable, Chronically Ill and Non-toxic
Cardiovascular: Regular Rate and S1/S2; Negative Murmur or Rub
Pulmonary: Clear and Symmetric; Negative Wheezes or Rales
Gastrointestinal: Soft, Tender (Left lower quadrant), Non Distended, Normal Bowel Sounds and No Rebound
Extremities: Edema; Negative Cyanosis or Erythema
Skin: Warm and Dry; Negative Rash or Jaundice
Neurological: Awake and AO x 3
Psychological: Calm
Objective Data
Lab Data
Lab Results
12/10/24 06:05
12/10/24 06:05
Estimated Creat Clear 85 ml/min 12/10/24 06:05
Total Bilirubin 0.5 mg/dl (0.2-1.3) 12/09/24 03:00
AST 15 U/L (17-59) L 12/09/24 03:00
ALT < 10 U/L (0-50) 12/09/24 03:00
Alkaline Phosphatase 47 U/L (38-126) 12/09/24 03:00
Most recent labs reviewed.
Micro Results:
12/01/24 19:42 Salmonella/Shigella Culture - Final
Feces/Stool No Salmonella, Shigella, Aeromonas or Plesiomonas species
isolated.
Campylobacter Culture - Final
No Campylobacter species isolated.
Shiga Toxin Test - Final
No E. coli Shiga Toxin 1 or 2 detected.
12/01/24 13:14 Urine Culture - Final
Urine NO GROWTH
12/01/24 19:42 - Final
Feces/Stool Negative for Norovirus GI and GII.
12/01/24 19:42 C. difficile GDH Antigen & Toxins - Final
Feces/Stool C. difficile antigen positive, toxin negative.
Clostridium difficile present, but toxin not detected.
Patient may be a carrier, colonized with nontoxinogenic
strain or the level of toxin in sample is below detection
limits. This information should be used in conjunction with
the patient's clinical history.
Imaging:
12/02/2024 CT abdomen/pelvis with IV contrast: CT findings compatible with diverticulitis involving the sigmoid colon, and extending to the junction of the descending colon. There is additionally a long region of colonic wall thickening involving
most of the colon, although relatively sparing the right colon. This suggests an additional superimposed component of colitis, possibly infectious in nature. No evidence for bowel obstruction or free intraperitoneal air. Please see full dictation
for additional detail. Film personally viewed.
[2024-12-10 12:26] LABS: Glucose - Point of Care 173 mg/dl (70-99)
[2024-12-10] MEDS: REMERON 30 MG PO (17:39)
[2024-12-10 17:41] LABS: Glucose - Point of Care 126 mg/dl (70-99)
[2024-12-10] MEDS: AUGMENTIN 875 MG/125 MG 1 TABLET PO (19:46)
[2024-12-10 20:06] LABS: Iron 77 ug/dl (49-181)
[2024-12-10 20:16] LABS: Total Iron Binding Capacity 195 ug/dl (261-462)
[2024-12-10 20:43] LABS: Ferritin 139.0 ng/ml (17.9-464.0)
[2024-12-10 21:14] LABS: Folate 8.1 ng/ml (2.76-20); Vitamin B12 > 1000 pg/ml (239-931)
[2024-12-11 03:05] VITALS: BP 124/60
[2024-12-11 05:06] VITALS: BMI 27.8
[2024-12-11] MEDS: FIRVANQ 125 MG PO ×3 (05:26→17:14)
--- NOTE | 2024-12-11 06:49 | W.PN.HOSP.TC ---
Today's Communication/Plan
-
cont abx
likely discharge home with home services tomorrow if remains stable/cont to improve
Assessment / Plan
Assessment / Plan
Physical Exam
General: No acute distress, appears comfortable at this time
HEENT: NormoCephalic atraumatic, Moist mucous membranes and Atraumatic
Respiratory: Clear
Cardiac: S1/S2 and Regular Rhythm; No Murmur or Rub
GI: Soft, diffuse tenderness, decreased bowel sounds
Musculoskeletal: No Clubbing, No Cyanosis and No Edema
Skin: Folliculitis graff cheek areas noted improved
Neuro: AOx3 conversant coherent
79M DM Parkinson here for Diverticulitis and Colitis
# Diverticulitis
#Colitis
-suspected sepsis on admission less likely, ruled out
-Minimal blood noted in stool - probably infectious
-CDif antigen positive; toxin neg
-Stool cultures - negative
-pain control, prn Tylenol, prn Toradol for mod severe pain, Protonix for GI ppx
-cont full liquid diet for now
-GI eval appreciated
-repeat CT abd/pelvis appreciated improvement compared to prior imaging
-ID eval appreciated
-Zosyn transitioned to Augmentin, last day abx 12/16/24 for total 14 days abx, oral vancomycin to continue thru 12/21/24
#Folliculitis graff cheek areas noted
mupirocin topical ointment started 12/09
improved
#Episode Hypotension 12/08
Likely hypovolemia, preceded by large bowel movement and recent start new medication Imdur
improved with IVF bolus
Hypotension since resolved
#Sinus bradycardia with first-degree AV block
# Occasional chest pain/dyspnea
# Syncopal episodes suspect hypovolemia from diarrhea in the setting of orthostasis from Parkinson's disease
-CT head negative
-recent ECHO Oct 2024 noted EF 55% no significant valve abn's
- patient since improved
� suspect exacerbated by underlying ROBERTA/OHS as well as infection
- Pulm eval appreciated
� Continue monitoring on tele
� Should have sleep study outpatient
- Troponin negative
- EKG shows sinus rhythm with first-degree block, left anterior fascicular block, LVH
- Chest x-ray unremarkable
-Cardio eval appreciated trial imdur started, troponin remains persistent neg, repeat limited ECHO appreciated no acute changes, chest pain unlikely cardiac etiology, imdur since discontinued as per discussion with cardio
Type 2 diabetes
-recent A1c 6.4
- Insulin sliding scale
- appears well controlled at this time
-cont lifestyle mgmt
Parkinson's disease
- Continue carbidopa levodopa
- Continue donepezil
#Hypokalemia
-monitor and replete as necessary
Stage II left buttock pressure injury
Recent MRSA cellulitis
Anxiety/depression
- Continue mirtazapine, duloxetine,
Hypercholesteremia
- Continue Zetia
Stage 1 left lateral ankle pressure injury, POA
cont local wound care
PT/OT appreciated SNF rehab, patient and family however prefer home services
DNR/DNI
DVT prophylaxis�heparin
FLD
Discussed with patient and patient's daughter Bette
I spent a total of 40 minutes with the patient or on the floor. More than 50% of this time involved counseling and coordination of care.
Anticipated Discharge: Within 24 hours
Subjective/Interval History
-
Date of Service: December 11, 2024
No acute distress, appears comfortable at this time though reports abd pain nausea persists. Regular bowel movements. No diarrhea
Objective Data
-
Vital Signs:
Vital Signs
Temp Pulse Resp BP Pulse Ox
98.0 F 49 20 124/60 96
12/11/24 03:05 12/11/24 03:05 12/11/24 03:05 12/11/24 03:05 12/11/24 03:05
I&O
12/09/24 12/10/24 12/11/24
06:59 06:59 06:59
Intake Total 1839 1110 / 1110 340 / 340
Balance 1839 1110 / 1110 340 / 340
[2024-12-11 07:00] VITALS: BP 149/76
[2024-12-11] MEDS: PROTONIX IV 40 MG IV (07:40)
[2024-12-11] MEDS: ARICEPT 20 MG PO (07:40)
[2024-12-11] MEDS: NSS (PRESERVATIVE FREE) 10 ML IV (07:40)
[2024-12-11] MEDS: VISBIOME 2 CAP PO (07:40)
[2024-12-11] MEDS: CYMBALTA DELAYED RELEASE 60 MG PO (07:40)
[2024-12-11] MEDS: BACTROBAN 2% OINTMENT 1 APPLIC TOPICAL ×3 (07:41→21:07)
[2024-12-11] MEDS: HEPARIN 5000 UNITS SC ×2 (07:41→21:04)
[2024-12-11] MEDS: THERAGRAN 1 TABLET PO (07:41)
[2024-12-11] MEDS: ZETIA 10 MG PO (07:41)
[2024-12-11] MEDS: AUGMENTIN 875 MG/125 MG 1 TABLET PO ×2 (07:41→21:04)
[2024-12-11] MEDS: VITAMIN B-12 1000 MCG PO (07:41)
[2024-12-11] MEDS: SINEMET 25-100 2 TABLET PO ×3 (07:42→15:50)
[2024-12-11 07:57] LABS: Glucose - Point of Care 94 mg/dl (70-99)
[2024-12-11 11:00] VITALS: BP 150/76
[2024-12-11 11:25] VITALS: BP 128/83; BP 134/76; BP 150/76; PULSE 61; PULSE 70; PULSE 79
--- NOTE | 2024-12-11 11:44 | W.PN.ID1 ---
Date of Service
Date of Service: December 11, 2024
Today's Communication
Continue antibiotics. See below...
Assessment / Plan
Abdominal pain
Sigmoid diverticulitis
Diarrhea
C. diff Ag(+)/tox(-);
- suspected colitis on CT
Hx Prostates CA
DM
Hx Guillain-Chand� syndrome
Parkinson's disease
Rheumatoid arthritis
Polymyalgia rheumatica
Recommendations:
Day #9 antibiotics. Patient has been transitioned to oral Augmentin in anticipation of transfer to detention facility.
Continue with enteral vancomycin 125 mg q6h (d#10). Would continue with oral vancomycin for approximately 5 to 7 days after completing Augmentin.
Little more to offer from a Infectious Diseases standpoint.
Will see again at your request.
����������������������������������������������������������
Chief Complaint
-: Other (Diverticulitis)
Subjective / Review of Systems
Patient seen and examined. Reports some improvement in left lower quadrant abdominal discomfort. Reports 'diarrhea' although nursing reports semiformed stool.
Review of Systems: No Fever and No Chills
Vital Signs / Physical Exam
Vital Signs
Vital Signs
Temp Pulse Resp BP Pulse Ox
98.8 F 61 18 150/76 94
12/11/24 11:00 12/11/24 11:00 12/11/24 11:00 12/11/24 11:00 12/11/24 11:00
Physical Exam
Constitutional: No Acute Distress, Comfortable and Chronically Ill
Cardiovascular: Regular Rate and S1/S2; Negative Murmur or Rub
Pulmonary: Clear and Symmetric; Negative Wheezes or Rales
Gastrointestinal: Soft, Tender (Left lower quadrant), Non Distended, Normal Bowel Sounds and No Rebound
Extremities: Edema; Negative Cyanosis or Erythema
Skin: Warm and Dry; Negative Rash or Jaundice
Neurological: Awake and AO x 3
Psychological: Calm
Objective Data
Lab Data
Lab Results
12/10/24 06:05
12/10/24 06:05
Estimated Creat Clear 85 ml/min 12/10/24 06:05
Total Bilirubin 0.5 mg/dl (0.2-1.3) 12/09/24 03:00
AST 15 U/L (17-59) L 12/09/24 03:00
ALT < 10 U/L (0-50) 12/09/24 03:00
Alkaline Phosphatase 47 U/L (38-126) 12/09/24 03:00
Most recent labs reviewed.
Micro Results:
12/01/24 19:42 Salmonella/Shigella Culture - Final
Feces/Stool No Salmonella, Shigella, Aeromonas or Plesiomonas species
isolated.
Campylobacter Culture - Final
No Campylobacter species isolated.
Shiga Toxin Test - Final
No E. coli Shiga Toxin 1 or 2 detected.
12/01/24 13:14 Urine Culture - Final
Urine NO GROWTH
12/01/24 19:42 - Final
Feces/Stool Negative for Norovirus GI and GII.
12/01/24 19:42 C. difficile GDH Antigen & Toxins - Final
Feces/Stool C. difficile antigen positive, toxin negative.
Clostridium difficile present, but toxin not detected.
Patient may be a carrier, colonized with nontoxinogenic
strain or the level of toxin in sample is below detection
limits. This information should be used in conjunction with
the patient's clinical history.
Imaging:
12/02/2024 CT abdomen/pelvis with IV contrast: CT findings compatible with diverticulitis involving the sigmoid colon, and extending to the junction of the descending colon. There is additionally a long region of colonic wall thickening involving
most of the colon, although relatively sparing the right colon. This suggests an additional superimposed component of colitis, possibly infectious in nature. No evidence for bowel obstruction or free intraperitoneal air. Please see full dictation
for additional detail. Film personally viewed.
[2024-12-11 11:47] LABS: Glucose - Point of Care 110 mg/dl (70-99)
[2024-12-11] MEDS: TORADOL 15 MG IV (13:33)
[2024-12-11] MEDS: ZOFRAN 4 MG IV (13:33)
--- NOTE | 2024-12-11 14:27 | CM ---
CM following re: discharge planning.
Reviewed pt's chart, met with pt and daughter Bette at bedside.
PT and OT continue recommending SNF level of care. Both pt and his daughters continue declining SNF level of care and expressing their desire pt returns back home with [facility] instead of going to a SNF. Pt stated he was before at [facility]
and [facility], liked being at [facility] and pt expressed his strong desire to return back home with [facility]. Per daughters, pt never alone, he has 57 hours of home health aid services per week provided by [address] and pt has 5 daughters and they
help as needed.
According to pt will be ready for discharge tomorrow. Both pt and his daughter Bette are aware, expressed their agreement. IMM reviewed, placed on chart, pt has a copy.
CM had a detailed discussion with pt and his daughter regarding next level of care and especially PT and OT strongly recommending SNF level of care. Both pt and her daughter expressed understanding and anyway, requested pt returns back home with
[facility], resumptions of caregiver services and family support. Pt's daughter expressed her choice to bring her father home tomorrow by car and after discussion with PT daughter agrees with transporting the pt home by ambulance BLS.
will arrange ambulance transport tomorrow, BLS. [facility] completed and left with .
[facility] discharge instructions fax: [phone]
D/C plan: home with [facility] , resumptions of caregiver services and family support.
[2024-12-11 15:00] VITALS: BP 148/71
[2024-12-11] MEDS: REMERON 30 MG PO (15:50)
[2024-12-11 17:06] LABS: Glucose - Point of Care 88 mg/dl (70-99)
--- NOTE | 2024-12-11 18:03 | PTCARENOTE ---
Patient AAOX3, flat affect and withdrawn throughout shift, continuing to occasionally c/o nausea, abd pain, and dizziness at rest. Orthos taken this AM - see charting. Patient medicated with PRN Zofran and Toradol for nausea and generalized
discomfort - see MAY. MD aware of patient complaints. Continue low residue diet at this time per MD. Hygiene provided, MASD to sacrum/buttocks/penis head, barrier ointment applied and Desenex ordered, heel foams in place.
[2024-12-11] MEDS: DESENEX/MITRAZOL/ZEASORB 1 APPLIC TOPICAL (21:06)
[2024-12-11 21:51] LABS: Glucose - Point of Care 155 mg/dl (70-99)
[2024-12-11 23:37] VITALS: BP 149/79
[2024-12-12] MEDS: FIRVANQ 125 MG PO ×4 (02:05→17:45)
[2024-12-12 06:00] VITALS: BMI 27.5
[2024-12-12 07:15] VITALS: BP 132/88; BP 149/87
[2024-12-12 07:20] VITALS: BP 151/92
[2024-12-12 07:25] VITALS: BP 132/88; BP 149/87; BP 151/92; PULSE 62; PULSE 63; PULSE 78
--- NOTE | 2024-12-12 07:44 | W.PN.HOSP.TC ---
Today's Communication/Plan
-
Donepezil reduced to 10 mg daily
monitor for symptoms improvement
discharge planning
cont abx
Assessment / Plan
Assessment / Plan
Physical Exam
General: No acute distress, appears comfortable at this time
HEENT: NormoCephalic atraumatic, Moist mucous membranes and Atraumatic
Respiratory: Clear
Cardiac: S1/S2 and Regular Rhythm; No Murmur or Rub
GI: Soft, diffuse tenderness, decreased bowel sounds
Musculoskeletal: No Clubbing, No Cyanosis and No Edema
Skin: Folliculitis graff cheek areas noted improved
Neuro: AOx3 conversant coherent
79M DM Parkinson here for Diverticulitis and Colitis
# Diverticulitis
#Colitis
-suspected sepsis on admission less likely, ruled out
-Minimal blood noted in stool - probably infectious
-CDif antigen positive; toxin neg
-Stool cultures - negative
-pain control, prn Tylenol, prn Toradol for mod severe pain, Protonix for GI ppx
-cont full liquid diet for now
-GI eval appreciated
-repeat CT abd/pelvis appreciated improvement compared to prior imaging
-ID eval appreciated
-Zosyn transitioned to Augmentin, last day abx 12/16/24 for total 14 days abx, oral vancomycin to continue thru 12/21/24
#Folliculitis graff cheek areas noted
mupirocin topical ointment started 12/09
improved
#Episode Hypotension 12/08
Likely hypovolemia, preceded by large bowel movement and recent start new medication Imdur
improved with IVF bolus
Hypotension since resolved
#Sinus bradycardia with first-degree AV block
# Occasional chest pain/dyspnea
# Syncopal episodes suspect hypovolemia from diarrhea in the setting of orthostasis from Parkinson's disease
-CT head negative
-recent ECHO Oct 2024 noted EF 55% no significant valve abn's
- patient since improved
� suspect exacerbated by underlying ROBERTA/OHS as well as infection
- Pulm eval appreciated
� Continue monitoring on tele
� Should have sleep study outpatient
- Troponin negative
- EKG shows sinus rhythm with first-degree block, left anterior fascicular block, LVH
- Chest x-ray unremarkable
-Cardio eval appreciated trial imdur started, troponin remains persistent neg, repeat limited ECHO appreciated no acute changes, chest pain unlikely cardiac etiology, imdur since discontinued as per discussion with cardio
Type 2 diabetes
-recent A1c 6.4
- Insulin sliding scale
- appears well controlled at this time
-cont lifestyle mgmt
Parkinson's disease
- Continue carbidopa levodopa
- Continue donepezil, following discussion with patient and daughter FOZIA Amos, dose reduced from 20 mg to 10 mg daily 12/13 (possible Donepezil contributing to dizziness, nausea, bradycardia)
#Hypokalemia
-monitor and replete as necessary
Stage II left buttock pressure injury
Recent MRSA cellulitis
Anxiety/depression
- Continue mirtazapine, duloxetine,
Hypercholesteremia
- Continue Zetia
Stage 1 left lateral ankle pressure injury, POA
cont local wound care
PT/OT appreciated SNF rehab, patient and family however prefer home services
DNR/DNI
DVT prophylaxis�heparin
FLD
Discussed with patient, patient's daughter Bette MARCELO, and patient's friend healthcare school based therapist Demetrio
I spent a total of 40 minutes with the patient or on the floor. More than 50% of this time involved counseling and coordination of care.
Anticipated Discharge: 24 - 48 hours
Subjective/Interval History
-
Date of Service: December 12, 2024
reporting significant dizzziness while sitting up in chair, notes some improvement when placed back in bed. VSS. No significant orthostatic hypotension noted. Patient doesn't feel ready to go home yet.
Objective Data
-
Vital Signs:
Vital Signs
Temp Pulse Resp BP Pulse Ox
98.1 F 61 20 149/79 93
12/11/24 23:37 12/11/24 23:37 12/11/24 23:37 12/11/24 23:37 12/12/24 03:14
I&O
12/11/24 12/12/24 12/13/24
06:59 06:59 06:59
Intake Total 340 / 340 570 / 570
Balance 340 / 340 570 / 570
[2024-12-12] MEDS: ZETIA 10 MG PO (08:54)
[2024-12-12] MEDS: VITAMIN B-12 1000 MCG PO (08:54)
[2024-12-12] MEDS: CYMBALTA DELAYED RELEASE 60 MG PO (08:54)
[2024-12-12] MEDS: VISBIOME 2 CAP PO (08:54)
[2024-12-12] MEDS: THERAGRAN 1 TABLET PO (08:54)
[2024-12-12] MEDS: HEPARIN 5000 UNITS SC ×2 (08:55→20:25)
[2024-12-12] MEDS: NSS (PRESERVATIVE FREE) 10 ML IV (08:55)
[2024-12-12] MEDS: PROTONIX IV 40 MG IV (08:55)
[2024-12-12] MEDS: SINEMET 25-100 2 TABLET PO ×3 (08:56→17:45)
[2024-12-12] MEDS: AUGMENTIN 875 MG/125 MG 1 TABLET PO ×2 (08:56→20:25)
[2024-12-12] MEDS: DESENEX/MITRAZOL/ZEASORB 1 APPLIC TOPICAL ×2 (08:59→21:58)
[2024-12-12] MEDS: BACTROBAN 2% OINTMENT 1 APPLIC TOPICAL ×3 (08:59→23:30)
[2024-12-12 09:17] VITALS: BP 142/80
[2024-12-12] MEDS: ARICEPT 20 MG PO (10:34)
[2024-12-12 15:18] VITALS: BP 138/76
[2024-12-12 17:30] LABS: Glucose - Point of Care 100 mg/dl (70-99)
[2024-12-12 17:30] LABS: Glucose - Point of Care 104 mg/dl (70-99)
[2024-12-12 17:34] LABS: Glucose - Point of Care 130 mg/dl (70-99)
[2024-12-12] MEDS: REMERON 30 MG PO (17:45)
[2024-12-12 23:17] LABS: Glucose - Point of Care 153 mg/dl (70-99)
[2024-12-12 23:37] VITALS: BP 142/67
[2024-12-13] MEDS: FIRVANQ 125 MG PO ×4 (05:07→17:43)
[2024-12-13 05:59] VITALS: BMI 27.0
[2024-12-13 07:10] LABS: Hematocrit 44.1 % (39.0-52.0); Hemoglobin 14.7 g/dL (13.0-18.0); Mean Corp Hgb Conc. 33.3 g/dL (33.0-37.0); Mean Corpuscular Volume 97.1 fL (80.0-94.0); Platelet Count 290 10^3/uL (130-400); Red Cell Dist. Width 14.6 % (11.5-14.5)
[2024-12-13 07:15] VITALS: BP 142/80; BP 142/82; PULSE 62; PULSE 66
[2024-12-13 07:28] LABS: Glucose - Point of Care 135 mg/dl (70-99)
[2024-12-13 07:41] LABS: Blood Urea Nitrogen 6 mg/dl (9-20); Calcium 8.8 mg/dl (8.4-10.2); Carbon Dioxide 27 mmol/L (22-30); Chloride 106 mmol/L (98-107); Estimated Creatinine Clearance 110 ml/min; Glucose 135 mg/dl (70-99); Magnesium 2.2 mg/dl (1.6-2.3); Potassium 4.3 mmol/L (3.5-5.1); Sodium 139 mmol/L (135-145); eGFR > 60.00
--- NOTE | 2024-12-13 07:53 | W.PN.HOSP.TC ---
Today's Communication/Plan
-
cont abx
monitor on reduced dose donepezil
discharge planning Home Rehab vs SNF rehab (at this time patient prefers home)
Assessment / Plan
Assessment / Plan
Physical Exam
General: No acute distress, appears comfortable at this time
HEENT: NormoCephalic atraumatic, Moist mucous membranes and Atraumatic
Respiratory: Clear
Cardiac: S1/S2 and Regular Rhythm; No Murmur or Rub
GI: Soft, diffuse tenderness, decreased bowel sounds
Musculoskeletal: No Clubbing, No Cyanosis and No Edema
Skin: Folliculitis graff cheek areas noted improved
Neuro: AOx3 conversant coherent
79M DM Parkinson here for Diverticulitis and Colitis
# Diverticulitis
#Colitis
-suspected sepsis on admission less likely, ruled out
-Minimal blood noted in stool - probably infectious
-CDif antigen positive; toxin neg
-Stool cultures - negative
-pain control, prn Tylenol, prn Toradol for mod severe pain, Protonix for GI ppx
-cont full liquid diet for now
-GI eval appreciated
-repeat CT abd/pelvis appreciated improvement compared to prior imaging
-ID eval appreciated
-Zosyn transitioned to Augmentin, last day abx 12/16/24 for total 14 days abx, oral vancomycin to continue thru 12/21/24
#Folliculitis graff cheek areas noted
mupirocin topical ointment started 12/09
improved
#Episode Hypotension 12/08
Likely hypovolemia, preceded by large bowel movement and recent start new medication Imdur
improved with IVF bolus
Hypotension since resolved
#Sinus bradycardia with first-degree AV block
# Occasional chest pain/dyspnea
# Syncopal episodes suspect hypovolemia from diarrhea in the setting of orthostasis from Parkinson's disease
-CT head negative
-recent ECHO Oct 2024 noted EF 55% no significant valve abn's
- patient since improved
� suspect exacerbated by underlying ROBERTA/OHS as well as infection
- Pulm eval appreciated
� Continue monitoring on tele
� Should have sleep study outpatient
- Troponin negative
- EKG shows sinus rhythm with first-degree block, left anterior fascicular block, LVH
- Chest x-ray unremarkable
-Cardio eval appreciated trial imdur started, troponin remains persistent neg, repeat limited ECHO appreciated no acute changes, chest pain unlikely cardiac etiology, imdur since discontinued as per discussion with cardio
Type 2 diabetes
-recent A1c 6.4
- Insulin sliding scale
- appears well controlled at this time
-cont lifestyle mgmt
Parkinson's disease
- Continue carbidopa levodopa
- Continue donepezil, following discussion with patient and daughter FOZIA Amos, dose reduced from 20 mg to 10 mg daily 12/13 (possible Donepezil contributing to dizziness, nausea, bradycardia), Donepezil has half life of 70 hours will likely take a
few days before any difference is noted.
#Hypokalemia
-monitor and replete as necessary
Stage II left buttock pressure injury
Recent MRSA cellulitis
Anxiety/depression
- Continue mirtazapine, duloxetine,
Hypercholesteremia
- Continue Zetia
Stage 1 left lateral ankle pressure injury, POA
cont local wound care
PT/OT appreciated SNF rehab, patient and family however prefer home services
DNR/DNI
DVT prophylaxis�heparin
FLD
Discussed with patient, patient's daughter Bette MARCELO, daughter Brynn, and patient's friend healthcare embedded engineer Demetrio
I spent a total of 37 minutes with the patient or on the floor. More than 50% of this time involved counseling and coordination of care.
Anticipated Discharge: 24 - 48 hours
Subjective/Interval History
-
Date of Service: December 13, 2024
No acute distress, appears comfortable at this time, notes improvement dizziness nausea lower abd pain though not resolved. Daughters Bette and Brynn present during evaluation.
Objective Data
-
Labs:
Laboratory Results
12/13/24
06:24
WBC 7.8
Hgb 14.7
Hct 44.1
Plt Count 290
Sodium 139
Potassium 4.3
Chloride 106
Carbon Dioxide 27
BUN 6 L
Creatinine 0.7
Glucose 135 H
Calcium 8.8
Vital Signs:
Vital Signs
Temp Pulse Resp BP Pulse Ox
98 F 62 16 142/67 98
12/12/24 23:37 12/12/24 23:37 12/12/24 23:37 12/12/24 23:37 12/13/24 02:38
I&O
12/12/24 12/13/24 12/14/24
06:59 06:59 06:59
Intake Total 570 / 570 1240 / 1240
Balance 570 / 570 1240 / 1240
[2024-12-13] MEDS: CYMBALTA DELAYED RELEASE 60 MG PO (08:43)
[2024-12-13] MEDS: AUGMENTIN 875 MG/125 MG 1 TABLET PO ×2 (08:43→21:27)
[2024-12-13] MEDS: SINEMET 25-100 2 TABLET PO ×3 (08:43→15:57)
[2024-12-13] MEDS: ZETIA 10 MG PO (08:43)
[2024-12-13] MEDS: VITAMIN B-12 1000 MCG PO (08:43)
[2024-12-13] MEDS: ARICEPT 10 MG PO (08:43)
[2024-12-13] MEDS: VISBIOME 2 CAP PO (08:43)
[2024-12-13] MEDS: HEPARIN 5000 UNITS SC ×2 (08:44→21:27)
[2024-12-13] MEDS: PROTONIX IV 40 MG IV (08:44)
[2024-12-13] MEDS: NSS (PRESERVATIVE FREE) 10 ML IV (08:44)
[2024-12-13] MEDS: THERAGRAN 1 TABLET PO (08:44)
[2024-12-13] MEDS: BACTROBAN 2% OINTMENT 1 APPLIC TOPICAL ×3 (08:45→21:30)
[2024-12-13] MEDS: DESENEX/MITRAZOL/ZEASORB 1 APPLIC TOPICAL ×2 (08:47→21:31)
[2024-12-13 11:41] LABS: Glucose - Point of Care 138 mg/dl (70-99)
[2024-12-13 15:15] VITALS: BP 123/73
[2024-12-13] MEDS: REMERON 30 MG PO (15:57)
[2024-12-13 16:54] LABS: Glucose - Point of Care 119 mg/dl (70-99)
[2024-12-13 21:06] LABS: Glucose - Point of Care 125 mg/dl (70-99)
[2024-12-13 23:13] VITALS: BP 109/74
[2024-12-14] MEDS: FIRVANQ 125 MG PO ×3 (00:49→13:30)
[2024-12-14 05:08] VITALS: BMI 27.1
[2024-12-14 07:26] VITALS: BP 127/83
[2024-12-14 08:36] LABS: Glucose - Point of Care 174 mg/dl (70-99)
[2024-12-14] MEDS: CYMBALTA DELAYED RELEASE 60 MG PO (10:09)
[2024-12-14] MEDS: ZETIA 10 MG PO (10:09)
[2024-12-14] MEDS: ARICEPT 10 MG PO (10:09)
[2024-12-14] MEDS: NSS (PRESERVATIVE FREE) 10 ML IV (10:09)
[2024-12-14] MEDS: THERAGRAN 1 TABLET PO (10:09)
[2024-12-14] MEDS: BACTROBAN 2% OINTMENT 1 APPLIC TOPICAL (10:09)
[2024-12-14] MEDS: AUGMENTIN 875 MG/125 MG 1 TABLET PO (10:09)
[2024-12-14] MEDS: HEPARIN 5000 UNITS SC (10:10)
[2024-12-14] MEDS: PROTONIX IV 40 MG IV (10:10)
[2024-12-14] MEDS: DESENEX/MITRAZOL/ZEASORB 1 APPLIC TOPICAL (10:13)
[2024-12-14] MEDS: SINEMET 25-100 2 TABLET PO ×3 (10:13→16:06)
[2024-12-14] MEDS: VISBIOME 2 CAP PO (10:13)
[2024-12-14 11:37] VITALS: BP 115/81; BP 117/76; PULSE 70; PULSE 72; O2SAT 96
[2024-12-14 12:09] LABS: Glucose - Point of Care 117 mg/dl (70-99)
--- NOTE | 2024-12-14 13:10 | W.PN.HOSP.TC ---
Today's Communication/Plan
-
LRD
abx course along with oral vanc 5 days after
f/u gi, pcp, cards, neurology outpt
refusing SNF placement
Assessment / Plan
Assessment / Plan
Physical Exam
General: No acute distress, appears comfortable at this time
HEENT: NormoCephalic atraumatic, Moist mucous membranes and Atraumatic
Respiratory: Clear
Cardiac: S1/S2 and Regular Rhythm; No Murmur or Rub
GI: Soft, diffuse tenderness, decreased bowel sounds
Musculoskeletal: No Clubbing, No Cyanosis and No Edema
Skin: Folliculitis graff cheek areas noted improved
Neuro: AOx3 conversant coherent
79M DM Parkinson here for Diverticulitis and Colitis
# Diverticulitis
#Colitis
-suspected sepsis on admission less likely, ruled out
-Minimal blood noted in stool - probably infectious
-CDif antigen positive; toxin neg
-Stool cultures - negative
-pain control, prn Tylenol, prn Toradol for mod severe pain, Protonix for GI ppx
-LRD
-GI eval appreciated - f/u outpatient
-repeat CT abd/pelvis appreciated improvement compared to prior imaging
-ID eval appreciated
-Zosyn transitioned to Augmentin, last day abx 12/16/24 for total 14 days abx, oral vancomycin to continue thru 12/21/24
#Folliculitis graff cheek areas noted
mupirocin topical ointment started 12/09
improved
#Sinus bradycardia with first-degree AV block
# Occasional chest pain/dyspnea
# Syncopal episodes suspect hypovolemia from diarrhea in the setting of orthostasis from Parkinson's disease
-CT head negative
-recent ECHO Oct 2024 noted EF 55% no significant valve abn's
- patient since improved
� suspect exacerbated by underlying ROBERTA/OHS as well as infection
- Pulm eval appreciated
� Continue monitoring on tele
� Should have sleep study outpatient
- Troponin negative
- EKG shows sinus rhythm with first-degree block, left anterior fascicular block, LVH
- Chest x-ray unremarkable
-Cardio eval appreciated trial imdur started, troponin remains persistent neg, repeat limited ECHO appreciated no acute changes, chest pain unlikely cardiac etiology, imdur since discontinued as per discussion with cardio
-can f/u outpt
Type 2 diabetes
-recent A1c 6.4
- Insulin sliding scale
- appears well controlled at this time
-cont lifestyle mgmt
Parkinson's disease
- Continue carbidopa levodopa
- Continue donepezil, following discussion with patient and daughter FOZIA Amos, dose reduced from 20 mg to 10 mg daily 12/13 (possible Donepezil contributing to dizziness, nausea, bradycardia), Donepezil has half life of 70 hours will likely take a
few days before any difference is noted.
#Hypokalemia
-monitor and replete as necessary
Stage II left buttock pressure injury
Recent MRSA cellulitis
Anxiety/depression
- Continue mirtazapine, duloxetine,
Hypercholesteremia
- Continue Zetia
Stage 1 left lateral ankle pressure injury, POA
cont local wound care
F/u pulm outpatient for sleep study if patient amenable to NIV
PT/OT appreciated SNF rehab, patient and family however prefer home services
DNR/DNI
DVT prophylaxis�heparin
More than 30 minutes spent in discharge including
Final examination of the patient
Summarizing hospital stay
Instructions for continuing care to all relevant caregivers
Preparation of discharge records, prescriptions, and referral forms
Total time spent (in minutes): 36
Anticipated Discharge: Today
Subjective/Interval History
-
Date of Service: December 14, 2024
No acute events overnight
Objective Data
-
Vital Signs:
Vital Signs
Temp Pulse Resp BP Pulse Ox
97.6 F 68 18 127/83 97
12/14/24 07:26 12/14/24 07:26 12/14/24 07:26 12/14/24 07:26 12/14/24 07:26
I&O
12/13/24 12/14/24 12/15/24
06:59 06:59 06:59
Intake Total 1240 / 1240 1080 / 1080
Balance 1240 / 1240 1080 / 1080
Review of Systems
-
History Source: Patient
All other systems: Not reviewed unless documented
Physical Exam
-
General: Well Developed, Well Nourished, No Apparent Distress and Comfortable
HEENT: Normocephalic, Atraumatic, Moist Mucous Membranes, No Ptosis, PERRLA and Nose Appears Normal
Respiratory: Clear to Auscultation and Non Labored Respirations
Cardiac: Regular Rhythm and S1/S2
Breast: Deferred by me
GI: Soft, Nontender, Nondistended and Normal Bowel Sounds
Genito-urinary: No Costovertebral Tender
Musculoskeletal: No Clubbing, No Cyanosis, No Edema and Other (Lower left leg lateral aspect with rounded area of cellulitis and possible redness)
Skin: Warm and Lesions (Left)
Neuro: Awake, Alert, Oriented, AO x 3 and No Motor Deficits
Psych: Calm
Data Reviewed
-
CT Scan: Report Reviewed by me
Labs: Labs Reviewed by me
--- NOTE | 2024-12-14 13:15 | W.DS.TRANS ---
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
-
Discharge Instructions:
Discharge Diagnosis/Procedures
# Diverticulitis
#Colitis
Diet Low Cholesterol,Low Fat
Blood Work Repeat Vitamin B12 level with primary care
provider in 1 month of discharge.
Others Tests Sleep study outpatient
Instructions:
Stand-Alone Forms:
Changes to Home Medications: Yes
Discharge Medications:
DC Medications w/original date entered in [employer]
calcium 250 mg (as carbonate)-vitamin D3 3.125 mcg (125 unit) tablet (Oyster Shell + D3) 1 tab PO DAILY Supplement 07/12/24
carbidopa 25 mg-levodopa 100 mg tablet 2 tab PO TID@0830,1230,1630 Neurological Condition 07/12/24
cyanocobalamin (vitamin B-12) 1,000 mcg tablet 1,000 mcg PO DAILY Supplement 07/12/24
ezetimibe 10 mg tablet 10 mg PO DAILY High Cholesterol 07/12/24
mirtazapine 30 mg tablet 30 mg PO DAILY@1630 Mental Health/Anxiety 07/12/24
therapeutic multivitamin 1 tab PO DAILY Supplement 07/12/24
semaglutide 0.25 mg or 0.5 mg (2 mg/1.5 mL) subcutaneous pen injector (Ozempic) 0.5 mg SC MO Diabetes 10/26/24
Held on 12/14/24. Instructions: Resume on 01/20/25. until cleared by pcp
oxygen noctrunal #1 ea 10/30/24
ondansetron 4 mg disintegrating tablet 4 mg PO Q8H PRN nausea and vomiting 4 days #20 tabs 10/31/24
polyethylene glycol 3350 17 gram oral powder packet (Miralax) 17 g PO DAILYPRN PRN Constipation #30 ea 10/31/24
duloxetine 60 mg capsule,delayed release 60 mg PO DAILY Mental Health/Anxiety #0 caps 11/01/24
amoxicillin 875 mg-potassium clavulanate 125 mg tablet 1 tab PO Q12 3 days #6 tabs 12/14/24
donepezil 10 mg tablet 10 mg PO DAILY 30 days #30 tabs 12/14/24
miconazole nitrate 2 % topical powder (Miconazorb AF) 1 applic topical BID #85 grams 12/14/24
mupirocin 2 % topical ointment 1 applic topical TID #22 grams 12/14/24
polyethylene glycol 3350 17 gram/dose oral powder (Miralax) 4 g PO DAILY #510 grams 12/14/24
psyllium husk 0.4 gram capsule (Metamucil) 0.4 g PO DAILY #90 caps 12/14/24
vancomycin 50 mg/mL oral solution 125 mg (2.5 mL) PO Q6 8 days #80 mL 12/14/24
Home Medication Changes
amoxicillin 875 mg-potassium clavulanate 125 mg tablet 1 tab PO Q12 3 days #6 tabs 12/14/24
donepezil 10 mg tablet 10 mg PO DAILY 30 days #30 tabs 12/14/24
miconazole nitrate 2 % topical powder (Miconazorb AF) 1 applic topical BID #85 grams 12/14/24
mupirocin 2 % topical ointment 1 applic topical TID #22 grams 12/14/24
polyethylene glycol 3350 17 gram/dose oral powder (Miralax) 4 g PO DAILY #510 grams 12/14/24
psyllium husk 0.4 gram capsule (Metamucil) 0.4 g PO DAILY #90 caps 12/14/24
vancomycin 50 mg/mL oral solution 125 mg (2.5 mL) PO Q6 8 days #80 mL 12/14/24
Pending Results: No
--- NOTE | 2024-12-14 13:26 | CM ---
CM following re: discharge planning.
Reviewed pt's chart, met with pt and spoke to daughter Bette over the phone.
PT and OT continue recommending SNF level of care. Both pt and his daughters continue declining SNF level of care and expressing their desire pt returns back home with [facility] instead of going to a SNF. Pt stated he was before at [facility]
and [facility], liked being at [facility] and pt expressed his strong desire to return back home with [facility]. Per daughters, pt never alone, he has 57 hours of home health aid services per week provided by [address] and pt has 5 daughters and they
help as needed.
Discharge order noted.
CM had a detailed discussion with pt and his daughter regarding next level of care and especially PT and OT strongly recommending SNF level of care. Both pt and her daughter expressed understanding and anyway, requested pt returns back home with
[facility], resumptions of caregiver services and family support. Pt's daughter requested 3:00 p.m. transportation time. Daughter Bette stated she will be home at 3:00 p.m. and caregiver services will be in place.
IMM reviewed, placed on chart, pt has a copy.
will arrange ambulance transport, BLS. [facility] completed and left with .
[facility] discharge instructions fax: [phone]
D/C plan: home with [facility] , resumptions of caregiver services and family support.
[2024-12-14 15:27] VITALS: BP 109/75
[2024-12-14] MEDS: REMERON 30 MG PO (16:06)
== END 2024-12-14 16:25 | disposition home health service (06) | DRG 392 ==
LOC: 2 NORTH 08:07
PROVIDERS: Internal Medicine; Nurse Practitioner Gerontology; Physician Assistant; ADMITTING PHYSICIAN Hospitalist; ATTENDING PHYSICIAN Internal Medicine; CONSULT PHYSICIAN Internal Medicine Cardiovascular Disease; CONSULT PHYSICIAN Internal Medicine Critical Care Medicine; EMERGENCY PHYSICIAN Emergency Medicine; OTHER PHYSICIAN Internal Medicine Gastroenterology; OTHER PHYSICIAN Internal Medicine Infectious Disease
PROC: 5A09357 Assistance with Respiratory Ventilation, Less than 24 Consecutive Hours, Continuous Positive Airway Pressure (ICD-10-PCS; 2024-12-05)
DX: A09 Infectious gastroenteritis and colitis, unspecified (principal); K57.32 Diverticulitis of large intestine without perforation or abscess without bleeding; G61.0 Guillain-Barre syndrome; J96.12 Chronic respiratory failure with hypercapnia; E11.9 Type 2 diabetes mellitus without complications; G20.A1 Parkinson's disease without dyskinesia, without mention of fluctuations; G47.33 Obstructive sleep apnea (adult) (pediatric); K59.00 Constipation, unspecified; R55 Syncope and collapse; E86.1 Hypovolemia; Z79.899 Other long term (current) drug therapy; F40.240 Claustrophobia; R19.5 Other fecal abnormalities; M06.9 Rheumatoid arthritis, unspecified; M35.3 Polymyalgia rheumatica; R00.1 Bradycardia, unspecified; R42 Dizziness and giddiness; R07.89 Other chest pain; E87.6 Hypokalemia; F32.A Depression, unspecified; L89.521 Pressure ulcer of left ankle, stage 1; F41.9 Anxiety disorder, unspecified; E78.00 Pure hypercholesterolemia, unspecified; Z66 Do not resuscitate; I44.0 Atrioventricular block, first degree; I44.4 Left anterior fascicular block; L73.9 Follicular disorder, unspecified; I95.9 Hypotension, unspecified
CPT/HCPCS: 36600; 70450; 71045; 74177; 80048; 80053; 81003; 81015; 82607; 82728; 82746; 82805; 82962; 83036; 83540; 83550; 83735; 83880; 84100; 84443; 84484; 85025; 85027; 87045; 87046; 87077; 87086; 87324; 87427; 87449; 87798; 87811; 93005; 93308; 94660; 96360; 97163; 97167; 97530; 97535; 99285; Q9967

== ENCOUNTER 2025-02-22 23:51 | Observation (INO) | payer OTHER, MEDICARE, SELFPAY ==
[2025-02-22] VITALS (22 sets, daily range): BP systolic 102–136; BP diastolic 59–105; BMI 28.1
--- NOTE | 2025-02-22 09:03 | ED.GENMED ---
History of Present Illness
<Martha Bojorquez, AGRICULTURE DEPARTMENT CHAIR - Last Filed: 02/23/25 16:02>
General
Chief Complaint: Chest Pain
Source: patient and family (daughter at bedside)
Exam Limitations: none
Time Seen by Provider: 02/22/25 08:51
Nursing documentation reviewed up to this point in time: agreed with
History of Present Illness
History of Present Illness:
79 yo male w h/o Parkinson's, Prostate CA declining treatment and PSA rising per daughter, RA, NIDDM, presents with daughter with whom he lives, with chest pain that began at approximately 7:20 AM and radiates down the left arm. The pain is
described as an '8 out of 10' squeezing sensation. The patients daughter reported increased tremors and dizziness, which she attributes to a side effect of carbidopa/levodopa (Sinemet), recently reversed to a prior dose due to side effects. [facility] and [facility] are aware of these, the dizziness is chronic but states it was worse this a.m.
The patient is under the care of a primary doctor, Dr. Tone Gurrola, and neurologists Dr. Sanchez and [facility] They have been informed of the patients conditions.
Pt denies nausea, vomiting, or abdominal discomfort, but the patient did experience lightheadedness this morning.
Daughter and friend at beside state he was sitting, leaning over and drooling at one point and they had to push him back up' to sitting position. There was no LOC
Past History
<Martha Bojorquez, AGRICULTURE DEPARTMENT CHAIR - Last Filed: 02/23/25 16:02>
Past History
ED Past Medical History: Cancer, NIDDM and Other (Guillain-Chand�, Parkinson's disease, RA)
ED Past Surgical History: Other
Social History
Tobacco: Non-smoker
Alcohol: None
Drug: None
Personal:
Living: with family
Employment: Employed
Review of Systems
<Martha Bojorquez, AGRICULTURE DEPARTMENT CHAIR - Last Filed: 02/23/25 16:02>
Review of Systems
Allergies reviewed?: Yes
All Other Systems: ROS reviewed and negative except as documented in HPI and ROS
Phy Exam
<Martha Bojorquez, AGRICULTURE DEPARTMENT CHAIR - Last Filed: 02/23/25 16:02>
Physical Exam
Physical Exam:
GENERAL: No acute distress. A&Ox3.
CONSTITUTIONAL: Afebrile.
EYES: clear, conjunctivae normal
ENMT: moist mucus membranes, Pharynx nl
RESPIRATORY: Regular respirations, nonlabored, lungs clear.
CARDIOVASCULAR: Regular rate and rhythm, no murmurs, no rubs.
GI: Soft, nontender, normal BS
MUSCULOSKELETAL: Moves with ease. Well perfused. No edema
SKIN: Warm, dry, pink
PSYCH: Normal mood and affect. Well kept, interactive and appropriate
NEUROLOGIC: Awake, alert and oriented. Speech clear. Mild tremor of Parkinson's, No focal neurological deficits
Scores
<WENDY TrianaNP - Last Filed: 02/22/25 21:46>
Heart Score for Chest Pain Patients
STEMI patient?: Not applicable
Course
<Martha Bojorquez, AGRICULTURE DEPARTMENT CHAIR - Last Filed: 02/23/25 16:02>
Orders/Labs/Results
Orders:
Orders
02/22/25 08:03
Electrocardiogram (*1) Urgent
Reason for Study: Chest Pain
EKG- Treatment ONCE
02/22/25 09:01
Nitroglycerin Sublingual [Nitrostat (Sublingual)] 0.4 mg SL NOW STA
02/22/25 09:02
CR Chest Portable - 1 View Urgent
Comment:
Reason For Exam: Chest pain
Reason Study Needs to be Portable: Patient Unstable
02/22/25 09:12
Basic Metabolic Panel Urgent
Complete Blood Count/With Diff Urgent
PTT Urgent
Prothrombin Time Urgent
Troponin I Urgent
02/22/25 09:14
Aspirin 325 mg PO NOW STA
02/22/25 10:39
Mag Hydrox/Al Hydrox/Simeth [Maalox] 30 ml Phenobarb/Hyoscy/Atropine/Scop [] 10 ml Viscous Lidocaine 2% [Xylocaine Viscous Cup] 10 ml PO NOW
02/22/25 10:42
Mag Hydrox/Al Hydrox/Simeth [Maalox] 30 ml .ROUTE .STK-MED ONE
Phenobarb/Hyoscy/Atropine/Scop [] 10 ml .ROUTE .STK-MED ONE
Viscous Lidocaine 2% [Xylocaine Viscous Cup] 15 ml .ROUTE .STK-MED ONE
02/22/25 10:50
Magnesium Urgent
Potassium Urgent
02/22/25 11:57
Troponin I Urgent
02/22/25 14:01
CT Head W/o Iv Contrast Urgent
Comment:
Reason For Exam: episode lethargy
02/22/25 16:11
Straight cath- Treatment ONCE
02/22/25 16:41
Urinalysis Reflex To Culture Urgent
Date Specimen was Collected: 02/22/25
Time Specimen was Collected: 16:30
Urine Microscopic Reflex Cult Urgent
02/22/25 18:38
Electrocardiogram (*1) Urgent
Reason for Study: Chest Pain
EKG- Treatment ONCE
02/22/25 19:36
Troponin I Urgent
02/22/25 21:38
0.9% Sodium Chloride 1000 ml [Nss] 1,000 ml IV BOLUS
02/22/25 22:53
Admit/Transfer Patient As Directed
Co-Sign Provider:
Level of Care: Observation services
Assign to:: Telemetry
Physician / Group: Baljit
Diagnosis: Chest Pain, Syncope
Reason for Telemetry: Chest Pain syndromes
Date to Stop Telemetry: 02/24/25
Time to Stop Telemetry: 11:00
PRN Pain Medication Management As Directed
May give lesser potent ordered pain med per pt: Yes
preference::
Protocol:: Medication orders for pain may be administered in a
manner that supports deferring to patient preference
when the pt is:
- Requesting an ordered lesser potent pain medication.
Least to most potent pain medications are defined
as: acetaminophen < NSAID < tramadol < opioids
(morphine, oxycodone, hydromorphone).
- Requesting a lesser dose of the same medication IF
ORDERED.
- Requesting a less intrusive route of administration
if both routes are prescribed by the provider (PO <
IV).
02/22/25 22:54
Code Status As Directed
Resuscitation Status: Full Code
02/23/25 01:01
Acetaminophen [Tylenol] 650 mg PO Q4HPRN PRN
02/23/25 01:01
Activity As Directed
Activity Level: Ambulate
With Assistance
Bladder Scan As Directed
Follow Bladder Retention/Intermittent Cath Algorithm?: Yes
PRN if no void in __ hours: 6
Frequency: Per Retention Algorithm
If Bladder Scan Result >: 400
then:: Straight cath
EKG with chest pain [ECG as needed] As Directed
ECG as needed for:: Chest Pain
I/O [Intake/ Output] As Directed
Frequency: Per unit guidelines
Orthostatic Vital Signs As Directed
Orthostatic VS Frequency: BID
Pneumatic Compression Sleeves As Directed
Type: Knee high
Straight Cath As Directed
Frequency: Per Retention Algorithm
Additional Instructions: straight cath as needed per acute urinary retention algorithm for 24 hrs
Additional Instructions: for bladder scan greater than 400 mL
Teds [Anti-embolism (ELVIS) Hose] As Directed
Type: Thigh high
Vital Signs As Directed
Frequency: Per unit guidelines
Weight As Directed
Frequency: Daily
Ot Eval And Treat Routine
PT Consult [Pt Eval And Treat] Routine
Activity Level: Ambulate
With Assistance
DX Deep Vein Thrombosis Video Routine
02/23/25 01:58
TSH Reflex To Free T4 Routine
02/23/25 03:21
Basic Metabolic Panel IN AM
Cardiovascular Evaluation IN AM
Complete Blood Count/No Diff IN AM
02/23/25 Breakfast
Regular
At Your Request: Full Participation
02/23/25 08:00
Aspirin Chewable [Low Strength Aspirin] 81 mg PO DAILY
Cyanocobalamin [Vitamin B-12] 1,000 mcg PO DAILY
Duloxetine Delayed Release [Cymbalta Delayed Release] 60 mg PO DAILY
Heparin 5,000 units SC Q12
02/23/25 08:30
Carbidopa/Levodopa [Sinemet 25-100] 2 tablet PO TID@0830,1230,1630
02/23/25 22:00
Mirtazapine [Remeron] 30 mg PO HS
02/24/25 11:00
DC Protocol for Telemetry ONCE
Abnormal Lab Results
02/22/25 02/22/25
09:12 16:41
RBC 4.24 L 10^6/uL
(4.70-6.10)
MCV 103.1 H fL
(80.0-94.0)
MCH 34.2 H pg
(27.0-31.0)
RDW 14.6 H %
(11.5-14.5)
Absolute Monos (auto) 0.7 H 10^3/uL
(0.1-0.6)
Monocytes % 9.4 H %
(1.7-9.3)
Glucose 153 H mg/dl
(70-99)
Urine Ketones 1+ A
(Negative)
Ur Occult Blood Reflex 1+ A
(Negative)
Urine RBC 11-15 A /HPF
(0-2)
Urine Bacteria (Reflex) Few A
(Negative)
Urine Albumin (Reflex) 2+ A
(Neg - Trace)
02/22/25 09:12
02/22/25 10:50
Vital Signs
Initial and Last Documented VS:
Initial Vital Signs
Temp Pulse Resp BP Pulse Ox
97.5 F 60 16 136/63 98
02/22/25 08:14 02/22/25 08:14 02/22/25 08:14 02/22/25 08:14 02/22/25 08:14
Last Documented Vital Signs
Temp Pulse Resp BP Pulse Ox
97.9 F 67 18 128/68 96
02/23/25 15:48 02/23/25 15:48 02/23/25 15:48 02/23/25 15:48 02/23/25 15:48
<VINEET Triana - Last Filed: 02/22/25 21:46>
Orders/Labs/Results
Orders:
Orders
02/22/25 08:03
Electrocardiogram (*1) Urgent
Reason for Study: Chest Pain
EKG- Treatment ONCE
02/22/25 09:01
Nitroglycerin Sublingual [Nitrostat (Sublingual)] 0.4 mg SL NOW STA
02/22/25 09:02
CR Chest Portable - 1 View Urgent
Comment:
Reason For Exam: Chest pain
Reason Study Needs to be Portable: Patient Unstable
02/22/25 09:12
Basic Metabolic Panel Urgent
Complete Blood Count/With Diff Urgent
PTT Urgent
Prothrombin Time Urgent
Troponin I Urgent
02/22/25 09:14
Aspirin 325 mg PO NOW STA
02/22/25 10:39
Mag Hydrox/Al Hydrox/Simeth [Maalox] 30 ml Phenobarb/Hyoscy/Atropine/Scop [] 10 ml Viscous Lidocaine 2% [Xylocaine Viscous Cup] 10 ml PO NOW
02/22/25 10:42
Mag Hydrox/Al Hydrox/Simeth [Maalox] 30 ml .ROUTE .STK-MED ONE
Phenobarb/Hyoscy/Atropine/Scop [] 10 ml .ROUTE .STK-MED ONE
Viscous Lidocaine 2% [Xylocaine Viscous Cup] 15 ml .ROUTE .STK-MED ONE
02/22/25 10:50
Magnesium Urgent
Potassium Urgent
02/22/25 11:57
Troponin I Urgent
02/22/25 14:01
CT Head W/o Iv Contrast Urgent
Comment:
Reason For Exam: episode lethargy
02/22/25 16:11
Straight cath- Treatment ONCE
02/22/25 16:41
Urinalysis Reflex To Culture Urgent
Date Specimen was Collected: 02/22/25
Time Specimen was Collected: 16:30
Urine Microscopic Reflex Cult Urgent
02/22/25 18:38
Electrocardiogram (*1) Urgent
Reason for Study: Chest Pain
EKG- Treatment ONCE
02/22/25 19:36
Troponin I Urgent
02/22/25 21:38
0.9% Sodium Chloride 1000 ml [Nss] 1,000 ml IV BOLUS
02/22/25 22:53
Admit/Transfer Patient As Directed
Co-Sign Provider:
Level of Care: Observation services
Assign to:: Telemetry
Physician / Group: Baljit
Diagnosis: Chest Pain, Syncope
Reason for Telemetry: Chest Pain syndromes
Date to Stop Telemetry: 02/24/25
Time to Stop Telemetry: 11:00
PRN Pain Medication Management As Directed
May give lesser potent ordered pain med per pt: Yes
preference::
Protocol:: Medication orders for pain may be administered in a
manner that supports deferring to patient preference
when the pt is:
- Requesting an ordered lesser potent pain medication.
Least to most potent pain medications are defined
as: acetaminophen < NSAID < tramadol < opioids
(morphine, oxycodone, hydromorphone).
- Requesting a lesser dose of the same medication IF
ORDERED.
- Requesting a less intrusive route of administration
if both routes are prescribed by the provider (PO <
IV).
02/22/25 22:54
Code Status As Directed
Resuscitation Status: Full Code
02/23/25 01:01
Acetaminophen [Tylenol] 650 mg PO Q4HPRN PRN
02/23/25 01:01
Activity As Directed
Activity Level: Ambulate
With Assistance
Bladder Scan As Directed
Follow Bladder Retention/Intermittent Cath Algorithm?: Yes
PRN if no void in __ hours: 6
Frequency: Per Retention Algorithm
If Bladder Scan Result >: 400
then:: Straight cath
EKG with chest pain [ECG as needed] As Directed
ECG as needed for:: Chest Pain
I/O [Intake/ Output] As Directed
Frequency: Per unit guidelines
Orthostatic Vital Signs As Directed
Orthostatic VS Frequency: BID
Pneumatic Compression Sleeves As Directed
Type: Knee high
Straight Cath As Directed
Frequency: Per Retention Algorithm
Additional Instructions: straight cath as needed per acute urinary retention algorithm for 24 hrs
Additional Instructions: for bladder scan greater than 400 mL
Teds [Anti-embolism (ELVIS) Hose] As Directed
Type: Thigh high
Vital Signs As Directed
Frequency: Per unit guidelines
Weight As Directed
Frequency: Daily
Ot Eval And Treat Routine
PT Consult [Pt Eval And Treat] Routine
Activity Level: Ambulate
With Assistance
DX Deep Vein Thrombosis Video Routine
02/23/25 01:58
TSH Reflex To Free T4 Routine
02/23/25 03:21
Basic Metabolic Panel IN AM
Cardiovascular Evaluation IN AM
Complete Blood Count/No Diff IN AM
02/23/25 Breakfast
Regular
At Your Request: Full Participation
02/23/25 08:00
Aspirin Chewable [Low Strength Aspirin] 81 mg PO DAILY
Cyanocobalamin [Vitamin B-12] 1,000 mcg PO DAILY
Duloxetine Delayed Release [Cymbalta Delayed Release] 60 mg PO DAILY
Heparin 5,000 units SC Q12
02/23/25 08:30
Carbidopa/Levodopa [Sinemet 25-100] 2 tablet PO TID@0830,1230,1630
02/23/25 22:00
Mirtazapine [Remeron] 30 mg PO HS
02/24/25 11:00
DC Protocol for Telemetry ONCE
Abnormal Lab Results
02/22/25 02/22/25
09:12 16:41
RBC 4.24 L 10^6/uL
(4.70-6.10)
MCV 103.1 H fL
(80.0-94.0)
MCH 34.2 H pg
(27.0-31.0)
RDW 14.6 H %
(11.5-14.5)
Absolute Monos (auto) 0.7 H 10^3/uL
(0.1-0.6)
Monocytes % 9.4 H %
(1.7-9.3)
Glucose 153 H mg/dl
(70-99)
Urine Ketones 1+ A
(Negative)
Ur Occult Blood Reflex 1+ A
(Negative)
Urine RBC 11-15 A /HPF
(0-2)
Urine Bacteria (Reflex) Few A
(Negative)
Urine Albumin (Reflex) 2+ A
(Neg - Trace)
02/22/25 09:12
02/22/25 10:50
Vital Signs
Initial and Last Documented VS:
Initial Vital Signs
Temp Pulse Resp BP Pulse Ox
97.5 F 60 16 136/63 98
02/22/25 08:14 02/22/25 08:14 02/22/25 08:14 02/22/25 08:14 02/22/25 08:14
Last Documented Vital Signs
Temp Pulse Resp BP Pulse Ox
97.9 F 67 18 128/68 96
02/23/25 15:48 02/23/25 15:48 02/23/25 15:48 02/23/25 15:48 02/23/25 15:48
Glue Jointer Feeder consulted with Physician
Glue Jointer Feeder consulted with physician?: Yes
Name of Physician Consulted: juan m
<Martha Bojorquez, AGRICULTURE DEPARTMENT CHAIR - Last Filed: 02/23/25 16:02>
MDM/Problems Addressed
Differential Diagnosis Includes:
AL, ACS, CVA, TIA, autonomic dysfunction r/t Parkinson's
MDM/Problems Addressed:
79 yo male w h/o Parkinson's, Prostate CA dx 3 yrs ago, declining treatment and PSA rising per daughter, RA, NIDDM, presents with daughter with whom he lives, with chest pain that began at approximately 7:20 AM and radiates down the left arm. The
pain is described as an '8 out of 10' squeezing sensation. The patients daughter reported increased tremors and dizziness, which she attributes to a side effect of carbidopa/levodopa (Sinemet), recently reversed to a prior dose due to side effects.
[facility] and [facility] are aware of these, the dizziness is chronic but states it was worse this a.m.
The patient is under the care of a primary doctor, Dr. Tone Gurrola, and neurologists Dr. Sanchez and Dr. Nunez through [facility]. They have been informed of the patients conditions.
Pt denies nausea, vomiting, or abdominal discomfort, but the patient did experience lightheadedness this morning.
Daughter and friend at beside state he was sitting, leaning over and drooling at one point and they had to push him back up' to sitting position. There was no LOC
EKG: Sinus bradycardia HR 55 w 1st degree block
Plan: Serial Troponin, NTG SL now and reassess.CXR, labs, for potential cardiac origin. Daughter gave ASA 81 mg this a.m
9:50 AM:
In to reevaluate patient, no relief of chest pain after nitroglycerin. Upon further exam of his abdomen he has mild left lower quadrant tenderness but was recently admitted and treated for diverticulitis and he states he had this discomfort on
discharge and it has not changed. Daughter at bedside states he has not been complaining of abdominal pain.
CBC with no clinically significant abnormality
CMP normal
Troponin normal
Awaiting second troponin results. Patient and family updated
1:45 p.m.
CXR : RUL pulmonary nodule unchanged, daughter states is known
Troponin #2 is WNL
After GI cocktail, no change in the left upper chest pain. Pain is immediately reproducible with palpation. No indication of cardiac etiology.
Daughter updated via phone, she was concerned about the short episode where patient kind of just leaned forward and was drooling, she confirms that as soon as his friend pushed him back up into a sitting position he was awake but still 'a little out
of it for a couple of minutes. I will get head CT to rule out CVA, I will also check his urine for infection
5:00 p.m.
Case discussed with Serenity Avila NP who will assume care from this point.
Head CT pending
Wonlt;Martha Bojorquez NP - Last Filed: 02/23/25 16:02>
*Pulse Oximetry
SaO2: 98
Oxygen Mode of Delivery: Room air
Patient hypoxic: no
*EKG
EKG Intrepretation Date: 02/22/25
Interpretation: abnormal
Comparison EKG: no changes
Heart Rate: 55
Rate: bradycardiac
Rhythm: sinus
Bison: normal axis
Interval: first degree heart block
QRS Pattern: normal QRS
Ischemia: no ischemia
<VINEET Triana - Last Filed: 02/22/25 21:46>
*Critical Care Note
Total Time (30-74mins, 75-104mins- exclusive of procedures): Not Applicable
<VINEET Triana - Last Filed: 02/22/25 21:46>
Update Note
Update Note:
Assumed care of patient.
Patient is chest pain-free.
I did review history. Patient has had episodes of syncope in the past. He was admitted in December and cardiology did evaluate patient for this. Daughter also reports that he wore a Holter monitor after that admission which was negative.
Will check a second troponin however if negative will plan to discharge home on chest pain hotline
CAT scan of his head done and negative.
Patient resting comfortably eating at this time.
2000: Second troponin done increased however still within normal limits. Patient however was given an ambulation trial and upon standing felt like he was going to pass out again. He does have a history of syncope in the past however with continued
symptoms along with chest pain will require admission for observation and monitoring
ED Attending Note
<Martha Bojorquez NP - Last Filed: 02/23/25 16:02>
-
Portions of this chart may have been created with voice recognition software.� Occasional wrong word or��sound alike� substitutions may have occurred due to the inherent limitations of voice recognition software.
Discharge Plan
Departure
Patient Disposition: Admit
Date of Disposition: 02/22/25
Time of Disposition: 21:44
Admit to: Telemetry
Admit to doctor: hospitalist
Presentation/result/management discussed w/ accepting MD/DO: Hospitalist
Patient with high blood pressure during this ER visit?: No
Condition: Fair
Covid-19: Not Applicable
Discharge Problem:
Chest pain, Syncope
Interventions
Interventions:
*Risk Screen - Suicide Last Done: 02/22/25 08:04
*General Assessment Last Done: 02/22/25 09:24
*Neglect/Abuse Screening Last Done: 02/22/25 08:04
*ED COVID-19 Vaccine History Last Done: 02/22/25 09:26
*ED Influenza Vaccine History Last Done: 02/22/25 09:26
[facility] Fall Risk Assessment Tool Last Done: 02/22/25 10:35
*Nursing Disposition Last Done: 02/23/25 00:49
ED- Cardiac Assessment Last Done: 02/22/25 09:27
Discharge Date and Time
Discharge Date/Time: 02/23/25 00:52
[2025-02-22] MEDS: NITROSTAT (SUBLINGUAL) 0.4 MG SL (09:09)
[2025-02-22 09:20] LABS: Hematocrit 43.7 % (39.0-52.0); Hemoglobin 14.5 g/dL (13.0-18.0); Mean Corp Hgb Conc. 33.2 g/dL (33.0-37.0); Mean Corpuscular Volume 103.1 fL (80.0-94.0); Nucleated Red Blood Cells % 0 % (-); Platelet Count 303 10^3/uL (130-400); Red Cell Dist. Width 14.6 % (11.5-14.5)
[2025-02-22] MEDS: ASPIRIN 325 MG PO (09:22)
[2025-02-22 09:33] LABS: INR 1.06; PT 13.9 Sec (11.4-14.6)
[2025-02-22 09:34] LABS: APTT 27.6 Sec (23.4-35.0)
[2025-02-22 09:46] LABS: Troponin I < 0.012 ng/ml
[2025-02-22 09:52] LABS: Blood Urea Nitrogen 12 mg/dl (9-20); Calcium 9.0 mg/dl (8.4-10.2); Carbon Dioxide 29 mmol/L (22-30); Chloride 104 mmol/L (98-107); Estimated Creatinine Clearance 111 ml/min; Glucose 153 mg/dl (70-99); Sodium 138 mmol/L (135-145); eGFR > 60.00
[2025-02-22] MEDS: MAALOX 50 PO (10:44)
[2025-02-22 11:36] LABS: Magnesium 2.2 mg/dl (1.6-2.3); Potassium 4.1 mmol/L (3.5-5.1)
[2025-02-22 12:32] LABS: Troponin I < 0.012 ng/ml
[2025-02-22 16:49] LABS: Urine Character Clear (Clear)
[2025-02-22 16:58] LABS: Urine Squamous Cell 0-2 /LPF (Few); Urine White Cell 0-2 /HPF (0-5)
--- NOTE | 2025-02-22 19:54 | EDRN ---
Report received, introduced myself to patient and did repeat troponin and EKG, patient reports he is not having any chest pain, family is at bedside, no further complaints, call ramirez in reach.
[2025-02-22 20:06] LABS: Troponin I 0.014 ng/ml
--- NOTE | 2025-02-22 20:45 | EDRN ---
Tech tried to stand patient and he got dizzy, Jyothi, CRUDE [employer] DRIVER aware and will be admitting the patient.
[2025-02-22] MEDS: NSS 1000 IV (22:06)
--- NOTE | 2025-02-22 22:58 | HPS.HSE ---
Family Physician
-
Family Physician: Tone Mccord
Chief Complaint
-
Chest Pain, Unresponsive episodes
History of Present Illness
Patient is a 79y M with PMH significant for Parkinson's disease and diverticular disease who presents to ED complaining of chest pain and syncopal / unresponsive episode. Patient complained of chest discomfort this AM. He was attempting to move
his bowels at the time. Shortly thereafter he had an episode of staring / unresponsiveness as witnessed by his daughter. He quickly returned to baseline and had no recollection of the event. There was no fall or injury. Patient was brought to
the ED for evaluation of his chest pain. He reports a 'squeezing' pain on the L side of his chest. He denies any associated SOB.
Patient was evaluated in the ED where EKG, labs, etc were unremarkable.
When he attempted to stand / ambulate, he became dizzy and had another episode of unresponsiveness. This also resolved quickly.
Daughter notes similar episodes during his prior hospitalization in December. These were attributed to volume loss / colitis / diarrhea at that time.
He denies any recent N/V/D. No urinary complaints.
Daughter does state that patient has had recent increase in symptoms of Parkinsonism including increased tremor, decreased speech and general bradykinesia. They increased his Sinemet a few weeks ago; however, there was no appreciable change and so
they returned to his prior dosing.
Medical History
Past Medical History
Past Medical History: Reports Other
Additional Past Medical History:
Parkinson's Disease
Diverticular Disease
Dyslipidemia
Guillain Holgate Syndrome
Prostate Cancer
Diet-Controlled DM-II
Anxiety / Depression
Melanoma
Past Surgical History: Reports Other
Additional Past Surgical History:
Melanoma Excision
Social History
Tobacco: Non-smoker
Alcohol: None
Drug: None
Living: With Family
Family History
Family History: Not pertinent
Allergies / Home Medications
Allergies reflects when Allergies were last updated in [facility].
Home Medications with original date entered in [facility]
Allergy/Medication List:
Allergies
Allergy/AdvReac Type Severity Reaction Status Date / Time
No Known Allergies Allergy Verified 12/01/24 11:43
Home Medications
calcium 250 mg (as carbonate)-vitamin D3 3.125 mcg (125 unit) tablet (Oyster Shell + D3) 1 tab PO DAILY Supplement 07/12/24
carbidopa 25 mg-levodopa 100 mg tablet 2 tab PO TID@0830,1230,1630 Neurological Condition 07/12/24
cyanocobalamin (vitamin B-12) 1,000 mcg tablet 1,000 mcg PO DAILY Supplement 07/12/24
ezetimibe 10 mg tablet 10 mg PO DAILY High Cholesterol 07/12/24
mirtazapine 30 mg tablet 30 mg PO DAILY@1630 Mental Health/Anxiety 07/12/24
therapeutic multivitamin 1 tab PO DAILY Supplement 07/12/24
duloxetine 60 mg capsule,delayed release 60 mg PO DAILY Mental Health/Anxiety #0 caps 11/01/24
aspirin 81 mg chewable tablet 81 mg PO DAILY Blood Clot Prevention/Tx 02/22/25
donepezil 10 mg tablet 10 mg PO DAILY Mental Health/Anxiety 02/22/25
miconazole nitrate 2 % topical powder (Miconazorb AF) 1 applic topical TID with each diaper change 02/22/25
Review of Systems
-
History Source: Patient and Family
A 12 point ROS was completed and negative except as noted: Yes
Constitutional: Reports Fatigue; Denies Fever or Chills
EENT: Denies Sore Throat
Respiratory: Denies Cough or Trouble Breathing
Cardiac: Reports Chest Pain and Syncope; Denies Diaphoresis or Palpitations
Abdomen/GI: Reports Constipated; Denies Abdominal Pain, Nausea, Vomiting, Diarrhea, Bloody Stools, Black Stools or Anorexia
: Denies Dysuria or Frequency
Musculoskeletal: Denies Joint Pain or Edema
Neurological: Reports Dizzy, Weakness and Other (Tremors); Denies Headache
Psych: Reports Depression; Denies Anxiety
Physical Exam
Vital Signs
Vital Signs
Temp Pulse Resp BP Pulse Ox
98.2 F 60 21 110/65 96
02/22/25 19:53 02/22/25 22:28 02/22/25 19:45 02/22/25 22:28 02/22/25 21:15
Physical Exam
General: Other (79y M with flat affect and in no evident distress.)
HEENT: Moist mucous membranes and PERRLA
Respiratory: Clear; No Wheezes, Rales or Rhonchi
Cardiac: S1/S2 and Regular Rhythm; No Murmur
GI: Soft, Non Distended, Normal Bowel Sounds and Other (Mild lower abdominal tenderness without rebound / guarding. Pos BS.)
Musculoskeletal: No Clubbing, No Cyanosis and No Edema
Neuro: Awake and Alert
Laboratory Results
-
02/22/25 09:12
02/22/25 10:50
Laboratory Results
PT 13.9 Sec (11.4-14.6) 02/22/25 09:12
INR 1.06 02/22/25 09:12
APTT 27.6 Sec (23.4-35.0) 02/22/25 09:12
Total Bilirubin Cancelled 02/22/25 09:12
AST Cancelled 02/22/25 09:12
ALT Cancelled 02/22/25 09:12
Alkaline Phosphatase Cancelled 02/22/25 09:12
Troponin I 0.014 ng/ml 02/22/25 19:36
Impression/Plan
-
A/P: Patient is a 79y M with PMH significant fort Parkinson's disease who presents to ED for evaluation of chest discomfort and unresponsive episode.
Chest Pain
- Observe overnight for further evaluation and treatment.
- Unclear etiology. EKG / troponin unremarkable thus far.
- Monitor on tele overnight.
- Follow for any new / worsening symptoms.
- Continue daily ASA.
Syncope / Unresponsive Episodes
- Suspect this is orthostasis secondary to progression of Parkinson's disease.
- Recent increase in symptoms noted per family including increased tremors, decreased speech production, etc.
- Episodes of dizziness and brief unresponsiveness / LOC have become more frequent.
- Monitor on tele as noted above to rule out other potential etiologies.
- TEDs stockings. PT / OT evaluations.
- Follow and document orthostatic signs.
- Would hold Aricept for now with contribution to borderline bradycardia / 1st degree AVB.
- Consider trial of midodrine if symptoms persist.
Diet-Controlled DM-II
- Recent A1C was 6.4%.
DVT Prophylaxis: Subcut Heparin
Code Status: Full
[2025-02-23] VITALS (13 sets, daily range): BP systolic 113–154; BP diastolic 60–92; PULSE 55–57; O2SAT 95–97
--- NOTE | 2025-02-23 00:51 | PTCARENOTE ---
Pt arrived to unit AAOx3, call ramirez in reach, bed locked, in lowest position, bed alarm in place. 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
[2025-02-23 03:39] LABS: Hematocrit 37.9 % (39.0-52.0); Hemoglobin 12.7 g/dL (13.0-18.0); Mean Corp Hgb Conc. 33.5 g/dL (33.0-37.0); Mean Corpuscular Volume 102.2 fL (80.0-94.0); Platelet Count 277 10^3/uL (130-400); Red Cell Dist. Width 14.6 % (11.5-14.5)
[2025-02-23 04:01] LABS: Blood Urea Nitrogen 13 mg/dl (9-20); Calcium 8.4 mg/dl (8.4-10.2); Carbon Dioxide 26 mmol/L (22-30); Chloride 106 mmol/L (98-107); Estimated Creatinine Clearance 111 ml/min; Glucose 117 mg/dl (70-99); HDL Cholesterol 31 mg/dl; LDL Cholesterol, Calculated 78 mg/dl; Potassium 4.0 mmol/L (3.5-5.1); Sodium 137 mmol/L (135-145); Very Low Density Lipoprotein 24 mg/dl (0-30); eGFR > 60.00
[2025-02-23 04:13] LABS: Troponin I < 0.012 ng/ml
--- NOTE | 2025-02-23 09:11 | CON.NEURO ---
Addendum entered and electronically signed by Harris Leone MD 02/23/25 13:00:
Studies reviewed.
I have personally examined the patient. I reviewed and agree with the YARN WRAPPER's Note.
My addenda:
Awake, alert, interactive. No acute distress. Episodic functional leaning to the right lasting for 10 seconds, with the patient able to speak during the event although eyes closed
Speech reduced output.
Follows 2-step requests w/ mild difficulty. No tremor.
Extra-ocular movements grossly intact.
Facial movements full and symmetric. Hearing intact to normal conversational volume.
Normal UE movements bilaterally.
Neck: full ROM.
Chest: no dyspnea
Heart: no JVD
Ext: (-) Clubbing, (-) Cyanosis, (-) Edema
IMPRESSIONS/RECOMMENDATIONS:
Abrupt onset of eye closure with body shifting to the right, most likely functional in nature in a patient with advanced Parkinson's
Differential diagnosis includes orthostatic dysfunction as the cause
Continue usual carbidopa levodopa 50/100 taken 2 tabs 3 times a day
Augment above therapy with the use of rotigotine patch 1 mg daily
Continue to follow orthostatic blood pressures
Provide abdominal binder, encourage fluids
Rehabilitation evaluations
Restart patient's usual donepezil
D/W patient / family / nursing
All questions answered.
Will continue to follow peripherally. Patient should follow-up with his usual outpatient neurologist.
Original Note:
Neuro Assessment/Plan
Assessment
Patient is a 79 yo male w h/o Parkinson's, Prostate CA declining treatment and PSA rising per daughter, RA, NIDDM, presented to [facility] on 02/22/2025 with daughter with whom he lives, for evaluation of chest pain and syncopal / unresponsive episode.
Head CT 02/22/2025: No acute intracranial abnormality noted. Stable mildly prominent ventricles which appears slightly out of proportion to volume loss which can be seen with normal pressure hydrocephalus in the correct clinical setting.
Head CT 12/01/2024: No acute intracranial abnormality noted. Moderate atrophy. Stable. Prominent ventricles out of portion to the sulci. This can be seen with normal pressure hydrocephalus. Stable.
Head CT 10/20/2024: No acute intracranial abnormality noted. No acute intracranial hemorrhage. No extra-axial collection. Central greater than cortical atrophy. No skull fracture.
Plan
Impression: abrupt change in mental status and unresponsiveness most likely do to orthostasis in a patient with Parkinson's disease
-check orthostatic vital signs BID, encourage fluids, abdominal binder
-continue carbidopa-levodopa 2 tabs TID
-start rivastigmine patch 4.6 mg daily, watch for nausea vomiting and diarrhea
-PT/OT evaluations
-fall precautions
All questions encouraged and answered, plan of care discussed with Dr. Leone, patient and daughter
Consultation
Order
Date of Consultation: 02/23/25
Requesting Provider: Hospitalist/ Dr. Live Pedersen
Reason for Consult: syncope
Subjective/Objective
Subjective Data
Date of Service: February 23, 2025
Patient is a 79 yo male w h/o Parkinson's, Prostate CA declining treatment and PSA rising per daughter, RA, NIDDM, presented to [facility] on 02/22/2025 with daughter with whom he lives, for evaluation of chest pain and syncopal / unresponsive episode.
Mayra and Dr. Melody Sanchez at the [place] are his usual neurologists. He has been on carbidopa-levodopa for 3 1/2 years always with dizziness. Has had tremor for 40 years. Takes 2 tabs of carbidopa-levodopa 25/100 TID, tried to increase but did not
tolerate this due to increased dizziness. Daughter does state that patient has had recent increase in symptoms of Parkinsonism including increased tremor, decreased speech and general bradykinesia. Patient was evaluated in the ED where EKG, labs,
etc were unremarkable. Head CT showed no acute intracranial abnormalities. On exam had witnessed syncopal episode while working with therapy. After going from sitting to standing and back to sitting patient became unresponsive for 30 seconds which
quickly resolved. Daughter notes similar episodes during his prior hospitalization in December. During episodes denies tongue/cheek biting and denies urinary or bowel incontinence. Has not been on any other medication for his Parkinson's disease
other than the carbidopa-levodopa.
Objective Data
Vital Signs
Temp Pulse Resp BP Pulse Ox
97.6 F 49 16 116/61 98
02/23/25 07:20 02/23/25 07:20 02/23/25 07:20 02/23/25 07:20 02/23/25 07:20
Lab Results
02/23/25 03:21
02/23/25 03:21
PT 13.9 Sec (11.4-14.6) 02/22/25 09:12
INR 1.06 02/22/25 09:12
APTT 27.6 Sec (23.4-35.0) 02/22/25 09:12
Sodium 137 mmol/L (135-145) 02/23/25 03:21
Potassium 4.0 mmol/L (3.5-5.1) 02/23/25 03:21
BUN 13 mg/dl (9-20) 02/23/25 03:21
Glucose 117 mg/dl (70-99) H 02/23/25 03:21
Calcium 8.4 mg/dl (8.4-10.2) 02/23/25 03:21
LDL Cholesterol, Calc 78 mg/dl 02/23/25 03:21
Patient Allergies
No Known Allergies Allergy (Verified 12/01/24 11:43)
Physical Exam
-
General: Appears Stated Age and Other (masked facies)
HEENT: Normocephalic and Atraumatic
Neck: Full Range of Motion
Respiratory: No Dyspnea
Cardiac: No JVD
GI: Non-tender
Skin: Unremarkable
Extremities: No Clubbing, No Cyanosis and No Edema
Psych: Confused; Negative Intact Judgement/Insight
Extended Neurological Exam
Mood & Affect: Mood Unremarkable
Attention Span & Concentration: Awake, Alert, Interactive and Other (oriented to person, place and time)
Memory: Reduced
Tremor: Continuous (b/l UE)
Speech: Hoarse
Cranial Nerve VII: Facial Symmetry: Normal Facial Symmetry
Cranial Nerve VIII: Hearing: Unremarkable Hearing to Normal Conversational Volume
Muscle Strength, Overall: Full Throughout
Coordination: Other (ataxia on right with bradykinesia )
Data Reviewed
-
CT Head: Report Reviewed and Image Reviewed
Medical Test Reports: Report Reviewed
Orthostatic Testing: Report Reviewed
Labs: Report Reviewed
Reviewed with: Physician, Patient and Family
Old Records: Summarized
Medications
-
Active Medications
Generic Name Dose Route Start Last Admin
Trade Name Freq PRN Reason Stop Dose Admin
Acetaminophen 650 mg 02/23/25 01:01
Acetaminophen 325 Mg Tablet PO 03/23/25 01:00
Q4HPRN PRN
Mild Pain / Temp > 101
Aspirin 81 mg 02/23/25 08:00
Aspirin 81 Mg Chewable Tablet PO 03/23/25 07:59
DAILY JUAN
Carbidopa/Levodopa 2 tablet 02/23/25 08:30
Carbidopa (25 Mg)/Levodopa (100 Mg) Regular Release Tablet PO 03/23/25 08:29
TID@0830,1230,1630 JUAN
Cyanocobalamin (Vitamin B12) 1,000 mcg 02/23/25 08:00
Cyanocobalamin (Vitamin B-12) 500 Mcg Tablet PO 03/23/25 07:59
DAILY JUAN
Duloxetine HCl 60 mg 02/23/25 08:00
Duloxetine Delayed Release 60 Mg Capsule PO 03/23/25 07:59
DAILY JUAN
Heparin Sodium 5,000 units 02/23/25 08:00
Heparin 5,000 Units/Ml 1 Ml Vial SC 03/23/25 07:59
Q12 JUAN
Mirtazapine 30 mg 02/23/25 22:00
Mirtazapine 30 Mg Tablet PO 03/23/25 21:59
HS JUAN
Sodium Chloride 0 flush 02/23/25 02:00
Sodium Chloride 0.9% (Flush) Syringe IV 03/23/25 01:59
PER PROTOCOL JUAN
Home Medications
�Medication �Instructions �Recorded
calcium 250 mg (as 1 tab PO DAILY Supplement 07/12/24
carbonate)-vitamin D3 3.125 mcg
(125 unit) tablet (Oyster Shell +
D3)
carbidopa 25 mg-levodopa 100 mg 2 tab PO TID@0830,1230,1630 07/12/24
tablet Neurological Condition
cyanocobalamin (vitamin B-12) 1,000 mcg PO DAILY Supplement 07/12/24
1,000 mcg tablet
ezetimibe 10 mg tablet 10 mg PO DAILY High Cholesterol 07/12/24
mirtazapine 30 mg tablet 30 mg PO DAILY@1630 Mental 07/12/24
Health/Anxiety
therapeutic multivitamin 1 tab PO DAILY Supplement 07/12/24
duloxetine 60 mg capsule,delayed 60 mg PO DAILY Mental 11/01/24
release Health/Anxiety #0 caps
aspirin 81 mg chewable tablet 81 mg PO DAILY Blood Clot 02/22/25
Prevention/Tx
donepezil 10 mg tablet 10 mg PO DAILY Mental 02/22/25
Health/Anxiety
miconazole nitrate 2 % topical 1 applic topical TID with each 02/22/25
powder (Miconazorb AF) diaper change
Past History
Past History
ED Past Medical History: Cancer, NIDDM and Other (Guillain-Chand�, Parkinson's disease, RA)
ED Past Surgical History: Other
Family/Social History
Tobacco: Non-smoker
Alcohol: None
Drug: None
Personal:
Living: with family
Employment: Employed
[2025-02-23] MEDS: SINEMET 25-100 2 TABLET PO ×3 (09:23→16:24)
[2025-02-23] MEDS: CYMBALTA DELAYED RELEASE 60 MG PO (09:24)
[2025-02-23] MEDS: HEPARIN 5000 UNITS SC ×2 (09:24→21:16)
[2025-02-23] MEDS: VITAMIN B-12 1000 MCG PO (09:24)
[2025-02-23] MEDS: LOW STRENGTH ASPIRIN 81 MG PO (09:24)
[2025-02-23] MEDS: NITROSTAT (SUBLINGUAL) 0.4 MG SL (10:29)
[2025-02-23] MEDS: NEUPRO 1 MG TRANSDERM (10:59)
[2025-02-23] MEDS: ARICEPT 10 MG PO (10:59)
[2025-02-23] MEDS: VITAMIN D3 (cholecalciferol) 125 MCG PO (10:59)
[2025-02-23] MEDS: ZETIA 10 MG PO (11:01)
[2025-02-23 11:32] LABS: Troponin I < 0.012 ng/ml
--- NOTE | 2025-02-23 12:31 | CON.CAR ---
Addendum entered and electronically signed by Jamshid Marsh MD 02/23/25 13:43:
Patient seen and examined in collaboration with OFFICE ENGINEER; agree with below.
- 79-year-old male with advanced Parkinson disease, hyperlipidemia, diabetes, and prostate cancer (declines treatment) admitted with syncope.
- The patient appears to have autonomic dysfunction (as a cause for syncope) secondary to his Parkinson disease.
- The patient underwent an echocardiogram on 12/08/2024 which revealed LVEF of 55%, no wall motion abnormalities with no obvious valvular abnormalities.
- Exam: Heart RRR, lungs CTA.
- Cardiac enzymes negative.
- Patient's chest pain is non-cardiac; appears to be musculoskeletal in etiology as it is reproducible on examination.
- No further cardiac recommendations at this time.
Original Note:
Consultation
Consultation Request
Date/Time Consultation Requested: 02/23/25 10:45a
Date/Time Consultation Performed: 02/23/25 11:30a
Requesting Provider: Dr. Pedersen
Performing Provider: VINEET Brown for Dr. Marsh
Reason for Consultation: chest pain
Medical History
-
Chief Complaint: chest pain
History of Present Illness:
Mr. Cannon is a 79 yo male with Parkinson's disease, HLD, NIDDM and prostate cancer (refusing treatment), who presents from home for a syncopal episode and chest pain. In the ER he tried to stand up and was dizzy then had an episode of
unresponsiveness that resolved quickly. He is admitted to the hospitalist service and we are consulted for chest pain. He described having crushing midsternal chest pain this am, no relief with SL NTG, EKG w/o ischemia, troponin x 3 < 0.012. He
is being seen by neurology as well, orthostatic vitals noted. Neurology recommends abdominal binder and compression stockings. He had these same symptoms back in December 2024 during hospitalization, chest pain was non-cardiac, echo showed no WMA
and EF 55%.
Past Medical History
Past Medical History: Other (as above)
Social History
Tobacco: Non-Smoker
Personal:
Living: With Family (lives with daughter)
Employment: Retired
Family History
Family History: Reviewed & Not Pertinent
Allergies / Home Medications
Allergy/AdvReac Type Severity Reaction Status Date / Time
No Known Allergies Allergy Verified 12/01/24 11:43
�Medication �Instructions �Recorded �Confirmed �Type
calcium 250 mg (as 1 tab PO DAILY Supplement 07/12/24 02/22/25 History
carbonate)-vitamin D3 3.125 mcg
(125 unit) tablet (Oyster Shell +
D3)
carbidopa 25 mg-levodopa 100 mg 2 tab PO TID@0830,1230,1630 07/12/24 02/22/25 History
tablet Neurological Condition
cyanocobalamin (vitamin B-12) 1,000 mcg PO DAILY Supplement 07/12/24 02/22/25 History
1,000 mcg tablet
ezetimibe 10 mg tablet 10 mg PO DAILY High Cholesterol 07/12/24 02/22/25 History
mirtazapine 30 mg tablet 30 mg PO DAILY@1630 Mental 07/12/24 02/22/25 History
Health/Anxiety
therapeutic multivitamin 1 tab PO DAILY Supplement 07/12/24 02/22/25 History
duloxetine 60 mg capsule,delayed 60 mg PO DAILY Mental 11/01/24 02/22/25 Rx
release Health/Anxiety #0 caps
aspirin 81 mg chewable tablet 81 mg PO DAILY Blood Clot 02/22/25 02/22/25 History
Prevention/Tx
donepezil 10 mg tablet 10 mg PO DAILY Mental 02/22/25 02/22/25 History
Health/Anxiety
miconazole nitrate 2 % topical 1 applic topical TID with each 02/22/25 02/22/25 History
powder (Miconazorb AF) diaper change
Review of Systems
-
History Source: Patient and Family (daughter)
Physical Exam
Vital Signs
Temp Pulse Resp BP Pulse Ox
97.5 F 59 18 113/61 96
02/23/25 11:44 02/23/25 11:44 02/23/25 11:44 02/23/25 11:44 02/23/25 11:44
Lab Results
02/23/25 03:21
02/23/25 03:21
Troponin I Cancelled 02/23/25 13:01
Physical Exam
General: Well Developed and No Apparent Distress
HEENT: Normocephalic
Respiratory: Clear and Non Labored Respirations
Cardiac: S1/S2 and Regular Rhythm
Breast: Deferred by me
GI: Soft and Non Distended
Rectal: Deferred by Provider
Genito-urinary: Clear Urine
Skin: Warm and Dry
Neuro: AO x 3 and Other (flat affect, upper extremity tremors b/l )
Psych: Calm
Impression / Plan
-
Chest pain - acute, recurrent.
- worse with palpation and movement.
- EKG w/o ischemia.
- troponin x 3 negative, < 0.012.
- echo 12/2024, for same complaint, w/o WMA, EF 55%.
- non-cardiac etiology.
Orthostasis - acute.
- symptomatic orthostatic hypotension.
- due to Parkinson's, neurology following and recommends abdominal binder and compression stockings.
- daughter states he wore an outpatient 2 week monitor from the [place], has not heard any results yet.
Parkinson's - on meds per neurology.
- started Rivastigmine patch today.
NIDDM - per hospitalist.
Data Reviewed
-
EKG: Tracing Personally Visualized and interpreted (SB with first degree AVB, LAFB)
Medical Tests (Nuc Med, Echo etc): Report Reviewed by me (echo 12/08/24: TDS, EF 55%, no change from 10/2024 echo.)
Labs: Labs Reviewed by me
Old Records: Reviewed
--- NOTE | 2025-02-23 13:37 | W.PN.HOSP.TC ---
Today's Communication/Plan
-
TEDs stockings. Abdominal binder
Resume Aricept
Continue carbidopa levodopa 50/100 taking 2 tabs 3 times daily
Add rotigotine patch 1 mg daily
ASA
Monitor on Tele
Assessment / Plan
Assessment / Plan
General: Other (79y M with flat affect and in no evident distress.)
HEENT: Moist mucous membranes and PERRLA
Respiratory: Clear; No Wheezes, Rales or Rhonchi
Cardiac: S1/S2 and Regular Rhythm; No Murmur
GI: Soft, Non Distended, Normal Bowel Sounds and Other (Mild lower abdominal tenderness without rebound / guarding. Pos BS.)
Musculoskeletal: No Clubbing, No Cyanosis and No Edema
Neuro: Awake and Alert
A/P: Patient is a 79y M with PMH significant fort Parkinson's disease who presents to ED for evaluation of chest discomfort and unresponsive episode.
Chest Pain
- Nonreproducible to my exam but was to cardiology; likely noncardiac origin
- Monitor on tele overnight
- Continue daily ASA.
Syncope / Unresponsive Episodes
- Suspect this is orthostasis secondary to progression of Parkinson's disease.
- Monitor on telemetry
- TEDs stockings. Abdominal binder PT / OT evaluations.
- Orthostatics negative
- Resume Aricept
� Continue carbidopa levodopa 50/100 taking 2 tabs 3 times daily
� Add rotigotine patch 1 mg daily
- Consider trial of midodrine if symptoms persist.
Diet-Controlled DM-II
- Recent A1C was 6.4%.
DVT Prophylaxis: Subcut Heparin
Code Status: Full
Anticipated Discharge: Within 24 hours
Subjective/Interval History
-
Date of Service: February 23, 2025
had crushing chest pain - non reproducible to palpation upon my exam but was to cardiology.
Objective Data
-
Labs:
Laboratory Results
02/23/25
03:21
WBC 6.8
Hgb 12.7 L
Hct 37.9 L
Plt Count 277
Sodium 137
Potassium 4.0
Chloride 106
Carbon Dioxide 26
BUN 13
Creatinine 0.7
Glucose 117 H
Calcium 8.4
Vital Signs:
Vital Signs
Temp Pulse Resp BP Pulse Ox
97.5 F 59 18 113/61 96
02/23/25 11:44 02/23/25 11:44 02/23/25 11:44 02/23/25 11:44 02/23/25 11:44
Review of Systems
-
History Source: Patient
All other systems: Not reviewed unless documented
Data Reviewed
-
CT Scan: Report Reviewed by me
Labs: Labs Reviewed by me
--- NOTE | 2025-02-23 16:34 | CM ---
CM met with patient at bedside.Patient was admitted under Observation with chest pain, syncope/unresponsive episodes. He has hx of Parkinsons Disease. Patient lives with his daughter, Bette in a 3rd floor condo with elevator access. He has a u walker
and wheelchair at home. Hs daughter provides daily assistance at home, and patient has private caregiver during daughter's work hrs. Patient confirmed that PCP is Dr. Tone Mccord and pharmacy is [facility].Patient previously had home therapies and VN
from [facility]. He plans to return home upon d/c. His daughter will provide transportation. SALINAS given.
Pt/OT are recommending home health. CECE spoke with patient's daughter. She is requesting to have patient referred back to [facility].
Plan: Home with daughter, [facility].
[2025-02-23] MEDS: REMERON 30 MG PO (21:17)
[2025-02-24 03:45] VITALS: BP 150/78
[2025-02-24 06:00] VITALS: BMI 28.6
[2025-02-24 07:20] VITALS: BP 143/74
[2025-02-24] MEDS: SINEMET 25-100 2 TABLET PO ×2 (08:42→12:29)
[2025-02-24] MEDS: HEPARIN 5000 UNITS SC (08:42)
[2025-02-24] MEDS: NEUPRO 1 MG TRANSDERM (08:42)
[2025-02-24] MEDS: ZETIA 10 MG PO (08:43)
[2025-02-24] MEDS: CYMBALTA DELAYED RELEASE 60 MG PO (08:43)
[2025-02-24] MEDS: ARICEPT 10 MG PO (08:43)
[2025-02-24] MEDS: VITAMIN B-12 1000 MCG PO (08:43)
[2025-02-24] MEDS: VITAMIN D3 (cholecalciferol) 125 MCG PO (08:43)
[2025-02-24] MEDS: LOW STRENGTH ASPIRIN 81 MG PO (08:43)
--- NOTE | 2025-02-24 09:06 | VNURNOTE ---
Home Health Liaison spoke with patient's daughter Bette to discuss [facility] nurse/therapy, visits, schedule and homebound status. Patient was recently DC'ed from services. Daughter is familiar with us and agreeable. She requested particular RN and PT
- I told her we would try but I can't promise the same staff. She verbalized understanding. Daughter is aware that [facility] will contact them for start of care within a few days after discharge from . She has contact number for [facility].
[facility] referral completed in [facility].
[2025-02-24 10:46] LABS: Hematocrit 41.6 % (39.0-52.0); Hemoglobin 14.0 g/dL (13.0-18.0); Mean Corp Hgb Conc. 33.7 g/dL (33.0-37.0); Mean Corpuscular Volume 102.2 fL (80.0-94.0); Platelet Count 282 10^3/uL (130-400); Red Cell Dist. Width 14.1 % (11.5-14.5)
[2025-02-24 11:18] VITALS: BP 159/79
[2025-02-24 12:40] LABS: Blood Urea Nitrogen 11 mg/dl (9-20); Calcium 8.9 mg/dl (8.4-10.2); Carbon Dioxide 28 mmol/L (22-30); Chloride 101 mmol/L (98-107); Estimated Creatinine Clearance 96 ml/min; Glucose 134 mg/dl (70-99); Potassium 4.1 mmol/L (3.5-5.1); Sodium 137 mmol/L (135-145); eGFR > 60.00
--- NOTE | 2025-02-24 13:16 | W.PN.HOSP.TC ---
Addendum entered and electronically signed by Live Pedersne MD 02/25/25 17:29:
[id number]
Original Note:
Today's Communication/Plan
-
Add rotigotine patch 1 mg daily
F/u Neuro, PCP outpt
Assessment / Plan
Assessment / Plan
General: Other (79y M with flat affect and in no evident distress.)
HEENT: Moist mucous membranes and PERRLA
Respiratory: Clear; No Wheezes, Rales or Rhonchi
Cardiac: S1/S2 and Regular Rhythm; No Murmur
GI: Soft, Non Distended, Normal Bowel Sounds and Other (Mild lower abdominal tenderness without rebound / guarding. Pos BS.)
Musculoskeletal: No Clubbing, No Cyanosis and No Edema
Neuro: Awake and Alert
A/P: Patient is a 79y M with PMH significant fort Parkinson's disease who presents to ED for evaluation of chest discomfort and unresponsive episode.
Chest Pain
- Nonreproducible to my exam but was to cardiology; noncardiac origin
- echocardiogram on 12/08/2024 which revealed LVEF of 55%, no wall motion abnormalities with no obvious valvular abnormalities.
- Cardiac enzymes negative.
- Patient's chest pain is non-cardiac; appears to be musculoskeletal in etiology
-ASA can be continued
Syncope / Unresponsive Episodes
- Suspect this is orthostasis secondary to progression of Parkinson's disease.
- Monitor on telemetry
- TEDs stockings. Abdominal binder PT / OT evaluations.
- Orthostatics negative
- Resume Aricept
� Continue carbidopa levodopa 50/100 taking 2 tabs 3 times daily
� Add rotigotine patch 1 mg daily
Diet-Controlled DM-II
- Recent A1C was 6.4%.
DVT Prophylaxis: Subcut Heparin
Code Status: Full
More than 30 minutes spent in discharge including
Final examination of the patient
Summarizing hospital stay
Instructions for continuing care to all relevant caregivers
Preparation of discharge records, prescriptions, and referral forms
Total time spent (in minutes): 36
Anticipated Discharge: Today
Subjective/Interval History
-
Date of Service: February 24, 2025
chest pain resolved
Objective Data
-
Labs:
Laboratory Results
02/24/25
09:51
WBC 5.6
Hgb 14.0
Hct 41.6
Plt Count 282
Sodium 137
Potassium 4.1
Chloride 101
Carbon Dioxide 28
BUN 11
Creatinine 0.8
Glucose 134 H
Calcium 8.9
Vital Signs:
Vital Signs
Temp Pulse Resp BP Pulse Ox
97.9 F 60 18 159/79 94
02/24/25 11:18 02/24/25 11:18 02/24/25 11:18 02/24/25 11:18 02/24/25 11:18
I&O
02/23/25 02/24/25 02/25/25
06:59 06:59 06:59
Intake Total 1000 / 1000
Balance 1000 / 1000
Review of Systems
-
History Source: Patient
All other systems: Not reviewed unless documented
Physical Exam
-
General: Well Developed, Well Nourished, No Apparent Distress and Comfortable
HEENT: Normocephalic, Atraumatic, Moist Mucous Membranes, No Ptosis, PERRLA and Nose Appears Normal
Respiratory: Clear to Auscultation and Non Labored Respirations
Cardiac: Regular Rhythm and S1/S2
Breast: Deferred by me
GI: Soft, Nontender, Nondistended and Normal Bowel Sounds
Genito-urinary: No Costovertebral Tender
Musculoskeletal: No Clubbing, No Cyanosis, No Edema and Other (Lower left leg lateral aspect with rounded area of cellulitis and possible redness)
Skin: Warm
Neuro: Awake, Alert, Oriented, AO x 3 and No Motor Deficits
Psych: Calm
Data Reviewed
-
CT Scan: Report Reviewed by me
Labs: Labs Reviewed by me
--- NOTE | 2025-02-24 13:33 | W.DS.TRANS ---
DC Summary - [employer]
-
Discharge Instructions:
Discharge Diagnosis/Procedures Syncope / Unresponsive Episodes
Chest Pain
Diet Low Cholesterol,Low Fat,Diabetic, Carb
Controlled
Activity As tolerated
Blood Work cbc and bmp in 3-5 days with pcp
Others Tests as per neurology
Instructions:
Stand-Alone Forms:
Changes to Home Medications: Yes
Discharge Medications:
DC Medications w/original date entered in [employer]
calcium 250 mg (as carbonate)-vitamin D3 3.125 mcg (125 unit) tablet (Oyster Shell + D3) 1 tab PO DAILY Supplement 07/12/24
carbidopa 25 mg-levodopa 100 mg tablet 2 tab PO TID@0830,1230,1630 Neurological Condition 07/12/24
cyanocobalamin (vitamin B-12) 1,000 mcg tablet 1,000 mcg PO DAILY Supplement 07/12/24
ezetimibe 10 mg tablet 10 mg PO DAILY High Cholesterol 07/12/24
mirtazapine 30 mg tablet 30 mg PO DAILY@1630 Mental Health/Anxiety 07/12/24
therapeutic multivitamin 1 tab PO DAILY Supplement 07/12/24
duloxetine 60 mg capsule,delayed release 60 mg PO DAILY Mental Health/Anxiety #0 caps 11/01/24
aspirin 81 mg chewable tablet 81 mg PO DAILY Blood Clot Prevention/Tx 02/22/25
donepezil 10 mg tablet 10 mg PO DAILY Mental Health/Anxiety 02/22/25
miconazole nitrate 2 % topical powder (Miconazorb AF) 1 applic topical TID with each diaper change 02/22/25
cholecalciferol (vitamin D3) 125 mcg (5,000 unit) tablet 125 mcg PO DAILY 30 days #30 tabs 02/24/25
rotigotine 1 mg/24 hour transdermal 24 hour patch (Neupro) 1 mg transdermal DAILY 30 days #30 ea 02/24/25
Home Medication Changes
cholecalciferol (vitamin D3) 125 mcg (5,000 unit) tablet 125 mcg PO DAILY 30 days #30 tabs 02/24/25
rotigotine 1 mg/24 hour transdermal 24 hour patch (Neupro) 1 mg transdermal DAILY 30 days #30 ea 02/24/25
Pending Results: No
--- NOTE | 2025-02-24 14:14 | CM ---
Patient is for discharge home today. He is returning home with his daughter, Bette. [facility] daughter will provide transport home.
Plan: Home with [facility]
== END 2025-02-24 14:59 | disposition home health service (06) ==
LOC: 4 WEST ACU 23:51
PROVIDERS: Nurse Practitioner; Registered Nurse; ADMITTING PHYSICIAN Hospitalist; ATTENDING PHYSICIAN Internal Medicine; CONSULT PHYSICIAN Internal Medicine; CONSULT PHYSICIAN Psychiatry & Neurology Neurology; EMERGENCY PHYSICIAN Student in an Organized Health Care Education/Training Program; FAMILY PHYSICIAN Internal Medicine
DX: R07.89 Other chest pain (principal); R55 Syncope and collapse; E11.9 Type 2 diabetes mellitus without complications; Z79.82 Long term (current) use of aspirin; Z79.899 Other long term (current) drug therapy; G20.A1 Parkinson's disease without dyskinesia, without mention of fluctuations; I95.1 Orthostatic hypotension; F32.A Depression, unspecified; F41.9 Anxiety disorder, unspecified; E78.5 Hyperlipidemia, unspecified; Z85.820 Personal history of malignant melanoma of skin
CPT/HCPCS: 70450; 71045; 80048; 80061; 81003; 81015; 83735; 84132; 84443; 84484; 85025; 85027; 85610; 85730; 93005; 96360; 97163; 97167; 99285; G0378